=== PATIENT | female | born 1945 | race Caucasian/White ===

== ENCOUNTER 2017-06-28 08:30 | Emergency (ER) | payer MEDICARE, OTHER ==
[~2017-06-28] VITALS: Ht 157.5 cm; Wt 66.7 kg
[~2017-06-28 08:30] MED LIST: ACETAMINOPHEN325 M1 PO; ADVAIR 250-501 EACH IH; ALBUTEROL SULF8.5 GM INH; ALBUTEROL2.5 MG/3 M IH; ALBUTEROL2.5 MG/3 M INH; AMLODIPINE BESYL5 MG PO; ASPIRIN EC81 MG PO; ATIVAN1 MG PO; BREO ELLIPTA I1 EACH INH; BUDEPRION XL150 MG PO; CLARITIN10 MG PO; CLONIDINE HCL0.1 MG PO; COMBIVENT INH14.7 GM INH; COZAAR100 MG PO; DIFLUCAN200 MG PO; DILT-CD240 MG PO; DILTIAZEM ER60 MG PO; DUONEB 0.5 MG-33 ML IH; DUONEB 0.5 MG-33 ML INH; FLONASE2 SPRAY; FOLIC ACID1 MG; FOLIC ACID1 MG PO; HYDROCHLOROTHIA25 MG PO; HYDROXYCHLOROQ200 MG PO; LEVAQUIN500 MG PO; LEVOTHROID125 MCG PO; LEVOTHROID137 MCG PO; LEVOTHYROXINE112 MCG PO; LIPITOR40 MG PO; LOMOTIL TABLET1 EACH PO; LORAZEPAM1 MG; METHOTREXATE2.5 MG PO; MIRALAX17 GM PO; MUCINEX DM ER1 EACH PO; NIFEDICAL XL60 MG PO; NIFEDIPINE ER60 M1 PO; NORCO 5-325 TA1 EACH PO; OMEPRAZOLE20 MG PO; PHENADOZ25 MG PR; PLAQUENIL200 MG PO; PLAVIX75 MG PO; PREDNISONE10 MG PO; PREVACID15 MG PO; PROMETHAZINE HC25 M1 PO; PROMETHAZINE12.5 M1 PO; QVAR INH; QVAR7.3 G1 IH; QVAR7.3 G1 INH; RANITIDINE HCL150 M1 PO; RANITIDINE HCL150 MG PO; SALINE NASAL SP45 ML NAS; SEREVENT DISKU1 PUFF IH; SIMVASTATIN20 MG PO; SIMVASTATIN40 MG PO; SPIRIVA18 MCG IH; SYNTHROID137 MCG PO; TERAZOSIN HCL1 MG PO; VENTOLIN HFA18 GM IH; ZOCOR40 MG PO; ZOFRAN8 MG PO
[2017-06-28] MEDS ORDERED: VENTOLIN HFA18 GM INH (08:55)
[2017-06-28] MEDS ORDERED: PREDNISONE20 MG PO (11:42)
[2017-06-28] MEDS ORDERED: ZITHROMAX250 MG PO (11:42)
--- NOTE | 2017-06-28 19:06 | EKG ---
[facility] [address] [facility] [place] [address] Signed Normal sinus rhythm Minimal voltage criteria for LVH, may be normal variant Nonspecific ST abnormality Abnormal ECG When compared with ECG of 15-DEC-2016 09:56, No significant change was found Confirmed by IRA CHING MD ([id number]) on 06/28/2017 7:06:36 PM Electronically Signed By: IRA CHING MD 06/28/17 1906 PATIENT NAME: YANDEL CA Electrocardiogram DATE OF : 45 PHYSICIAN: IRA CHING MD REPORT #: [id number] REPORT IS CONFIDENTIAL AND NOT TO BE RELEASED WITHOUT AUTHORIZATION
== END 2017-06-28 11:55 | disposition home or self-care (01) ==
LOC: ED 08:30
DX: J44.1 Chronic obstructive pulmonary disease with (acute) exacerbation (principal); I10 Essential (primary) hypertension; I25.10 Atherosclerotic heart disease of native coronary artery without angina pectoris; E03.9 Hypothyroidism, unspecified; K21.9 Gastro-esophageal reflux disease without esophagitis; F17.200 Nicotine dependence, unspecified, uncomplicated; Z95.5 Presence of coronary angioplasty implant and graft; Z90.710 Acquired absence of both cervix and uterus; Z90.49 Acquired absence of other specified parts of digestive tract; Z90.10 Acquired absence of unspecified breast and nipple; Z88.8 Allergy status to other drugs, medicaments and biological substances; Z79.899 Other long term (current) drug therapy
CPT/HCPCS: 71020; 80053; 84484; 85025; 93005; 93010; 94640; 96361; 96374; 99284; J2930; J7030

== ENCOUNTER 2017-06-29 22:11 | Inpatient (IN) | payer MEDICARE, SELFPAY ==
[~2017-06-29] VITALS: Ht 157.5 cm; Wt 72.6 kg
[~2017-06-29 22:11] MED LIST changes: +PREDNISONE20 MG PO; +VENTOLIN HFA18 GM INH; +ZITHROMAX250 MG PO
[2017-06-30] MEDS ORDERED: MAG-OXIDE200 MG PO (12:42)
--- NOTE | 2017-07-01 14:25 | EKG ---
[facility] [address] [facility] [place] [address] Signed Normal sinus rhythm with sinus arrhythmia Normal ECG When compared with ECG of 28-JUN-2017 08:38, No significant change was found Confirmed by ANA COOL MD ([id number]) on 07/01/2017 2:25:00 PM Electronically Signed By: ANA COOL MD 07/01/17 1425 PATIENT NAME: CLARE CARA AVILA Electrocardiogram DATE OF : 45 PHYSICIAN: ANA COOL MD REPORT #: [id number] REPORT IS CONFIDENTIAL AND NOT TO BE RELEASED WITHOUT AUTHORIZATION
--- NOTE | 2017-07-01 14:27 | EKG ---
[facility] [address] [facility] [place] [address] Signed Poor data quality, interpretation may be adversely affected Atrial fibrillation with rapid ventricular response Nonspecific ST and T wave abnormality Abnormal ECG When compared with ECG of 29-JUN-2017 22:15, (Unconfirmed) Atrial fibrillation has replaced Sinus rhythm Confirmed by ANA COOL MD ([id number]) on 07/01/2017 2:27:08 PM Electronically Signed By: ANA COOL MD 07/01/17 1427 PATIENT NAME: YANDEL CA Electrocardiogram DATE OF : 45 PHYSICIAN: ANA COOL MD REPORT #: [id number] REPORT IS CONFIDENTIAL AND NOT TO BE RELEASED WITHOUT AUTHORIZATION
[2017-07-03] MEDS ORDERED: ATIVAN1 MG PO (09:54)
[2017-07-29] MEDS ORDERED: NYSTATIN100000 UN1 PO (14:20)
== END 2017-07-07 10:20 | disposition swing bed (61) | DRG 189 ==
LOC: ED 22:11 → CCU 06-30 00:23 → MS 07-06 11:15
PROVIDERS: ADMIT Internal Medicine
PROC: 0BH17EZ Insertion of Endotracheal Airway into Trachea, Via Natural or Artificial Opening (ICD-10-PCS; principal; 2017-06-30)
PROC: 02HV33Z Insertion of Infusion Device into Superior Vena Cava, Percutaneous Approach (ICD-10-PCS; 2017-06-30)
DX: J96.21 Acute and chronic respiratory failure with hypoxia (principal); J44.1 Chronic obstructive pulmonary disease with (acute) exacerbation; J96.22 Acute and chronic respiratory failure with hypercapnia; J32.4 Chronic pansinusitis; R34 Anuria and oliguria; F41.8 Other specified anxiety disorders; E03.9 Hypothyroidism, unspecified; K21.9 Gastro-esophageal reflux disease without esophagitis; I25.10 Atherosclerotic heart disease of native coronary artery without angina pectoris; I10 Essential (primary) hypertension; G47.62 Sleep related leg cramps; I73.9 Peripheral vascular disease, unspecified; Z99.81 Dependence on supplemental oxygen
CPT/HCPCS: 31500; 31720; 36415; 36569; 36600; 51701; 71010; 80053; 80069; 82570; 82803; 83735; 83880; 84100; 84300; 84484; 84540; 85025; 85379; 85610; 85730; 93005; 93010; 93306; 94002; 94003; 94150; 94640; 94644; 94660; 94667; 97110; 97162; 97530; J0295; J1650; J2060; J2250; J2270; J2405; J2704; J2765; J2930; J3010; J7050; J7120; J7512; Q0177

== ENCOUNTER 2017-07-07 10:20 | Inpatient (IN) | payer MEDICARE ==
[~2017-07-07] VITALS: Ht 157.5 cm; Wt 72.6 kg
[~2017-07-07 10:20] MED LIST changes: +MAG-OXIDE200 MG PO
--- NOTE | 2017-07-07 10:41 | NUR ---
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
--- NOTE | 2017-07-07 13:25 | NUR ---
pt wanted to remove bipap. 4l 02 via nc placed. no further needs at this time.
--- NOTE | 2017-07-07 15:40 | NUR ---
PATIENT IS RELAXING IN BED SHE SHARI WANTS TO LAY AND SEE IF HER STOMACH SETTLES.
--- NOTE | 2017-07-07 16:55 | NUR ---
pt breathing equal and improved. able to talk well without breathing hard. wants to walk after dinnerbefore getting ready for bed. no pain at this time. call light and personal items at bedside. family at bedside. no nausea today.
--- NOTE | 2017-07-07 18:42 | NUR ---
SMOKER. SOB. BREATHING TREATMETNS WORKING. LUNGS CLREAER. STILL DIM. PREVIOUS INTUBATIONS X4. PT AND OT TO WORK WITH HER. WOULD LIKE TO EALK AFTER DINNER. DAILY AUGMENTEN. LOOSE STOOLS WITH ATIBIOTICS. 3L SATING @ 92%. SL RIGHT UPPER ARM. PICC. CARDIAC DIET. VSS. STA.SWING BED.
--- NOTE | 2017-07-07 19:26 | NUR ---
RECIEVED REPORT FROM DAY SHIFT NURSE. PATIENT RESTING IN BED. REQUESTED TO TAKE OFF BIPAP, NASAL CANNULA IN PLACE AT THIS TIME. PATIENT DENIES NEEDS. CALL LIGHT IN REACH.
--- NOTE | 2017-07-07 19:34 | NUR ---
PER PT REQUEST SHE WANTED ME TO TAKE OFF HER BI-PAP. PUT HER NASAL CANULA BACK ON. INFORMED HER RN THAT I DID THAT. CALL LIGHT AND BEDSIDE TABLE WITHIN REACH.
--- NOTE | 2017-07-07 20:18 | NUR ---
PATIENT AMNBULATED AROUND ROOM WITH SBA. DENIES SOB WITH WALKING IN ROOM. 4L VIA NASAL CANNULA IN PLACE. EXP WHEEZE HEARD IN CL[place]IS[place], DIMINISHED IN ALL LUNG MATHUR. BS ACTIVE, NO EMEMA NOTED. PATIENT DENIES PAIN AT THIS TIME. DENIES NEEDS, CALL LIGHT IN REACH.
--- NOTE | 2017-07-07 21:45 | NUR ---
VITALS AND I&OS DONE. PT REQUESTED A SAND BOX. WE GOT IT FOR HER. CALL LIGHT AND TABLE WITHIN REACH.
--- NOTE | 2017-07-07 22:23 | NUR ---
PLACED BIPAP ON PATIENT. DENIES FURTHER NEEDS. CALL LIGHT IN REACH.
--- NOTE | 2017-07-07 23:17 | NUR ---
PATIENT SLEEPING IN BED. NASAL CANNULA IN PLACE. CALL LIGHT IN REACH.
--- NOTE | 2017-07-08 01:30 | NUR ---
PATIENT SLEEPING ON L SIDE. REPOSITIONED INDEPENDENTLY. NASAL CANNULA IN PLACE. CALL LIGHT IN REACH.
--- NOTE | 2017-07-08 02:17 | NUR ---
PATIENT SITTING UPRIGHT IN BED COUGHING. COUGH IS NON-PRODUCTIVE. SWITCHED FROM OXYMASK TO NASAL CANNULA. PATIENT IS ON 3L/MIN O2. LUNGS ARE DIMINISHED THROUGHOUT, NO WHEEZES HEARD. PATIENT DENIES NEED FOR NEB TX AT THIS TIME. HR TACHY AT 100. TELE #7 SHOWING SINUS TACHYCARDIA. BOWEL TONES ACTIVE. NO EDEMA. PATIENT DENIES PAIN. CAFETERIA COOK ASSISTED PATIENT TO BATHROOM. PATIENT DENIES NEEDS, CALL LIGHT IN REACH.
--- NOTE | 2017-07-08 03:34 | NUR ---
PATIENT AWAKE. REQUESTING GRAPE JUICE ON ICE. DENIES FURTHER NEEDS. CALL LIGHT IN REACH.
--- NOTE | 2017-07-08 04:08 | NUR ---
RT ADMINISTERING NEB TX.
--- NOTE | 2017-07-08 04:32 | NUR ---
PATIENT CONCERNED SHE HAS SMALL AMOUNT OF BLOOD IN TISSUE WHEN SHE BLOWS HER NOSE. BIPAP PLACED ON PATIENT. DENIES FURTHER NEEDS. CALL LIGHT IN REACH.
--- NOTE | 2017-07-08 05:10 | NUR ---
PATIENT REQUESTING FOR VISTERIL. STATES SHE IS STARTING TO FEEL ANXIOUS AND SHE KNOWS WHEN HER "ANXIETY IS COMING ON." ASSISTED PATIENT TO BATHROOM. VOIDED. BACK TO BED. CEPACOL ADMINISTERED PER PATIENT REQUEST FOR "DRY MOUTH." PATIENT REQUESTING ICE CREAM. CALL DASH IN REACH.
--- NOTE | 2017-07-08 07:20 | NUR ---
PT RESTING IN BED EYES CLOSED. N.C. ON 4L OXYGEN. NO DISTRESS NOTED. BEDSIDE REPORT FROM MOOKIE PARKS. PT APPEARS TO BE SLEEPING
--- NOTE | 2017-07-08 08:07 | NUR ---
PATIENT JUST GOT A NEB. TREATMENT DONE. SHE IS NOW RESTING. PATIENT DOSEN'T WANT TO EAT HER FOOD RIGHT NOW.
--- NOTE | 2017-07-08 09:12 | NUR ---
PICC LINE DRESSING CHANGED WITH SECUREMENT DEVICE PLACED. PT TOLERATED WELL. SHE DID VERBALIZED DISCOMFORT WITH REMOVAL OF OLD PICC LINE DRESSING.
--- NOTE | 2017-07-08 11:00 | NUR ---
UPDATED ON PT CARE THIS AM. NOTED LOOSE STOOLS X2 AND THAT PT REPORTS THIS IS NORMAL FOR HER. PT ALSO ANXIOUS AND REQUESTS VISTRIL PRN. SHE REPORTS HER ANXIETY IS WORK RELATED.
--- NOTE | 2017-07-08 12:30 | NUR ---
PT UP TO SIMEON COMMODE FOR SECOND LOOSE BM THIS AM.
--- NOTE | 2017-07-08 13:36 | NUR ---
PT UP TO BEDSIDE COMMODE NOW WITH RETIREMENT ASSISTANT
--- NOTE | 2017-07-08 16:50 | NUR ---
PT RESTING IN BED REPORTS SHE WOULD LIKE A COFFEE, SHE REPORTS NO PAIN OR NAUSEA
--- NOTE | 2017-07-08 18:21 | NUR ---
PATIENT SAID SHE WOULD TAKE A SHOWER FIRST THING TOMORROW. SHE WAS VERY SLEEPY TODAY.
--- NOTE | 2017-07-08 18:45 | NUR ---
PT HAS HAD THREE LOOSE STOOLS THIS AM, PT REPORTS THAT HAPPENS WHEN SHE IS STRESSED. REPORTS STRESSED FROM WORK ISSUES. SHE HAS DENIED NAUSEA AND PAIN OVER SHIFT. SHE HAS HAD GOOD NUTRITIONAL INTAKE. GOOD URINE OUTPUT. PT ON 3L N.C. TOLERATING ACTIVITY WELL NO DYSPNEA NOTED WITH AMBULATION TO BATHROOM. BIPAP AT BEDSIDE FOR SLEEPING AND INTERMITTEN TOLERATED
--- NOTE | 2017-07-08 19:26 | NUR ---
RECIEVED REPORT FROM DAY SHIFT NURSE. PATIENT IN BED. USING SUCTION. CALL LIGHT IN REACH.
--- NOTE | 2017-07-08 20:27 | NUR ---
PATIENT IS UP IN THE CHAIR. CHARLY DAMICO NOTIFIED. PATIENT STATED JUST WANT TO SIT FOE A LITTLE WHILE, WILL CALL WHEN NEEDS TO GO BACK TO BED. CALL LIGHT IS WITHIN REACH.
--- NOTE | 2017-07-08 20:43 | NUR ---
PATIENT SITTING UPRIGHT IN CHAIR. LUNGS DIMINISHED, HR REGULAR, NO EDEMA. PATIENT IS CURRENTLY ON 3L VIA NC. PATIENT STATES THAT IS WHAT SHE IS CHRONICALLY ON AT HOME. PATIENT HAD A COUPLE LOOSE BMS TODAY. SHE SAYS THAT IS NORMAL WHEN SHE IS STRESSED. PATIENT STATES SHE HAS BEEN STRESSED LATELY ABOUT WORK AND SHE IS UNSURE IF SHE WILL BE ABLE TO KEEP WORKING. PATIENT DENIES NEEDS AT THIS TIME. CALL LIGHT IN REACH.
--- NOTE | 2017-07-08 22:30 | NUR ---
CHARLY GARCIA NOTIFIED RE BP.
--- NOTE | 2017-07-08 22:30 | NUR ---
ASSISTED PATIENT BACK TO BED. PATIENT DID NOT NEED ANYTHING AT THE MOMENT. CALL LIGHT WITHIN REACH.
--- NOTE | 2017-07-08 23:14 | NUR ---
PATIENT REQUESTING SOMETHING COLD TO DRINK AND ICE CREAM. DENIES FURTHER NEEDS.
--- NOTE | 2017-07-09 | NUR ---
administered neb per pt request. pt sitting up at bedside. no apparent distress. oxygen saturation is 93% on 3l via nc.
--- NOTE | 2017-07-09 00:24 | NUR ---
PLACED BIPAP ON PATIENT PER PT'S REQUEST. PRN NEB TX ADMINISTERED.
--- NOTE | 2017-07-09 01:48 | NUR ---
PATIENT SLEEPING ON R SIDE. NASAL CANNULA IN PLACE. CONT. PULSE OX READING 94%. CALL LIGHT IN REACH.
--- NOTE | 2017-07-09 03:00 | NUR ---
RESTAURANT SUPERVISOR OBTIANED VS. RESTAURANT SUPERVISOR ASSISTED PATIENT TO BATHROOM AFTER VS. MADE SURE PATIENT DID NOT AMBULATE BEFORE VS TAKEN. BP WAS HIGH EARLIER.
--- NOTE | 2017-07-09 03:21 | NUR ---
SPOKE WITH MD ABOUT PATIENT'S BLOOD PRESSURE.
--- NOTE | 2017-07-09 04:34 | NUR ---
PATIENT SLEEPING WITH NASAL CANNULA IN PLACE. CONT. PULSE OX READING 95%. CALL LIGHT IN REACH.
--- NOTE | 2017-07-09 05:14 | NUR ---
PATIENT REQUESTING FOR NEB TX. PULSE OX READING 92% ON 3L. PATIENT ALSO STATES SHE IS NERVOUS. MEDICATION ADMINISTERED PER SEP.
--- NOTE | 2017-07-09 05:41 | NUR ---
PATIENT'S BP STILL ELEVATED THIS MORNING. CALLED MD. OBTAINED ORDER. WILL ADMINISTER MORNING BP MED EARLY.
--- NOTE | 2017-07-09 06:40 | NUR ---
PATIENT SLEEPING. CONT PULSE OX READING 95%. CALL DASH IN REACH.
--- NOTE | 2017-07-09 07:15 | NUR ---
BEDSIDE REPORT FROM MOOKIE PARKS. PT RESTING IN BED EYES CLOSED NO DISTRESS NOTED. PULSE OXIMETRY READS 94% ON 3L OXYGEN. PT APPEARS TO BE SLEEPING
--- NOTE | 2017-07-09 07:45 | NUR ---
SET PATIENT UP IN BED FOR BREAKFAST. PATIENT WASHED HANDS AND FACE. TALKED TO PATIENT ABOUT TAKING A SHOWER AFTER BREAKFAST. PATIENT AGREED. FRESH ICE WATER GIVEN. NO OTHER NEEDS AT THIS TIME. CALL BUTTON IN REACH.
--- NOTE | 2017-07-09 08:15 | NUR ---
ASSISTED PATIENT BACK TO BED FROM BSC. PATIENT STATES THAT SHE'S HAVING A REALLY HARD TIME BREATHING. SAT'S AT 90%. RT AND NURSE NOTIFIED. TALKED TO PATIENT ABOUT DEEP BREATHING AND RELAXING.
--- NOTE | 2017-07-09 08:20 | NUR ---
PT HAVING INCREASED ANXIETY, INCREASED B/S, SCHEDULED B/P MEDICATION GIVEN. PT RESP RATE UP TO 35 BPM, R.T. IN ROOM FOR NEB AND BIPAP. MD CALLED ORDERED TO GIVEN VISTRIL DOSE NOW. MEDICATIONS GIVEN. RN DISCUSSED STRESS MANAGEMENT AND COPING TECHNIQUES, WELL RELAXATION EXERSICES.
--- NOTE | 2017-07-09 08:41 | NUR ---
PT IMPROVING, NOW. PT VEBALIZED STRESSED ABOUT SHOWERING AND PHYSICAL THERAPY AND FEELING SHORT OF BREATH. RN RE-ASSURED PT THAT HER CARE WILL BE TAILORED ACCORDINGLY TO HOW SHE IS FEELING AT THE TIME.
--- NOTE | 2017-07-09 08:59 | NUR ---
PT ON BIPAP NOW, SHE REPORTS SHE IS FEELING MUCH BETTER AT THIS TIME. MORE RELAXED. PT REPORTS SHE IS GOING TO TRY TO SLEEP NOW ON BIPAP. UPDATED AT THIS TIME.
--- NOTE | 2017-07-09 09:05 | NUR ---
TOOK PT TO THE BR
--- NOTE | 2017-07-09 10:28 | NUR ---
PATIENT SITTING UP IN BED RESTING WITH BI-PAP ON.
--- NOTE | 2017-07-09 11:58 | NUR ---
patient sitting up in bed talking on cell phone.
--- NOTE | 2017-07-09 12:21 | NUR ---
PT ADMINISTERED TRAZODONE 25MG PO PRN FOR ANXIETY. DISCUSSED RELAXATION AND STRESS MANAGEMENT TECHNIQUES. PT REPORTS SHE IS NOT READY TO DO PHYSICAL THERAPY AT THIS TIME. PHYSICAL THERAPY TO COME BACK AND RE-ASSESS READINESS THIS AFTERNOON. RESPIRATORY CALLED TO DISCUSS HUMIDIFICATION TO BIPAP. RESPIRATORY REPORTS SHE IS HEADED THERE NOW.
--- NOTE | 2017-07-09 13:10 | NUR ---
PT SITTING UP ON 4L N.C. EATING LUNCH. NEWSPAPER AND PUZZLE BOARD GIVEN TO PT TO ASSIST WITH ANXIETY.
--- NOTE | 2017-07-09 13:20 | NUR ---
PT WAS ALERT AND OREINTED. SHE BEGAN TO DISCUSS WITH ME HER DNR\DNI STATUS AND HOW IT IS EFFECTING HER SONS. ENTEBATION THIS TIME WAS REALLY TOUGH ON HER. PT STATED SHE DIDNOT WANT TO GO THROUGH THIS AGAIN, BUT HER SONS WERE STRUGGLING WITH THE DNI PORTION OF HER ADVANCE DIRECTIVE. HER BRO IS COMING LATE THIS AFTERNOON FOR A VISIT. SET UP CARE CONF WITH ALAN AND DR CHING. I WILL CONTINUE TO FOLLOW-HAD PRAYER FOR CLARITY TO MAKE THE BEST DECISION FOR HER AND HER FAMILY
--- NOTE | 2017-07-09 13:50 | NUR ---
PATIENT RESTING IN BED. PATIENT REQUSTED TO HAVE THE BI-PAP PUT BACK ON. FRESH ICE WATER GIVEN. NO OTHER NEEDS AT THIS TIME.
--- NOTE | 2017-07-09 14:44 | NUR ---
PT RESTING IN BED REPORTS SHE FEELS MUCH BETTER NOW. SHE IS ON BIPAP CURRENTLY OXYGEN SATURATION 94% AT THIS TIME. B/P IMPROVING. UPDATED
--- NOTE | 2017-07-09 16:12 | NUR ---
RT INTO SEE PATIENT.
--- NOTE | 2017-07-09 16:59 | NUR ---
VISITORS INTO SEE PATIENT.
--- NOTE | 2017-07-09 17:35 | NUR ---
CARE CONFERENCE ATTENDEES: PT, HER SON OSVALDO AND HIS , HER BROTHER ANALISA AND HIS . STAFF: DR CHING, MYSELF CASE MANAGEMENT, CRIS NORMAN RN. DR CHING WAS DISCUSSING THE PT CONDITION AND HOW SHE SEEMS TO BE MAKING A GOOD STRONG COMEBACK AND GETTING STRONGER DAILY, ALSO REMINDS THERE MAY BE SET BACKS,. UPON PT REQUEST DR CHING TALKED WITH THE PT AND THE FAMILY ABOUT THE POLST FORM AND THE PTS DECISION NOT TO BE INTUBATED AGAIN. PT WANTS THE FAMILY TO UNDERSTAND HER DESIRES AND THAT SHE DOES NOT WANT CPR OR INTUBATION GOING FORWARD. DR CHING FILLED OUT THE POLST FORM READING IT THOROUGHLY ALOUD FOR THE PT AND FAMILY TO HEAR AND PT SIGNED THE FORM WITH HER SONS BLESSING HE STATES MOM I WANT WHAT YOU WANT AND THINK IS BEST FOR YOU. COPIES OF THE POLST FORM WERE MADE AND GIVEN TO SON. PT DID ASK IF WE COULD CHECK INTO GETTING A EMT/PARAMEDIC FOR HER FOR JUST A FEW HOURS A WEEK. TOLD HER I WOULD LOOK INTO THIS FOR HER. PT AND HER FAMILY DENIED FURTHER QUESTIONS AT THIS TIME AND TOLD THEM JUST TO ASK THE NURSE TO GET A HOLD OF US AND WE WILL COME VISIT.
--- NOTE | 2017-07-09 17:52 | NUR ---
CARE PLAN THIS AFTERNOON POLST COMPLETED. PT HAS HAD INCREASED ANXIETY MOST OF SHIFT, NEW MEDICATIONS ORDER, ANXIETY IMPROVED AT THIS TIME. PT REFUSED PHYSICAL THERAPY TWICE TODAY. ONE PERSON ASSIST TO BEDSIDE COMMODE. B/P HAS BEEN ELEVATED, AWARE. PT INCREASED TO 4L N.C. WITH ANXIETY.
--- NOTE | 2017-07-09 19:20 | NUR ---
RECEIVED REPORT FROM RN. PATIENT IS RESTING COMFORTABLY IN BED, BREATHING IS EVEN AND UNLABORED ON BIPAP. O2 SATURATION IS 94% ON 40% O2, PULSE IS 68. PATIENT APPEARS COMFORTABLE WITHOUT DISTRESS. DENIES NEEDS AT THIS TIME. CALL LIGHT WITHIN REACH.
--- NOTE | 2017-07-09 20:02 | NUR ---
PATIENT WANTED TO BE OFF FROM BIPAP STATED SHE'S BEEN ON WHOLE DAY. RT JUST CAME IN ROOM AND NOTIFIED. PATIENT IS IN 4L VIA NC. PATIENT ASKED SOME SNACKS. PEANUT BUTTER HOT JORGE LUIS AND THEODORE CRACKERS GIVEN.
--- NOTE | 2017-07-09 20:40 | NUR ---
patient resting cofmortably in bed, breathing is even and unlabored. O2 saturation is 93% on bipap, pulse is 68. patient denies needs at this time. assessment done, medications given. gave prn medication for anixety per emar. call light within reach.
--- NOTE | 2017-07-09 20:50 | NUR ---
UPDATED ABOUT PATIENT'S BP OF 185/48.
--- NOTE | 2017-07-09 20:56 | NUR ---
UPDATED DR. CHING REGARDING BP OF 185/48. INFORMED HER THAT PRN NORVASC WILL BE GIVEN. NO NEW ORDERS.
--- NOTE | 2017-07-09 21:42 | NUR ---
PATIENT RESTING COMFORTABLY IN BED, BREATHING IS EVEN AND UNLABORED ON BIPAP. O2 SATURATION IS 94%. DENIES NEEDS AT THIS TIME. PRN NORVASC GIVEN PER ORDERS. CALL LIGHT WITHIN REACH.
--- NOTE | 2017-07-09 23:33 | NUR ---
PATIENT RESTING COMFORTABLY IN BED, BREATHING IS EVEN AND UNLABORED. PATIENT REQUESTS TO TAKE BIPAP OFF, PUT PATIENT BACK ON O2 VIA NC. O2 SATURATION IS 95%. ASSISTED PATIENT TO COMODE, TOLERATED WELL. DENIES FURTHER NEEDS AT THIS TIME. CALL LIGHT WITHIN REACH.
--- NOTE | 2017-07-09 23:49 | NUR ---
PT AWAKE, WHEN RN ENTERED ROOM WITH BREATHING TREATMENT. DENIES PAIN, DENIES NEEDS, CALL LIGHT WITHIN REACH.
--- NOTE | 2017-07-10 00:04 | NUR ---
PT REQUESTED THE BIPAP ON. PLANS TO SLEEP CALL LIGHT WITHIN REACH.
--- NOTE | 2017-07-10 01:11 | NUR ---
PATIENT RESTING IN BED COMFORTABLY, BREATHING IS EVEN AND UNLABORED. O2 SATURATION IS 94% ON 4L O2 VIA NC, PULSE IS 77. CEPACOL LOZENGE GIVEN AND PRN TRAZADONE GIVEN PER EMAR. PATIENT DENIES FURTHER NEEDS AT THIS TIME. CALL LIGHT WITHIN REACH.
--- NOTE | 2017-07-10 01:30 | NUR ---
PATIENT PUT BACK ON BIPAP. NO FURTHER NEEDS. RESTING COMFORTABLY, BREATHING EVEN AND UNLABORED. CALL LIGHT WITHIN REACH.
--- NOTE | 2017-07-10 03:17 | NUR ---
PATIENT REQUESTING TO BE TAKEN OFF BIPAP. BREATHING IS UNLABORED ON 4L HUMIDIFED O2 VIA NC. O2 SATURATION IS 95%. DENIES FURTHER NEEDS AT THIS TIME. CALL LIGHT WITHIN REACH.
--- NOTE | 2017-07-10 05:19 | NUR ---
PATIENT'S NIGHT WAS UNEVENTFUL. SHE HAS BEEN RESTING COMFORTABLY THROUGHOUT SHIFT. HAD BP OF 185/48, PRN NORVASC GIVEN PER EMAR. DR. CHING WAS MADE AWARE. ALL OTHER VITALS STABLE, URINE OUTPUT QS. ALERT AND ORIENTED X3, ANXIOUS AT TIMES. GAVE PRN TRAZODONE NAD VISTARIL GIVEN PER EMAR. LUNGS ARE CLEAR, REQUIRES 4L 02 VIA NC TO MAINTAIN O2 SATURATION >90%, WEARS BIPAP ON AND OFF THROUGHOUT NIGHT. PATIENT IS 1PA/FWW. PICC TO RIGHT ARM IS HEP LOCKED, FLUSHING WELL, GOOD BLOOD RETURN. TOLERATING REGULAR DIET. NO ACUTE CHANGS FROM BEGINNING OF SHIFT.
--- NOTE | 2017-07-10 06:10 | NUR ---
UPDATED DR. CHING REGARDING PATIENT'S LOW URINE OUTPUT. NO NEW ORDERS AT THIS TIME.
--- NOTE | 2017-07-10 06:35 | NUR ---
TRIED TO CONVINCED PATIENT TO GET UP TO THE COMMODE. PATIENT DENIED OF NEEDING TO VOID EVEN I TOLD HER THAT IT HAS BEEN 5 HOURS SINCE THE LAST TIME SHE VOIDED.SHE STATED " I DONT FEEL I NEED TO USE THE BATHROOM RIGHT NOW." NURSE IS AWARE.
--- NOTE | 2017-07-10 06:39 | NUR ---
PATIENT RESTING COMFORTABLY IN BED, BREATHING IS EVEN AND UNLABORED. O2 SATURATION IS 96% ON 4L HUMIDIFIED O2 VIA NC. ASSISTED PATIENT TO COMODE, TOLERATED WELL. NO OTHER NEEDS AT THIS TIME. CALL LIGHT WITHIN REACH.
--- NOTE | 2017-07-10 07:19 | NUR ---
BEDSIDE REPORT RECEIVED FROM RITIKA. ASSUMING CARE FOR PATIENT AT THIS TIME. PATIENT SITTING IN BED AWAKE. DENIES ANY PAIN AT THIS TIME. 02 SAT 94 ON 4L. NO APPARENT DISTRESS.
--- NOTE | 2017-07-10 07:54 | NUR ---
IN TO ROOM TO HELP PATIENT. SET UP BREAKFAST TRAY AND 0800 O'CLOCK MED ADMINISTERED. NO OTHER REQUEST. PATIENT SITTING AND EATING BREAKFAST AT THIS TIME.
--- NOTE | 2017-07-10 09:15 | NUR ---
IN TO ROOM TO ASSESS PATIENT. PATIENT DENIES PAIN AND SOB. TOOK HER MONING MEDS WITH PUDDING WIHT NO DIFFICULTY. LUNGS COARSE THROUGHOUT AND DIM IN THE BASES. NO EDEMA IN THE LOWER EXTREMITIES. POSITIVE BOWEL TONES. PATIENT HAS CONGESTIVE/PRODUCTIVE COUGH. PATIENT IS ON 4L O2 VIA NC. HAS BEEN UP TO BATHROOM. CALL LIGHT IN REACH.NO OTHER REQUEST. WILL CONTINUE TO MONITOR
--- NOTE | 2017-07-10 09:29 | NUR ---
PATIENT RESTING IN BED. RN TALKED TO PATIENT ABOUT GETTING UP FOR A SHOWER BEFORE LUNCH. PATIENT AGREED. FRESH ICE WATER GIVEN. CALL BUTTON IN REACH.
--- NOTE | 2017-07-10 10:49 | NUR ---
PATIENT SITTING UP IN BED VISITING WITH FAMILY.
--- NOTE | 2017-07-10 11:35 | NUR ---
PATIENT AMBULATING IN HALLWAY WITH PT.
--- NOTE | 2017-07-10 12:15 | NUR ---
PATIENT ASSISTED TO BED. PATIENT REPORTS THAT SHE IS TIRED AND REFUSED SHOWER AT THIS TIME. NEB TX ADMINISTERED PER RT. WARM BLANKET PROVIDED. NO APPARENT DISTRESS. WILL CONTINUE TO MONITOR.
--- NOTE | 2017-07-10 13:10 | NUR ---
CARE CONF WAS YESTERDAY, AND FAMILY WELL PT SEEM TO BE MORE COMFORTABLE. FAMILY IN TO SEE PT, LEAVING TO RETURN TO [place]. THEY REQUESTED I CONTINUE TO LOOK IN ON PT WHICH I SAID I WOULD. HAD PRAYER WITH ALL-EXTENDED A BLESSING
--- NOTE | 2017-07-10 14:03 | NUR ---
PATIENT AMBULATING IN HALLWAY WITH PT.
--- NOTE | 2017-07-10 15:19 | NUR ---
RN IN ROOM ASSISTING WITH SHOWER.
--- NOTE | 2017-07-10 15:38 | NUR ---
ASSISTED PATIENT TO BATHROOM AND SHOWER. PATIENT TOLERATED WELL. THEN PATIENT WAS ASSISTED TO BED WITH NO DIFFICULTY. PATIENT STILL ON 4L OF O2. PATIENT DENIES PAIN AND REPORTS MILD SOB WITH ACTIVITY. RESTING IN BED AT THIS TIME.
--- NOTE | 2017-07-10 18:32 | NUR ---
PATIENT HAD DONE WELL TODAY. WALKED WITH PHYSICAL THERAPIST TWICE TODAY. HAD A SHOWER TODAY. PATIENT STILL ON 4L OF 02 VIA NC. BIPAP PRN. SBA. PATIENT IS IN GOOD SPIRIT TODAY. TRAZODONE ADMINISTERED THIS PM PER PATIENT RESQUEST.
--- NOTE | 2017-07-10 19:00 | NUR ---
RECEIVED REPORT FROM RN. PATIENT RESTING COMFORTABLY IN BED, BREATHING IS EVEN AND UNLABORED, APPEARS TO BE ASLEEP. O2 SATURATION IS 93% ON 4L HUMIDIFIED O2 VIA NC. CALL LIGHT WITHIN REACH.
--- NOTE | 2017-07-10 22:15 | NUR ---
PATIENT RESTING COMFORTABLY IN BED, BREATHING IS EVEN AND UNLABORED. O2 SATURATION IS 93% ON 4L HUMIDIFIED O2. DENIES NEEDS AT THIS TIME. ASSESSMENT DONE, MEDICATIONS GIVEN. CALL LIGHT WITHIN REACH.
--- NOTE | 2017-07-11 00:48 | NUR ---
PATIENT RESTING COMFORTABLY IN BED, BREATHING IS EVEN AND UNLABORED. O2 SATURATION IS 97% ON 4L O2 VIA NC. CALL LIGHT WITHIN REACH.
--- NOTE | 2017-07-11 03:56 | NUR ---
PATIENT RESTING COMFORTABLY IN BED, BREATHING IS EVEN, RR IS 22. PATIENT STATES "I FEEL LIKE I AM HAVING A LITTLE BIT OF A HARD TIME BREATHING." LLL HAS CRACKLES, ALL OTHER LUNG MATHUR CLEAR. O2 SATURATION IS 96% ON 4L O2. PATIENT ASKS IF SHE CAN HAVE A BREATHING TREATMENT. RT NOTIFIED. CALL LIGHT WITHIN REACH.
--- NOTE | 2017-07-11 04:48 | NUR ---
PATIENT RESTING COMFORTABLY IN BED, BREATHING IS EVEN AND UNLABORED. O2 SATURATION REMAINS >90% ON 4L O2 VIA NC. PATIENT REPORTS FEELING ANXIOUS, PRN VISTARIL GIVEN PER EMAR. DENIES FURTHER NEEDS. TITRATED O2 DOWN TO 3L. WILL CONTINUE TO MONITOR.
--- NOTE | 2017-07-11 05:34 | NUR ---
PATIENT'S NIGHT WAS UNEVENTFUL. SHE HAS BEEN RESTING COMFORTABLY IN BED THROUGHOUT SHIFT. VSS, URINE OUTPUT QS. NO COMPLAINTS OF PAIN. ALERT AND ORIENTED X3. ANXIOUS AT TIMES, RESPONDS WELL TO PRN VITARIL. LUNGS REMAIN CLEAR, WAS ABLE TO TITRATE 02 TO 3L, RESPONDING WELL. HAS PICC TO RIGHT ARM, HEP LOCKED, GOOD BLOOD RETURN, FLUSHING WELL. SBA/FWW DURING AMBULATION. NO ACUTE CHANGES FROM BEGINNING OF SHIFT.
--- NOTE | 2017-07-11 07:21 | NUR ---
BEDSIDE REPORT RECIEVED FROM RITIKA. PATIENT RESTING IN BED ASLEEP. RR EVEN/UNLABORED. 02 SAT 94% ON 2L OF O2 AND HR 70-80 PER CONT. PULSE OXYMETER. NO APPARENT DISTRESS NOTED. WILL CONTINUE TO MONITOR.
--- NOTE | 2017-07-11 08:48 | NUR ---
HELPED PATIENT AMBULATE FROM BED TO CHAIR. CHANGED BED, ASSISTED PATIENT WITH WASHING FACE AND ORAL CARE. PT HAS NO FURTHER REQUESTS AT THIS TIME, CALL LIGHT WITHIN REACH.
--- NOTE | 2017-07-11 08:50 | NUR ---
LENIN JACKSON ASSIST PATIENT TO CHAIR. PATIENT DENIES PAIN AT THIS TIME. SHIFT ASSESSMENT COMPLETED. MORNING MEDS ADMINISTERED. PATIENT REPORTS THAT SHE HAS SLEPT WELL LAST NIGHT. LUNGS DIM THROUHOUT, NO WEEZING. PICC LINE IN PLACE AND FLUSHED WELL. PATIENT IS ON 2L OF O2 AT THIS TIME AND SAT @ 92-94%. NO APPARENT DISTRESS NOTED. CALL [facility] AND PERSONAL BELONGING IN PATIENT REACH. WILL CONTINUE TO MONITOR
--- NOTE | 2017-07-11 12:18 | NUR ---
ROUNDED IN PATIENTS ROOM. REPORTS FEELING A LITTLE ANXIOUS. VISTIRIL GIVEN. TALKED ABOUT WORKING WITH OT LATER TODAY. LUNCH TRAY TAKEN OUT OF ROOM.
--- NOTE | 2017-07-11 13:17 | NUR ---
PATIENT RESTING IN BED. NO COMPLAINTS. WILL CONTINUE TO MONITOR.
--- NOTE | 2017-07-11 13:32 | NUR ---
pastor mays reports that patient would like to donate her body to science. sons have information.
--- NOTE | 2017-07-11 14:28 | NUR ---
CHANGED BED LINENS SHE JUST GOT BACK FROM PHYSICAL THERAPY NOW SITTING IN HER CHAIR. BROUGHT HER A GLASS OF GRAPE JUICE.
--- NOTE | 2017-07-11 14:51 | NUR ---
PT WAS SITTING IN BED WATCHING TV. SHE WELCOMED ME IN AND INVITED ME TO SIT DOWN. SHE IS VERY PLEASANT, AND TOLD ME ABOUT HER BRO, AND HER FAMILY. SHE IS ALSO IN A MUCH BETTER FRAME OF MIND EMOTIONALLY NOW THAN EARLIER IN THE WEEK. END OF LIFE DECISIONS ARE MADE AND HER FAMILY IS ALL UNDERSTANDING. SHE SAID I AM AT [place]-SHE WANTS HER BODY DONATED TO [employer] AND HER SONS ALL HAVE THIS INFO, AND THE PHONE# TO BEGIN THE PROCESS. SHE ALSO WANTS HER CREMAINS SPREAD ON THEIR FAMILY'S FAVORITE CAMPING AND FISHING PLACE. SHARED A BIBLE VERSE WITH HER, OFFERED A PRAYER. SHE THANKED ME AND ASKED IF I COULD COME AGAIN. I WILL FOLLOW NEEDED
--- NOTE | 2017-07-11 15:10 | NUR ---
ASSISTED PATIENT FROM CHAIR CHAIR TO BED WITH NO DIFFICULTY. AFTERNOON MED ADMINISTERED. PATIENT RESTING IN BED AT THIS TIME FOR AN AFTERNOON NAP.CALL LIGHT AND PERSONAL BELONGING IN REACH.
--- NOTE | 2017-07-11 18:19 | NUR ---
PATIENT HAD A FAIR DAY. WALKED WITH PHYSICAL THERAPIST TWICE TODAY. SPENT MOST OF THE DAY IN THE CHAIR. VOIDED Q/S. HAD ONE BM TODAY. ON 3L VIA NC. CONNIE STEPHENSON.
--- NOTE | 2017-07-11 22:39 | NUR ---
PATIENT RESTING COMFORTABLY IN BED, BREATHING IS EVEN AND UNLABORED. O2 SATURATION IS 93% ON 3L O2 VIA NC. REPORTS ANXIETY, PRN VISTARIL GIVEN PER EMAR, SCHEDULED MEDICATIONS GIVEN. NO OTHER NEEDS. ASSESSMENT DONE. CALL LIGHT WITHIN REACH.
--- NOTE | 2017-07-12 01:00 | NUR ---
HELPED PT TO BSC AND BACK TO BED. BROUGHT HER FRESH ICE WATER. SHE SAID SHE DID NOT NEED ANYTHING ELSE AT THIS TIME. SHE WAS GOING TO TRY AND GO BACK TO SLEEP. BEDSIDE TABLE AND CALL LIGHT WITHIN REACH.
--- NOTE | 2017-07-12 01:23 | NUR ---
PATIENT RESTING COMFORTABLY IN BED, BREATHING IS EVEN AND UNLABORED. O2 SATURATION IS 95% ON 3L O2 VIA NC. PATIENT STATES "I FEEL LIKE I COULD USE A BREATHING TREATMENT TO HELP ME GO BACK TO SLEEP." RT NOTIFIED, PATIENT IS NOT IN DISTRESS AT THIS TIME.
--- NOTE | 2017-07-12 04:01 | NUR ---
PATIENT RESTING COMFORTABLY IN BED, BREATHING IS EVEN AND UNLABORED. O2 SATURATION IS 94% ON 3L O2 VIA NC. CALL LIGHT WITHIN REACH.
--- NOTE | 2017-07-12 06:00 | NUR ---
PRN VISTARIL GIVEN PER EMAR.
--- NOTE | 2017-07-12 06:03 | NUR ---
PATIENT RESTING COMFORTABLY IN BED, BREATHING IS EVEN AND UNLABORED. O2 SATURATION IS 94%. PATIENT STATES "I FEEL LIKE I COULD USE A BREATHING TREATMENT." EDUCATED PATIENT ABOUT BREATHING TREATMENTS, PATIENT CONTINUES TO REQUEST ONE. RT CALLED.
--- NOTE | 2017-07-12 07:22 | NUR ---
BEDSIDE REPORT RECEIVED FROM CRISTINA. PATIENT APPEARS TO BE SLEEPING AT TIME OF REPORT. HR 70-80 02 SAT 96% ON 3L OF 02. NO APPARENT DISTRESS.
--- NOTE | 2017-07-12 10:24 | NUR ---
PATIENT WAS UP WALKING IN THE HALLWAY WITH PHYSICAL THERAPIST, PATIENT TOLERATED WELL. MORNING MEDS ADMINISTERED. PATIENT DENIES PAIN AND SOB. LUNGS STILL DIM IN THE BASES. PATIENT RECEIVED NEB TX THIS AM. POSITIVE BOWEL TONES. PICC LINE PATENT AND FLUSHED WELL AND DRESSING CLEAN AND INTACT. CALL LIGHT AND PERSONAL BELONGING IN REACH.
--- NOTE | 2017-07-12 11:37 | NUR ---
ANSWERED CALL JOHN MATIAS WENT TO THE BATHROOM. NOW SITTING UP IN HER CHAIR.
--- NOTE | 2017-07-12 12:02 | NUR ---
PATIENT SITTING IN THE CHAIR EATING IN LUNCH. PATIENT DENIES SOB OR PAIN. STILL ON 3L OF .
--- NOTE | 2017-07-12 15:33 | NUR ---
PATIENT RESTING IN BED. NO COMPLAINTS. NO REQUEST MADE. WILL CONTINUE TO MONITOR PATIENT
--- NOTE | 2017-07-12 16:36 | NUR ---
REPORT GIVEN TO MATIAS. PATIENT RESTING IN BED. NO COMPLAINT AT THIS TIME.
--- NOTE | 2017-07-12 17:00 | NUR ---
INSTEAD OF DOING A COUPLE OF LAPS AROUND MED SURG. PATIENT DECIDED TO CLIMB THE STAIRS WITH THE PHYSICAL THERAPIST THIS AFTERNOON.
--- NOTE | 2017-07-12 18:36 | NUR ---
PATIENT HAD UNEVENTFUL DAY, STATES " I HAD A GOOD DAY" NO COMPLAINTS OF PAIN. ANXIETY WELL CONTROLLED. VS STABLE.
--- NOTE | 2017-07-12 19:35 | NUR ---
BEDSIDE REPORT RECEIVED FROM CHARLY SALCEDO. PT SPO2 95% AT THIS TIME ON 3L OXYGEN BY NASAL CANNULA. HR 76. PT DENIES SOB. PT DENIES PAIN. PT HAS CALL LIGHT IN REACH, REQUESTING VISTARIL FOR ANXIETY SOON.
--- NOTE | 2017-07-12 19:40 | NUR ---
DR. COOL NOTIFIED IN PERSON OF BP 190/53, MAP 88. DR. COOL INCREASED DOSE OF AMLODIPINE AT THIS TIME TO 10 MG.
--- NOTE | 2017-07-12 19:55 | NUR ---
ADMINISTERED PRN VISTARIL FOR PT REPORTED ANXIETY, PT STATING SHE IS ANXIOUS REGARDING WORK AND A MISTAKE SHE MADE. PT LYING IN BED, ON 3L OXYGEN, SPO2 95%. CALL LIGHT IN REACH.
--- NOTE | 2017-07-12 20:02 | NUR ---
PATIENT IN BED DOING WELL. GOT VS, BP HIGH. NURSE NOTIFIED. CHANGED OUT GREEN SHEET. OFFERED PATIENT FRESH ICE WATER. PATIENT DECLINED STATING SHE WILL NOT DRINK IT
--- NOTE | 2017-07-12 21:31 | NUR ---
PT ASSESSMENT COMPLETE. PT REPORTS NAUSEA, ADMINISTERED PRN ZOFRAN. PT GIVEN CHOCOLATE PUDDING FOR ORAL MEDICATIONS. PT ON 3L OXYGEN BY NASAL CANNULA, SPO2 95%, LUNGS SOUND CLEAR THROUGHOUT ALL LOBES, HR 74. BOWEL TONES ACTIVE X 4. PT DENIES PAIN, CALL LIGHT IN REACH. LIGHTS OFF IN ROOM.
--- NOTE | 2017-07-12 23:29 | NUR ---
nurse in room
--- NOTE | 2017-07-12 23:30 | NUR ---
ANSWERED PT CALL LIGHT, PT COMPLAINING OF NAUSEA, REQUESTING ZOFRAN. REMINDED PT THAT ZOFRAN GIVEN AT 2130, EDUCATED ON NEXT DOSE. GAVE PT WARM BLANKET, PT STATES "NOT GOING TO THROW UP, WILL TRY TO SLEEP". CALL LIGHT IN REACH, PT 96% ON 3L OXYGEN BY NASAL CANNULA.
--- NOTE | 2017-07-13 01:24 | NUR ---
ANSWERED PT CALL LIGHT, ASSISTED PT TO UNTANGLE CONTINUOUS PULSE OXIMETRY CORDS. PT SPO2 95% ON 3L OXYGEN BY NC. PT ALSO REQUESTING ANXIETY MEDICATIONS, WILL ADMINISTER AVAILABLE, EDUCATION PROVIDED.
--- NOTE | 2017-07-13 02:08 | NUR ---
IN PT ROOM FOR VISTARIL ADMINISTRATION FOR PT REPORTED ANXIETY, ASSISTED PT TO RESTROOM FOR 450 ML VOID. PT TOLERATED WELL, SPO2 95% WITH AMBULATION, PT DENIES SOB. PT REQUESTED GRAPE JUICE, ICED COFFEE. PT BACK IN BED, SPO2 98% ON 3L OXYGEN BY NASAL CANNULA. CALL LIGHT IN REACH.
--- NOTE | 2017-07-13 02:25 | NUR ---
BROUGHT PT ICED COFFEE REQUESTED, SPO2 AT 98%, PT HAS NO ADDITIONAL REQUESTS AT THIS TIME, SITTING UP IN BED, CALL LIGHT IN REACH.
--- NOTE | 2017-07-13 03:11 | NUR ---
ANSWERED CALL LIGHT, PT REQUESTING BREATHING TREATMENT. PHONE CALL TO RESPIRATORY THERAPY, RT JANET STATED HE WILL ADMINISTER BREATHING TREATMENT.
--- NOTE | 2017-07-13 03:14 | NUR ---
CHARLY FLORES CHECKED ON PT AT THIS TIME, PT NOT IN RESPIRATORY DISTRESS, NOTIFIED THAT RT WILL BE IN SOON.
--- NOTE | 2017-07-13 03:35 | NUR ---
RT IN PT ROOM.
--- NOTE | 2017-07-13 05:53 | NUR ---
PT CONTINUES ON 3L OXYGEN BY NASAL CANNULA, SATURATIONS HAVE BEEN IN THE MID 90S THROUGHT SHIFT. PT AMBULATED WITH STEADY GATE TO RESTROOM, GAIT STEADY REQUIRING SBA FOR ASSISTANCE. PT RECEIVED PRN VISTARIL FOR ANXIETY X 1.
--- NOTE | 2017-07-13 06:06 | NUR ---
PT SLEEPING, SPO2 94% ON 3L O2. CALL LIGHT IN REACH.
--- NOTE | 2017-07-13 07:22 | NUR ---
MANUAL BP TAKEN ON PT, 164/56. PT SITTING UP IN BED, BEDSIDE REPORT GIVEN TO CHARLY KENT. PT REQUESTING ICED COFFEE, CNAS NOTIFIED. CALL LIGHT IN REACH.
--- NOTE | 2017-07-13 08:15 | NUR ---
PT AWAKE AND UP TO RESTROOM AT THIS TIME WITH SBA FROM GENIE PHELPS. PT AMB WITH MINIMAL SBA BACK TO BED. ASSESSMENT COMPLETED, AM MEDS ADMINISTERED. PT DENIES DIFFICULTY BREATHING OR SOB AT THIS TIME. SATTING 95% ON 3LNC. PT ATE ONLY A SMALL AMOUNT OF BREAKFAST STATES "IT WAS A PRETTY DISSAPOINTING BREAKFAST." REFUSED OFFER FOR NEW BREAKFAST ORDER. FRESH WATER AT BEDSIDE, CALL LIGHT WITHIN REACH.
--- NOTE | 2017-07-13 09:39 | NUR ---
PT AMB HALLWAY WITH P.T., LOUIE WELL. NO SOB NOTED.
--- NOTE | 2017-07-13 10:18 | NUR ---
JIMMY WASNTED TO BE COVERED UP, WE DID HER VITAL SIGNS AND SHE IS RELAXING RIGHT NOW. SHE SAID SHE DIDNT WANT TO SHOWER, BUT SHE SAID IF SHE CHANGED HER MIND SHE WILL LET US KNOW.
--- NOTE | 2017-07-13 11:52 | NUR ---
PT RESTING ON LEFT SIDE SLEEPING, RESP EVEN AND UNLABORED. PT SATTING 95% ON 3LNC.
--- NOTE | 2017-07-13 14:26 | NUR ---
PT SITTING UP IN RECLINER READING, DENIES NEEDS OR CONCERNS AT THIS TIME. CALL LIGHT WITHIN REACH.
--- NOTE | 2017-07-13 14:46 | NUR ---
PT IS SITTING UP IN CHAIR WITH CALL LIGHT IN REACH. PT ASKED FOR MORE ICE WATER AND GRAPE JUICE
--- NOTE | 2017-07-13 16:16 | NUR ---
LINEN CHANGE COMPLETE BY THIS RN. PT AMB WITH SBA TO BED AFTERWARDS "I'D LIKE TO TAKE A REST." SATTING 94%ON 3L NC. PERSONAL ITEMS AND CALL LIGHT WITHIN REACH.
--- NOTE | 2017-07-13 18:30 | NUR ---
PT ATE ALL OF DINNER, LOUIE WELL. AMB TO RESTROOM INDEPENDENTLY, HAD SMALL BM. PT BACK TO BED AND REQUESTED SOMETHING FOR ANXIETY. MEDICATED WITH VISTARIL. PT SETTLED IN BED, SATTING 96% ON 3LNC, NO SOB OR DIFFICULTY BREATHING REPORTED AT THIS TIME. CALL LIGHT WITHIN REACH.
--- NOTE | 2017-07-13 20:00 | NUR ---
PT COOP WITH ASSESSMENT, NO C/O PAIN, O2 3L N/C, CONT PULSE OX IN PLACE. PT UP TO BRP WITH MINIMUM OF ASSIST EARLIER. NO FURTHER REQUESTS
--- NOTE | 2017-07-13 23:33 | NUR ---
RESTING, EYES CLOSED, NO RESP DISTRESS. O2 IN PLACE, CONT PULSE OX 95%
--- NOTE | 2017-07-14 01:31 | NUR ---
Pt up to brp, voided, back to bed, medicated with vistaril 50mg po c/o anxiety.
--- NOTE | 2017-07-14 01:49 | NUR ---
prn neb given at request. c/o sob
--- NOTE | 2017-07-14 02:35 | NUR ---
GIVEN WARM BLANKET ON REQUEST. STATED SHE FEELS MORE RELAXED AFTER GETTING VISTARIL. USES YAUNKER TO DRAIN THICK ORAL SECRETIONS. O23L/NC, CONT PULSE OX 95%, NO C/O PAIN, NO REQUESTS
--- NOTE | 2017-07-14 04:34 | NUR ---
c/o left shoulder pain. warm pad to shoulder and tylenol 650mg po given
--- NOTE | 2017-07-14 06:11 | NUR ---
Pt currently resting, eyes closed, no resp distress. O2 3L NC, cont pulse ox sats 94-96%. WAs medicated x1 with Vistaril for anxiety and Tylenol 650mg per c/o left shoulder pain, warm pad to shoulder too, effective. Pt up with one assist help, no sob noted with exertion. Pt Has moist productive cough, uses Yaunker to remove oral secretions. Pt continues to beon Swing bed status for deconditioning
--- NOTE | 2017-07-14 07:15 | NUR ---
HANDOFF REPORT RECEIVED FROM BOOK CANVASSER RN. PT SLEEPING LEFT UNDISTURBED.
--- NOTE | 2017-07-14 07:45 | NUR ---
PATEINT WAS IN BED, SHE SAID SHE WOULD BE WILLING TO DO SOME AM CARE AFTER [facility].
--- NOTE | 2017-07-14 08:44 | NUR ---
PT ASKED FOR ASSITNCE USING THE RESTROOM, AND RIKY HELPED HER IN HER NURSE CAME IN SHORTLY AFTE RTO ADMINISTER MEDS.
--- NOTE | 2017-07-14 08:45 | NUR ---
PT RESTING IN BED, JUST RETURNED FROM BATHROOM. AMBULATING WITH SBA WITH FWW. PT LUNG SOUNDS DIMINISHED THOUGHOUT, ON 3L NC, O2 SATS 92%. PT BOWEL TONES ACTIVE, TOLERATING CARDIAC DIET. PICC LINE HEP LOCKED, DRESSING INTACT. PT DENIES PAIN. NICOTINE PATCH APPLIED TO LEFT ARM. PT CONTINUES TO BE HYPERTENSIVE, WILL CONTINUE TO MONITOR. PT DENIES OTHER NEEDS AT THIS TIME. DISCUSSED PLAN OF CARE WITH PT.
--- NOTE | 2017-07-14 10:46 | NUR ---
RECHECKED PT BP FOR NURSE, IT WAS 175/41 (72), NOTIFIED NURSE.
--- NOTE | 2017-07-14 12:17 | NUR ---
MD NOTIFIED OF HYPERTENSION, CONTINUE TO MONITOR, NO NEW ORDERS AT THIS TIME.
--- NOTE | 2017-07-14 12:34 | NUR ---
PT COMPLAINT OF FEELING SHORT OF BREATH. LUNG SOUNDS DIMINISHED THOUGHOUT. DUONEB GIVEN PER ORDER. O2 SATS 93% ON 3L NC.
--- NOTE | 2017-07-14 13:19 | NUR ---
PT IS IN CAIR, I CAME IN TO UPDATE HER I'S&O'S. SHE NEEDED NO OTHER ASSISTANCE AT THE TIME.
--- NOTE | 2017-07-14 13:30 | NUR ---
PT REQUESTIN MEDICATION FOR ANXIETY. GIVEN 50 MY VISTARIL. PT RESTING IN BED. PT DENIES OTHER NEEDS AT THIS TIME.
[2017-07-14] MEDS ORDERED: IPRAT-ALBUT 0.5-3 ML INH ×2 (14:02)
[2017-07-14] MEDS ORDERED: NICOTINE1 EAC1 TD (14:03)
[2017-07-14] MEDS ORDERED: DOXAZOSIN MESYLA2 MG PO (14:04)
[2017-07-14] MEDS ORDERED: NORVASC10 MG PO (14:05)
[2017-07-14] MEDS ORDERED: BUSPIRONE HCL7.5 MG PO (14:06)
[2017-07-14] MEDS ORDERED: HYDROXYZINE PAM50 MG PO (14:07)
[2017-07-14] MEDS ORDERED: BUDESONIDE0.5 MG/2 M INH (14:13)
--- NOTE | 2017-07-14 15:45 | NUR ---
PT GIVEN BUSPAR PER ORDER. PT PROVIDED EDUCATION ON SIDE EFFECTS AND INDICATIONS. PT RESTING COMFORTABLY IN BED. PT DENIES OTHER NEEDS AT THIS TIME.
--- NOTE | 2017-07-14 18:32 | NUR ---
PT HAD UNEVENTFUL DAY. PT ON 3L NC, CHRONIC HOME LEVEL, O2 SATS 93%, LUNG SOUNDS DIMINISHED THOUGHOUT, SCHEDULED NEBS. PT UP INDEPENDENT/SBA, CALLS APPROPRIATELY. PT TOLERATING REGULAR DIET. PICC LINE HEP LOCKED, DRESSING CHANGE DUE TOMORROW. PT VOIDING QS, HAD MULTIPLE BMS TODAY. PLAN TO DSICHARGE PT HOME TOMORROW.
--- NOTE | 2017-07-14 18:45 | NUR ---
TOURS HOSTESS REPORT OF RASH TO PT MARIA FERNANDA-AREA. RASH ASSESSED, REDDENED AREA FROM GLUTEAL CLEFT, LABIA AND INNER THIGHS. NYSTATIN POWDER ORDERED AUGUSTUS WEST.
--- NOTE | 2017-07-14 20:02 | NUR ---
PATIENT CALLED WANTING BREATHING TREATMENT. CALLED THE RT.
--- NOTE | 2017-07-14 20:59 | NUR ---
NYSTATIN CREAM APPLIED TO MARIA FERNANDA AREA RED, NOT OPEN. MID AREA UNDER ABD FOLDS RED, NOT OPEN
--- NOTE | 2017-07-14 23:45 | NUR ---
ASSISTED RN MELISSA STRAIGHT CATH AND CHANGED ATTENDS.
--- NOTE | 2017-07-15 00:48 | NUR ---
PT RESTING, NO FURTHER C/O SORE THROAT, C/O R EAR PAIN, EAR ASSESSED WITH OTOSCOPE, PINK ARE AND SLIGHTLY RED AT BASE ON RIGHT SIDE. LEFT SIDE WITH EAR WAX. WILL REASSESS IF PT CONTINUES TO C/O EAR PAIN AND NOTIFY MD WITH ASSESSMENT. PT WAS VERBALLY REASSURED WHEN PT HAD CONCERNS ABOUT GOING HOME NAD BEING ABLE TO GET UP TO BRP AND BE INDEPENDENT AT HOME, REASSURED AND CALMED DOWN. DENIED NEED FOR VISTARIL.
--- NOTE | 2017-07-15 01:52 | NUR ---
PATIENT CALLED TO USE THE COMMODE. ASKED TO HAVE BREATHING TREATMENT, RN MELISSA NOTIFIED.
--- NOTE | 2017-07-15 02:07 | NUR ---
received a nev tc prn c/o sob. [id number] cont pulse ox94% p80. after tc 96-98% p96 r 22. c/o increased anxiety, received Vistaril 50mg po. Up to bsc and had a very large soft bm. pt concernet that Buspar 7.5 is giving her loose stool. will discuss with in am, no other c/o
--- NOTE | 2017-07-15 05:44 | NUR ---
Pt up to bsc, voided clear yellow urine. had a very large BM earlier. tolerated well, did not desatted. Cont pulse ox in place reading 93-95% in bed, when up to bsc and back to bed, resp 18. Pt continues to c/o R sided sore throat and slight R ear pain. Cepacol lozenger given, declined tylenol for pain. Received Vistaril 50mg po per anxiety, fearing unknown situations after hosp dc'd. Fears acknowledged and praised and reassured for trying positive breathing -behavior to decrease anxiety. Very helpful and receptive to teaching. Left arm bruised healing, PICC line r am patent. Pt requires one assist.
--- NOTE | 2017-07-15 08:18 | NUR ---
RN IN ROOM TO SEE PATIENT.
--- NOTE | 2017-07-15 08:30 | NUR ---
PT SITTING UP IN BED TALKING ON THE PHONE WITH HER SON BRIEFLY. PT ANXIOUS ABOUT DISCHARGE HOME TODAY, "IT MAKES ME NERVOUS THINKING ABOUT BEING COMPLETELY ON MY OWN FOR THE FIRST LITTLE WHILE." REPORTS THAT SHE IS ATTEMPTING TO SET UP SOME FAMILY AND FRIENDS TO COME STAY WITH HER FOR A FEW DAYS. DENIES SOB OR DIFFICULTY BREATHING. SATTING 93% ON 3LNC. ATE ALL OF BREAKFAST. ASSESSMENT COMPLETED. CALL LIGHT WITHIN REACH.
--- NOTE | 2017-07-15 09:04 | NUR ---
PATIENT UP AMBULATING HALLWAY WITH PT.
--- NOTE | 2017-07-15 09:43 | NUR ---
PATIENT SITTING UP IN CHAIR PLAYING ON PHONE. HANDS AND FACE WASHED. ORAL CARE DONE. PATIENT REFUSED SHOWER DUE TO BEING DISCHARGED TO HOME TODAY. CALL BUTTON IN REACH. FRESH ICE WATER GIVEN. NO OTHER NEEDS AT THIS TIME. RN IN ROOM TO SEE PATIENT.
--- NOTE | 2017-07-15 10:46 | NUR ---
PT BACK TO BED AT THIS TIME. SHE REPORTS SHE IS GOING TO TAKE A LITTLE NAP.
--- NOTE | 2017-07-15 12:20 | NUR ---
TALKED WITH THE PT ABOUT GETTING A NEBULIZER FOR HER, SHE WOULD LIKE ME TO USE IN HOME MEDICAL. WE TALKED ABOUT WHETHER IT IS GOING TO HER HOUSE OR HER SONS HOUSE. PT STATES HERS. WE ALSO TALKED ABOUT OTHER NEEDS SHE MAY HAV. SHE DENIES ANYTHING EXCEPT FOR BEING A LITTLE LEARY ABOUT GOING HOME. STATES HE BROTHER WILL BE HER TOMORROW AND SHE DOES NOT WANT TO STAY FOR ANOTHER NIGHT. ALSO I CHECKED WITH IN HOME MEDICAL AND THEY STATED THEY DID NOT NEED A SCRIPT JUST FOR AN INCREASE IN THE O2 RATE.
--- NOTE | 2017-07-15 12:25 | NUR ---
FAXED CHART NOTES TO HOME HEALTH INCLUDING FACESHEET, H AND P, DC SUMMARY AND DC PACKET AND ORDER TO [facility]
--- NOTE | 2017-07-15 13:27 | NUR ---
PICC LINE REMOVED FOR DISCHARGE. USED ALCOHOL SWABS TO ASSIST WITH ADHESIVE REMOVAL. PICC REMOVED WNL. PT TOLERATED WELL. PRESSURE HELD FOR 10 MIN. NO FURTHER BLEEDING AT SITE. PRESSURE DRESSING PLACED TO RIGHT AC PICC LINE SITE. PT GIVEN DISCHARGE EDUCATION ON OXYGEN SAFTY AT HOME. ACTIVITY TOLERATED, FOLLOW UP APPOINTMENT MADE. MEDCATION EDUCATION GIVEN ON LAST DOSE NEXT DOSE. PT VERBALIZES UNDERSTANDING BACK. ALSO EDUCATION ON SIGNS AND SYMPTOMS TO SEEK MEDICAL ASSISTANCE. ORIGINAL POLST GIVEN TO PT TO PLACE ON HER REFRIGERATOR AT HOME. V/S TAKEN/STABLE. OSVALDO FROM PHARMACY IN TO EDUCATE ON MEDICATIONS.
[2017-07-29] MEDS ORDERED: NYSTATIN100000 UN1 PO (14:20)
== END 2017-07-15 13:30 | disposition home or self-care (01) | DRG 189 ==
LOC: MS 10:20
PROVIDERS: ADMIT Internal Medicine
DX: J96.22 Acute and chronic respiratory failure with hypercapnia (principal); J44.1 Chronic obstructive pulmonary disease with (acute) exacerbation; J96.21 Acute and chronic respiratory failure with hypoxia; I10 Essential (primary) hypertension; E03.9 Hypothyroidism, unspecified; F41.0 Panic disorder [episodic paroxysmal anxiety]; R25.2 Cramp and spasm; J01.40 Acute pansinusitis, unspecified; Z71.6 Tobacco abuse counseling; I25.10 Atherosclerotic heart disease of native coronary artery without angina pectoris; Z95.2 Presence of prosthetic heart valve; K21.9 Gastro-esophageal reflux disease without esophagitis; F17.210 Nicotine dependence, cigarettes, uncomplicated
CPT/HCPCS: 94640; 94660; 94668; 94762; 97110; 97116; 97162; 97165; 97530; 99407; G8978; G8979; J1650; J7512

== ENCOUNTER 2017-07-20 01:41 | Observation (INO) | payer MEDICARE ==
[~2017-07-20] VITALS: Ht 157.5 cm; Wt 63.8 kg
--- OUTSIDE RECORDS SUMMARY | ~2017-07-20 | XMS | Clinical Summary ---
Demographics + + + | Address | [address] | | | [place] [address] | + + + | Home Phone | | + + + | Preferred Language | Unknown | + + + | Marital Status | Single | + + + | Anabaptism Affiliation | BAP | + + + [...] Care Team Providers + +------+-------+ | Care Cap And Hat Production Supervisor Name | Role | Phone | + +------+-------+ | Danielle Grider | PP | tel | | SOLAR POWER INSTALLER | | | + +------+-------+ Source Comments MAVIS is fully live on both [facility] and [facility] InPatient.[facility] Allergies + + + + + + [...]
[~2017-07-20 01:41] MED LIST changes: +BUDESONIDE0.5 MG/2 M INH; +BUSPIRONE HCL7.5 MG PO; +DOXAZOSIN MESYLA2 MG PO; +HYDROXYZINE PAM50 MG PO; +IPRAT-ALBUT 0.5-3 ML INH; +NICOTINE1 EAC1 TD; +NORVASC10 MG PO
--- OUTSIDE RECORDS SUMMARY | 2017-07-20 01:56 | XMS | Clinical Summary ---
Demographics + + + | Address | [address] | | | [place] [address] | + + + | Home Phone | | + + + | Preferred Language | Unknown | + + + | Marital Status | Single | + + + | Restorationist Affiliation | BAP | + + + | Race | White | + + + | Ethnic Group | Not or | + + + Author + + + | Author | [facility] | + + + | Organization | [facility] | + + + | Address | Unknown | + + + | Phone | Unavailable | + + + Support +------+ +---------+ + | Name | Relationship | Address | Phone | +------+ +---------+ + ECON | Unknown | | +------+ +---------+ + ECON | Unknown | Unavailable | +------+ +---------+ + Care Team Providers + +------+-------+ | Care Roll Finisher Name | Role | Phone | + +------+-------+ | Danielle Grider | PP | tel | | EXECUTIVE CHAIRMAN OF THE BOARD | | | + +------+-------+ Source Comments MAVIS is fully live on both [facility] and [facility] Allergies + + + + + + | Active Allergy | Reactions | Severity | Noted | Comments | | | | | Date | | + + + + + + | Beta-Blockers | Bronchospasm | | 12/17/19 | | | (Beta-Adrenergic | | | 14 | | | Blocking Agts) | | | | | + + + + + + Current Medications + + +--------+---------+------+------+-------+ | Prescription | Sig. | Disp. | Refills | Star | End | Statu | | | | | | t | Date | s | | | | | | Date | | | + + +--------+---------+------+------+-------+ | atorvastatin 40 mg | Take 40 mg by mouth | | | | | Activ | | oral tablet | once daily. | | | | | e | + + +--------+---------+------+------+-------+ | NIFEdipine ER 60 | Take 60 mg by mouth | | | | | Activ | | mg oral tablet | once daily. | | | | | e | | extended release | | | | | | | + + +--------+---------+------+------+-------+ | LORazepam 1 mg | Take 1 mg by mouth | | | | | Activ | | oral tablet | three times daily. | | | | | e | + + +--------+---------+------+------+-------+ | folic acid 1 mg | Take 1 mg by mouth | | | | | Activ | | oral tablet | once daily. | | | | | e | + + +--------+---------+------+------+-------+ | omeprazole 20 mg | Take 20 mg by mouth | | | | | Activ | | oral capsule,delayed | once daily. | | | | | e | | release(/AMY) | | | | | | | + + +--------+---------+------+------+-------+ | levothyroxine 125 | Take 125 mcg by | | | | | Activ | | mcg oral tablet | mouth before | | | | | e | | | breakfast. | | | | | | + + +--------+---------+------+------+-------+ | hydroxychloroquine | Take 200 mg by mouth | | | | | Activ | | 200 mg oral tablet | two times daily. | | | | | e | + + +--------+---------+------+------+-------+ | aspirin chewable | Take 1 tablet by | 30 | 0 | 06/1 | | Activ | | 81 mg oral | mouth once daily. | tablet | | 7/20 | | e | | tablet,chewable | | | | 14 | | | + + +--------+---------+------+------+-------+ | atorvastatin 40 mg | Take 1 tablet by | 30 | 0 | 06/1 | | Activ | | oral tablet | mouth once daily. | tablet | | 20 | | e | | | | | | 14 | | | + + +--------+---------+------+------+-------+ Active Problems + + + | Problem | Noted Date | + + + | Claudication (HCC) | 02/15/2014 | + + + | Mesenteric ischemia (HCC) | 12/16/2013 | + + + Social History + + + +--------+ + | Tobacco Use | Types | Packs/Day | Years | Date | | | | | Used | | + + + +--------+ + | Current Every Day | Cigarettes | 1 | 52 | Quit: 07/18/2013 | | Smoker | | | | | + + + +--------+ + + +---+---+---+ | Smokeless Tobacco: | | | | | Never Used | | | | + +---+---+---+ + + + | Sex Assigned at | Date Recorded | | | | + + + | Not on file | | + + + Last Filed Vital Signs + + + + | Vital Sign | Reading | Time Taken | + + + + | Blood Pressure | 154/39 | 05/19/2014 12:09 PM PST | + + + + | Pulse | 66 | 05/19/2014 12:09 PM PST | + + + + | Temperature | 36.9 C (98.4 F) | 12/22/2013 7:31 AM PDT | + + + + | Respiratory Rate | 16 | 12/22/2013 3:19 AM PDT | + + + + | Oxygen Saturation | 98% | 05/19/2014 12:09 PM PST | + + + + | Inhaled Oxygen | - | - | | Concentration | | | + + + + | Weight | 68 kg (150 lb) | 05/19/2014 12:09 PM PST | + + + + | Height | 157.5 cm (5' 2") | 12/16/2013 8:51 PM PDT | + + + + | Body Mass Index | 27.44 | 05/19/2014 12:09 PM PST | + + + + Plan of Treatment + + + + + | Health Maintenance | Due Date | Last Done | Comments | + + + + + | INFLUENZA VACCINE | | | | | (FLU SHOT) | 7 | | | + + + + + Results Not on filefrom Last 3 Months
--- OUTSIDE RECORDS SUMMARY | 2017-07-20 01:56 | XMS | Clinical Summary ---
Demographics + + + | Address | [address] | | | [place] [address] | + + + | Home Phone | | + + + | Preferred Language | Unknown | + + + | Marital Status | Single | + + + | Caodaism Affiliation | BAP | + + + [...] Care Team Providers + +------+-------+ | Care Non Licensed Nuclear Equipment Operator Name | Role | Phone | + +------+-------+ | Danielle Grider | PP | tel | | MEDICAL PROFESSIONALS | | | + +------+-------+ Source Comments MAVIS is fully live on both [facility] and [facility] Allergies + + + + + + [...]
--- NOTE | 2017-07-20 06:54 | NUR ---
REPORT RECEIVED FROM CHARLY CHAUDHARI. PT ARRIVED TO FLOOR VIA STRETCHER. SHE IS ALERT/ORIENTED, DENIES PAIN, APPEARS ANXIOUS. LUNGS SOUND DIM, SLIGHT EXPIRATORY WHEEZE NOTED, 3L O2 VIA NC. HR IRREGULAR. BOWEL TONES ACTIVE, DENIES NAUSEA. PT REPORTS VAGINAL YEAST INFECTION. SKIN APPEARS INTACT, NO EDEMA NOTED. IV PATENT, SL. PT INSTRUCTED TO USE CALL LIGHT. DENIES NEEDS AT THIS TIME.
--- NOTE | 2017-07-20 07:48 | NUR ---
MED REC COMPLETE
--- NOTE | 2017-07-20 09:24 | NUR ---
PT AWAKE AND ORIENTED TALKING ON PHONE. A.M. MEDS GIVEN, PT REFUSED DIYA, STATES "IT MAKES ME VERY JITTERY.
--- NOTE | 2017-07-20 09:49 | NUR ---
PT ATE 100% OF BREAKFAST. ASSESSMENT COMPLETED, PT DENIES C/O. PT TOOK A.M. MEDS BUT REFUSED BUSPAR. PT STATES BEING TIRED "DIDN'T SLEEP WELL LAST NIGHT". PT NOW RESTING WITH EYES CLOSED, HOB SLIGHTLY ELEVATED.
--- NOTE | 2017-07-20 12:22 | NUR ---
PT AWAKENS TO VOICE AND UP TO BSC WITH MINIMAL ASSIST, VOIDING 300 MLS YELLOW URINE. PT C/O RED AREA AROUND MARIA [place] AREA. PT CLEANED WITH BARRIER CREAM CLOTH. ATTENDS IN PLACE. PT RETURNED TO BED AND ASSESSMENT COMPLETED. NO OTHER C/O AT THIS TIME.
--- NOTE | 2017-07-20 12:24 | NUR ---
PT MEDICATED WITH BUSPAR 10 MG PO AFTER STATING "I FEEL NERVOUS". PT AGREED TO TAKE BUSPAR. STATES "I THINK IT WAS A GREEN CAPSULE THAT I TAKE AT HOME THAT MAKES ME JITTERY.
--- NOTE | 2017-07-20 13:53 | NUR ---
PT ATE APPROX 95% OF LUNCH. PT NOW SLEEPING WITH REU, SATS 96% ON 3L PER NC.
--- NOTE | 2017-07-20 14:57 | NUR ---
PT SLEEPING ON LEFT SIDE, AWAKENS TO VOICE. PO MEDS GIVEN. PT STATES "I'VE REALLY BEEN SLEEPING. I MUST BE TIRED."
--- NOTE | 2017-07-20 18:36 | NUR ---
PT ATE 95% OF DINNER, ORAL CARE COMPLETED. DESITIN OINTMENT APPLIED TO RED AREAS ON MARIA FER[place] AREA AND BUTTOCKS.
--- NOTE | 2017-07-20 19:30 | NUR ---
72YR OLD WOMAN TRANSFERRED FROM ICU TO ROOM 124 VIA WHEELED CHAIR. PT IS ALERT, ORIENTED, ABLE TO STAND WITH ONE PERSON ASSIST AND AMBULATE INTO BATHROOM TO VOID 300ML CLEAR YELLOW URINE. O2 @ 3L/NC-CHRONIC. IN GOOD SPIRITS, ASSISTED INTO BED, CALL LIGHT IN EASY REACH. ORIENTED TO ROOM. DENIES FURTHER NEEDS. TRANSFER ORDERS NOTED.
--- NOTE | 2017-07-20 21:07 | NUR ---
SPOKE WITH DR COOL REGARDING LOW BLOOD PRESSURE. NO MED CHANGES AT THIS TIME.
--- NOTE | 2017-07-20 21:24 | EKG ---
[facility] [address] [place] [address] Signed Multifocal atrial tachycardia Nonspecific T wave abnormality Abnormal ECG When compared with ECG of 30-JUN-2017 16:13, Multifocal atrial tachycardia has replaced Atrial fibrillation Vent. rate has decreased BY 49 BPM Nonspecific T wave abnormality, worse in Lateral leads Confirmed by ANA COOL MD ([id number]) on 07/20/2017 9:24:14 PM Electronically Signed By: ANA COOL MD 07/20/17 2124 PATIENT NAME: YANDEL CA Electrocardiogram DATE OF : 45 PHYSICIAN: ANA COOL MD REPORT #: [id number] REPORT IS CONFIDENTIAL AND NOT TO BE RELEASED WITHOUT AUTHORIZATION
--- NOTE | 2017-07-20 22:30 | NUR ---
SBA UP TO BSC TO VOID, DENIES ANY DISCOMFORT. REMAINS IN GOOD SPIRITS, HRR- 69. HS CARES DONE, READY TO GO TO SLEEP FOR THE EVENING. DENIES RESP DIFFICULTY. CALL LIGHT IN EASY REACH.
--- NOTE | 2017-07-21 03:15 | NUR ---
AWAKE TO USE BSC, STATES SHE IS RESTING BETTER TONIGHT. HRIR 68. ASKED FOR HEAT TO BE TURNED DOWN IN ROOM. CALL LIGHT IN EASY REACH.
--- NOTE | 2017-07-21 06:52 | NUR ---
HELPED PT TO THE BEDSIDE COMMODE AND BACK TO BED. PER PT I PUT DESITIN ON HER BOTTOM. GOT HER GRAPEJUICE, WATER AND A BRUSH. CALLED IN HER BREAKFAST ORDER WELL. CALL LIGHT AND TABLE NEXT TO HER.
--- NOTE | 2017-07-21 08:04 | NUR ---
PT HADNT ORDERED BREAKFAST YET SO WE ORDERED BREAKFAST, AND THEN GOT HER ALL SET UP AND SHE ISCURRENTLY WAITING FOR THAT TO COME UP, I TOLD HER TO CALL IF SHE NEEDED ANYTHING.
--- NOTE | 2017-07-21 08:11 | NUR ---
PT AWAKE AND ALERT THIS MORNING. IN GOOD SPIRITS. VSS. 3L [address]. IV LEAKING. REMOVED. WILL ASK MD IF OK TO LEAVE OUT. PLAVIX AND LOVENOX ON EMAR. WILL ASK MD IF PLAVIX ALONE IS OK OR IF LOVENOX WANTED WELL. NO NEEDS AT THIS TIME. BREAKFAST ORDERED ALREADY.
--- NOTE | 2017-07-21 09:18 | NUR ---
PT AMBULATED 1 LAP MED SURG UNIT. BECAME SOB HALF WAY THROUGH WALK ON 3L 02 VIA NC. INCREASED O2 TO 4L WHEN REPORTED SOB. UP IN CHAIR NOW WITH BELONGINGS AND CALL LIGHT WITHIN REACH. NO PAIN. HR REMAINED IN HIGH 80S AND LOW 90S DURING WALK.
[2017-07-21] MEDS ORDERED: DILTIAZEM ER180 MG PO (12:23)
[2017-07-21] MEDS ORDERED: BUSPIRONE HCL10 MG PO (12:23)
--- NOTE | 2017-07-21 12:24 | NUR ---
pt is in chair, she had an ice coffee that i made her.
[2017-07-21] MEDS ORDERED: PREDNISONE20 MG PO (12:26)
[2017-07-21] MEDS ORDERED: DESITIN57 GM TOP (12:26)
--- NOTE | 2017-07-21 13:21 | EKG ---
[facility] [address] [facility] [place] [address] Signed Sinus rhythm with premature atrial complexes Nonspecific ST and T wave abnormality Abnormal ECG When compared with ECG of 20-JUL-2017 02:02, Previous ECG has undetermined rhythm, needs review Nonspecific T wave abnormality now evident in Inferior leads Nonspecific T wave abnormality now evident in Anterior leads QT has shortened Confirmed by ANA COOL MD ([id number]) on 07/21/2017 1:21:14 PM Electronically Signed By: ANA COOL MD 07/21/17 1321 PATIENT NAME: YANDEL CA Electrocardiogram DATE OF : 45 PHYSICIAN: ANA COOL MD REPORT #: [id number] REPORT IS CONFIDENTIAL AND NOT TO BE RELEASED WITHOUT AUTHORIZATION
--- NOTE | 2017-07-21 13:21 | EKG ---
[facility] [address] [facility] [place] [address] Signed Sinus rhythm with premaature supraventricular complexes Nonspecific ST and T wave abnormality Prolonged QT Abnormal ECG When compared with ECG of 20-JUL-2017 02:02, Previous ECG has undetermined rhythm, needs review Nonspecific T wave abnormality now evident in Inferior leads Confirmed by ANA COOL MD ([id number]) on 07/21/2017 1:21:09 PM Electronically Signed By: ANA COOL MD 07/21/17 1321 PATIENT NAME: YANDEL CA Electrocardiogram DATE OF : 45 PHYSICIAN: ANA COOL MD REPORT #: [id number] REPORT IS CONFIDENTIAL AND NOT TO BE RELEASED WITHOUT AUTHORIZATION
--- NOTE | 2017-07-21 18:50 | NUR ---
SBA IN ROOM. AMBULATE HALLS. 3L 02 CHRONIC. 4L WHEN AMBULATING. COUGH OCCASIONAL. CARDIZEM STARTED. 180MG AT BEDTIME (CHANGED FROM 45MG BID). D/C TOMORROW TO HOME. DIASTOLIC BP IN 30S BASELINE. NEBS SCHEDULED. DIM LUNGS THROUGHOUT.
--- NOTE | 2017-07-21 19:54 | NUR ---
BEDSIDE REPORT RECEIVED FROM CHARLY SHIELDS. PT AWAKE, LYING IN BED, PT STATES "DOING WELL", READY TO GO HOME TOMORROW, FEELS GOOD THAT FAMILY WILL BE COMING FROM [place]. NO IV ACCESS AT THIS TIME, PT ON 3L OXYGEN NC. CALL LIGHT IN REACH. PT HAS NO ADDITIONAL REQUESTS AT THIS TIME.
--- NOTE | 2017-07-21 20:47 | NUR ---
VITALS AND I&OS DONE AND CHARTED. GARBAGE EMPTIED. GOT THE STUFF FOR HER TO BRUSH HER TEETH. PUT DESITIN ON HER BOTTOM. AND GOT BEDSIDE COMMODE FOR HER TO URINATE. BEDSIDE TABLE AND CALL LIGHT WITHIN REACH.
--- NOTE | 2017-07-21 22:40 | NUR ---
PT ASSESSMENT COMPLETE. PT STATES SHE FEELS ANXIOUS. ADMINISTERED PRN VISTARIL WITH CHOCOLATE PUDDING. PT'S LUNGS CLEAR THROUGHOUT ALL LOBES, DENIES SOB. PT DENIES ANY PAIN. ON 3L OXYGEN BY NASAL CANNULA. NO IV ACCESS AT THIS TIME. CALL LIGHT IN REACH, LIGHTS OFF IN ROOM.
--- NOTE | 2017-07-22 00:50 | NUR ---
CALL LIGHT ANSWERED, PT REQUESTING BREATHING TREATMENT, RT JANET NOTIFIED. PT AWAKE, SITTING UP IN BED, REQUESTING ICED COFFEE. RT IN ROOM FOR BREATHING TREATMENT AT 0045. CALL LIGHT IN REACH.
--- NOTE | 2017-07-22 01:46 | NUR ---
IN PT ROOM, MIXED ICE COFFE. PT IS AWAKE, ON PHONE, SITTING UP IN BED. BREATHING WNL, NON-LABORED, DENIES SOB. PT HAS NO ADDITIONAL REQUESTS AT THIS TIME, CALL LIGHT IN REACH.
--- NOTE | 2017-07-22 04:15 | NUR ---
CHECKED ON PT, PT IS SLEEPING AT THIS TIME, WILL ALLOW PT TO SLEEP AT THIS TIME SHE HAS NOT SLEPT FOR MAJORITY OF SHIFT. RR 18, BREATHING IS NON LABORED, ON 3L OXYGEN BY NASAL CANNULA. CALL LIGHT IN REACH.
--- NOTE | 2017-07-22 05:44 | NUR ---
VITALS AND I&OS DONE AND CHARTED. HELPED PT TO THE BEDSIDE COMMODE. SHE WANTED A FEW MINUTES TO TRY AND HAVE A BOWEL MOVEMENT. I LEFT THE CALL LIGHT BESIDE HER AND ASKED HER TO PLEASE CALL WHEN SHE WAS READY AND SOMEONE WOULD COME HELP HER BACK TO BED. SHE SAID OK SHE WOULD.
--- NOTE | 2017-07-22 06:11 | NUR ---
GOT PT SOME GRAPEJUICE WITH ICE PER HER REQUEST.
--- NOTE | 2017-07-22 06:35 | NUR ---
PT AWAKE, SITTING UP IN BED. LEVOTHYROID PILL ADMINISTERED. PT ASSESSMENT COMPLETE. PTS LUNGS CLEAR, DIMINISHED THROUGHOUT ALL LOBES. PT CONTINUES ON 3L NC, DENIES SOB. REQUESTING BREATHING TREATMENT, RT JANET NOTIFIED, WILL BE UP FOR TREATMENT SOON. HR REGULAR RHYTHM AT THIS TIME, CSM INTACT. PT DENIES PAIN, DENIES NAUSEA, NO REQUESTS, CALL LIGHT IN REACH.
--- NOTE | 2017-07-22 06:54 | NUR ---
PT CONTINUES ON 3L OXYGEN BY NASAL CANNULA, RECEIVED BREATHING TREATMENTS FROM RT X 2. LUNGS HAVE BEEN CLEAR, DIMINISHED THROUGHOUT SHIFT. PT RECEIVED PRN VISTARIL X 1 FOR ANXIETY. PT IN BED, SLEPT THROUGHOUT SHIFT. BM THIS MORNING. NO IV ACCESS. ALERT AND ORIENTED X 3.
--- NOTE | 2017-07-22 08:30 | NUR ---
RN IN ROOM WITH PATIENT. HANDS AND FACE WASHED. NO NEEDS AT THIS TIME.
--- NOTE | 2017-07-22 09:54 | NUR ---
PATEINT RESTING IN BED WITH EYES CLOSED. THIS FINANCE VICE PRESIDENT TOOK THE PATIENT'S VITALS. PATIENT STATES SHE'S GOING TO TRY TO SLEEP NOW.
--- NOTE | 2017-07-22 13:19 | NUR ---
VISITED WITH PT JUST BEFORE SHE WAS DC'D. SHE FELT MUCH BETTER, AND SEEMED TO BE EXCITED TO RETURN HOME. EXTENDED A BLESSING, AND HAD PRAYER WITH HER
[2017-07-29] MEDS ORDERED: NYSTATIN100000 UN1 PO (14:20)
== END 2017-07-22 11:30 | disposition home or self-care (01) ==
LOC: ED 01:41 → CCU 01:42 → ED 05:26 → MS 19:30 → CCU 19:30 → MS 19:30 → CCU 07-22 11:30 → MS 07-22 11:30
PROVIDERS: ADMIT Internal Medicine
DX: I47.1 Supraventricular tachycardia (principal); J44.1 Chronic obstructive pulmonary disease with (acute) exacerbation; J96.11 Chronic respiratory failure with hypoxia; I10 Essential (primary) hypertension; E03.9 Hypothyroidism, unspecified; I25.10 Atherosclerotic heart disease of native coronary artery without angina pectoris; F41.9 Anxiety disorder, unspecified; M62.838 Other muscle spasm; Z98.61 Coronary angioplasty status; Z87.891 Personal history of nicotine dependence; Z79.02 Long term (current) use of antithrombotics/antiplatelets; Z79.51 Long term (current) use of inhaled steroids; Z79.899 Other long term (current) drug therapy; Z99.81 Dependence on supplemental oxygen; Z88.8 Allergy status to other drugs, medicaments and biological substances
CPT/HCPCS: 71045; 80053; 83880; 84484; 85025; 87502; 93005; 93010; 94640; 94644; 94668; 94760; 96372; 96374; 96375; 99285; G0378; J1650; J2060; J2930; J7512

== ENCOUNTER 2017-07-31 07:03 | Emergency (ER) | payer MEDICARE ==
[~2017-07-31] VITALS: Ht 157.5 cm; Wt 64.0 kg
[~2017-07-31 07:03] MED LIST changes: +BUSPIRONE HCL10 MG PO; +DESITIN57 GM TOP; +DILTIAZEM ER180 MG PO; +NYSTATIN100000 UN1 PO
[2017-07-31] MEDS ORDERED: NORCO 5-325 TA1 EACH PO (07:15)
--- OUTSIDE RECORDS SUMMARY | 2017-07-31 08:31 | XMS | Clinical Summary ---
Demographics + + + | Address | [address] | | | [place] [address] | + + + | Home Phone | | + + + | Preferred Language | Unknown | + + + | Marital Status | Single | + + + | Mosque Affiliation | BAP | + + + [...] Care Team Providers + +------+-------+ | Care Forge Utility Worker Name | Role | Phone | + +------+-------+ | Danielle Grider | PP | tel | | COURT ATTENDANT | | | + +------+-------+ Source Comments MAVIS is fully live on both [facility] and [facility] InPatient.Formerly [facility], [facility] & [facility] Allergies + + + + + + [...]
--- OUTSIDE RECORDS SUMMARY | 2017-07-31 08:31 | XMS | Clinical Summary ---
Demographics + + + | Address | [address] | | | [place] [address] | + + + | Home Phone | | + + + | Preferred Language | Unknown | + + + | Marital Status | Single | + + + | Hinduism Affiliation | BAP | + + + [...] Care Team Providers + +------+-------+ | Care Steam Powerplant Supervisor Name | Role | Phone | + +------+-------+ | Danielle Grider | PP | tel | | VAUDEVILLE ACTOR | | | + +------+-------+ Source Comments MAVIS is fully live on both [facility] and [facility] InPatient.Formerly [facility] & [facility] & [facility] Allergies + + + + + + [...]
--- NOTE | 2017-08-01 15:53 | EKG ---
[facility] [address] [facility] [place] [address] Signed Normal sinus rhythm Nonspecific ST and T wave abnormality Abnormal ECG When compared with ECG of 20-JUL-2017 05:28, premature atrial complexes are no longer present Nonspecific T wave abnormality no longer evident in Inferior leads Nonspecific T wave abnormality, improved in Anterior leads QT has lengthened Confirmed by ANA COOL MD ([id number]) on 08/01/2017 3:52:59 PM Electronically Signed By: ANA COOL MD 08/01/17 1553 PATIENT NAME: YANDEL CA Electrocardiogram DATE OF : 45 PHYSICIAN: ANA COOL MD REPORT #: [id number] REPORT IS CONFIDENTIAL AND NOT TO BE RELEASED WITHOUT AUTHORIZATION
== END 2017-07-31 10:16 | disposition short-term general hospital (02) ==
LOC: ED 07:03
DX: I21.4 Non-ST elevation (NSTEMI) myocardial infarction (principal); J18.9 Pneumonia, unspecified organism; I10 Essential (primary) hypertension; I25.10 Atherosclerotic heart disease of native coronary artery without angina pectoris; E03.9 Hypothyroidism, unspecified; K21.9 Gastro-esophageal reflux disease without esophagitis; J44.9 Chronic obstructive pulmonary disease, unspecified; Z87.891 Personal history of nicotine dependence; Z90.710 Acquired absence of both cervix and uterus; Z95.5 Presence of coronary angioplasty implant and graft; Z90.49 Acquired absence of other specified parts of digestive tract; Z90.12 Acquired absence of left breast and nipple; Z88.8 Allergy status to other drugs, medicaments and biological substances; Z79.899 Other long term (current) drug therapy
CPT/HCPCS: 36415; 71045; 80053; 81001; 83605; 84484; 85025; 87040; 93005; 93010; 96365; 96375; 99285; J0692; J1644; J2060

== ENCOUNTER 2017-12-03 05:37 | Emergency (ER) | payer MEDICARE ==
[~2017-12-03] VITALS: Ht 157.5 cm; Wt 63.5 kg
[2017-12-03] MEDS ORDERED: METHYLPREDNISOLO4 M1 PO (06:36)
[2017-12-03] MEDS ORDERED: ZITHROMAX250 MG PO (06:36)
--- NOTE | 2017-12-03 16:07 | EKG ---
[facility] [address] [facility] [place] [address] Signed Sinus tachycardia with premature supraventricular complexes and with occasional premature ventricular complexes Marked ST abnormality, possible lateral subendocardial injury Abnormal ECG When compared with ECG of 31-JUL-2017 07:05, premature ventricular complexes are now present premature supraventricular complexes are now present ST now depressed in Inferior leads ST now depressed in Anterolateral leads Inverted T waves have replaced nonspecific T wave abnormality in Lateral leads Confirmed by ANA COOL MD ([id number]) on 12/03/2017 4:07:36 PM Electronically Signed By: ANA COOL MD 12/03/17 1607 PATIENT NAME: YANDEL CA Electrocardiogram DATE OF : 45 PHYSICIAN: ANA COOL MD REPORT #: [id number] REPORT IS CONFIDENTIAL AND NOT TO BE RELEASED WITHOUT AUTHORIZATION
== END 2017-12-03 09:19 | disposition home or self-care (01) ==
LOC: ED 05:37
DX: J44.9 Chronic obstructive pulmonary disease, unspecified (principal); E03.9 Hypothyroidism, unspecified; I10 Essential (primary) hypertension; Z87.891 Personal history of nicotine dependence; Z88.8 Allergy status to other drugs, medicaments and biological substances; Z79.899 Other long term (current) drug therapy; Z99.81 Dependence on supplemental oxygen
CPT/HCPCS: 71045; 80048; 83880; 84484; 85025; 93005; 93010; 94640; 96374; 96375; 99283; J1644; J2060; J2405; J2930; J3010

== ENCOUNTER 2018-01-13 22:40 | Inpatient (IN) | payer MEDICARE ==
[~2018-01-13] VITALS: Ht 157.5 cm; Wt 66.5 kg
[~2018-01-13 22:40] MED LIST changes: +METHYLPREDNISOLO4 M1 PO; +SYNTHROID112 MCG PO; -SYNTHROID137 MCG PO
[2018-01-13] MEDS ORDERED: FUROSEMIDE40 MG PO (23:05)
[2018-01-13] MEDS ORDERED: POTASSIUM CHLO20 ME1 PO (23:06)
[2018-01-13] MEDS ORDERED: ISOSORBIDE MONO60 MG PO (23:06)
--- NOTE | 2018-01-14 02:33 | NUR ---
PT ARRIVED TO CCU PER STRETCHER AT 0130. PLACED ON CPAP. HAS HAD CAP ON AND OFF SEVERAL TIMES PAST HR USES OXYMASK 3 L WHEN OFF. WAS GIVEN 50MG VISTERYL FOR ANXIETY PER PT REQUEST. HAS REQUESTED MORE MED FOR ANXIETY ALSO C/O CHEST DISCOMFORT DUE TO DIFFICULTY BREATHING. DR COOL CALLED AND HE WISHES TO WAIT FOR VISTARYL TO WORK. THIS WAS EXPLAINED TO PT. WHEN FIRST HERE PT REQUESTING SOMETHING TO EAT NOW C/O NAUSEA AND SPIT UP SMALL AMT. GIVEN 44MG ZOFRAN IV. 14F GORDON CATH WAS INSERTED WITH RETURN CL YEL URINE. PT CURRENTLY ON OXYMASK AT 3L. WILL ENCOURAGE REST.
--- NOTE | 2018-01-14 03:56 | NUR ---
HAD BEEN RESTING NOW NOTED TO BE MOANING. C/O BEING TOO WARM AND SWEATING. TEMP 98.9. ALSO C/O HAVING DIFFICULTY BREATHING. BREATH TONES DIM THRU OUT. PLACED ON CPAP AND RT CALLED.
--- NOTE | 2018-01-14 04:12 | NUR ---
RT IN, NEB GIVEN. PT SLEEPING WITH CPAP IN PLACE.
--- NOTE | 2018-01-14 05:40 | NUR ---
HAS BEEN SLEEPING WITH CPAP IN PLACE. AWAKENED FOR MEDS AND PT ABLE TO PUT CPAP BACK ON AND GO BACK TO SLEEP. SATS UPPER 90'S.
--- NOTE | 2018-01-14 07:42 | NUR ---
PATIENT USES CALL LIGHT AND REQUESTING TO COME OFF CPAP AT THIS TIME. PT PLACED ON NASAL CANNULA AT 3 L, HER SAME 02 LEVEL THAT SHE WEARS AT HOME. PT STATES SHE IS OVERALL FEELING MUCH BETTER. GORDON DRAINING DILUTE URINE. PT DOES NOT APPEAR SHORT OF BREATH OR TACHYNPNEIC AT THIS TIME. BREAKFAST ORDERED FOR PATIENT AND ASSESSMENT COMPLETE. DIMINISHED BREATH SOUNDS NOTED THROUGH OUT WITH SOME EXP WHEEZES IN UPPER LOBES. SP02 IS 95% ON 3 L CURRENTLY. NO EDEMA NOTED. PT TO GET UP TO CHAIR FOR BREAKFAST. CALL LIGHT WITHIN REACH. CONTINUE TO MONITOR.
--- NOTE | 2018-01-14 10:25 | NUR ---
PATIENT SLEEPING AT THIS TIME IN BED. RR EVEN AND UNLABORED. CONTINUE TO MONITOR.
--- NOTE | 2018-01-14 11:57 | NUR ---
ASSESSMENT AND VITALS COMPLETE AT THIS TIME. PT STATES AGAIN SHE IS FEELING MUCH BETTER. RT IN ROOM TO DO BREATHING TREATMENT. PT NOW WAITING FOR LUNCH AND WILL TAKE A SHOWER THIS AFTERNOON.
--- NOTE | 2018-01-14 12:53 | NUR ---
PATIENT USES CALL LIGHT AND STATES SHE IS FEELING LIKE SHE IS HAVING CHEST HEAVINESS AND SOME PAIN. PT STATES THIS PAIN STARTED WHEN SHE WAS EATING, AND IT FELT PAINFUL IN HER THROAT AND ALL THE WAY DOWN TO HER STERNUM. PATIENT'S MONITOR DOES SHOW SOME DECREASE IN ST ELEVATION. EKG ORDERED. DR. COOL TO SEE PATIENT.
--- NOTE | 2018-01-14 14:22 | NUR ---
IMDUR GIVEN AT THIS TIME PER DR. COOL'S ORDER. PT UPDATED ON PLAN TO TRANSFER TO MED/SURG ON TELEMETRY. PT DENIES PAIN AT THIS TIME. CONTINUE TO MONITOR.
--- NOTE | 2018-01-14 14:51 | NUR ---
REPORT GIVEN TO CHARLY HENSON ON MED/SURG. PT BEING TRANSFERRED TO ROOM 107 ON TELEMETRY.
--- NOTE | 2018-01-14 15:24 | NUR ---
PT ARRIVED FROM CCU. REPORT TAKEN FROM CHARLY CHATMAN. PT REPORTS 3/10 HEADACHE THAT "IS JUST A LITTLE ANOYING." COOL CLOTH PROVIDED. ASSESSMENT DONE. PT ORIENTED TO ROOM. DINNER ORDER PLACED FOR PT. AFTERNOON FLUIDS (150ML APPLE JUICE, 150ML WATER) PROVIDED PER FLUID RESTICTION. 4L O2 BY NC IN PLACE. CPAP AT BEDSIDE. PT TALKING ON PHONE. NO ADDITIONAL REQUESTS OR COMPLAINTS AT THIS TIME.
--- NOTE | 2018-01-14 18:00 | NUR ---
PT ARRIVED FROM CCU TODAY, HERE FOR COPD EXACERBATION. TELE #5, EKG TODAY FOR CHEST PAIN, PRN NITRO IF PAIN REOCCURS. DAILY STANDING WEIGHT, 1500ML FLUID RESTRICTION, IV LASIX, GORDON CATHETER. [facility] PLANN[facility], WAITING TO HEAR FROM LAB. PRN HYDROXAZINE FOR ANXIETY. MAGNESIUM GIVEN TODAY. PT ON 4L O2 BY NC. CPAP/BIPAP AT BEDSIDE FOR NIGHT TIME USE. SBA, PT USING CALL LIGTH APPROPRIATLY.
--- NOTE | 2018-01-14 19:30 | NUR ---
BEDSIDE REPORT RECEIVED FROM CHARLY HENSON. PT NAUSEOUS, PRN ZOFRAN IV ADMINISTERED. MD IN ROOM AT THIS TIME ASSESSING PT. PT ON 4L OXYGEN BY NC. ON TELE 5. GORDON CATHETER DRAINING. CALL LIGHT IN REACH. IV SALINE LOCKED WNL.
--- NOTE | 2018-01-14 20:04 | NUR ---
PACKED RED BLOOD CELLS NOW INFUSING WNL. VERIFIED WITH SECOND RN AUGUSTO. VITALS COMPLETE, RN REMAINS IN ROOM, EDUCATION PROVIDED TO PT.
--- NOTE | 2018-01-14 20:20 | NUR ---
PT ASSESSMENT COMPLETE. LUNGS CLEAR THROUGHOUT ALL LOBES, PT ON 4L OXYGEN BY NC. HR REGULAR RHYTHM. ON TELE 5. NO EDEMA NOTED. CSM INTACT. 15 MINUTE VITALS COMPLETE FOR BLOOD PRODUCT ADMINISTRATION. PT DENIES ADVERSE REACTIONS, INFUSING WNL. RT NOW IN ROOM FOR NEBULIZER TREATMENTS. CALL LIGHT IN REACH.
--- NOTE | 2018-01-14 20:25 | EKG ---
[facility] [address] [facility] [place] [address] Signed Normal sinus rhythm Nonspecific ST abnormality Abnormal ECG When compared with ECG of 03-DEC-2017 06:54, premature ventricular complexes are no longer present premature supraventricular complexes are no longer present Vent. rate has decreased BY [address] no longer depressed in Anterolateral leads T wave inversion no longer evident in Lateral leads Confirmed by ANA COOL MD ([id number]) on 01/14/2018 8:25:57 PM Electronically Signed By: ANA COOL MD 01/14/182024 PATIENT NAME: YANDEL CA Electrocardiogram DATE OF : 45 PHYSICIAN: ANA COOL MD REPORT #: [id number] REPORT IS CONFIDENTIAL AND NOT TO BE RELEASED WITHOUT AUTHORIZATION
--- NOTE | 2018-01-14 21:00 | NUR ---
SCHEDULED MEDIACATIONS ADMINISTERED, GORDON CATHETER D/C'D PT GIVEN PRN ANXIETY AND SLEEP MEDS REQUESTED. BLOOD PRODUCTS INFUSING WNL. CALL LIGHT IN REACH.
--- NOTE | 2018-01-14 21:20 | NUR ---
CALL LIGHT ANSWERED, CPAP REMOVED PER PT REQUEST, RT NOTIFIED. PT ASSISTED TO REPOSITION IN BED, ATTENDS ON PER PT REQUEST. CALL LIGHT IN REACH. BLOOD PRODUCT INFUSING WNL.
--- NOTE | 2018-01-14 23:38 | NUR ---
BLOOD PRODUCT INFUSION COMPLETE. VITALS COMPLETE BY RN. PT SLEEPING, AWAKENS EASILY. BREATHING NON-LABORED ON 4L OXYGEN BY NC. IV SALINE LOCKED AT THIS TIME. NO ADVERSE REACTIONS NOTED. CALL LIGHT IN REACH.
--- NOTE | 2018-01-15 02:04 | NUR ---
PT SLEEPING, AWAKENS TO RN VOICE, VITALS COMPLETE AT THIS TIME. SBA TO RESTROOM FOR VOID AND BACK TO BED. PT ABLE TO USE IS 1000 ML BEST EFFORT X 5. FINE CRACKLES BILATERALLY LOWER LOBES OF LUNGS, CLEAR IN UPPER LOBES. HR REGULAR RHTYHM. BOWEL TONES ACTIVE X 4, ABD SOFT. PT GIVEN SUGAR FREE ICE CREAM REQUESTED. CALL LIGHT IN REACH. NO ADDL REQUESTS AT THIS TIME.
--- NOTE | 2018-01-15 03:18 | NUR ---
CALL LIGHT ANSWERED, PT C/O HEARTBURN, PRN MAALOX ADMINISTERED. PT HAS NO ADDL REQUESTS. ON 4L OXYGEN BY NC. CALL LIGHT IN REACH.
--- NOTE | 2018-01-15 05:12 | NUR ---
GORDON CATHETER D/C'D, SBA TO RESTROOM FOR VOIDS. PT RECEIVED 1 UNIT PRBCS, 2ND UNIT TO INFUSE DURING MORNING HOURS. FINE CRACKLES BILATERALLY LOWER LUNGS, PT USING IS, CPT. ON 4L OXYGEN BY NC THROUGHOUT SHIFT. NO EDEMA NOTED. HR REGULAR RHTYHM. ON TELE 5. PRN VISTARIL X 1. PT C/O HEARTBURN, PRN MAALOX X 1. SCHEDULED NEB TREATMENTS.
--- NOTE | 2018-01-15 06:00 | NUR ---
VITALS AND DAILY WEIGHT COMPLETE. PT REFUSES TOILETING NEEDS AT THIS TIME. GIVEN ALLOTTED PO FLUIDS. CALL LIGHT IN REACH, NO REQUESTS AT THIS TIME.
--- NOTE | 2018-01-15 07:54 | NUR ---
REPORT RECEIVED FROM WATSON PARKS AT THIS TIME, PATIENT MOVED UP IN BED AND VITALS TAKEN, TUBING HUNG AND READY FOR BLOOD. PATIENT ALERT AND ORIENTED AND AM MEDICATION GIVEN TO HER AT THIS TMIE. SHE REMAINS ON OXYGEN AT 4L PER NC AT THIS TIME WITH NO C/O SOB.
--- NOTE | 2018-01-15 08:10 | NUR ---
SECOND UNIT OF PRBC STARTED AT THIS TIME, PATIENT AWARE OF POSSIBLE SIDE EFFECTS OF BLOOD TRANSFUSION AND WILL NOTIFY RN IF SHE EXPERIENCES ANY OF THESE SYMPTOMS.
--- NOTE | 2018-01-15 08:30 | NUR ---
PATIENT TOLERATING BLOOD WELL WITHOUT ANY TRANSFUSION REACTIONS AT THIS TIME. RT WAS IN THE ROOM TO SEE THE PATIENT AT THIS TIME. OXYGEN WAS TURNED DOWN TO 3L AT THIS TIME. SATURATIONS CURRENTLY AT 95%.
--- NOTE | 2018-01-15 10:33 | NUR ---
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 PATIENT HAS NO C/O SOB OR PAIN AT THIS TIME AND REMAINS ON OXYGEN AT 3L PER NC SATURATIONS ARE AT 94% WITH DIMINISHED LUNG SOUNDS. SHE IS WORKING ON HER IS.
--- NOTE | 2018-01-15 10:38 | NUR ---
PATIENT ASSISTED UP TO THE CHAIR AFTER AMBULATING TO THE BATHROOM AND VOIDING
--- NOTE | 2018-01-15 11:00 | NUR ---
SECOND UNIT OF PRBC COMPLETED AT THIS TIME. PATIENT IS SITTING UP IN THE CHAIR AND IS STILL WORKING ON HER PHONE. OXYGEN TURNED DOWN TO 3L AT THIS TIME HER LEVEL AT 4L WAS AT 98%. SHE DENIES ANY SOB OR PAIN. VITALS TAKEN.
--- NOTE | 2018-01-15 11:19 | NUR ---
LUNCH SET UP FOR THE PATIENT AT THIS TIME
--- NOTE | 2018-01-15 11:40 | NUR ---
PATIENT ATE 100% OF HER LUNCH AND WAS ASSISTED BACK TO BED WITH MINIMAL HELP. SHE REMAINS ON OXYGEN AT 3L PER NC WHICH IS CHRONIC FOR HER. WARM BLANKET GIVEN TO HER AT THIS TIME
--- NOTE | 2018-01-15 14:15 | NUR ---
PATIENT RESTING ON HER RIGHT LATERAL SIDE, SHE REMAINS ON OXYGEN AT 3L WHICH IS CHRONIC FOR HER AT THIS TIME. SHE DENIES ANY SOB BUT THE BASES OF HER LUNGS REMAIN DIM
[2018-01-15] MEDS ORDERED: SPIRIVA18 MCG INH (16:34)
[2018-01-15] MEDS ORDERED: TRAZODONE HCL50 MG PO (16:38)
[2018-01-15] MEDS ORDERED: VENTOLIN HFA18 GM (16:39)
[2018-01-15] MEDS ORDERED: NORVASC5 MG PO (16:39)
[2018-01-15] MEDS ORDERED: CARDURA8 MG PO (16:44)
[2018-01-15] MEDS ORDERED: PAROXETINE HCL20 MG PO (17:00)
[2018-01-15] MEDS ORDERED: LIPITOR40 MG PO (17:01)
--- NOTE | 2018-01-15 17:02 | NUR ---
DR COOL SAW PT AND TALKED WITH HER ABOUT A NEBULIZER TO GO HOME WITH PT. SHE STATED THAT SHE WANTS IT FROM [facility]. I CALLED AND TALKED WITH TOMASA ABOUT IT, SHE SAID IF SOMEONE COULD PICK IT UP FOR THE PT THEY DIDN'T SEE THAT THERE WOULD BE A PROBLEM. I CALLED THE PT SON OSVALDO AND ASKED IF THERE WAS ANY WAY HE COULD FIGURE OUT HOW TO HAVE THIS PICKED UP THERE SO IT COULD BE DELIVERED TOMORROW AND SHE COULD THEN GO HOME. HE SAID HE WOULD FIGURE IT OUT. I THEN CALLED [facility] TO LET THEM KNOW THAT I FAXED CHART NOTES AND ORDER TO THEM INCLUDING FACESHEET, RX, ER NOTES, H AND P, PROG NOTES. RECIEVED A FAX CONFIRMATION BACK, ALSO WHILE I WAS TALKING WITH BONNIE FROM [facility] SHE STATED THAT THEY WOULD DELIVER THIS TO PT AT THE HOSPITAL BETWEEN 9 AND 11 TOMORROW, I THEN RECALLED THE SON AND LEFT A MESSAGE EXPLAINING THAT HE DOES NOT HAVE TO PICK IT UP, THAT IT WILL BE DELIVERED IN THE MORNING. ALSO INFORMED THE PT THAT HER NEBULIZER WILL BE DELIVERED BETWEEN 9 AND 11 IN AM FROM [facility].
--- NOTE | 2018-01-15 17:15 | NUR ---
DOCTOR TRAVON IN TO SEE THE PATIENT, EVENING MEDICATION GIVEN TO THE PATIENT AND SHE IS HELPED UP IN BED AND FOOD SET UP FOR HER
[2018-01-15] MEDS ORDERED: ASPIR 8181 MG PO (17:54)
--- NOTE | 2018-01-15 18:01 | NUR ---
Medications reconciled using pharmacy refill records and patient interview
[2018-01-15] MEDS ORDERED: MAGNESIUM250 MG PO (19:00)
[2018-01-15] MEDS ORDERED: RANITIDINE HCL150 MG PO (19:02)
[2018-01-15] MEDS ORDERED: SYMBICORT 16010.2 GM INH (19:03)
[2018-01-15] MEDS ORDERED: PROAIR RESPICL90 MCG INH (19:14)
[2018-01-15] MEDS ORDERED: NITROGLYCERIN0.4 MG SL (19:14)
[2018-01-15] MEDS ORDERED: ALBUTEROL2.5 MG/3 M INH (19:14)
[2018-01-15] MEDS ORDERED: ISOSORBIDE MONO60 MG PO (19:14)
[2018-01-15] MEDS ORDERED: FOLIC ACID1 MG PO (19:14)
[2018-01-15] MEDS ORDERED: VITAMIN B-121000 MCG PO (19:14)
[2018-01-15] MEDS ORDERED: IPRATROPIU0.2 MG/1 M INH (19:14)
--- NOTE | 2018-01-15 19:20 | NUR ---
BEDSIDE REPORT RECEIVED FROM CHARLY HAYWARD. PT AWAKE, LYING IN BED. ON 3L OXYGEN BY NC AT THIS TIME. PERSONAL SUPPLIES AND CALL LIGHT IN REACH. PT DENIES TOILETING NEEDS AT THIS TIME. IV SALINE LOCKED.
--- NOTE | 2018-01-15 19:40 | EKG ---
[facility] [address] [facility] [place] [address] S[address] Normal sinus [address] ST depression, consider subendocardial injury Nonspecific T wave abnormality Abnormal ECG When compared with ECG of 13-JAN-2018 22:48, (Unconfirmed) ST now depressed in Anterolateral leads T wave inversion now evident in Anterior leads Confirmed by ANA COOL MD ([id number]) on 01/15/2018 7:40:19 PM Electronically Signed By: AAN COOL MD 01/15/181939 PATIENT NAME: YANDEL CA Electrocardiogram DATE OF : 45 PHYSICIAN: ANA COOL MD REPORT #: [id number] REPORT IS CONFIDENTIAL AND NOT TO BE RELEASED WITHOUT AUTHORIZATION
--- NOTE | 2018-01-15 21:00 | NUR ---
VITALS AND IS AND OS COMPLETE AT THIS TIME, PT GIVEN ALLOTTED PO FLUID. CRACKLES BILATERALLY LOWER LOBES, PT USING IS, CPT AT THIS TIME. BOWEL TONES HYPOACTIVE X 4, PRN SENNA ADMINISTERED. HR REGULAR RHTYHM. PT ON 3L OXYGEN SPO2 89% AFTER BREATHING TREATMENT, RT TITRATED TO 4L OXYGEN BY NC, SPO2 RISES TO 91%. PRN VISTARIL ADMINISTERED, CPAP APPLIED. PT DENIES TOILETING NEEDS. CALL LIGHT AND PERSONAL SUPPLIES IN REACH.
--- NOTE | 2018-01-15 21:50 | NUR ---
CALL LIGHT ANSWERED, PT ASSISTED TO REPOSITION WITH PILLOWS FOR COMFORT. GIVEN FACE MASK FOR SLEEP. NO ADDL REQUESTS. PT OFF CPAP, ON 4L OXYGEN BY IL FOR SLEEP.
--- NOTE | 2018-01-15 23:30 | NUR ---
CHECKED ON PT, APPEARS TO BE SLEEPING, LYING ON LEFT SIDE, BREATHING NON-LABORED ON 4L OXYGEN BY NC. SLEEPING MASK ON. LIGHTS OFF IN ROOM.
--- NOTE | 2018-01-16 | NUR ---
CAN SINTA IN ROOM, CPAP MACHINE APPLIED AT THIS TIME PER PT REQUEST.
--- NOTE | 2018-01-16 01:45 | NUR ---
CHECKED ON PT, CPAP MACHINE ON, APPEARS TO BE SLEEPING, EYES CLOSED, VISIBLE CHEST RISE. WILL CONTINUE TO MONITOR. LIGHTS OFF IN ROOM.
--- NOTE | 2018-01-16 02:55 | NUR ---
CALL LIGHT ANSWERED, CPAP REMOVED PER PT REQUEST, BACK ON 3L OXYGEN BY NC. SBA TO RESTOOM FOR VOID AND BACK TO BED, SOB. OXYGEN TITRATED UP TO 4L OXYGEN BY NC, SPO2 92%. PT USING IS INSTRUCTED. LUNGS DIMINISHED BILATERALLY IN BASES, CLEAR IN UPPER LOBES. HOB ELEVATED. PT REFUSES PRN BREATHING TREATMENT AT THIS TIME, STATES WILL USE CALL LIGHT IF TREATMENT NEEDED. BOWEL TONES ACTIVE X 4, ABD SOFT. HR REGULAR RHYTHM. CALL LIGHT IN REACH.
--- NOTE | 2018-01-16 05:01 | NUR ---
PT ON 4L OXYGEN BY NC WITH SLEEP, DESATURATING TO 88% ON 3L OXYGEN AT START OF SHIFT. CPAP ON FOR 3 HOURS 45 MINS THIS SHIFT. PRN TRAZADONE, PRN VISTARIL ADMINISTERED X 1. SCHEDULED NEB TREATMENTS. PT USING IS AND CPT. PT SLEPT WELL THROUGHOUT SHIFT. SBA TO RESTROOM FOR VOIDS. PRN SENNA ADMINISTERED, LAST BM 01/13/18. DISCHARGE THIS AM.
--- NOTE | 2018-01-16 06:06 | NUR ---
PT SLEEPING, AWAKENS TO RN VOICE. VITALS COMPLETE AT THIS TIME, PT DENIES TOILETING NEEDS. STANDING WEIGHT 146.6 INCREASE FROM PREVIOUS SHIFT. PT BACK IN BED, CPAP ON AT THIS TIME. CALL LIGHT IN REACH. PT REQUESTING TO REST, SLEEPING MASK ON.
--- NOTE | 2018-01-16 07:05 | NUR ---
REPORT RC'D FROM HEADER DOCK NURSE. PT RESTING IN BED COMFORTABLY, CPAP IN PLACE, RESPIRATIONS EVEN AND UNLABORED.
--- NOTE | 2018-01-16 07:40 | NUR ---
PATIENT IS ON BIPAP MACHINE WILL CHECK BACK.
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
--- NOTE | 2018-01-16 08:59 | NUR ---
FAXED DME FORMS BACK TO THEM AND TALKED WITH BONNIE FROM DME AND SHE STATED THE NEBULIZER SHOULD BE HERE BETWEEN 9 AND 10. ALSO RECIEVED FAX CONFIRMATION BACK.
--- NOTE | 2018-01-16 10:36 | NUR ---
EDUCATION PROVIDED ON NEW MEDICATION AND POSSIBLE SIDE EFFECTS, ALL QUESTIONS ANSWERED AT THIS TIME. PT'S OXYGEN SATURTION NOTED TO BE 86% ON 4L NC, DENIES SOB. PT REPOSITIONED, OXYGEN TITRATED TO 5L, DEEP BREATHING AND IS COMPLETED, OXYGEN SATURATION NOW 93% ON 5L NC. WILL CONTINUE TO MONITOR.
--- NOTE | 2018-01-16 11:30 | NUR ---
PT SBA AND AMBULATED TO RESTROOM. ORDERS RC'D FOR DC. RAC IV REMOVED, CATH INTACT, WNL. INFORMED PTOF DC, CLOTHING PROVIDED. WILL AWAIT PT TO FINISH LUNCH TO DISCUSS DC PAPERWORK.
[2018-01-16] MEDS ORDERED: AMLODIPINE BESYL5 MG PO (11:33)
[2018-01-16] MEDS ORDERED: ISOSORBIDE MONO60 MG PO ×2 (11:35→11:37)
== END 2018-01-16 12:52 | disposition home or self-care (01) | DRG 291 ==
LOC: ED 22:40 → CCU 01-14 00:41 → MS 01-14 14:59
PROVIDERS: ADMIT Internal Medicine
PROC: 5A09357 Assistance with Respiratory Ventilation, Less than 24 Consecutive Hours, Continuous Positive Airway Pressure (ICD-10-PCS; principal; 2018-01-14)
DX: I11.0 Hypertensive heart disease with heart failure (principal); J96.21 Acute and chronic respiratory failure with hypoxia; I50.33 Acute on chronic diastolic (congestive) heart failure; D64.9 Anemia, unspecified; E53.8 Deficiency of other specified B group vitamins; J44.9 Chronic obstructive pulmonary disease, unspecified; I25.10 Atherosclerotic heart disease of native coronary artery without angina pectoris; I25.2 Old myocardial infarction; E55.9 Vitamin D deficiency, unspecified; E78.5 Hyperlipidemia, unspecified; E03.9 Hypothyroidism, unspecified; F39 Unspecified mood [affective] disorder; M06.9 Rheumatoid arthritis, unspecified; K21.9 Gastro-esophageal reflux disease without esophagitis; Z66 Do not resuscitate; Z88.8 Allergy status to other drugs, medicaments and biological substances; Z79.82 Long term (current) use of aspirin; Z98.61 Coronary angioplasty status; Z79.51 Long term (current) use of inhaled steroids; Z79.899 Other long term (current) drug therapy
CPT/HCPCS: 36415; 71045; 80048; 80053; 80069; 82607; 82728; 82746; 82803; 83540; 83735; 83880; 84466; 84484; 85025; 85045; 86850; 86900; 86901; 86920; 93005; 93010; 94640; 94660; 94668; 94760; 96374; 96375; 99285; J1650; J2060; J2405; J3475; P9016; Q0177

== ENCOUNTER 2018-01-27 08:01 | Emergency (ER) | payer MEDICARE ==
[~2018-01-27] VITALS: Ht 157.5 cm; Wt 65.8 kg
[~2018-01-27 08:01] MED LIST changes: +ASPIR 8181 MG PO; +CARDURA8 MG PO; +FUROSEMIDE40 MG PO; +IPRATROPIU0.2 MG/1 M INH; +ISOSORBIDE MONO60 MG PO; +MAGNESIUM250 MG PO; +NITROGLYCERIN0.4 MG SL; +NORVASC5 MG PO; +PAROXETINE HCL20 MG PO; +POTASSIUM CHLO20 ME1 PO; +PROAIR RESPICL90 MCG INH; +SPIRIVA18 MCG INH; +SYMBICORT 16010.2 GM INH; +TRAZODONE HCL50 MG PO; +VENTOLIN HFA18 GM; +VITAMIN B-121000 MCG PO
[2018-01-27] MEDS ORDERED: PREDNISONE20 MG PO (09:56)
--- NOTE | 2018-01-27 11:46 | EKG ---
[facility] [address] [place] [address] Signed Normal sinus rhythm Normal ECG When compared with ECG of 14-JAN-2018 12:51, ST no longer depressed in Anterolateral leads Nonspecific T wave abnormality no longer evident in Inferior leads T wave inversion no longer evident in Anterior leads Confirmed by ANA COOL MD ([id number]) on 01/27/2018 11:46:11 AM Electronically Signed By: ANA COOL MD 01/27/18 1146 PATIENT NAME: YANDEL CA [place] Electrocardiogram DATE OF : 45 PHYSICIAN: ANA COOL MD REPORT #: [id number] REPORT IS CONFIDENTIAL AND NOT TO BE RELEASED WITHOUT AUTHORIZATION
== END 2018-01-27 10:46 | disposition home or self-care (01) ==
LOC: ED 08:01
DX: J44.1 Chronic obstructive pulmonary disease with (acute) exacerbation (principal); E03.9 Hypothyroidism, unspecified; K21.9 Gastro-esophageal reflux disease without esophagitis; I10 Essential (primary) hypertension; Z87.891 Personal history of nicotine dependence; Z88.8 Allergy status to other drugs, medicaments and biological substances; Z79.82 Long term (current) use of aspirin; Z79.899 Other long term (current) drug therapy
CPT/HCPCS: 71045; 80053; 84484; 85025; 85379; 99285; J7512

== ENCOUNTER 2018-02-23 18:39 | Inpatient (IN) | payer MEDICARE ==
[~2018-02-23] VITALS: Ht 157.5 cm; Wt 68.0 kg
--- OUTSIDE RECORDS SUMMARY | ~2018-02-23 | XMS | Encounter Summary ---
Demographics + + + | Address | [address] | | | [place] [address] | + + + | Home Phone | | + + + | Preferred Language | Unknown | + + + | Marital Status | Single | + + + | Buddhist Affiliation | 1009 | + + + | Race | Unknown | + + + | Ethnic Group | Unknown | + + + Author + + + | Author | [employer] | + + + | Organization | [facility] | + + + | Address | Unknown | + + + | Phone | Unavailable | + + + Support + + +---------+ + | Name | Relationship | Address | Phone | + + +---------+ + | Lavell Chui | ECON | Unknown | | + + +---------+ + Care Team Providers + +------+ + | Care Analysis Specialist Name | Role | Phone | + [...] | | | | | [facility] | | | | | | [address] [place] | | | | | | [address] | | | +--------+ + + + [...] Description | +--------+---------+ + + + | 03/24/ | Office | Nephrology | Leland Madera MD | | | 2017 | Visit | | [address] | | | | | | [address] [place] | | | | | | [address] | | | | | | | | +--------+---------+ + + + | 06/17/ | Office | Cardiology | Cristhian Cochran, | | | 2017 | Visit | | [address] | | | | | | [address] [place], | | | | | | [place] [address] | | | | | | [phone] | | | | | | | [...]
--- OUTSIDE RECORDS SUMMARY | ~2018-02-23 | XMS | Clinical Summary ---
Demographics + + + | Address | [address] | | | [place] [address] | + + + | Home Phone | | + + + | Preferred Language | Unknown | + + + | Marital Status | Unknown | + + + | Advent Affiliation | Unknown | + + + | Race | Unknown | + + + | Ethnic Group | Unknown | + + + Author + + + | Author | [facility] | | | and [place] | + + + | Organization | [facility] | | | and [place] | + + + | Address | Unknown | + + + | Phone | Unavailable | + + + Care Team Providers + +------+ + | Care Assembler [employer]al [employer] Name | Role | Phone | + +------+ + PP | Unavailable | + +------+ + Allergies Not on File Current Medications Not on file Active Problems Not on file Social History + +-------+ +--------+------+ | Tobacco Use | Types | Packs/Day | Years | Date | | | | | Used | | + +-------+ +--------+------+ | Never Assessed | | | | | + +-------+ +--------+------+ + + + | Sex Assigned at | Date Recorded | | | | + + + | Not on file | | + + + Plan of Treatment + + + + + | Health Maintenance | Due Date | Last Done | Comments | + + + + + | Vaccine: | | | | | Dtap/Tdap/Td (1 - | 4 | | | | Tdap) | | | | + + + + + | Vaccine: | | | | | Pneumococcal 65+ | 0 | | | | Low/Medium Risk (1 | | | | | of 2 - PCV13) | | | | + + + + + | Vaccine: Influenza | | | | | (#1) | 8 | | | + + + + + Results Not on filefrom Last 3 Months"
--- OUTSIDE RECORDS SUMMARY | ~2018-02-23 | XMS | Encounter Summary ---
Demographics + + + | Address | [address] | | | [place] [address] | + + + | Home Phone | | + + + | Preferred Language | Unknown | + + + | Marital Status | Single | + + + | Sabianism Affiliation | [id number] | + + + | Race | Unknown | + + + | Ethnic Group | Unknown | + + + Author + + + | Author | Rojelio Kannact | + + + | Organization | [email or web address] | + + + | Address | Unknown | + + + | Phone | Unavailable | + + + Support + + +---------+ + | Name | Relationship | Address | Phone | + + +---------+ + | Lavell Chiu | ECON | Unknown | | + + +---------+ + Care Team Providers + +------+ + | Care Accounting Systems Analyst Name | Role | Phone | + +------+ + | Eliza Andrade MD | PCP | Unavailable | + +------+ + Reason for Referral Consult and Treat (Routine) + + + + + + + | Status | Reason | Specialty | Diagnoses / | Referred By | Referred To | | | | | Procedures | Contact | Contact | + + + + + + + | Authorized | Specialty | Pulmonary | Diagnoses | Mouna, | Anita, Chi | | | Services | Disease | | Alesia Gong, | 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 | | | | | coronary | [place], [place] | [facility] | | | | | artery of | [address] | [address] | | | | | [place] | Phone: | JESSICA HINOJOSA | | | | | heart, | [phone] | [place] | | | | | angina | Fax: | [phone] | | | | | presence | [phone] | Phone: | | | | | unspecified | | [phone] | | | | | S/P PTCA | | Fax: | | | | | (percutaneou | | [phone] | | | | | s | | | | | | | transluminal | | | | | | | coronary | | | | | | | angioplasty) | | | | | | | Status | | | | | | | post | | | | | | | insertion of | | | | | | | drug | | | | | | | eluting | | | | | | | coronary | | | | | | | artery stent | | | | | | | History of | | | | | | | [place] | | | | | | | (myocardial | | | | | | | infarction) | | | | | | | Paroxysmal | | | | | | | atrial | | | | | | | fibrillation | | | | | | | (HCC) | | | | | | | Chronic | | | | | | | obstructive | | | | | | | pulmonary | | | | | | | disease, | | | | | | | unspecified | | | | | | | COPD type | | | | | | | (HCC) Stage | | | | | | | 3 chronic | | | | | | | kidney | | | | | | | disease | | | | | | | Risk factors | | | | | | | for | | | | | | | obstructive | | | | | | | sleep apnea | | | + + + + + + + Reason for Visit + + + | Reason | Comments | + + + | Follow-up | 4 - 6 weeks | + + + Consult and Treat (Routine) + +--------+ + + + + | Status | Reason | Specialty | Diagnoses / | Referred By | Referred To | | | | | Procedures | Contact | Contact | + +--------+ + + + + | Authorized | | Cardiology | Diagnoses | Raymond, | Dimas, | | | | | 3 months- | MD Eliza | Cristhian Chase MD | | | | | Dr. Cochran pt | [address] | [address] | | | | | Procedures | JESSICA HINOJOSA | Myriam Khanna | | | | | CRD FOLLOW | [place] | Mehrdad Blevins | | | | | UP | [place] [address] | [place], [place] | | | | | | Phone: | [phone] Phone: | | | | | | [phone] | [phone] | | | | | | Fax: | Fax: | | | | | | [phone] | [phone] | + +--------+ + + + + Encounter Details +--------+---------+ + + + | Date | Type | Department | Care Team | Description | +--------+---------+ + + + | 01/23/ | Office | SANDRA Oneill | Alesia Freire | Atherosclerosis of | | 2018 | Visit | Cardiology [place] | JHOAN Gong [address] | [place] coronary | | | | [address] | Myriam Cronin F | artery of [place] | | | | [address] | [place] [address] | heart, angina | | | | [place] [address] | [phone] | presence unspecified | | | | [phone] | | (Primary Dx); S/P | | | | | | PTCA (percutaneous | | | | | | transluminal | | | | | | coronary | | | | | | angioplasty); Status | | | | | | post insertion of | | | | | | drug eluting | | | | | | coronary artery | | | | | | stent; Chronic total | | | | | | occlusion of [place] | | | | | | coronary artery; | | | | | | History of [place] | | | | | | (myocardial | | | | | | infarction); | | | | | | Paroxysmal atrial | | | | | | fibrillation ([facility]); | | | | | | Mild pulmonary | | | | | | hypertension ([facility]); | | | | | | Moderate aortic | | | | | | valve stenosis | +--------+---------+ + + + Social History + +-------+ [...] + + + as of this encounter Last Filed Vital Signs + + + + | Vital Sign | Reading | Time Taken | + + + + | Blood Pressure | 130/38 | 01/23/2018 10:08 AM PDT | + + + + | Pulse | 61 | 01/23/2018 10:08 AM PDT | + + + + | Temperature | - | - | + + + + | Respiratory Rate | 20 | 01/23/2018 10:08 AM PDT | + + + + | Oxygen Saturation | 98% | 01/23/2018 10:08 AM PDT | + + + + | Inhaled Oxygen | - | - | | Concentration | | | + + + + | Weight | 66.1 kg (145 lb 11.2 | 01/23/2018 10:08 AM PDT | | | oz) | | + + + + | Height | 157.5 cm (5' 2") | 01/23/2018 10:08 AM PDT | + + + + | Body Mass Index | 26.65 | 01/23/2018 10:08 AM PDT | + + + + in this encounter Instructions Patient Instructions - Alesia FreireJHOAN - 01/23/2018 10:00 AM VERÓNICAI would like to refer you to Cardiac Rehab in [place] , as no room at the one in [place], but think we need to wait given your recent hospitalization Bring blood pressure cuff to our clinic or Dr. Andrade to check how close it is to our readi ngs. I have referred you to Dr. Duran at [place] [facility] , call [phone] for an appoi ntment next week Since you felt so much better with CPAP in the hospital, and at risk for s leep apnea and hypoxemia I made no changes to medications today , and think your high blood pressure contributed to by me stopping Amlodipine, as I thought you had a prescription for Cardizem, which I thought you were on , as prescription for it , and I had added to list of medications I wanted you to be on when I saw you last . I am glad you are feeling better You will follow up next with Dr. Cochran in February, as well as kidney doctor , Dr. Madera in is encounter Progress Notes Alesia FreireJHOAN - 01/23/2018 10:00 AM PDTFormatting of this note may be differen t from the original. Date of visit: 01/24/2018 Primary Care Physician: Eliza Andrade CHIEF COMPLAINT: Chief Complaint Patient presents with Follow-up 4 - 6 weeks HISTORY OF PRESENT ILLNESS: Ms Davina Chiu is a 72 year old woman who is here today for 6 week follow up on response to medication changes I made when I saw her last, as well as recent emergency dontae m admission and hospitalization last week. She has a history of coronary artery disease with most recent PCI /stenting in July to left circumflex, known chronically occluded RCA, NSTEMI 07/2017, as well as 2017, history of paroxysmal atrial fibrillation ,mild pulmonary hypertension, moderate aort ic stenosis hypertension, hyperlipidemia, moderate right carotid stenosis and mild left hill tid stenosis, COPD on continuous 3 L of oxygen ,hypothyroidism, peripheral vascular disease, rheumatoid arthritis. She is a patient of Dr. Cochran and seen by him in the hospital most recently on December 05 and p reviously seen by him in our [place] office. Her previous testing and procedures are detailed below. I saw her last for hospital follow up from [facility]( [facility]) on December 05 after non-STEMI with unchanged angiogram performed December 04, 2017.. There was much confusion about her medications, which she had not brought to the clinic, a s seemed to be on 3 calcium channel blockers, and not sure if taking furosemide, but taki ng ASA and Plavix daily. In consultation with Dr. Cochran, I had reduced her to only one calcium channel sheri, Dilt iazem 360 mg CD, and continued ASA 81 mg daily, Plavix 75 mg daily, Atorvastatin 40 mg robert y, Cardura 8 mg in the evening, Imdur 60 mg daily, and furosemide 40 mg qam as fluid over loaded. . Dr. Cochran did not think she was a candidate for Beta blockers, given her severe eron g disease. Unfortunately despite me typing out a list of which medicines I would like her to be on, I was unaware of the fact that she had never received the prescription for Cardizem which wa s listed in the discharge medication, and had stopped her amlodipine. She ended up being admitted to the emergency room at [facility],and then hospitalized fr 01/16/2018-01/18/2018 for hypertension, diastolic heart failure exacerbation with BNP 1310, acute on chronic anemia requiring 2 units of blood, and COPD exacerbation. She was treated with diuresis, and restarted on amlodipine 5 mg, as well as increased dos e of Cardura of 16 mg. She followed up with new PCP Dr. Andrade yesterday, and I reviewed his clinic note, and he has increased her amlodipine to 10 mg yesterday. Her systolic blood pressure is better cont rolled in the clinic today, but she continues to have low diastolic pressure.. She reports today that she feels the best that she has in some time, and thinks receiving 2 units of the blood improved her greatly She reports prior to being admitted to the hospital, she had felt extreme chest pressure like someone was sitting on her chest, with difficulty breathing, and could barely talk and was very confused, and her son had called an ambulance to take her to the hospital. She also reported she was treated with CPAP when she was in the hospital and it improved her breathing immensely, and she thinks that she would benefit from being on CPAP on a full- time basis. She had discussed cardiac rehab with Dr. Andrade, and I agree with him that she is not read y to go given her recent hospitalization as needs to be more stable She brought in her medication bottles to the clinic today and I reviewed them with her pe rsonally REVIEW OF SYSTEMS: Negative except for pertinent items noted in HPI. Constitutional: Reports ongoing fatigue . denies unexplained weight loss. Weight is st able. Denies night sweats fevers or chills HENT: Denies nosebleeds. Denies hearing problems. Denies dysphagia Eyes: Hx cataract surgery Denies visual disturbance or double vision. Respiratory/Sleep:: History of COPD, on continuous oxygen 3 L, followed by Dr. Ashby,. O ngoing VARGAS Denies cough Denies hemoptysis or excessive sputum production. Denies snoring, or thopnea, PND. Cardiovascular: See HPI, history of peripheral vascular disease ( followed by Dr. Choudhury): b ilateral external iliac arterial occlusions in severe stenoses in both common iliac arteries on the left SFA, Moderate asymptomatic bilateral carotid artery stenosesevaluated by Dr. Choudhury 09/03/17, no surgery indicated at the present time., Denies chest pain, palpitations an d leg swelling. Mild claudication . Gastrointestinal: History of small bowel obstruction, gastroesophageal reflux disease, hiat al hernia. Denies nausea, vomiting, abdominal pain and blood in stool. Genitourinary: Stage III chronic kidney disease Denies hematuria. Musculoskeletal: History of rheumatoid arthritis, c/o arthralgia to Hands Denies myalgias , back pain and arthralgias. Skin: Dry , friable skin Denies color change. Denies rash or lesions Neurological: Denies history of stroke/Transient ischemic attack.Denies history of seizures . Denies dizziness, syncope and numbness. Hematological/Oncology history of anemia and previous blood transfusions, most recently 01/05 with hospitalization Bruises easily with Plavix Denies bleeding. Denies history of cancer Endocrine: Denies diabetes or thyroid disease. Denies excessive thirst or hunger. Psychiatric/Behavioral: Reports Anxiety and depression , on Paxil denies any history of other psychiatric illness. Vaccines: Current on 2017 flu vaccine. Current on pneumonia vaccine?. Habits/Social : history of smoking, quit 06/29/2017, smoked 1 ppd x 56 years . Denies EtOH use. Drinks occasional pepsi , . Denies recreational Or illicit drug use. Seldom exe rcises Due to dyspnea, Lives in [place]. Lives Alone Outpatient Medications Prior to Visit Medication Sig Dispense Refill amLODIPine (NORVASC) 5 MG tablet Take 1 tablet by mouth every evening. (Patient taking differently: Take 10 mg by mouth every evening.) 30 tablet 11 aspirin 81 MG EC tablet Take 1 tablet by mouth daily with breakfast. 30 tablet 0 atorvastatin (LIPITOR) 40 MG tablet Take 1 tablet by mouth nightly. 30 tablet 0 budesonide-formoterol (SYMBICORT) 160-4.5 MCG/ACT inhaler Inhale 2 puffs into the lungs 2 (two) times daily. 1 Inhaler 0 clopidogrel (PLAVIX) 75 MG tablet Take 1 tablet by mouth daily for 30 days. 30 tablet 0 doxazosin (CARDURA) 8 MG tablet Take 1 tablet by mouth every evening. (Patient taking d ifferently: Take 16 mg by mouth every evening.) 30 tablet 0 folic acid (FOLVITE) 1 MG tablet Take by mouth. furosemide (LASIX) 40 MG tablet Take 1 tablet by mouth daily. Hold for SBP less than 10 0 30 tablet 11 hydroxychloroquine (PLAQUENIL) 200 MG tablet Take 200 mg by mouth daily. isosorbide mononitrate (IMDUR) 60 MG 24 hr tablet Take 1 tablet by mouth daily. (Patien t taking differently: Take 90 mg by mouth daily.) 30 tablet 0 levothyroxine (SYNTHROID) 112 MCG tablet Take 112 mcg by mouth daily. Magnesium 250 MG TABS tablet Take 250 mg by mouth daily. ranitidine (ZANTAC) 75 MG tablet Take 150 mg by mouth daily. tiotropium (SPIRIVA) 18 MCG inhalation capsule Inhale 1 capsule into the lungs daily. 3 0 capsule 0 albuterol (VENTOLIN HFA) 108 (90 Base) MCG/ACT inhaler Inhale 2 puffs into the lungs ev any 4 (four) hours as needed for Wheezing, Shortness of Breath or Cough. 1 Inhaler 0 diltiazem (CARDIZEM CD) 360 MG 24 hr capsule Take 1 capsule by mouth daily. (Patient no t taking: Reported on 01/23/2018) 30 capsule 0 LORazepam (ATIVAN) 1 MG tablet Take 1 mg by mouth nightly. PARoxetine (PAXIL) 10 MG tablet Take 20 mg by mouth every morning. traZODone (DESYREL) 100 MG tablet Take 50 mg by mouth nightly. No facility-administered medications prior to visit. PHYSICAL EXAM: Wt Readings from Last 3 Encounters: 01/23/18 66.1 kg (145 lb 11.2 oz) 12/09/17 65.5 kg (144 lb 6.4 oz) 12/04/17 65.8 kg (145 lb 1 oz) Temp Readings from Last 3 Encounters: 12/05/17 98.4 F (36.9 C) (Oral) 08/26/17 97 F (36.1 C) (Oral) 08/07/17 98.2 F (36.8 C) (Oral) BP Readings from Last 3 Encounters: 01/23/18 (!) 130/38 12/09/17 144/46 12/05/17 116/49 Pulse Readings from Last 3 Encounters: 01/23/18 61 12/09/17 78 12/05/17 64 GENERAL: Pale , tired woman, in no distress. Appears approximately stated age. HEENT: Normocephalic, atraumatic. EYES: PERRL, EOM normal. MOUTH: Oral mucosae moist, dentition adequate, no lesions noted NECK: Bilateral carotid bruits, stronger on right No JVD, lymphadenopathy, thyromegaly, bruits. Carotid pulses are 2+ bilaterally LUNGS/CHEST: Clear bilaterally, with no rales, rhonchi or wheezing noted, respirations unl abored. On continuous O2 HEART: 3/6 murmur RUSB Nondisplaced PMI, regular rate and rhythm, S1, S2 normal. No ru bs or gallops noted. ABDOMEN: Soft, nontender, no organomegaly, masses or bruits. Bowel sounds are normal in a ll 4 quadrants. The abdominal aortic pulsation is not palpable. EXTREMITIES: No edema. Radial pulses 2+ bilaterally. Femoral pulses are 2+ bilaterally wi thout bruits. DP and PT pulses are 2+ bilaterally. No clubbing. SKIN: Warm and dry, capillary refill is normal, no lesions. NEUROLOGIC: Awake, alert and oriented x 3. No focal motor or sensory deficits. PSYCHIATRIC: Appropriate, affect appears normal DATA: Blood tests: Lab Results Component Value Date WBC 5.97 12/05/2017 RBC 2.92 (L) 12/05/2017 HGB 8.1 (L) 12/05/2017 HCT 24.7 (L) 12/05/2017 PLT 196 12/05/2017 Lab Results Component Value Date NA 144 12/05/2017 K 4.6 12/05/2017 CL 107 12/05/2017 CO2 28 12/05/2017 ANIONGAP 14 12/05/2017 GLUF 119 (H) 12/05/2017 BUN 37 (H) 12/05/2017 CREATININE 1.7 (H) 12/05/2017 BCR 22 12/05/2017 CA 8.1 (L) 12/05/2017 EGFR 30 (L) 12/05/2017 Lab Results Component Value Date CHOL 140 12/04/2017 TRIG 53 12/04/2017 LDL 53 12/04/2017 GLUF 119 (H) 12/05/2017 HGBA1C 5.3 12/04/2017 Lab Results Component Value Date BNP 1,680 (H) 12/04/2017 CKTOTAL 122 12/03/2017 TSH 0.089 (L) 12/04/2017 No results found for: METF, NMETFX, TFNMFX, KNMTUWF02ZME, JPFPOH12BLR, TOTEPI PROCEDURES/IMAGING Last Cardiac Cath:12/04/2017: ( NSTEMI) Three-vessel coronary artery disease with chronicall y occluded RCA, with gztf-fr-cgnqw collaterals. Patent stents in LCX ,severe disease of a s mall diagonal branch. DATA: Left Main: trifurcates , gives rise to LAD, ramus intermedius, and l eft circumflex arteries. left main coronary artery is free of disease. LAD. without sign ificant disease. 1st Dx: very tiny vessel. 2nd Dx branch : ermrf-tp-ddstix size vessel at 1 .5 to 2 mm vessel, with severe proximal ostial lesion in the range of 80%, unchanged since angiogram Ramus Intermedius: large vessel, without disease. LCX: nondominant vessel g adilson rise to single large bifurcating marginal branch. Proximal left circumflex Artery stent patent , single large marginal branch 30% moderate disease. Mature collatera ls from the left to the right coronary artery. RCA: chronically occluded. Hemodynamic: LV systolic pressure 160, LVEDP 28, on pullback aortic pressure 151/63, no significant gradient across the aortic valve R/L Cardiac Cath (08/06/17): ( NSTEMI) RA-10, PA-35/18, mean 25, PCWP-14, CO-4.4. Aorta 132/ 43, mean 71, LV 138/13,LM-normal. LAD-OK , D2-tubular 50-60%, LCx-prox 80% > 3.0x16 Synerg y PUNEET; RCA-occluded at its ostium, PDA and PLV filled via collaterals from the LCx, EF 65%, Right External Iliac artery occluded, the right common femoral filled via collaterals from t he internal iliac Cardiac Cath (02/01/05): LM-normal, LAD-normal, LCx-normal, RCA-dominant, severe diffuse dis ease ostium-distal vessel > 3.5x12, 3.0x32, 2.75x32 mm Taxus PUNEET, 2 EF 60% with mild inferob micki hypokinesis Carotid U/S (08/29/17): 50-69% stenoses in the CARINA, mid-distal LCCA, 16-49% of the LICA, > 50% stenoses of both external carotids Last Vascular U/S Legs (08/01/17): Severe calcific atherosclerosis of the arterial tree in both lower extremities. 2. Monophasic flow in the right popliteal artery, but without d efined stenosis. 3. Three-vessel runoff of the right lower extremity with biphasic flow in the anterior tibial, monophasic flow in the posterior tibial and peroneal. 4. Three-vesse l runoff in the left lower extremity with biphasic flow in the posterior tibial, anterior ti bial, and monophasic flow in the peroneal. Vascular U/S Legs (05/19/14): SHABNAM: Right-0.48, Left-0.45, severe right common femoral yahir ry stenosis, monophasic flow, diffuse right SFA disease, normal flow below the trifurcation, left SFA occluded with distal reconstitution, >50% left common femoral artery, normal nagi w below the trifurcation LE/Mesenteric Angiography (12/18/13): mesenteric vessels patent, right external iliac occlud ed, severe stenosis of the right common iliac, occluded left internal iliac, moderate diffus e disease of the left common iliac, severe disease in the left SFA NONCARDIAC TESTS: Nuclear med lung ventilation: 12/03/2017: Ventilation portion of the examination normal, eron gs symmetrically inflated. Some artifact, no convincing wedge-shaped defects. Possibly yuly e effusion tracking across the fissures. Low probability for pulmonary embolic disease ECHO Echo (08/01/17): EF 65-70%, no segmental WMA, moderate AI (only seen in apical views), mild -moderate , [place] PAULA 1.3 cm, peak/mean gradients 23.2/13.6 mm Hg, moderate MR, moderate-sever e pulmonary HTN, RVSP 56-61 mm Hg EKG/EVENT MONITOR EK08/29/2017:([facility]) , Left ventricular hypertrophy, mild nonspecific ST and T -wave abnormalities. Rate 76 bpm, CT 140 ms, QRS 98 ms, QTC 452 ms, tracing personally revi ewed by ny EK12/03/2017:( [facility]) Sinus tachycardia with premature SVC, left ventricular hypertrophy, ST depression to anterolateral leads, T wave inversion to lateral leads. Prolonged QTC. R ate 103 bpm, CT 172 ms, QRS 102 ms, QTC 508 ms tracing personally reviewed by ny EK12/03/2017 ( [facility] [place]) Sinus tachycardia, ST abnormalities to anterolateral leads, resolutio n of premature SVC,, resolution of prolonged QTC resolution of T-wave inversions to lateral leads. Rate 102 bpm, CT 148 ms, QRS 92 ms, QTC 461 ms tracing personally reviewed by ny EK12/09/2017:( [facility] ) Normal sinus rhythm, nonspecific T-wave abnormality to anterolateral leads, low voltage QRS. Rate 70 bpm, CT 146 ms, QRS 94 ms, QTC 474 ms, maryjane donnelly reviewed by me and compared to EKG performed on December 03, now in sinus rhythm instead of sin us tachycardia, and ST abnormalities less pronounced to anterolateral leads EK01/13/2018: ( [facility]) Normal sinus rhythm, nonspecific ST abnormality. Rate 60 bpm, CT 142 ms, QRS 92 ms, QTC 487 ms tracing personally reviewed by me similar morphology to EKG pe rformed in the office in December LABS Labs: 12/03/2017: BMP: Sodium 142, potassium 3.5, chloride 105, glucose 112, BUN 15, creati nine 1.13, GFR 47. BNP 594. CBC: WBC 4.5, RBC 3.62, hemoglobin 10.1, hematocrit 31, platel ets 191 labs: 12/04/2017: Lipids: Cholesterol 140, triglycerides 53, HDL 76, LDL 53. A1c 5.3. Thyr oid: TSH 0.089. BNP 1680. CBC: WBC 6.04, RBC 3.25, hemoglobin 9, hematocrit 27.3, platelet s 190. BMP: Sodium 139, potassium 4.8, chloride 105, glucose 152, BUN 30, creatinine 1.5. GFR 34 Labs: 12/05/2017: CBC: WBC 5.97, RBC 2.92, hemoglobin 8.1, hematocrit 24.7, platelets 196. CMP: Sodium 144, potassium 4.6, chloride 107, glucose 119, BUN 37, creatinine 1.7, albumin 2 .9, total bilirubin 0.2, alk phos 74, AST 20, ALT 24, GFR 30. Magnesium 2.3 Labs: 01/13/2018 ([facility]): CMP: Sodium 138, potassium 3.7, chloride 102, glucose 121, BUN 17, creatinine 1.29, GFR 41, AST 9, ALT 5, alk phos 66, total bilirubin 0.8, albumin 3.7. Magn esium 1.7. BNP 1310. Troponin T < 0.010. CBC: WBC 6.8, RBC 2.94, hemoglobin 8.2, hematocr it 24.8, platelets 176 Labs: 01/15/2018: ( post transfusion) RBC 3.59, hemoglobin 8.8, hematocrit 29.9, platelets 1 59. BNP 568., ASSESSMENT & PLAN: She was here today for 6 week follow-up, and also to follow-up on recent emergency and hospitalization for hypertension, fluid overload, COPD exacerbation, and a acute on chronic anemia. Her EKG and troponin's were negative at [facility], and I think some of her problems r esulted from the fact that I had stopped her amlodipine believing her to be on Cardizem, marci vallejo she had a prescription for after being discharged from [facility]. It turns out she was not on Cardizem, and had never received the prescription, and then I stopped her amlodipine as I did not want her on 2 calcium channel blockers, as discussed in HPI. Today she reports she feels the best she has for some time, and attributes it to having her blood pressure better controlled, and also from receiving blood and she was severely ane negin, and has been treated in the past with blood transfusions for severe anemia. She certainly looks much improved from when I saw her last Her blood pressure is better controlled, but still has a very low diastolic pressure. She did bring all of her medication bottles, including supplements and ywqy-ibw-ieaeyqz m edications to the clinic today, and I have strongly encouraged her to always bring her bottl es to all provider visits, to avoid the confusion I had one I saw her last. I made no changes to her medications today, and for her cardiac medications she should co ntinue Imdur 90 mg, furosemide 40 mg daily, Cardura 16 mg qhs, Plavix 75 mg daily, aspirin 8 1 mg daily, amlodipine 10 mg daily in the evening, and Lipitor 40 mg qhs. She will follow-up with Dr. Cochran on February 18, and will also see skip hoist operator Dr. Santy ritter n February 10, and will be following up with PCP Dr. Andrade in 4 weeks, so we will be closely m onitored. I had hoped to refer her to the cardiac rehab program in [place], as currently 6 patien t waiting list for cardiac rehab in [place], but given her recent hospitalization and inst ability, I think this needs to be deferred I told her that Dr. Cochran can decide when he sees her back if she is a candidate for cardi ac rehab. She did feel much improved with CPAP when she was in the hospital, and I have referred he r to Dr. Duran at [facility] for further evaluation and treatm ent. 1. Atherosclerosis of [place] coronary artery of [place] heart, angina presence unspecified 2. S/P PTCA (percutaneous transluminal coronary angioplasty) 3. Status post insertion of drug eluting coronary artery stent 4. 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 History of [place] (myocardial infarction) 6. Paroxysmal atrial fibrillation ([facility]) 7. Mild pulmonary hypertension ([facility]) 8. Moderate aortic valve stenosis 9. Acute on chronic diastolic heart failure ([facility]) 10. Hypertension goal BP (blood pressure) < 130/80 11. Mixed hyperlipidemia 12. Carotid stenosis, asymptomatic, bilateral 13. Chronic obstructive pulmonary disease, unspecified COPD type ([facility]) 14. PVD (peripheral vascular disease) ([facility]) 15. Rheumatoid arthritis, involving unspecified site, unspecified rheumatoid factor presenc e ([facility]) 16. Thyroid disease 17. Stage 3 chronic kidney disease 18. Risk factors for obstructive sleep apnea Orders Placed This Encounter Procedures Ambulatory referral to Pulmonology The following portions of the patient's history were personally reviewed by me and updated as appropriate: EKG tracings, other specialty provider and PCP notes,any Hospital admission and discharge summaries, any ER records , current and previous cardiac testing and procedure reports and d mikel, , medication bottles NOT brought to visit today . Allergies, current medications.labs Family history, past medical history, past social history, past surgical history. Problem list. JHOAN Hernandez [facility] Cardiology 01/24/2018in this encounter Plan of Treatment +--------+---------+ + + + | Date | Type | Specialty | Care Team | Description | +--------+---------+ + + + | 03/24/ | Office | Nephrology | Leland Madera MD | | | 2018 | Visit | | [address] | | | | | | [address] [place], [place] | | | | | | [address] | | | | | | | | +--------+---------+ + + + | 06/17/ | Office | Cardiology | Cristhian Cochran, | | | 2017 | Visit | | [address] | | | | | | [place], | | | | | | [place] [address] | | | | | | [phone] | | | | | | | | +--------+---------+ + + + + +--------+ + + | Name | Priori | Associated Diagnoses | Order Schedule | | | ty | | | + +--------+ + + | Ambulatory referral to | Routin | Atherosclerosis of | Ordered: 01/23/2018 | | Pulmonology | e | [place] coronary | | | | | artery of [place] | | | | | heart, angina | | | | | presence unspecified | | | | | S/P PTCA | | | | | (percutaneous | | | | | transluminal | | | | | coronary | | | | | angioplasty) Status | | | | | post insertion of | | | | | drug eluting | | | | | coronary artery | | | | | stent History of [place] | | | | | (myocardial | | | | | infarction) | | | | | Paroxysmal atrial | | | | | fibrillation (HCC) | | | | | Chronic obstructive | | | | | pulmonary disease, | | | | | unspecified COPD | | | | | type (HCC) Stage 3 | | | | | chronic kidney | | | | | disease Risk | | | | | factors for | | | | | obstructive sleep | | | | | apnea | | + +--------+ + + as of this encounter Visit Diagnoses + + | Diagnosis | + + | Atherosclerosis of [place] coronary artery of [place] heart, angina presence unspecified - | | Primary | + + | S/P PTCA (percutaneous transluminal coronary angioplasty) | + + | Postsurgical percutaneous transluminal coronary angioplasty status | + + | Status post insertion of drug eluting coronary artery stent | + + | History of [place] (myocardial infarction) | + + | Old myocardial infarction | + + | Paroxysmal atrial fibrillation (HCC) | + + | Atrial fibrillation | + + | Mild pulmonary hypertension (HCC) | + + | Other chronic pulmonary heart diseases | + + | Moderate aortic valve stenosis | + + | Aortic valve disorders | + + | Acute on chronic diastolic heart failure (HCC) | + + | Acute on chronic diastolic heart failure | + + | Hypertension goal BP (blood pressure) < 130/80 | + + | Unspecified essential hypertension | + + | Mixed hyperlipidemia | + + | Carotid stenosis, asymptomatic, bilateral | + + | Chronic obstructive pulmonary disease, unspecified COPD type (HCC) | + + | PVD (peripheral vascular disease) (HCC) | + + | Peripheral vascular disease, unspecified | + + | Rheumatoid arthritis, involving unspecified site, unspecified rheumatoid factor presence | | (HCC) | + + | Thyroid disease | + + | Unspecified disorder of thyroid | + + | Stage 3 chronic kidney disease | + + | Risk factors for obstructive sleep apnea | + +
--- OUTSIDE RECORDS SUMMARY | ~2018-02-23 | XMS | Encounter Summary ---
Demographics + + + | Address | [address] | | | [place] [address] | + + + | Home Phone | | + + + | Preferred Language | Unknown | + + + | Marital Status | Single | + + + | Congregation Affiliation | 1009 | + + + | Race | Unknown | + + + | Ethnic Group | Unknown | + + + Author + + + | Author | [employer] | + + + | Organization | [facility] [employer] [facility] | + + + | Address | Unknown | + + + | Phone | Unavailable | + + + Support + + +---------+ + | Name | Relationship | Address | Phone | + + +---------+ + | Lavell Chiu | ECON | Unknown | | + + +---------+ + Care Team Providers + +------+ + | Care Back Tender Paper Machine Name | Role | Phone | + +------+ + | Eliza Andrade MD | PCP | Unavailable | + +------+ + Encounter Details +--------+ + + + + | Date | Type | Department | Care Team | Description | +--------+ + + + + | 12/10/ | Telephone | SANDRA Oneill | Ana Mcfadden, | | | 2017 | | [facility] | [place] | | | | | [address] [facility] [address] | | | | | | [facility] | | | | | | [place] [address] | | | | | | [phone] | | | +--------+ + + + [...] [place] | | | | | | [id number] | | | | | | | | +--------+---------+ + + + | 06/17/ | Office | Cardiology | Cristhian Cochran, | | | 2017 | Visit | | [address] | | | | | | [place], | | | | | | [place] [address] | | | | | | [phone] | | | | | | | | +--------+---------+ + + + as of this encounter Visit Diagnoses Not on filein this encounter"
--- OUTSIDE RECORDS SUMMARY | ~2018-02-23 | XMS | Clinical Summary ---
Demographics + + + | Address | [address] | | | [place] [address] | + + + | Home Phone | | + + + | Preferred Language | Unknown | + + + | Marital Status | Single | + + + | Hoahaoism Affiliation | BAP | + + + [...] Team Providers + +------+ + | Care Circus Roustabout Name | Role | Phone | + +------+ + | Marni Danielle Moffettine | PP | | | MARGIN TRIMMER | | | + +------+ + Source Comments MAVIS is fully live on both [facility] Ambulatory and [facility] InPatient.[facility] Allergies + + + + + [...]
--- OUTSIDE RECORDS SUMMARY | ~2018-02-23 | XMS | Encounter Summary ---
Demographics + + + | Address | [address] | | | [place] [address] | + + + | Home Phone | | + + + | Preferred Language | Unknown | + + + | Marital Status | Single | + + + | Yazidi Affiliation | 1009 | + + + | Race | Unknown | + + + | Ethnic Group | Unknown | + + + Author + + + | Author | [employer] | + + + | Organization | [facility] [employer] [facility] | + + + | Address | Unknown | + + + | Phone | Unavailable | + + + Support + + +---------+ + | Name | Relationship | Address | Phone | + + +---------+ + | Lavell Chiu | ECON | Unknown | | + + +---------+ + Care Team Providers + +------+ + | Care Wallpaper Remover Steam Name | Role | Phone | + +------+ + | Eliza Andrade MD | PCP | Unavailable | + +------+ + Encounter Details +--------+ + + + + | Date | Type | Department | Care Team | Description | +--------+ + + + + | 12/04/ | Procedure | [facility] | | | | 2018 | Pass | [address] | | | | | | [facility] | | | | | | [address] | | | | | | [place] [address] | | | | | | [phone] | | | +--------+ + + + [...] | | | | | | [place] [address] | | | | | | [phone] | | | | | | | | +--------+---------+ + + + as of this encounter Visit Diagnoses Not on filein this encounter"
--- OUTSIDE RECORDS SUMMARY | ~2018-02-23 | XMS | Encounter Summary ---
Demographics + + + | Address | [address] | | | [place] [address] | + + + | Home Phone [...] + + + | Author | [employer] | + + + | Organization | [facility] | + + + | Address | Unknown | + + + | Phone | Unavailable | + + + Support + + +---------+ + | Name | Relationship | Address | Phone | + + +---------+ + | Lavell Chiu | ECON | Unknown | | + + +---------+ + Care Team Providers + +------+ + | Care Rubber Thread Spooler Name | Role | Phone | + [...] | | Required | | Atherosclero | TAPE RECORDER MECHANIC [address] | Sleep | | | | | sis of | [address] | Disorders | | | | | [place] | [address] | [facility] | | | | | coronary | [place], [place] | [facility] | | | | | artery of | [address] | [address] | | | | | [place] | Phone: | [place]ESS[place] | | | | | heart, | [phone] | [place] | | | | | angina | Fax: | [address] | | | | | presence | [phone] | Phone: | | | | | unspecified | | [phone] | | | | | S/P PTCA | | Fax: | | | | | (percutaneou | | [phone] | | | | | s | [...] | | | | | | | [place] | | | | | | | [...] | | | | UP | [place] [address] | [place], [place] | | | | | | Phone: | [phone] Phone: | | | | | | [phone] | [phone] | | | | | | Fax: | Fax: | | | | | | [phone] | [phone] | + +--------+ + + + + Encounter Details +--------+---------+ + + + | Date | Type | Department | Care Team | Description | +--------+---------+ + + + | 01/23/ | Office | SANDRA Oneill | Alesia Freire | Atherosclerosis of | | 2018 | Visit | Cardiology [place] | JHOAN Gong [address] | [place] coronary | | | | [address] | [address] | artery of [place] | | | | [address] | [place] [address] | heart, angina | | | | [place] [address] | [phone] | presence unspecified | | | | [phone] | | (Primary Dx); S/P | | [...] | | | | | occlusion of [place] | | | | | | coronary artery; | | | | | | History of [place] | | | | | | (myocardial | | | | | | infarction); | | | | | | Paroxysmal atrial | | | | | | fibrillation ([facility]); | | | | | | Mild pulmonary | | | | | | hypertension ([facility]); | | | | | | Moderate [...] to refer you to Cardiac Rehab in [place] , as no room at the one in [place], but think we need to wait given your recent hospitalization Bring blood pressure cuff to our clinic or Dr. Andrade to check how close it is to our readi ngs. I have referred you to Dr. Duran at [facility] , call [phone] for an appoi ntment next week Since [...] p reviously seen by him in our [place] office. Her previous testing and procedures are detailed below. I saw her last for hospital follow up from [facility]( [facility]) on December 05 after non-STEMI with unchanged [...] being admitted to the emergency room at [facility],and then hospitalized fr 01/16/2018-01/18/2018 for [...] exe rcises Due to dyspnea, Lives in [place]. Lives Alone Outpatient Medications Prior to Visit [...] No results found for: METF, NMETFX, TFNMFX, [id number], [id number], TOTEPI PROCEDURES/IMAGING Last Cardiac Cath:12/04/2017: ( NSTEMI) Three-vessel coronary artery disease with chronicall y occluded RCA, with wakc-zs-nzalr collaterals. Patent stents in LCX ,severe disease of a s mall diagonal branch. DATA: Left Main: trifurcates , gives rise to LAD, ramus intermedius, and l eft circumflex arteries. left main coronary artery is free of disease. LAD. without sign ificant disease. 1st Dx: very tiny vessel. 2nd Dx branch : tyyah-ba-nitvfg size vessel at 1 .5 to 2 [...] HTN, RVSP 56-61 mm Hg EKG/EVENT MONITOR EK08/29/2017:([facility]) , Left ventricular hypertrophy, mild nonspecific ST and T -wave abnormalities. Rate 76 bpm, TX 140 ms, QRS 98 ms, QTC 452 ms, tracing personally revi ewed by ak EK12/03/2017:( [facility]) Sinus tachycardia with premature SVC, left ventricular hypertrophy, ST depression to anterolateral leads, T wave inversion to lateral leads. Prolonged QTC. R ate 103 bpm, TX 172 ms, QRS 102 ms, QTC 508 ms tracing personally reviewed by ak EK12/03/2017 ( [facility]) Sinus tachycardia, ST abnormalities to anterolateral leads, resolutio n of premature SVC,, resolution of prolonged QTC resolution of T-wave inversions to lateral leads. Rate 102 bpm, TX 148 ms, QRS 92 ms, QTC 461 ms tracing personally reviewed by ak EK12/09/2017:( [facility] ) Normal sinus rhythm, nonspecific T-wave abnormality to anterolateral leads, low voltage QRS. Rate 70 bpm, TX 146 ms, QRS 94 ms, QTC 474 ms, maryjane donnelly reviewed by me and compared to EKG performed on December 03, now in sinus rhythm instead of sin us tachycardia, and ST abnormalities less pronounced to anterolateral leads EK01/13/2018: ( [facility]) Normal sinus rhythm, nonspecific ST abnormality. Rate 60 bpm, TX 142 ms, QRS 92 ms, QTC 487 [...] 24, GFR 30. Magnesium 2.3 Labs: 01/13/2018 ([facility]): CMP: Sodium 138, potassium 3.7, chloride [...] Her EKG and troponin's were negative at [facility], and I think some of her problems r esulted from the fact that I had stopped her amlodipine believing her to be on Cardizem, marci vallejo she had a prescription for after being discharged from [facility]. It turns out she was not on [...] of her medication bottles, including supplements and lhex-flh-fnfcank m edications to the clinic today, and [...] on February 18, and will also see bobbin collector Dr. Santy ritter n February 10, and will be following up with PCP Dr. Andrade in 4 weeks, so we will be closely m onitored. I had hoped to refer her to the cardiac rehab program in [place], as currently 6 patien t waiting list for cardiac rehab in [place], but given her recent hospitalization and inst ability, I think this needs to be deferred I told her that Dr. Cochran can decide when he sees her back if she is a candidate for cardi ac rehab. She did feel much improved with CPAP when she was in the hospital, and I have referred he r to Dr. Duran at the [facility] sleep disorders clinic for further evaluation and treatm ent. 1. Atherosclerosis of [place] coronary artery of [place] heart, angina presence unspecified 2. S/P PTCA (percutaneous transluminal coronary angioplasty) 3. Status post insertion of drug eluting coronary artery stent 4. 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 History of [place] (myocardial infarction) 6. Paroxysmal atrial fibrillation ([facility]) 7. Mild pulmonary hypertension ([facility]) 8. Moderate aortic valve stenosis 9. Acute on chronic diastolic heart failure ([facility]) 10. Hypertension goal BP (blood pressure) < 130/80 11. Mixed hyperlipidemia 12. Carotid stenosis, asymptomatic, bilateral 13. Chronic obstructive pulmonary disease, unspecified COPD type ([facility]) 14. PVD (peripheral vascular disease) ([facility]) 15. Rheumatoid arthritis, involving unspecified site, unspecified rheumatoid factor presenc e ([facility]) 16. Thyroid disease 17. Stage 3 chronic [...] past surgical history. Problem list. JHOAN Hernandez [facility] Cardiology 01/24/2018in this encounter Plan of Treatment +--------+---------+ + + + | Date | Type | Specialty | Care Team | Description | +--------+---------+ + + + | 03/24/ | Office | Nephrology | Leland Madera MD | | | 2018 | Visit | | [address] | | | | | | [address] [place], [place] | | | | | | [address] | | | | | | | | +--------+---------+ + + + | 06/17/ | Office | Cardiology | Cristhian Cochran, | | | 2017 | Visit | | [address] | | | | | | [place], | | | | | | [place] [address] | | | | | | [phone] | | | | | | | | +--------+---------+ + + + + +--------+ + + | Name | Priori | Associated Diagnoses | Order Schedule | | | ty | | | + +--------+ + + | Ambulatory referral to | Routin | Atherosclerosis of | Ordered: 01/23/2018 | | Pulmonology | e | [place] coronary | | | | | artery of [place] | | | | | heart, angina [...] | | | | stent History of [place] | | | | | (myocardial | [...] Diagnosis | + + | Atherosclerosis of [place] coronary artery of [place] heart, angina presence unspecified - | | Primary | + + | S/P PTCA (percutaneous transluminal coronary angioplasty) | + + | Postsurgical percutaneous transluminal coronary angioplasty status | + + | Status post insertion of drug eluting coronary artery stent | + + | History of [place] (myocardial infarction) | + + | Old [...]
--- OUTSIDE RECORDS SUMMARY | ~2018-02-23 | XMS | Clinical Summary ---
Demographics + + + | Address | [address] | | | [place] [address] | + + + | Home Phone | | + + + | Preferred Language | Unknown | + + + | Marital Status | Single | + + + | Quaker Affiliation | [id number] | + + + | Race | Unknown | + + + | Ethnic Group | Unknown | + + + Author + + + | Author | [employer] | + + + | Organization | [facility] | + + + | Address | Unknown | + + + | Phone | Unavailable | + + + Support + + +---------+ + | Name | Relationship | Address | Phone | + + +---------+ + | Lavell Chiu | ECON | Unknown | | + + +---------+ + Care Team Providers + +------+ + | Care Black Studies Professor Name | Role | Phone | + +------+ + | Eliza Cool MD | PP | Unavailable | + +------+ + Allergies + + + + + + | Active Allergy | Reactions | Severity | Noted | Comments | | | | | Date | | + + + + + + | Beta Adrenergic | Other (See Comments) | Medium | 12/17/19 | | | Blockers | | | 14 | | + + + + + + | Enalapril | Hives | High | 07/31/19 | | | | | | 18 | | + + + + + + | Hydralazine | Hives | High | 07/31/19 | | | | | | 18 | | + + + + + + | Metoprolol | Other (See Comments) | High | 10/15/19 | Respiratory | | | | | 15 | Arrest: Pt states "I | | | | | | had to be | | | | | | intubated" | + + + + + + | Sertraline | Hives | High | 07/31/19 | | | | | | 18 | | + + + + + + Current Medications + + +---------+---------+------+------+-------+ | Prescription | Sig. | Disp. | Refills | Star | End | Statu | | | | | | t | Date | s | | | | | | Date | | | + + +---------+---------+------+------+-------+ | ranitidine | Take 150 mg by mouth | | | | | Activ | | (ZANTAC) 75 MG | daily. | | | | | e | | tablet | | | | | | | + + +---------+---------+------+------+-------+ | hydroxychloroquine | Take 200 mg by mouth | | | | | Activ | | (PLAQUENIL) 200 MG | daily. | | | | | e | | tablet | | | | | | | + + +---------+---------+------+------+-------+ | Magnesium 250 MG | Take 250 mg by mouth | | | | | Activ | | TABS tablet | daily. | | | | | e | + + +---------+---------+------+------+-------+ | aspirin 81 MG EC | Take 1 tablet by | 30 | 0 | 02/0 | 02/0 | Activ | | tablet | mouth daily with | tablet | | 1/20 | 20 | e | | | breakfast. | | | 18 | 19 | | + + +---------+---------+------+------+-------+ | atorvastatin | Take 1 tablet by | 30 | 0 | / | 07/10 | Activ | | (LIPITOR) 40 MG | mouth nightly. | tablet | | 1/20 | / | e | | tablet | | | | 18 | 19 | | + + +---------+---------+------+------+-------+ | | Inhale 2 puffs into | 1 | 0 | / | 07/10 | Activ | | budesonide-formotero | the lungs 2 (two) | Inhaler | | /20 | /20 | e | | l (SYMBICORT) | times daily. | | | 18 | 19 | | | 160-4.5 MCG/ACT | | | | | | | | inhaler | | | | | | | + + +---------+---------+------+------+-------+ | doxazosin | Take 1 tablet by | 30 | 0 | 01/3 | 01/3 | Activ | | (CARDURA) 8 MG | mouth every evening. | tablet | | 1/20 | 1/20 | e | | tablet | | | | 18 | 19 | | + + +---------+---------+------+------+-------+ | isosorbide | Take 1 tablet by | 30 | 0 | 02/0 | 02/0 | Activ | | mononitrate (IMDUR) | mouth daily. | tablet | | 1/20 | 1/20 | e | | 60 MG 24 hr tablet | | | | 18 | 19 | | + + +---------+---------+------+------+-------+ | tiotropium | Inhale 1 capsule | 30 | 0 | 02/0 | 02/0 | Activ | | (SPIRIVA) 18 MCG | into the lungs | capsule | | 1/20 | 1/20 | e | | inhalation capsule | daily. | | | 18 | 19 | | + + +---------+---------+------+------+-------+ | clopidogrel | Take 1 tablet by | 30 | 0 | 01/3 | 06/0 | Activ | | (PLAVIX) 75 MG | mouth daily for 30 | tablet | | 07/27 | 10/25 | e | | tablet | days. | | | 18 | 19 | | + + +---------+---------+------+------+-------+ | levothyroxine | Take 112 mcg by | | | 08/08 | | Activ | | (SYNTHROID) 112 MCG | mouth daily. | | | 03/27 | | e | | tablet | | | | 18 | | | + + +---------+---------+------+------+-------+ | folic acid | Take by mouth. | | | | | Activ | | (FOLVITE) 1 MG | | | | | | e | | tablet | | | | | | | + + +---------+---------+------+------+-------+ | furosemide (LASIX) | Take 1 tablet by | 30 | 11 | 06/0 | 06 | Activ | | 40 MG tablet | mouth daily. Hold | tablet | | 10/25 | 10/25 | e | | | for SBP less than | | | 18 | 19 | | | | 100 | | | | | | + + +---------+---------+------+------+-------+ | PROAIR RESPICLICK | Inhale 1 puff into | | | 01/05 | | Activ | | 108 (90 Base) | the lungs daily. | | | 08/27 | | e | | MCG/ACT AEPB | | | | 18 | | | + + +---------+---------+------+------+-------+ | amLODIPine | Take 1 tablet by | | | 01/05 | | Activ | | (NORVASC) 10 MG | mouth daily. | | | 02/24 | | e | | tablet | | | | 18 | | | + + +---------+---------+------+------+-------+ | PARoxetine (PAXIL) | Take 1 tablet by | | | 12/06 | | Activ | | 20 MG tablet | mouth daily. | | | 820 | | e | | | | | | 18 | | | + + +---------+---------+------+------+-------+ | traZODone | Take 25 mg by mouth | | | 07/0 | | Activ | | (DESYREL) 50 MG | nightly. | | | 2/20 | | e | | tablet | | | | 18 | | | + + +---------+---------+------+------+-------+ | nitroGLYCERIN | Place 1 tablet under | | | 01/05 | | Activ | | (NITROSTAT) 0.4 MG | the tongue every 5 | | | 2/20 | | e | | SL tablet | (five) minutes as | | | 18 | | | | | needed. | | | | | | + + +---------+---------+------+------+-------+ | cyanocobalamin | Take 1,000 mcg by | | | | | Activ | | (VITAMIN B-12) 1000 | mouth daily. | | | | | e | | MCG tablet | | | | | | | + + +---------+---------+------+------+-------+ | ondansetron | Take 8 mg by mouth | | | | | Activ | | (ZOFRAN) 8 MG tablet | every 8 (eight) | | | | | e | | | hours as needed for | | | | | | | | Nausea. | | | | | | + + +---------+---------+------+------+-------+ | Albuterol Sulfate | Inhale 2 puffs into | | | | | Activ | | (PROAIR RESPICLICK) | the lungs every 2 | | | | | e | | 108 (90 Base) | (two) hours as | | | | | | | MCG/ACT AEPB | needed. | | | | | | + + +---------+---------+------+------+-------+ | | Take 3 mLs by | | | | | Activ | | ipratropium-albutero | nebulization 2 (two) | | | | | e | | l (DUO-NEB) 0.5-2.5 | times daily. | | | | | | | mg/3mL | | | | | | | + + +---------+---------+------+------+-------+ | amLODIPine | Take 1 tablet by | 30 | 11 | 06/0 | 08/1 | Disco | | (NORVASC) 5 MG | mouth every evening. 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 | 01/23/2018 | + + + | History of AK (myocardial infarction) | 01/23/2018 | + + + | Moderate aortic valve stenosis | 01/23/2018 | + + + | Carotid stenosis, asymptomatic, bilateral | 01/23/2018 | + + + | Thyroid disease | 01/23/2018 | + + + | Stage 3 chronic kidney disease | 01/23/2018 | + + + | HTN (hypertension) | 12/03/2017 | + + + | HLD (hyperlipidemia) | 12/03/2017 | + + + | GERD (gastroesophageal reflux disease) | 12/03/2017 | + + + | Chronic respiratory failure with hypoxia (HCC) | 08/26/2017 | + + + | Personal history of tobacco use, presenting hazards to health | 08/26/2017 | + + + | Status post insertion of drug eluting coronary artery stent | 08/06/2017 | + + + + + | Overview: 3.0 x 16 mm Synergy BURTON in prox LCx | + + + + + | Mild pulmonary hypertension (HCC) | 08/04/2017 | + + + | Paroxysmal atrial fibrillation ([facility]) | 07/27/2017 | + + + | Claudication ([facility]) | 02/15/2014 | + + + | Mesenteric ischemia ([facility]) | 12/16/2013 | + + + | PVD (peripheral vascular disease) ([facility]) | 07/08/2013 | + + + + + | Overview: severe bilateral PVD, occluded right external | | iliac, left internal iliac, severe stenoses in bilateral common | | iliacs and left SFA | + + + +---+ | COPD (chronic obstructive pulmonary disease) (HCC) | | + +---+ + + | Overview: severe Emphysema | + + + +---+ | Atherosclerosis of [place] coronary artery of [place] heart | | + +---+ | History of coronary artery stent placement | | + +---+ + + | Overview: x 2008, no records available | + + + +---+ | Rheumatoid arthritis (HCC) | | + +---+ Resolved Problems + + + + | Problem | Noted | Resolved | | | Date | Date | + + + + | Chest pain on breathing | 12/04/19 | | | | 18 | 8 | + + + + | Valvular heart disease | 08/04/19 | | | | 18 | 8 | + + + + | Oral thrush | 08/01/19 | | | | 18 | 8 | + + + + | NSTEMI (non-ST elevated myocardial infarction) (HCC) | 07/31/19 | | | | 18 | 8 | + + + + | Bacterial pneumonia | 07/31/19 | | | | 18 | 8 | + + + + | Myocardial infarct (HCC) | 07/08/19 | | | | 09 | 8 | + + + + + + | Venu: silvano NAVA 07/31/17 | + + Encounters +--------+ + + + + | Date | Type | Specialty | Care Team | Description | +--------+ + + + + | 02/21/ | Documentati | | Yodit Fowler MA | Other ([facility] | | 2017 | on Only | | | records) | +--------+ + + + + | 02/19/ | Documentati | | Yodit Fowler MA | Other ([facility] | 2017 | on Only | | | records) | +--------+ + + + + | 02/18/ | Office | | Cristhian Cochran, | Acute diastolic | | 2017 | Visit | | MD | heart failure (HCC) | | | | | | (Primary Dx); | | | | | | Atherosclerosis of | | | | | | [place] coronary | | | | | | artery of [place] | | | | | | heart, angina | | | | | | presence | | | | | | unspecified; S/P | | | | | | [...] | | | | | occlusion of [place] | | | | | | coronary artery; | | | | | | History of [place] | | | | | | (myocardial | | | | | | infarction); | | | | | | Paroxysmal atrial | | | | | | fibrillation (HCC); | | | | | | Mild pulmonary | | | | | | hypertension (HCC) | +--------+ + + + + | 02/07/ | Documentati | | Lisbeth Lwe CMA | Labs Only ([facility] | | 2018 | on Only | | | Labs dated | | | | | | 02/07/2018; ) | +--------+ + + + + | 02/03/ | Telephone | | Lisbeth Lew CMA | | | 2018 | | | | | +--------+ + + + + | 01/23/ | Office | | Alesia Freire | Atherosclerosis of | | 2017 | Visit | | JHOAN Gong | [place] coronary | | | | | | artery of [place] | | | | | | heart, angina | | | | | | presence unspecified | | | | | | (Primary Dx); S/P | | [...] | | | | | occlusion of [place] | | | | | | coronary artery; | | | | | | History of [place] | | | | | | (myocardial | | | | | | infarction); | | | | | | Paroxysmal atrial | | | | | | fibrillation ([facility]); | | | | | | Mild pulmonary | | | | | | hypertension ([facility]); | | | | | | Moderate aortic | | | | | | valve stenosis | +--------+ + + + + | 01/23/ | Documentati | | Ana Mcfadden, | [place] [facility] | | 2017 | on Only | | MA | ED Visit 01/13/18) | +--------+ + + + + | 01/23/ | Documentati | | Ana Mcfadden, | [place] ([place] | 2017 | on Only | | LENA | PCP Note 01/22/18) | +--------+ + + + + | 12/17/ | Documentati | | Ana Mcfadden, | [place] ([place] | 2017 | on Only | | LENA | ED Notes 12/03/17) | +--------+ + + + + | 12/10/ | Telephone | | Alesia Freire | | 2017 | | | JHOAN Gong | | +--------+ + + + + | 12/10/ | Telephone | | Ana Mcfadden, | | | 2017 | | | LENA | | +--------+ + + + + | 12/10/ | Telephone | | Alesia Freire | | | 2018 | | | JHOAN Gong | | +--------+ + + + + | 12/09/ | Office | | Alesia Freire | Hospital discharge | | 2018 | Visit | | JHOAN Gong | follow-up (Primary | | | | | | Dx); NSTEMI (non-ST | | | | | | elevated myocardial | | | | | | infarction) ([facility]); | | | | | | Coronary artery | | | | | | disease involving | | | | | | [place] coronary | | | | | | artery of [place] | | | | | | heart without angina | | | | | | pectoris; S/P PTCA | | | | | | (percutaneous | | | | | | transluminal | | | | | | coronary | | | | | | angioplasty); | | | | | | Paroxysmal A-fib | | | | | | ([facility]); PVD | | | | | | (peripheral vascular | | | | | | disease) ([facility]); | | | | | | Pulmonary emphysema, | | | | | | unspecified | | | | | | emphysema type | | | | | | ([facility]); 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 | | | | | | hypertension ([facility]) | +--------+ + + + + | 12/04/ | Procedure | | | | | 2018 | Pass | | | | +--------+ + + + + | 12/03/ | Hospital | | Jose Ballesteros, | Shortness of breath | | 2018 - | Encounter | | MD Liang, | (Primary Dx); Chest | | | | | MD Slick | pain, unspecified | | 12/05/ | | | Morteza Shane MD | type; History of | | 2018 | | | | coronary artery | | | | | | disease; History of | | | | | | coronary artery | | | | | | stent placement; | | | | | | History of COPD; | | | | | | NSTEMI (non-ST | | | | | | elevated myocardial | | | | | | infarction) (HCC) | +--------+ + + + + +---+ + | | Discharge | | | Summaries | | | - Acosta, | | | Morteza Reeves MD | | | - | | | 12/05/2017 | | | 11:14 AM | | | PDT | | | Formatting | | | of this | | | note may be | | | different | | | from the | | | original.[facility] | | [facility]: | | | Hospitalist | | | Physician | | | Discharge | | | Summary Pt: | | | Davina Rosado | | | Aram | | | AGE/SEX: 72 | | | y.o. | | | female | | | MRN: | | | [id number] | | | OM: | | | [id number] | | | PCP: | | | Lohith | | | Cool | | | : | | | 1945 | | | Admit date: | | | | | | 12/03/2017Di | | | scharge | | | date and | | | time: | | | 12/05/2017 | | | 11:14 AM | | | Admitting | | | Physician: | | | Debbierey | | | Bongar, MD | | | Discharge | | | Physician: | | | Morteza U | | | Acosta , | | | MDConsults: | | | DR. | | | LehrePrimar | | | y Discharge | | | Diagnoses: | | | Principal | | | Problem | | | (Resolved): | | | NSTEMI | | | (non-ST | | | elevated | | | myocardial | | | infarction) | | | | | | (HCC)Active | | | Problems: | | | COPD | | | (chronic | | | obstructive | | | pulmonary | | | disease) | | | (HCC) CAD | | | (coronary | | | artery | | | disease) | | | Rheumatoid | | | arthritis | | | (HCC) | | | Pulmonary | | | HTN (HCC) | | | Chronic | | | respiratory | | | failure | | | with | | | hypoxia | | | (HCC) HTN | | | (hypertensi | | | on) HLD | | | (hyperlipid | | | emia) GERD | | | | | | (gastroesop | | | hageal | | | reflux | | | disease)Res | | | olved | | | Problems: | | | Chest pain | | | on | | | breathingSe | | | condary | | | Discharge | | | Diagnoses: | | | Chronic | | | anemiaDisch | | | arged | | | Condition: | | | stableSigni | | | ficant | | | Diagnostic | | | Studies: | | | Nm Lung | | | Ventilation | | | | | | PerfusionRe | | | sult Date: | | | 12/03/20171. | | | Low | | | probability | | | for | | | pulmonary | | | embolic | | | disease | | | Would | | | correlate | | | with | | | clinical | | | pretest | | | probability | | | and | | | consider | | | ultrasound | | | of the | | | lower | | | extremities | | | to | | | increased | | | diagnostic | | | certainty | | | for or | | | against the | | | potential | | | diagnosis | | | of. | | | Electronica | | | lly signed | | | by Laz | | | S Jeffery, | | | MD on | | | 12/03/2017 | | | 9:29 PMLeft | | | Heart | | | Cath Resul | | | tsLM okLAD | | | small D2 | | | with severe | | | 80% | | | ostial/prox | | | imal | | | unchanged | | | compared to | | | 07/2017(to | | | be treated | | | medically). | | | LAD itself | | | is without | | | | | | diseaseRamu | | | s okCx | | | patent | | | stent | | | proximal, | | | moderate | | | 30% OMLeft | | | to right | | | collaterals | | | to known | | | chronically | | | occluded | | | RCA | | | visualized. | | | HPI and | | | Hospital | | | Course: 72 | | | y.o. femal | | | e with | | | significant | | | past | | | medical | | | history | | | of CAD s/p | | | PCI in | | | 08/06/17 on | | | LCx, Mild | | | pulmonary | | | HTN, | | | HTN | | | , HLD, | | | hypothyroid | | | ism, GERD, | | | hiatal | | | hernia, | | | PVD, | | | Moderate | | | R ICA and | | | mild L ICA | | | disease, | | | seen by | | | Dr Poi in | | | Aug 2017 no | | | surgical | | | interventio | | | n | | | recommend | | | ed at the | | | time due to | | | being | | | asymptomati | | | c, COPD on | | | 3lpm O2 | | | chronically | | | , sees Dr | | | Isma | | | Pulmonology | | | , | | | Rheumatoid | | | arthritis, | | | history of | | | SBO in the | | | past, | | | anemia | | | history of | | | blood | | | transfusion | | | s , who | | | presented | | | as a | | | [facility] our ER for | | | persistent | | | chest pain | | | felt to be | | | | | | potentially | | | unstable | | | angina have | | | elevated | | | troponin | | | more likely | | | related to | | | the non-ST | | | elevation | | | AK.Status | | | post left | | | heart | | | catheter | | | without any | | | | | | significant | | | new | | | lesions. | | | Chronically | | | occluded | | | RCA. She is | | | feeling | | | better. | | | Chest pain | | | has | | | resolved. I | | | do not | | | think that | | | she needs | | | to write to | | | go home. | | | She told me | | | that she | | | is not | | | taking | | | steroids at | | | homeShe | | | Had no CP, | | | SOB, N/V, | | | Diarrhea, | | | Abdominal | | | pain or CARMONA. | | | No | | | constipatio | | | n or change | | | in bowel | | | habits. No | | | orthopnea | | | or PND. | | | Appetite is | | | good | | | without | | | abdominal | | | bloating. | | | No cough or | | | fever. No | | | dizziness, | | | lightheaded | | | ness or any | | | symptoms | | | suggestive | | | of stroke. | | | CBC in 1 | | | week. She | | | is not | | | actively | | | bleeding.Fo | | | llow Up | | | Labs/Imagin | | | g and | | | Monitoring: | | | BMP , CBC | | | in one week | | | and FU | | | PCP/Dr. | | | AkoumDischa | | | rge Vitals: | | | Vitals: | | | 12/05/17 | | | 0337 | | | 12/05/17 | | | 0452 | | | 12/05/17 | | | 0453 | | | 12/05/17 | | | 0803 BP: | | | 131/62 | | | 133/57 BP | | | Location: | | | Left upper | | | arm Left | | | upper arm | | | Pulse: 60 | | | 57 57 | | | Resp: 17 16 | | | 18 Temp: | | | 98.8 F | | | (37.1 C) | | | 98.3 F | | | (36.8 C) | | | TempSrc: | | | Oral Oral | | | SpO2: 99% | | | 99% 99% 90% | | | Weight: | | | Height: | | | | | | Discharge | | | Exam: | | | Constitutio | | | nal: Alert | | | and | | | oriented to | | | person, | | | place, and | | | time. | | | Cardiovascu | | | lar: Normal | | | rate, | | | regular | | | rhythm, | | | normal | | | heart | | | sounds with | | | S1 and S2 | | | and intact | | | distal | | | pulses. | | | Exam | | | reveals no | | | gallop and | | | no friction | | | rub. No | | | murmur | | | heard.Pulmo | | | nary/Chest: | | | Effort | | | normal and | | | breath | | | sounds | | | normal. No | | | stridor. No | | | | | | respiratory | | | distress. | | | no | | | wheezes. no | | | rales. | | | exhibits no | | | | | | tenderness. | | | Abdominal: | | | Soft. | | | Bowel | | | sounds are | | | normal. | | | exhibits no | | | distension | | | and no | | | mass. There | | | is no | | | tenderness. | | | There is | | | no rebound | | | and no | | | guarding. | | | Musculoskel | | | etal: | | | Normal | | | range of | | | motion.exhi | | | bits no | | | tenderness. | | | exhibits | | | no edema. | | | | | | Neurologica | | | l: Alert | | | and | | | oriented to | | | person, | | | place, and | | | time. Skin: | | | Skin is | | | warm and | | | dry. No | | | rash noted. | | | No | | | erythema. | | | No pallor. | | | Psychiatric | | | : Has a | | | normal mood | | | and | | | affect. | | | Behavior is | | | normal. | | | Judgment | | | normal. Not | | | suicidal | | | LABS: | | | Recent | | | LabsLab | | | | | | 5 | | | | | | 4 | | | | | | 3 WBC 5.97 | | | 6.04 7.04 | | | HGB 8.1* | | | 9.0* 9.5* | | | HCT 24.7* | | | 27.3* 29.3* | | | PLT 196 | | | 190 168 | | | NEUTOPHILPC | | | T 82.58 -- | | | -- | | | MONOPCT | | | 6.66 -- | | | -- Recent | | | LabsLab | | | | | | 5 | | | | | | 4 | | | | | | 3 NA 144 | | | 139 143 K | | | 4.6 4.8 4.5 | | | CL 107 105 | | | 107 CO2 28 | | | 24 26 BUN | | | 37* 30* 29* | | | CREATININE | | | 1.7* 1.5* | | | 1.5* PROT | | | 5.8* -- | | | -- BILITOT | | | 0.2 -- | | | -- ALT 24 | | | -- -- | | | AST 20 -- | | | -- | | | Recent | | | LabsLab | | | 53 | | | 5 | | | | | | 3 MG 2.3 | | | 2.0 Recent | | | LabsLab | | | | | | 4 | | | | | | 5 | | | | | | 5 APTT 46* | | | 43* 25 INR | | | -- -- | | | 1.0 Recent | | | LabsLab | | | | | | 5 | | | | | | 0 | | | | | | 5 CKTOTAL | | | 122 90 -- | | | TROPONINI | | | 1.54* | | | 0.821* 0.03 | | | CKMBINDEX | | | 10.9 10.8 | | | UNABLE TO | | | CALCULATE | | | Results | | | Procedure | | | Component | | | Value Units | | | Date/Time | | | | | | Respiratory | | | Filmarray | | | [[id number]] | | | Collected: | | | 12/03/17 | | | 1526 | | | Specimen: | | | Nasal Swab | | | Updated: | | | 12/03/17 | | | 2033 | | | ADENOVIRUS | | | Not | | | Detected | | | CORONAVIRUS | | | 229E Not | | | Detected | | | CORONAVIRUS | | | HKU1 Not | | | Detected | | | CORONAVIRUS | | | NL63 Not | | | Detected | | | CORONAVIRUS | | | OC43 Not | | | Detected | | | HUMAN | | | METAPNEUMOV | | | IRUS Not | | | Detected | | | HUMAN | | | RHINO/ENTER | | | O Not | | | Detected | | | INFLUENZA A | | | Not | | | Detected | | | INFLUENZA B | | | Not | | | Detected | | | PARAINFLUEN | | | ZA 1 Not | | | Detected | | | PARAINFLUEN | | | ZA 2 Not | | | Detected | | | PARAINFLUEN | | | ZA 3 Not | | | Detected | | | PARAINFLUEN | | | ZA 4 Not | | | Detected | | | RESP | | | SYNCYTIAL | | | VIRUS Not | | | Detected | | | BORDETELLA | | | PERTUSSIS | | | Not | | | Detected | | | CHLAMYDIAE | | | PNEUMONIAE | | | Not | | | Detected | | | MYCOPLASMA | | | PNEUMONIAE | | | Not | | | Detected | | | RESP PANEL | | | INTERP | | | Testing | | | performed | | | by | | | Molecular | | | Methodology | | | MRSA by | | | PCR | | | [[id number]] | | | Collected: | | | 12/03/17 | | | 1837 | | | Specimen: | | | Nasopharyng | | | eal from | | | Nares(Nose) | | | Updated: | | | 12/03/17 | | | 1959 | | | SOURCE | | | NARES(NOSE) | | | MRSA PCR | | | NEGATIVE | | | Disposition | | | : Home or | | | Self | | | CarePatient | | | | | | Instruction | | | s: | | | Medication | | | List | | | CONTINUE | | | taking | | | these | | | medications | | | albuterol | | | 108 (90 | | | Base) | | | MCG/ACT | | | inhalerQTY: | | | 1 | | | InhalerRefi | | | lls: | | | 0Commonly | | | known as: | | | VENTOLIN | | | HFAInhale 2 | | | puffs into | | | the lungs | | | every 4 | | | (four) | | | hours as | | | needed for | | | Wheezing, | | | Shortness | | | of Breath | | | or Cough. | | | amLODIPine | | | 2.5 MG | | | tabletRefil | | | ls: | | | 0Commonly | | | known as: | | | NORVASC | | | aspirin 81 | | | MG EC | | | tabletQTY: | | | 30 | | | tabletRefil | | | ls: 0Take | | | 1 tablet by | | | mouth | | | daily with | | | breakfast. | | | atorvastati | | | n 40 MG | | | tabletQTY: | | | 30 | | | tabletRefil | | | ls: | | | 0Commonly | | | known as: | | | LIPITORTake | | | 1 tablet | | | by mouth | | | nightly. | | | budesonide- | | | formoterol | | | 160-4.5 | | | MCG/ACT | | | inhalerQTY: | | | 1 | | | InhalerRefi | | | lls: | | | 0Commonly | | | known as: | | | SYMBICORTIn | | | allen 2 | | | puffs into | | | the lungs 2 | | | (two) | | | times | | | daily. | | | clopidogrel | | | 75 MG | | | tabletQTY: | | | 30 | | | tabletRefil | | | ls: | | | 0Commonly | | | known as: | | | PLAVIXTake | | | 1 tablet by | | | mouth | | | daily for | | | 30 days. | | | diltiazem | | | 360 MG 24 | | | hr | | | capsuleQTY: | | | 30 | | | capsuleRefi | | | lls: | | | 0Doctor's | | | comments: | | | Hold for | | | SBP less | | | than | | | 100Hold for | | | HR less | | | than | | | 60Commonly | | | known as: | | | CARDIZEM | | | CDTake 1 | | | capsule by | | | mouth | | | daily. | | | doxazosin 8 | | | MG | | | tabletQTY: | | | 30 | | | tabletRefil | | | ls: | | | 0Doctor's | | | comments: | | | Hold for | | | SBP less | | | than | | | 100Commonly | | | known as: | | | | | | CARDURATake | | | 1 tablet | | | by mouth | | | every | | | evening. | | | fluticasone | | | 50 MCG/ACT | | | | | | nasalRefill | | | s: | | | 0Commonly | | | known as: | | | FLONASE | | | folic acid | | | 1 MG | | | tabletRefil | | | ls: | | | 0Commonly | | | known as: | | | FOLVITE | | | furosemide | | | 40 MG | | | tabletQTY: | | | 60 | | | tabletRefil | | | ls: | | | 0Commonly | | | known as: | | | LASIXTake 1 | | | tablet by | | | mouth Two | | | times | | | daily. Hold | | | for SBP | | | less than | | | 100 | | | hydroxychlo | | | roquine 200 | | | MG | | | tabletRefil | | | ls: | | | 0Commonly | | | known as: | | | PLAQUENIL | | | hydrOXYzine | | | 25 MG | | | tabletRefil | | | ls: | | | 0Commonly | | | known as: | | | ATARAX | | | isosorbide | | | mononitrate | | | 60 MG 24 | | | hr | | | tabletQTY: | | | 30 | | | tabletRefil | | | ls: | | | 0Doctor's | | | comments: | | | Hold for | | | SBP less | | | than | | | 100Commonly | | | known as: | | | IMDURTake | | | 1 tablet by | | | mouth | | | daily. | | | levothyroxi | | | ne 112 MCG | | | tabletRefil | | | ls: | | | 0Commonly | | | known as: | | | SYNTHROID | | | LORazepam 1 | | | MG | | | tabletRefil | | | ls: | | | 0Commonly | | | known as: | | | ATIVAN | | | Magnesium | | | 250 MG Tabs | | | | | | tabletRefil | | | ls: 0 | | | NIFEdipine | | | 60 MG 24 hr | | | | | | tabletRefil | | | ls: | | | 0Commonly | | | known as: | | | ADALAT CC | | | PARoxetine | | | 10 MG | | | tabletRefil | | | ls: | | | 0Commonly | | | known as: | | | PAXIL | | | ranitidine | | | 75 MG | | | tabletRefil | | | ls: | | | 0Commonly | | | known as: | | | ZANTAC | | | tiotropium | | | 18 MCG | | | inhalation | | | capsuleQTY: | | | 30 | | | capsuleRefi | | | lls: | | | 0Commonly | | | known as: | | | SPIRIVAInha | | | le 1 | | | capsule | | | into the | | | lungs | | | daily. | | | traZODone | | | 100 MG | | | tabletRefil | | | ls: | | | 0Commonly | | | known as: | | | DESYREL | | | You might | | | also be | | | taking | | | other | | | medications | | | not listed | | | above. If | | | you have | | | questions | | | about any | | | of your | | | other | | | medications | | | , talk to | | | the person | | | who | | | prescribed | | | them or | | | your | | | Primary | | | Care | | | Provider. | | | STOP | | | taking | | | these | | | medications | | | | | | amoxicillin | | | -clavulanat | | | [phone] | | | MG per | | | tabletCommo | | | nly known | | | as: | | | AUGMENTIN | | | methylPREDN | | | ISolone 4 | | | MG | | | tabletCommo | | | nly known | | | as: MEDROL | | | Activity: | | | activity | | | as | | | toleratedDi | | | et: cardiac | | | dietWound | | | Care: as | | | directedDis | | | charge | | | medications | | | | | | reconciliat | | | ion was | | | completed | | | by myself. | | | I | | | carefully | | | reviewed | | | all the | | | medications | | | with the | | | patient. | | | All the | | | dosages was | | | confirmed | | | with the | | | patient to | | | the best of | | | patient's | | | knowledge. | | | I resumed | | | most of his | | | home | | | medication | | | after | | | talking to | | | the | | | patient. I | | | informed | | | the patient | | | that, If | | | you are | | | not taking | | | any of | | | those | | | medicines | | | or if you | | | think that | | | dose is not | | | right | | | please talk | | | to the | | | primary | | | care doctor | | | for | | | adjustment | | | of doses | | | and | | | medications | | | . Please | | | take all | | | the | | | medication | | | to your PCP | | | and show | | | him what | | | medication | | | you are | | | taking so | | | that he can | | | adjust | | | your | | | medications | | | if needed. | | | Follow-Up: | | | Lohith | | | Cool, | | | [id number] | | | [place] | | | [place] | | | n [place] | | | [phone] | | | [phone] | | | weekMary | | | Farideh | | | [place], | | | [id number] | | | Jessica | | | [place] | | | n [place] | | | [phone] | | | [phone] | | | H [place], | | | [id number] | | | [address] | | | [place] | | | [address] | | | n [place] | | | [phone] | | | [phone] | | | weekLohith | | | Cool, | | | [id number] | | | [place] | | | [place] | | | n [place] | | | [phone] | | | [phone] | | | arge took | | | more than | | | 35 minutes, | | | to include | | | final | | | examination | | | , | | | discussion | | | of | | | admission, | | | and | | | preparation | | | of | | | prescriptio | | | ns, | | | instruction | | | s for | | | ongoing | | | care, | | | follow up | | | and | | | dictation | | | of | | | summary.Sig | | | kyler:MORTEZA U | | | ACOSTA, | | | MD12/05/2017 | | | 11:14 | | | AMDictation | | | software, | | | Dragon, | | | used which | | | may contain | | | error for | | | similar | | | sounding | | | words even | | | after | | | review. | | | Personal | | | communicati | | | on | | | requested | | | for any | | | clarificati | | | on.Portions | | | of this | | | chart may | | | have been | | | copied from | | | previous | | | notes for | | | continuity | | | of care | | | purpose | +---+ + +--------+ +---+ + + | 12/03/ | Documentati | | Ana Mcfadden, | Other ([facility] | | 2017 | on Only | | [place] | PCP Note 10/29/17) | +--------+ +---+ + + from Last 3 Months Immunizations + + + + | Name | Dates Previously Given | Next Due | + + + + | Influenza, | 08/02/2017 (Deferred: ) | | | Injectable, | | | | Quadrivalent, | | | | Preservative Free | | | + + + + Family History + + +-------+ + | Medical History | Relation | Name | Comments | + + +-------+ + | COPD | Brother | | | + + +-------+ + | Stroke | Brother | | | + + +-------+ + | No Known Problems | Father | | | + + +-------+ + | COPD | Mother | | | + + +-------+ + | Stroke | Mother | | | + + +-------+ + | Kidney cancer | Sister | | | + + +-------+ + | Hyperlipidemia | Son | Lane | | + + +-------+ + | Hypertension | Son | Lane | | + + +-------+ + | Hyperlipidemia | Son | Carmine | | + + +-------+ + | Hypertension | Son | Carmine | | + + +-------+ + | Tuberculosis | Son | Carmine | | + + +-------+ + | Thyroid disease | Son | Daniel | | + + +-------+ + + +-------+ + + | Relation | Name | Status | Comments | + +-------+ + + | Brother | | Alive | | + +-------+ + + | Father | | Other | | + +-------+ + + | Mother | | | | | | | (Age | | | | | 80s) | | + +-------+ + + | Sister | | | renal cancer | | | | (Age | | | | | 50s) | | + +-------+ + + | Dexter | Lane | Alive | | + +-------+ + + | Dexter | Carmine | Alive | | + +-------+ + + | Dexter | Daniel | Alive | | + +-------+ + + Social History + +-------+ +--------+ [...] + + + | Blood Pressure | 124/48 | 02/18/2018 12:56 PM PDT | + + + + | Pulse | 75 | 02/18/2018 12:56 PM PDT | + + + + | Temperature | 36.9 C (98.4 F) | 12/05/2017 11:39 AM PDT | + + + + | Respiratory Rate | 20 | 01/23/2018 10:08 AM PDT | + + + + | Oxygen Saturation | 97% | 02/18/2018 12:56 PM PDT | + + + + | Inhaled Oxygen | - | - | | Concentration | | | + + + + | Weight | 67.4 kg (148 lb 11.2 | 02/18/2018 12:56 PM PDT | | | oz) | | + + + + | Height | 157.5 cm (5' 2") | 02/18/2018 12:56 PM PDT | + + + + | Body Mass Index | 27.2 | 02/18/2018 12:56 PM PDT | + + + + Plan of Treatment +--------+---------+ + + + | Date | Type | Specialty | Care Team | Description | +--------+---------+ + + + | 03/24/ | Office | | Leland Madera MD | | | 2017 | Visit | | [address] | | | | | | [address] [place] | | | | | | [phone] | | | | | | | | +--------+---------+ + + + | 06/17/ | Office | | Cristhian Cochran, | | | 2017 | Visit | | MD [address] | | | | | | [place] | | | | | | [place] [address] | | | | | | [phone] | | | | | | | | +--------+---------+ + + + + + + + + | Health Maintenance | Due Date | Last Done | Comments | + + + + + | Vaccine: | | | | | Dtap/Tdap/Td (1 - | 4 | | | | Tdap) | | | | + + + + + | Breast Cancer | | | | | Screening | 5 | | | | (Mammogram) | | | | + + + + + | Colon Cancer | | | | | Screening | 5 | | | | (Colonoscopy) | | | | + + + + + | DEXA SCAN SCREENING | | | | | | 0 | | | + + [...] | + + + + + | Lung Cancer | | 08/01/2017 | | | Screening | 9 | | | + + + + + Implants + +-------+--------+ +--------+--------+--------+ | Implanted | Type | Area | Manufacture | Device | Expira | Model | | | | | r | | tion | / | | | | | | Identi | Date | Serial | | | | | | fier | | / Lot | + +-------+--------+ +--------+--------+--------+ | Synergy Burton 3 X | Stent | Brown | | | 01/29/ | [id number] | | 16-08/06/2017Implanted: | | ry | | | 2017 | [id number] | | 08/06/2017 by Britany Guerra, | | | | | | 00 / | | MD (Quantity not on file) | | | | | | /[id number] | | | | | | | | 632 | + +-------+--------+ +--------+--------+--------+ Procedures + +--------+ + + + | Procedure Name | Priori | Date/Time | Associated Diagnosis | Comments | | | ty | | | | + +--------+ + + + | COMPREHENSIVE | Routin | 02/07/2018 | | Results for this | | METABOLIC PANEL | e | 12:44 PM | | procedure are in the | | | | PDT | | results section. | + +--------+ + + + | MAGNESIUM | Routin | 02/07/2018 | | Results for this | | | e | 12:44 PM | | procedure are in the | | | | PDT | | results section. | + +--------+ + + + | BRAIN NATRIURETIC | Routin | 02/07/2018 | | Results for this | | PEPTIDE | e | 12:44 PM | | procedure are in the | | | | PDT | | results section. | + +--------+ + + + | CBC W/AUTO DIFF | Routin | 02/07/2018 | | Results for this | | (REFLEX TO MANUAL) | e | 12:44 PM | | procedure are in the | | | | PDT | | results section. | + +--------+ + + + | EKG STANDARD 12 LEAD | Routin | 12/09/2017 | Hospital discharge | Results for this | | | e | 1:20 PM | follow-up NSTEMI | procedure are in the | | | | PDT | (non-ST elevated | results section. 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 | | | | | | artery of [place] | | | | | | heart without angina | | | | | | pectoris S/P PTCA | | | | | | (percutaneous | | | | | | transluminal | | | | | | coronary | | | | | | angioplasty) | | | | | | Paroxysmal A-fib | | | | | | (HCC) PVD | | | | | | (peripheral vascular | | | | | | disease) ([facility]) | | | | | | Pulmonary emphysema, | | | | | | unspecified | | | | | | emphysema type ([facility]) | | | | | | 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 | + +--------+ + + + | COMPREHENSIVE | Routin | 12/05/2017 | | Results for this | | METABOLIC PANEL | e - AM | 5:35 AM | | procedure are in the | | | | PDT | | results section. | + +--------+ + + + | CBC W/AUTO DIFF | Routin | 12/05/2017 | | Results for this | | (REFLEX TO MANUAL) | e - AM | 5:35 AM | | procedure are in the | | | | PDT | | results section. | + +--------+ + + + | BASIC METABOLIC | Routin | 12/04/2017 | | Results for this | | PANEL | e | 3:34 PM | | procedure are in the | | | | PDT | | results section. | + +--------+ + + + | CBC W/AUTO DIFF | Routin | 12/04/2017 | | Results for this | | (REFLEX TO MANUAL) | e | 3:34 PM | | procedure are in the | | | | PDT | | results section. | + +--------+ + + + | CL LEFT HEART CATH | STAT | 12/04/2017 | | Results for this | | WITH CORONARY ANGIO | | 2:55 PM | | procedure are in the | | | | PDT | | results section. | + +--------+ + + + | POC ACT, ARTERIAL | Routin | 12/04/2017 | | Results for this | | | e | 2:30 PM | | procedure are in the | | | | PDT | | results section. | + +--------+ + + + | APTT | Timed | 12/04/2017 | | Results for this | | | | 6:44 AM | | procedure are in the | | | | PDT | | results section. | + +--------+ + + + | APTT | Timed | 12/04/2017 | | Results for this | | | | 12:45 AM | | procedure are in the | | | | PDT | | results section. | + +--------+ + + + | BRAIN NATRIURETIC | Routin | 12/04/2017 | | Results for this | | PEPTIDE | e - AM | 12:43 AM | | procedure are in the | | | | PDT | | results section. | + +--------+ + + + | TSH | Routin | 12/04/2017 | | Results for this | | | e - AM | 12:43 AM | | procedure are in the | | | | PDT | | results section. | + +--------+ + + + | HEMOGLOBIN A1C | Routin | 12/04/2017 | | Results for this | | | e - AM | 12:43 AM | | procedure are in the | | | | PDT | | results section. | + +--------+ + + + | LIPID PANEL | Routin | 12/04/2017 | | Results for this | | | e - AM | 12:43 AM | | procedure are in the | | | | PDT | | results section. | + +--------+ + + + | PHOSPHOROUS | Routin | 12/04/2017 | | Results for this | | | e - AM | 12:43 AM | | procedure are in the | | | | PDT | | results section. | + +--------+ + + + | MAGNESIUM | Routin | 12/04/2017 | | Results for this | | | e - AM | 12:43 AM | | procedure are in the | | | | PDT | | results section. | + +--------+ + + + | BASIC METABOLIC | Routin | 12/04/2017 | | Results for this | | PANEL | e - AM | 12:43 AM | | procedure are in the | | | | PDT | | results section. | + +--------+ + + + | CBC W/AUTO DIFF | Routin | 12/04/2017 | | Results for this | | (REFLEX TO MANUAL) | e - AM | 12:43 AM | | procedure are in the | | | | PDT | | results section. | + +--------+ + + + | EKG STANDARD 12 LEAD | STAT | 12/03/2017 | | Results for this | | | | 10:50 PM | | procedure are in the | | | | PDT | | results section. | + +--------+ + + + | CK MB | Timed | 12/03/2017 | | Results for this | | | | 9:45 PM | | procedure are in the | | | | PDT | | results section. | + +--------+ + + + | CK | Timed | 12/03/2017 | | Results for this | | | | 9:45 PM | | procedure are in the | | | | PDT | | results section. | + +--------+ + + + | TROPONIN I | Timed | 12/03/2017 | | Results for this | | | | 9:45 PM | | procedure are in the | | | | PDT | | results section. | + +--------+ + + + | NM LUNG VENTILATION | Routin | 12/03/2017 | | Results for this | | PERFUSION | e | 9:12 PM | | procedure are in the | | | | PDT | | results section. | + +--------+ + + + | PROTIME-INR | CRISTIAN | 12/03/2017 | | Results for this | | | | 7:05 PM | | procedure are in the | | | | PDT | | results section. | + +--------+ + + + | APTT | CRISTIAN | 12/03/2017 | | Results for this | | | | 7:05 PM | | procedure are in the | | | | PDT | | results section. | + +--------+ + + + | CBC W/NO DIFF | CRISTIAN | 12/03/2017 | | Results for this | | | | 7:05 PM | | procedure are in the | | | | PDT | | results section. | + +--------+ + + + | MRSA BY PCR | Timed | 12/03/2017 | | Results for this | | | | 6:37 PM | | procedure are in the | | | | PDT | | results section. | + +--------+ + + + | BASIC METABOLIC | STAT | 12/03/2017 | | Results for this | | PANEL | | 5:00 PM | | procedure are in the | | | | PDT | | results section. | + +--------+ + + + | CK MB | Timed | 12/03/2017 | | Results for this | | | | 5:00 PM | | procedure are in the | | | | PDT | | results section. | + +--------+ + + + | CK | Timed | 12/03/2017 | | Results for this | | | | 5:00 PM | | procedure are in the | | | | PDT | | results section. | + +--------+ + + + | TROPONIN I | Timed | 12/03/2017 | | Results for this | | | | 5:00 PM | | procedure are in the | | | | PDT | | results section. | + +--------+ + + + | RESPIRATORY | Timed | 12/03/2017 | | Results for this | | FILMARRAY | | 3:26 PM | | procedure are in the | | | | PDT | | results section. | + +--------+ + + + | D-DIMER, | STAT | 12/03/2017 | | Results for this | | QUANTITATIVE | | 10:55 AM | | procedure are in the | | | | PDT | | results section. | + +--------+ + + + | URINALYSIS (REFLEX | STAT | 12/03/2017 | | Results for this | | TO | | 10:55 AM | | procedure are in the | | MICROSCOPIC/REFLEX | | PDT | | results section. | | TO CULTURE) | | | | | + +--------+ + + + | CK MB | STAT | 12/03/2017 | | Results for this | | | | 10:55 AM | | procedure are in the | | | | PDT | | results section. | + +--------+ + + + | TROPONIN I | STAT | 12/03/2017 | | Results for this | | | | 10:55 AM | | procedure are in the | | | | PDT | | results section. | + +--------+ + + + | EKG 12 LEAD UNIT | Routin | 12/03/2017 | | Results for this | | PERFORMED | e | 10:47 AM | | procedure are in the | | | | PDT | | results section. | + +--------+ + + + | ED INFORMATION | Routin | 12/03/2017 | | Results for this | | EXCHANGE | e | 10:43 AM | | procedure are in the | | | | PDT | | results section. | + +--------+ + + + | XR CHEST 1 VIEW | Routin | 12/03/2017 | Chest pain, | Results for this | | | e | 8:32 AM | unspecified type | procedure are in the | | | | PDT | | results section. | + +--------+ + + + from Last 3 Months Results CBC W/Auto Diff (Reflex to Manual) (02/07/2018 12:44 PM)Only the most recent of 4 results w ithin the time period is included. + + + + + | Component | Value | Ref Range | Performed At | + + + + + | WBC | 4.8 | 4.5 - 11.0 10^3/mL | [facility] | | | | | LAB[facility]AT[facility] | + + + + + | RBC | 3.96 | 3.8 - 5.1 10^6/ L | [facility] | | | | | [facility] | + + + + + | HGB | 11.0 (A) | 12 - 16 g/dL | [facility] | | | | | [facility] | + + + + + | HCT | 33.5 (A) | 35 - 45 % | [facility] | | | | | [facility] | + + + + + | MCV | 84.5 | 81 - 99 fL | [facility] | | | | | [facility] | + + + + + | MCH | 28 | 27 - 33 pg | [facility] | | | | | [facility] | + + + + + | MCHC | 33 | 30 - 36 g/dL | [facility] | | | | | [facility] | + + + + + | PLT | 168 | 140 - 440 K/ L | [facility] | | | | | [facility] | + + + + + | RDW SD | 15.8 (A) | 10.5 - 15.0 % | [facility] | | | | | [facility] | + + + + + | MPV | | fL | [facility] | | | | | [facility] | + + + + + | DIFF TYPE | | | [facility] | | | | | [facility] | + + + + + | NEUTROPHILS | | % | [facility] | | | | | [facility] | + + + + + | LYMPHOCYTES | | % | [facility] | | | | | [facility] | + + + + + | MONOCYTES | | % | [facility] | | | | | [facility] | + + + + + | EOSINOPHILS | | % | [facility] | | | | | [facility] | + + + + + | BASOPHILS | | % | [facility] | | | | | [facility] | + + + + + | NEUTROPHILS ABS | | / L | [facility] | | | | | [facility] | + + + + + | LYMPHOCYTES ABS | | / L | [facility] | | | | | [facility] | + + + + + | MONOCYTES ABS | | / L | [facility] | | | | | LAB[facility] | + + + + + | EOSINOPHILS ABS | | / L | [facility] | | | | | [facility] | + + + + + | BASOPHILS ABS | | / L | [facility] | | | | | LAB[facility] | + + + + + + + | Specimen | + + | Blood | + + + + + + + | Performing | Address | City/State/Zipcode | Phone Number | | Organization | | | | + + + + + | [facility] | [address] | [place] [address] | | | LABORATORY | 13 | | | + + + + + Brain natriuretic peptide (02/07/2018 12:44 PM)Only the most recent of 2 results within the time period is included. + +---------+ + + | Component | Value | Ref Range | Performed At | + +---------+ + + | BRAIN NATRIURETIC | 173 (A) | 0 - 100 pg/mL | [facility] | | [place] | | | LABORATORY | + +---------+ + + + + | Specimen | + + | Blood | + + + + + + + | Performing | Address | City/State/Zipcode | Phone Number | | Organization | | | | + + + + + | [facility] | [address] | [place] [address] | | | LABORATORY | 13 | | | + + + + + Magnesium (02/07/2018 12:44 PM)Only the most recent of 3 results within the time period is included. + +-------+ + + | Component | Value | Ref Range | Performed At | + +-------+ + + | MAGNESIUM | 2.4 | 1.7 - 2.5 mg/dL | [facility] | | | | | LABORATORY | + +-------+ + + + + | Specimen | + + | Blood | + + + + + + + | Performing | Address | City/State/Zipcode | Phone Number | | Organization | | | | + + + + + | [facility] | [address] | [place] [address] | | | LABORATORY | 13 | | | + + + + + Comprehensive metabolic panel (02/07/2018 12:44 PM)Only the most recent of 2 results within the time period is included. + + + + + | Component | Value | Ref Range | Performed At | + + + + + | GLUCOSE | 101 (A) | 70 - 100 mg/dL | [facility] | | | | | LABORATORY | + + + + + | BUN | 17 | 6 - 23 mg/dL | [facility] | | | | | LAB[facility]ATORY | + + + + + | CREATININE | 1.33 (A) | 0.7 - 1.18 mg/dL | [facility] | | | | | LAB[facility]ATORY | + + + + + | BUN/CREAT | 12.8 | 6.0 - 28.6 | [facility] | | | | | LAB[facility]ATORY | + + + + + | CALCIUM | 9.0 | 8.5 - 10.3 mg/dL | [facility] | | | | | LAB[facility]ATORY | + + + + + | TOTAL PROTEIN | 6.4 | 6.0 - 8.3 g/dL | [facility] | | | | | LABORATORY | + + + + + | Albumin | 4.0 | 3.5 - 5.0 | [facility] | | | | | LAB[facility]ORY | + + + + + | GLOBULIN | 2.4 | 1.8 - 3.5 | [facility] | | | | | LAB[facility]AT[facility] | + + + + + | A/G | 1.7 | 1.1 - 2.4 | [facility] | | | | | LAB[facility]ATORY | + + + + + | TBIL | 0.5 | 0.0 - 1.2 mg/dL | [facility] | | | | | LAB[facility]ATORY | + + + + + | ALK PHOS | 71 | 31 - 130 | [facility] | | | | | LABORATORY | + + + + + | ALT | 8 | 7 - 52 U/L | [facility] | | | | | LABORATORY | + + + + + | AST | 12 (A) | 13 - 39 U/L | [facility] | | | | | LABORATORY | + + + + + | SODIUM | 141 | 132 - 143 mmol/L | [facility] | | | | | LAB[facility]ATORY | + + + + + | POTASSIUM | 4.3 | 3.6 - 5.1 mmol/L | [facility] | | | | | LABORATORY | + + + + + | CHLORIDE | 102 | 95 - 112 mmol/L | [facility] | | | | | LAB[facility]ATORY | + + + + + | CO2 | 33 (A) | 19 - 31 mmol/L | [facility] | | | | | LAB[facility]ATORY | + + + + + | ANION GAP AGAP | 10.3 | 7 - 21 mmol/L | [facility] | | | | | LAB[facility]ORY | + + + + + | EGFR | 39 (A) | 60 mg/dL | [facility] | | | | | LAB[facility]ATORY | + + + + + + + | Specimen | + + | Blood | + + + + + + + | Performing | Address | City/State/Zipcode | Phone Number | | Organization | | | | + + + + + | [facility] | [address] | [place] [address] | | | LABORATORY | 13 | | | + + + + + EKG STANDARD 12 LEAD (12/09/2017 1:20 PM)Only the most recent of 2 results within the time period is included. + + + + + | Component | Value | Ref Range | Performed At | + + + + + | Ventricular Rate | 78 | BPM | [facility] | + + + + + | Atrial Rate | 78 | BPM | [facility] | + + + + + | P-R Interval | 146 | ms | [facility] | + + + + + | QRS Duration | 94 | ms | [facility] | + + + + + | Q-T Interval | 416 | ms | [facility] | + + + + + | QTC Calculation | 474 | ms | [facility] | | (Bezet) | | | | + + + + + | Calculated P [place] | 78 | degrees | [facility] | + + + + + | Calculated R [place] | 74 | degrees | [facility] | + + + + + | Calculated T [place] | 57 | degrees | [facility] | + + + + + | Diagnosis | Please refer to | | [facility] | | | Providers office visit | | | | | note for Providers | | | | | Interpretation.Confirmed | | | | | by [facility] [place] Read Only, | | | | | [facility] ([id number]), | | | | | manager editorial Tanmay Esquivel | | | | | ([id number]) on 12/09/2017 | | | | | 2:49:53 PM | | | + + + + + + + + + + | Performing | Address | City/State/Zipcode | Phone Number | | Organization | | | | + + + + + | [facility] | [address] | [place] [address] | | + + + + + Basic metabolic panel (12/04/2017 3:34 PM)Only the most recent of 3 results within the is included. + + + + + | Component | Value | Ref Range | Performed At | + + + + + | SODIUM | 139 | 135 - 145 mmol/L | [facility] | | | | | [facility]ORY | + + + + + | POTASSIUM | 4.8 | 3.5 - 4.9 mmol/L | [facility] | | | | | [facility] | + + + + + | CHLORIDE | 105 | 99 - 109 mmol/L | [facility] | | | | | [facility] | + + + + + | CO2 | 24 | 23 - 32 mmol/L | [facility] | | | | | [facility] | + + + + + | ANION GAP AGAP | 15 | 5 - 20 mmol/L | [facility] | | | | | [facility] | + + + + + | GLUCOSE | 152 (H) | 65 - 99 mg/dL | [facility] | | | | | [facility] | + + + + + | BUN | 30 (H) | 8 - 25 mg/dL | [facility] | | | | | LAB[facility] | + + + + + | CREATININE | 1.5 (H) | 0.50 - 1.00 mg/dL | [facility] | | | | | LABORATORY | + + + + + | BUN/CREAT | 20 | | [facility] | | | | | LABORATORY | + + + + + | CALCIUM | 8.5 | 8.5 - 10.5 mg/dL | [facility] | | | | | LABORATORY | + + + + + | EGFR | 34 (L)Comment: GFR <60: | >60 mL/min/1.73m2 | [facility] | | | CHRONIC KIDNEY DISEASE, | | LABORATORY | | | IF FOUND OVER A 3 MONTH | | | | | PERIOD.GFR <15: KIDNEY | | | | | FAILURE.FOR | | | | | AMERICANS, MULTIPLY THE | | | | | CALCULATED GFR BY | | | | | 1.210.This eGFR is | | | | | calculated using the | | | | | MDRD IDMS traceable | | | | | equation. PLEASE NOTE | | | | | NEW CALCULATION | | | | | EFFECTIVE 12/03/2017 | | | | | Testing performed at | | | | | [facility], [address] [place] [address] | | | | | [place], | | | | | [place] [address] | | | + + + + + + + | Specimen | + + | Blood | + + + + + + + | Performing | Address | City/State/Zipcode | Phone Number | | Organization | | | | + + + + + | [facility] | [address] [facility] | [place] [address] | [phone] | | LABORATORY | [place]. | | | + + + + + CL left heart catheterization with coronary angio (12/04/2017 2:55 PM) + + + | Narrative | Performed At | + + + | | [facility] | | | RADIOLOGY | | DATE OF PROCEDURE December 04, 2017 PROCEDURES PERFORMED 1. Left | | | heart catheterization. 2. Coronary angiogram. INDICATIONS Chest | | | pain, non-ST elevation myocardial infarction. HISTORY OF PRESENT | | | ILLNESS This is a 72-year-old female with a known history of coronary | | | artery disease with previous myocardial infarction and non-ST | | | elevation myocardial infarction in July 2017, at which time she | | | had a stent placed in the proximal left circumflex artery, and was | | | found to have a chronically occluded right coronary artery with | | | pvrw-sw-imqcb collaterals. Severe disease of a small second diagonal. | | | The patient was admitted with chest pain and worsening shortness of | | | breath, and troponins were found to be mildly elevated with a peak of | | | 1.54. The patient was referred for coronary angiogram. For more | | | details, please refer to Dr. Cochran's full cardiology consultation | | | note. TECHNIQUE The patient was brought to the cardiac | | | catheterization laboratory in a fasting state. After informed consent | | | was obtained, the patient was prepped and draped in the usual | | | sterile fashion. Timeout for patient safety was performed. We | | | initially attempted right radial artery access. My plan was if I | | | could get into the radial artery, then I will use a 4[place] sheath | | | and 4[place] catheter. Lidocaine 2% was used for local anesthesia of | | | the skin overlying the right radial artery. I was able to get into | | | the radial artery easily, however the wire would not advance much | | | suggesting that the patient might have severe disease in the radial | | | artery. 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 Lidocaine 2% was used for local anesthesia of the left | | | groin. The left femoral artery was accessed using a micropuncture | | | needle. A 5-[place] sheath was placed into the left femoral artery | | | without difficulty. Subsequently, a 5-[place] 3.5 catheter was | | | advanced, however did not lead to good engagement. We changed it to a | | | 5-[place] FL4 catheter with selective engagement of the left coronary | | | system, and angiographic views were obtained. Subsequently, a | | | 5[place] FR4 catheter was advanced over the guidewire into the left | | | ventricle. Left ventricular pressures and pullback pressures were | | | obtained. We did see collateral flow to the right coronary artery. | | | The right coronary artery is known to be chronically occluded, with | | | chronically occluded stents. As such, we did not engage during this | | | study to reduce contrast exposure, given the patient's advanced | | | kidney disease. Currently stage 3 to 4. Left femoral arterial sheath | | | was removed, and hemostasis was obtained using manual compression. | | | The patient tolerated the procedure well without complications. | | | RESULTS TOTAL CONTRAST Isovue 18 mL. HEMODYNAMICS 1. Left | | | ventricular systolic pressure 160. 2. Left ventricular end-diastolic | | | pressure 28. 3. On pullback, aortic pressure 151/63. 4. There was no | | | significant gradient across the aortic valve on pullback. | | | CORONARY ANATOMY 1. The left main coronary artery trifurcates and | | | gives rise to the left anterior descending, ramus intermedius, and | | | left circumflex arteries. The left main coronary artery is free of | | | disease. 2. Left anterior descending artery is type 3 vessel. The | | | left anterior descending artery itself is without significant | | | disease. The first diagonal branch is a very tiny vessel. The second | | | diagonal branch is a lcgsl-vo-gfqxsq size vessel at 1.5 to 2 mm | | | vessel, with severe proximal ostial lesion in the range of 80%. This | | | has not changed compared to angiogram from July 2017. 3. Ramus | | | intermedius is a large vessel, without disease. 4. Left circumflex | | | artery is a nondominant vessel that gives rise to a single large | | | bifurcating marginal branch. Proximal left circumflex artery had a | | | stent which is widely patent. A single large marginal branch had | | | otherwise moderate disease, in the range of 30%. There are mature | | | collaterals from the left to the right coronary artery visualized. | | | 5. The right coronary artery is known to be chronically occluded, and | | | was not engaged during this study to reduce contrast exposure. | | | ESTIMATED BLOOD LOSS Less than 50 mL. IMPRESSION 1. Three-vessel | | | coronary artery disease with chronically occluded right coronary | | | artery, with libm-bf-szrvq collaterals. 2. Patent stents in the left | | | circumflex artery, severe disease of a small diagonal branch. | | | RECOMMENDATIONS 1. Continue medical management. 2. Risk factor | | | modifications. 3. Continue aspirin, Plavix, Atorvastatin, Cardizem. | | | 4. Will add isosorbide mononitrate. Read by DARRELL GOOD MD | | | 12/04/2017 03:20 P | | + + + + + | Procedure Note | + + | Italo Farrar In - 12/06/2017 7:50 PM PDT | | | | | | DATE OF PROCEDURE | | December 04, 2017 | | | | PROCEDURES PERFORMED | | 1. Left heart catheterization. | | 2. Coronary angiogram. | | | | INDICATIONS | | Chest pain, non-ST elevation myocardial infarction. | | | | HISTORY OF PRESENT ILLNESS | | This is a 72-year-old female with a known history of coronary artery | | disease with previous myocardial infarction and non-ST elevation myocardial | | infarction in July 2017, at which time she had a stent placed in the | | proximal left circumflex artery, and was found to have a chronically | | occluded right coronary artery with yymz-mi-stydw collaterals. Severe | | disease of a small second diagonal. The patient was admitted with chest | | pain and worsening shortness of breath, and troponins were found to be | | mildly elevated with a peak of 1.54. The patient was referred for coronary | | angiogram. For more details, please refer to Dr. Cochran's full cardiology | | consultation note. | | | | TECHNIQUE | | The patient was brought to the cardiac catheterization laboratory in a | | fasting state. After informed consent was obtained, the patient was prepped | | and draped in the usual sterile fashion. Timeout for patient safety was | | performed. We initially attempted right radial artery access. My plan was | | if I could get into the radial artery, then I will use a 4[place] sheath | | and 4[place] catheter. Lidocaine 2% was used for local anesthesia of the | | skin overlying the right radial artery. I was able to get into the radial | | artery easily, however the wire would not advance much suggesting that the | | patient might have severe disease in the radial artery. As such, I decided | | to immediately go to the left groin approach as the patient is known to | | have occlusion of the right iliac artery. | | | | Lidocaine 2% was used for local anesthesia of the left groin. The left | | femoral artery was accessed using a micropuncture needle. A 5-[place] sheath | | was placed into the left femoral artery without difficulty. Subsequently, a | | 5-[place] 3.5 catheter was advanced, however did not lead to good | | engagement. We changed it to a 5-[place] FL4 catheter with selective | | engagement of the left coronary system, and angiographic views were | | obtained. Subsequently, a 5-[place] FR4 catheter was advanced over the | | guidewire into the left ventricle. Left ventricular pressures and pullback | | pressures were obtained. We did see collateral flow to the right coronary | | artery. The right coronary artery is known to be chronically occluded, with | | chronically occluded stents. As such, we did not engage during this study | | to reduce contrast exposure, given the patient's advanced kidney disease. | | Currently stage 3 to 4. Left femoral arterial sheath was removed, and | | hemostasis was obtained using manual compression. The patient tolerated the | | procedure well without complications. | | | | RESULTS | | TOTAL CONTRAST | | Isovue 18 mL. | | | | HEMODYNAMICS | | 1. Left ventricular systolic pressure 160. | | 2. Left ventricular end-diastolic pressure 28. | | 3. On pullback, aortic pressure 151/63. | | 4. There was no significant gradient across the aortic valve on pullback. | | | | CORONARY ANATOMY | | 1. The left main coronary artery trifurcates and gives rise to the left | | anterior descending, ramus intermedius, and left circumflex arteries. | | The left main coronary artery is free of disease. | | 2. Left anterior descending artery is type 3 vessel. The left anterior | | descending artery itself is without significant disease. The first | | diagonal branch is a very tiny vessel. The second diagonal branch is a | | teojt-xs-hjppxw size vessel at 1.5 to 2 mm vessel, with severe proximal | | ostial lesion in the range of 80%. This has not changed compared to | | angiogram from July 2017. | | 3. Ramus intermedius is a large vessel, without disease. | | 4. Left circumflex artery is a nondominant vessel that gives rise to a | | single large bifurcating marginal branch. Proximal left circumflex | | artery had a stent which is widely patent. A single large marginal | | branch had otherwise moderate disease, in the range of 30%. There are | | mature collaterals from the left to the right coronary artery | | visualized. | | 5. The right coronary artery is known to be chronically occluded, and was | | not engaged during this study to reduce contrast exposure. | | | | ESTIMATED BLOOD LOSS | | Less than 50 mL. | | | | IMPRESSION | | 1. Three-vessel coronary artery disease with chronically occluded right | | coronary artery, with mucj-iw-xsuda collaterals. | | 2. Patent stents in the left circumflex artery, severe disease of a small | | diagonal branch. | | | | RECOMMENDATIONS | | 1. Continue medical management. | | 2. Risk factor modifications. | | 3. Continue aspirin, Plavix, Atorvastatin, Cardizem. | | 4. Will add isosorbide mononitrate. | | | | Read by DARRELL GOOD MD 12/04/2017 03:20 P | | | | | + + + + + + + | Performing | Address | City/State/Zipcode | Phone Number | | Organization | | | | + + + + + | [facility] | [address] | [facility] [address] | | + + + + + POC ACT, arterial (12/04/2017 2:30 PM) + + + + + | Component | Value | Ref Range | Performed At | + + + + + | POC ACT | 136Comment: Testing | 74 - 137 seconds | [facility] | | | performed at [facility];[address] | | | | | [address];[place], [place] | | | | | [address] | | | + + + + + + + + + + | Performing | Address | City/State/Zipcode | Phone Number | | Organization | | | | + + + + + | [facility] | [address] | [place] [address] | | + + + + + aPTT - Q6 starting in 6 hours x 2 (12/04/2017 6:44 AM)Only the most recent of 3 results wi thin the time period is included. + + + + + | Component | Value | Ref Range | Performed At | + + + + + | APTT | 46 (H)Comment: Testing | 23 - 32 seconds | [facility] | | | performed at [facility];[address] | | | | | [address] [facility];[place] | | | | | [address] | | | + + + + + + + | Specimen | + + | Blood | + + + + + + + | Performing | Address | City/State/Zipcode | Phone Number | | Organization | | | | + + + + + | [facility] | [address] | [place] [address] | | + + + + + TSH (12/04/2017 12:43 AM) + + + + + | Component | Value | Ref Range | Performed At | + + + + + | TSH | 0.089 (L)Comment: | 0.450 - 5.100 uIU/mL | [facility] | | | Testing performed at | | LABORATORY | | | [facility], [address] [facility] | | | | | [place], [place] | | | | | [address] | | | + + + + + + + | Specimen | + + | Blood | + + + + + + + | Performing | Address | City/State/Zipcode | Phone Number | | Organization | | | | + + + + + | [facility] | [address] [place] [address] | [place] [address] | [phone] | | LABORATORY | [address] | | | + + + + + Phosphorus (12/04/2017 12:43 AM) + + + + + | Component | Value | Ref Range | Performed At | + + + + + | PHOSPHORUS | 3.7Comment: Testing | 2.3 - 4.8 mg/dL | [facility] | | | performed at [facility], [address] | | LABORATORY | | | [facility], | | | | | [place] [address] | | | + + + + + + + | Specimen | + + | Blood | + + + + + + + | Performing | Address | City/State/Zipcode | Phone Number | | Organization | | | | + + + + + | [facility] | [address] [facility] | [place] [address] | [phone] | | LABORATORY | [address] | | | + + + + + Glycohemoglobin A1c (12/04/2017 12:43 AM) + + + + + | Component | Value | Ref Range | Performed At | + + + + + | HEMOGLOBIN A1C | 5.3Comment: [place] | 4.0 - 6.0 % | [facility] | | | Diabetes Association | | LABORATORY | | | considers a hemoglobin | | | | | A1c result of <7.0% to | | | | | be the goal of diabetic | | | | | therapy. When results | | | | | are consistently >8.0%, | | | | | the ADA suggests | | | | | reevaluation of the | | | | | treatment | | | | | regimen. The testing | | | | | method used is certified | | | | | traceable to the | | | | | Diabetes Control and | | | | | Complications Trial | | | | | reference method. | | | + + + + + | ESTIMATED AVG | 105Comment: The ADA | mg/dL | [facility] | | GLUCOSE | considers an eAG result | | LABORATORY | | | of LT 154 mg/dL to be | | | | | the goal of diabetic | | | | | therapy. Estimated | | | | | Average Glucose | | | | | calculated from | | | | | hemoglobin A1c by use of | | | | | the ADA recommended | | | | | formula.Testing | | | | | performed at [facility], [address] | | | | | [facility], | | | | | [place] [address] | | | + + + + + + + | Specimen | + + | Blood | + + + + + + + | Performing | Address | City/State/Zipcode | Phone Number | | Organization | | | | + + + + + | [facility] | [address] [facility] | [place] [address] | [phone] | | LABORATORY | [address] | | | + + + + + Lipid panel (12/04/2017 12:43 AM) + + + + + | Component | Value | Ref Range | Performed At | + + + + + | CHOLESTEROL | 140 | <200 mg/dL | [facility] | | | | | LABORATORY | + + + + + | Triglycerides | 53 | <150 mg/dL | [facility] | | | | | LABORATORY | + + + + + | HDL CHOL | 76 | >40 mg/dL | [facility] | | | | | LABORATORY | + + + + + | LDL CALC | 53Comment: Testing | <100 mg/dL | [facility] | | | performed at [facility], [address] | | LABORATORY | | | [address], | | | | | [place] [address] | | | + + + + + + + | Specimen | + + | Blood | + + + + + + + | Performing | Address | City/State/Zipcode | Phone Number | | Organization | | | | + + + + + | [facility] | [address] [facility] | [place] [address] | [phone] | | LABORATORY | [address] | | | + + + + + CK MB (12/03/2017 9:45 PM)Only the most recent of 3 results within the time period is incl uded. + + + + + | Component | Value | Ref Range | Performed At | + + + + + | MMB | 13.3 (H) | 0.5 - 3.6 ng/mL | [facility] | + + + + + | CK-MB Index | 10.9Comment: CK INDEX | | [facility] | | | INTERPRETATION: | | | | | MMB | | | | | ng/mL & Relative | | | | | IndexNon-AMI | | | | | < or = | | | | | 5.0 N | | | | | AGray Zone | | | | | >5.0 < | | | | | or = | | | | | 4.0AMI | | | | | | | | | | >5.0 | | | | | >4.0Testing | | | | | performed at [facility];[address] | | | | | [address];[place] | | | | | [address] | | | + + + + + + + + + + | Performing | Address | City/State/Zipcode | Phone Number | | Organization | | | | + + + + + | [facility] | [address] | [place] [address] | | + + + + + Troponin I (12/03/2017 9:45 PM)Only the most recent of 3 results within the time period is included. + + + + + | Component | Value | Ref Range | Performed At | + + + + + | TROPONIN I | 1.54 ()Comment: 0.00 | 0.00 - 0.10 ng/mL | [facility] | | | to 0.10 CONSISTENT | | | | | WITH NORMAL | | | | | POPULATION0.11 to | | | | | 0.60 CONSISTENT WITH | | | | | INCREASED RISK FOR | | | | | ADVERSE OUTCOMES> | | | | | 0.60 | | | | | CONSISTENT WITH WHO | | | | | CRITERIA FOR ACUTE [place] | | | | | CALLED NURSING UNITREAD | | | | | BACK RESULTS | | | | | VERIFIEDNANCY L ON 3OP | | | | | AT 2237 LMCTesting | | | | | performed at [facility];[address] | | | | | [address];[place], [place] | | | | | [address] | | | + + + + + + + | Specimen | + + | Blood | + + + + + + + | Performing | Address | City/State/Zipcode | Phone Number | | Organization | | | | + + + + + | [facility] | [address] | [place] [address] | | + + + + + CODIE (12/03/2017 9:45 PM)Only the most recent of 2 results within the time period is includ ed. + + + + + | Component | Value | Ref Range | Performed At | + + + + + | CPK | 122Comment: Testing | 30 - 240 U/L | [facility] | | | performed at [facility];[address] | [address];[place], [place] | | | | | [address] | | | + + + + + + + | Specimen | + + | Blood | + + + + + + + | Performing | Address | City/State/Zipcode | Phone Number | | Organization | | | | + + + + + | [facility] | [address] [facility] | [place] [address] | | + + + + + NM lung ventilation perfusion (12/03/2017 9:12 PM) + + + | Impressions | Performed At | + + + | 1. Low probability for pulmonary embolic disease Would | [facility] | | correlate with clinical pretest probability and consider ultrasound of | RADIOLOGY | | the lower extremities to increased diagnostic certainty for or | | | against the potential diagnosis of. | | + + + + + + | Narrative | Performed At | + + + | HISTORY: 72-year-old female, pain TECHNIQUE: 1. Multiplanar | [facility] | | imaging post the uneventful administration of 22 millicuries xenon gas | RADIOLOGY | | and 6.4 millicuries technetium 99m labeled MAA. Reviewed concert with | | | the recent chest radiograph. Prior study for review : 29 | | | May-chest radiograph FINDINGS: Ventilation portion the | | | examination is normal, lungs symmetrically inflated Some artifact | | | from lateral to the position of the perfusion agent, but no convincing | | | wedge-shaped defects Possibly some effusion tracking about the | | | fissures | | + + + + + | Procedure Note | + + | Charan, Rad Results In - 12/03/2017 9:34 PM PDT HISTORY: 72-year-old female, | | painTECHNIQUE:1. Multiplanar imaging post the uneventful administration of 22 | | millicuries xenon gas and 6.4 millicuries technetium 99m labeled MAA. Reviewed concert | | with the recent chest radiograph.Prior study for review : chest | | radiographFINDINGS:Ventilation portion the examination is normal, lungs symmetrically | | inflatedSome artifact from lateral to the position of the perfusion agent, but no | | convincing wedge-shaped defectsPossibly some effusion tracking about the | | fissuresIMPRESSION:1. Low probability for pulmonary embolic diseaseWould correlate with | | clinical pretest probability and consider ultrasound of the lower extremities to | | increased diagnostic certainty for or against the potential diagnosis of.Electronically | | signed by Laz Gil MD on 12/03/2017 9:29 PM | | | |Some artifact from lateral to the position of the perfusion agent, but no convincing wedge- shaped defects | | | |Possibly some effusion tracking about the fissures | | | |IMPRESSION: | | | |1. Low probability for pulmonary embolic disease | | | |Would correlate with clinical pretest probability and consider ultrasound of the lower extr emities to increased diagnostic certainty for or against the potential diagnosis of. | | | | | + + + + + + + | Performing | Address | City/State/Zipcode | Phone Number | | Organization | | | | + + + + + | [facility] | [address] | [place] [address] | | + + + + + CBC w/no diff (12/03/2017 7:05 PM) + + + + + | Component | Value | Ref Range | Performed At | + + + + + | WBC | 6.20 | 3.80 - 11.00 K/uL | [facility] | + + + + + | RBC | 3.44 (L) | 3.70 - 5.10 M/uL | [facility] | + + + + + | HGB | 9.4 (L) | 11.3 - 15.5 g/dL | [facility] | + + + + + | HCT | 28.9 (L) | 34.0 - 46.0 % | [facility] | + + + + + | MCV | 84.1 | 80.0 - 100.0 fl | [facility] | + + + + + | MCH | 27.2 | 27.0 - 34.0 pg | [facility] | + + + + + | MCHC | 32.3 | 32.0 - 35.5 g/dL | [facility] | + + + + + | RDW SD | 42.9 | 37 - 53 fl | [facility] | + + + + + | PLT | 163 | 150 - 400 K/uL | [facility] | + + + + + | MPV | 8.9Comment: Testing | fl | [facility] | | | performed at [facility];[address] | | | | | [address];[place] | | | | | [address] | | | + + + + + + + + + + | Performing | Address | City/State/Zipcode | Phone Number | | Organization | | | | + + + + + | [facility] | [address] | [place] [address] | | + + + + + Dexter-RAN (12/03/2017 7:05 PM) + + + + + | Component | Value | Ref Range | Performed At | + + + + + | INR | 1.0Comment: REFERENCE | | [facility] | | | RANGE:0.9 - | | | | | 1.2 NON-ANTICOAGULATE | | | | | D2.0 - 3.0 ALL OTHER | | | | | THERAPEUTIC | | | | | INDICATIONS2.5 - 3.5 | | | | | MECHANICAL HEART VALVES, | | | | | RECURRENT OR SYSTEMIC | | | | | EMBOLISMTesting | | | | | performed at [facility];[address] | | [address];[place], [place] | | | | | [address] | | | + + + + + + + | Specimen | + + | Blood | + + + + + + + | Performing | Address | City/State/Zipcode | Phone Number | | Organization | | | | + + + + + | [facility] | [address] | [place] [address] | | + + + + + MRSA by PCR (12/03/2017 6:37 PM) + + + + + | Component | Value | Ref Range | Performed At | + + + + + | SOURCE | NARES(NOSE) | | [facility] | + + + + + | MRSA PCR | NEGATIVEComment: Testing | NEGATIVE | [facility] | | | performed at [facility];[address] | | | | | [address];[place], [place] | | | | | [address] | | | + + + + + + + | Specimen | + + | Nasopharyngeal - | | Nares(Nose) | + + + + + + + | Performing | Address | City/State/Zipcode | Phone Number | | Organization | | | | + + + + + | [facility] | [address] | [place] [address] | | + + + + + Respiratory Filmarray (12/03/2017 3:26 PM) + + + + + | Component | Value | Ref Range | Performed At | + + + + + | ADENOVIRUS | Not Detected | Not Detected | [facility] | | | | | LABORATORY | + + + + + | CORONAVIRUS [id number] | Not Detected | Not Detected | [facility] | | | | | LABORATORY | + + + + + | CORONAVIRUS [id number] | Not Detected | Not Detected | [facility] | | | | | LABORATORY | + + + + + | CORONAVIRUS [id number] | Not Detected | Not Detected | [facility] | | | | | LABORATORY | + + + + + | CORONAVIRUS [id number] | Not Detected | Not Detected | [facility] | | | | | LABORATORY | + + + + + | HUMAN | Not Detected | Not Detected | [facility] | | METAPNEUMOVIRUS | | | LABORATORY | + + + + + | HUMAN RHINO/ENTERO | Not Detected | Not Detected | [facility] | | | | | LABORATORY | + + + + + | INFLUENZA A | Not Detected | Not Detected | [facility] | | | | | LABORATORY | + + + + + | INFLUENZA B | Not Detected | Not Detected | [facility] | | | | | LABORATORY | + + + + + | PARAINFLUENZA 1 | Not Detected | Not Detected | [facility] | | | | | LABORATORY | + + + + + | PARAINFLUENZA 2 | Not Detected | Not Detected | [facility] | | | | | LABORATORY | + + + + + | PARAINFLUENZA 3 | Not Detected | Not Detected | [facility] | | | | | LABORATORY | + + + + + | PARAINFLUENZA 4 | Not Detected | Not Detected | [facility] | | | | | LAB[facility]ATORY | + + + + + | RESP SYNCYTIAL VIRUS | Not Detected | Not Detected | [facility] | | | | | LABORATORY | + + + + + | BORDETELLA PERTUSSIS | Not Detected | Not Detected | [facility] | | | | | LABORATORY | + + + + + | CHLAMYDIAE | Not Detected | Not Detected | [facility] | | PNEUMONIAE | | | LABORATORY | + + + + + | MYCOPLASMA | Not Detected | Not Detected | [facility] | | PNEUMONIAE | | | LABORATORY | + + + + + | RESP PANEL INTERP | Testing performed by | | [facility] | | | Molecular | | LABORATORY | | | MethodologyComment: | | | | | Testing performed at | | | | | [facility], [address] | | | | | [place] | | | | | [address] | | | + + + + + + + | Specimen | + + | Nasal Swab | + + + + + + + | Performing | Address | City/State/Zipcode | Phone Number | | Organization | | | | + + + + + | [facility] | [address] | [place] [address] | [phone] | | LABORATORY | [address] | | | + + + + + Urinalysis (reflex to microscopic/reflex to culture) (12/03/2017 10:55 AM) + + + + + | Component | Value | Ref Range | Performed At | + + + + + | COLOR UA | STRAW | | [facility] | + + + + + | CLARITY | CLEAR | | [facility] | + + + + + | Specific [place], UA | 1.006 | 1.002 - 1.030 | [facility] | + + + + + | LEUKOCYTE ESTERASE | NEGATIVE | NEGATIVE | [facility] | + + + + + | NITRITE | NEGATIVE | NEGATIVE | [facility] | + + + + + | UROBILINOGEN | NORMAL | <1.1 mg/dL | [facility] | + + + + + | PROTEIN | NEGATIVE | NEGATIVE mg/dL | [facility] | + + + + + | PH,URINE | 5.0 | 5.0 - 8.0 | [facility] | + + + + + | BLOOD | NEGATIVE | NEGATIVE | [facility] | + + + + + | KETONES | NEGATIVE | NEGATIVE mg/dL | [facility] | + + + + + | BILIRUBIN | NEGATIVE | NEGATIVE | [facility] | + + + + + | GLUCOSE | NEGATIVEComment: Testing | NEGATIVE mg/dL | [facility] | | | performed at [facility];[address] | | | | | [address];[place] | | | | | [address] | | | + + + + + + + | Specimen | + + | Urine, Clean Catch | + + + + + + + | Performing | Address | City/State/Zipcode | Phone Number | | Organization | | | | + + + + + | [facility] | [address] | [place] [address] | | + + + + + D Dimer,Quantitative (12/03/2017 10:55 AM) + + + + + | Component | Value | Ref Range | Performed At | + + + + + | D DIMER, | 0.99 (H)Comment: D Dimer | 0.19 - 0.50 mg/L FEU | [facility] | | QUANTITATIVE | results less than 0.50 | | | | | mg/L FEU may rule out | | | | | DVT and PE. However, | | | | | all laboratory results | | | | | should be interpreted in | | | | | the context of all | | | | | available clinical, | | | | | radiologic and | | | | | laboratory | | | | | information.Testing | | | | | performed at [facility] | | | | | [facility], [place] | | | | | [address] | | | + + + + + + + + + + | Performing | Address | City/State/Zipcode | Phone Number | | Organization | | | | + + + + + | [facility] | [address] | [place] [address] | | + + + + + EKG 12 LEAD UNIT PERFORMED (12/03/2017 10:47 AM) + + + + + | Component | Value | Ref Range | Performed At | + + + + + | Ventricular Rate | 103 | BPM | [facility] | + + + + + | Atrial Rate | 103 | BPM | [facility] | + + + + + | P-R Interval | 172 | ms | [facility] | + + + + + | QRS Duration | 102 | ms | [facility] | + + + + + | Q-T Interval | 388 | ms | [facility] | + + + + + | QTC Calculation | 508 | ms | [facility] | | (Bezet) | | | | + + + + + | Calculated P [place] | 73 | degrees | [facility] | + + + + + | Calculated R [place] | 51 | degrees | [facility] | + + + + + | Calculated T [place] | 127 | degrees | [facility] | + + + + + | Diagnosis | Sinus tachycardia with | | [facility] | | | Premature | | | | | supraventricular | | | | | complexesLeft | | | | | ventricular hypertrophy | | | | | with repolarization | | | | | abnormalityAbnormal | | | | | ECGWhen compared with | | | | | ECG of 29-AUG-2017 | | | | | 16:17,Premature | | | | | supraventricular | | | | | complexes are now | | | | | PresentST now depressed | | | | | in Anterolateral leadsT | | | | | wave inversion now | | | | | evident in Lateral | | | | | leadsQT has | | | | | lengthenedThis ECG | | | | | contains Unconfirmed | | | | | Interpretation | | | | | Statements. See ED | | | | | Record for Physician | | | | | Interpretation. | | | | | Confirmed by MUSE READ | | | | | ONLY, -COMPUTER ([id number]), | | | | | manager editorial Neville Wise | | | | | David ([id number]) on 12/03/2017 | | | | | 8:28:40 PM | | | + + + + + + + + + + | Performing | Address | City/State/Zipcode | Phone Number | | Organization | | | | + + + + + | [facility] | [address] | [place] [address] | | + + + + + ED INFORMATION EXCHANGE (12/03/2017 10:43 AM) + + + | Narrative | Performed At | + + + | [id number]:41SANDRA [id number] This patient has registered at the | ED | | [facility] Emergency Department For more | INFORMATION | | information visit: | EXCHANGE | | [email or web address] | | | [email or web address] Security Events No recent Security Events currently on file | | | ED Care Guidelines There are currently no ED Care Guidelines in | | | SVETLANA for this patient. Please check your facility's medical records | | | system. Recent Emergency Department Visit Summary Admit Date | | | Facility City State Type Major Type Diagnoses or Chief Complaint November | | | 2017 [facility] Emergency Emergency | | | Chest pain, unspecified December 03, 2017 [facility] | | | [place] Emergency Emergency Chief Complaint: SOB | | | E.D. Visit Count (12 mo.) Facility Visits Low Acuity [facility] | | | [facility] 2 0 [facility] 6 0 Total 8 0 | | | Note: Visits indicate total known visits. Medicaid Low Acuity Dx | | | are the number of primary diagnoses on the Medicaid's Low Acuity dx | | | list. Recent Inpatient Visit Summary No recorded inpatient | | | visits. PDMP Report PDMP query found no report. Care | | | Providers Provider PRC Type Phone Fax Service Dates Jones Herrera | | | L Primary Care Sep 18, 2017 DR. GABRIELA COOL MD Primary | | | Care Current Blood, Danielle C | | | Primary Care Current Unknown Other Current Known | | | Aliases No known aliases. Criteria met 2 in 2 The above | | | information is provided for the sole purpose of patient treatment. | | | Use of this information beyond the terms of Data Sharing Memorandum of | | | Understanding and License Agreement is prohibited. In certain cases | | | not all visits may be represented. Consult the aforementioned | | | facilities for additional information. 2018 [facility] | | | [employer] - [place], [place] - | | | [email or web address] | | + + + + + | Procedure Note | + + | Interface, Lab - 12/03/2017 10:44 AM PDT Formatting of this note may be different | | from the original.SVETLANA10:41SANDRA [id number] patient has registered at the [facility] | | [facility] Emergency Department For more information visit: | | [email or web address] Security | | EventsNo recent Security Events currently on fileED Care GuidelinesThere are currently | | no ED Care Guidelines in SVETLANA for this patient. Please check your facility's medical | | records system.Recent Emergency Department Visit SummaryAdmit Date Facility [facility] State | | Type Major Type Diagnoses or Chief Complaint December 03, 2017 [facility]. [place] | | Emergency Emergency Chest pain, unspecified December 03, 2017 [facility]. | | [place] Emergency Emergency Chief Complaint: SOB E.D. Visit Count (12 mo.)Facility Visits | | Low Acuity [facility] 2 0 [facility] 6 0 Total 8 0 | | Note: Visits indicate total known visits. Medicaid Low Acuity Dx are the number of | | primary diagnoses on the Medicaid's Low Acuity dx list. Recent Inpatient Visit | | SummaryNo recorded inpatient visits. PDMP ReportPDMP query found no report.Care | | ProvidersProvider PRC Type Phone Fax Service Dates Jones Herrera MD Primary Care | | Sep 18, 2017 DR. GABRIELA COOL MD Primary Care Current | | Danielle Grider Primary Care Current Unknown Other Current Known AliasesNo known | | aliases. Criteria met 2 in 2The above information is provided for the sole purpose of | | patient treatment. Use of this information beyond the terms of Data Sharing Memorandum | | of Understanding and License Agreement is prohibited. In certain cases not all visits | | may be represented. Consult the aforementioned facilities for additional information. | | 2018 [facility]. - [place], [place] - | | [email or web address] | |Note: Visits indicate total known visits. Medicaid Low Acuity Dx are the number of primary diagnoses on the Medicaid's Low Acuity dx list. | | | |Recent Inpatient Visit Summary | |No recorded inpatient visits. | | | |PDMP Report | |PDMP query found no report. | | | |Care Providers | |Provider PRC Type Phone Fax Service Dates | |Jones Herrera MD Primary Care Sep 18, 2017 | |DR. GABRIELA COOL MD Primary Care Current | |Danielle Grider Primary Care Current | |Unknown Other Current | | | |Known Aliases | |No known aliases. | |Criteria met | | | | 2 in 2 | | | |The above information is provided for the sole purpose of patient treatment. Use of this in formation beyond the terms of Data Sharing Memorandum of Understanding and License Agreement is prohibited. In | |certain cases not all visits may be represented. Consult the aforementioned facilities for additional information. | |2018 [facility]. - [place], [place] - [email or web address] | + + + +---------+ + + | Performing | Address | City/State[facility] | Phone Number | | Organization | | | | + +---------+ + + | ED INFORMATION | | | | | EXCHANGE | | | | + +---------+ + + X-ray Chest 1 View (12/03/2017 8:32 AM) + + + | Narrative | Performed At | + + + | This is a non-reportable procedure without a radiologist report and | [facility] | | is used for image storage only | RADIOLOGY | + + + + + + + + | Performing | Address | City/State/Zipcode | Phone Number | | Organization | | | | + + + + + | [facility] | [address] | [place] [address] | | + + + + + from Last 3 Months Insurance + +--------+ +--------+-------+---------+ | Payer | Benefi | Subscriber | Type | Phone | Address | | | t Plan | ID | | | | | | / | | | | | | | Group | | | | | + +--------+ +--------+-------+---------+ | [place] | [place] - | [id number] | Medica | | | | | MODA | | re | | | | | | | | | | | | | | | | | | | | | | | | | | | | | | | | | | | | | | | | [place] - | | | | | | | MODA | | | | | + +--------+ +--------+-------+---------+ + +--------+ +--------+ + + | Guarantor Name | Accoun | Relation to | Date | Phone | Billing Address | | | t Type | Patient | of | | | | | | | | | | + +--------+ +--------+ + + | DAVINA CHIU | Person | Self [birth year] | Home: | [address] | | | al/Fam | | 1945 | [phone] [address], | | | [place] | | | [address] | [place] [address] | + +--------+ +--------+ + +
--- OUTSIDE RECORDS SUMMARY | ~2018-02-23 | XMS | Encounter Summary ---
Demographics + + + | Address | [address] | | | [place] [address] | + + + | Home Phone | | + + + | Preferred Language | Unknown | + + + | Marital Status | Single | + + + | Mormonism Affiliation | 1009 | + + + | Race | Unknown | + + + | Ethnic Group | Unknown | + + + Author + + + | Author | [facility] [employer] | + + + | Organization | [facility] | + + + | Address | Unknown | + + + | Phone | Unavailable | + + + Support + + +---------+ + | Name | Relationship | Address | Phone | + + +---------+ + | Lavell Chiu | ECON | Unknown | | + + +---------+ + Care Team Providers + +------+ + | Care Infectious Disease Technician Name | Role | Phone | + +------+ + | Eliza Andrade MD | PCP | Unavailable | + +------+ + Reason for Visit +--------+ + | Reason | Comments | +--------+ + | Other | [facility] | +--------+ + Encounter Details +--------+ + + + + | Date | Type | Department | Care Team | Description | +--------+ + + + + | 02/21/ | Documentati | [facility] | Yodit Fowler MA | Other ([facility] | | 2018 | on Only | Cardiology [place] | | records) | | | | [address] | | | | | | [facility] [address]- | | | | | | [place] [address] | | | | | | [phone] | | | +--------+ + + + [...] 2018 | Visit | | [address] | | | | | | [address] [place], [place] | | | | | | [address] | | | | | | | | +--------+---------+ + + + | 06/17/ | Office | Cardiology | Cristhian Cochran, | | | 2018 | Visit | | MD [address] | | | | | | [place], | | | | | | [place] [address] | | | | | | [phone] | | | | | | | | +--------+---------+ + + + as of this encounter Visit Diagnoses Not on filein this encounter"
--- OUTSIDE RECORDS SUMMARY | ~2018-02-23 | XMS | Encounter Summary ---
Demographics + + + | Address | [address] | | | [place] [address] | + + + | Home Phone [...] + + + | Author | [facility]io [facility] | + + + | Organization | [facility] | + + + | Address | Unknown | + + + | Phone | Unavailable | + + + Support + + +---------+ + | Name | Relationship | Address | Phone | + + +---------+ + | Lavell Chiu | ECON | Unknown | | + + +---------+ + Care Team Providers + +------+ + | Care Senior Mortgage Loan Processor Name | Role | Phone | + +------+ + | Eliza Andrade MD | PCP | Unavailable | + +------+ + Reason for Visit +--------+ + | Reason | Comments | +--------+ + | Other | [facility] records | +--------+ + Encounter Details +--------+ + + + + | Date | Type | Department | Care Team | Description | +--------+ + + + + | 02/19/ | Documentati | [facility] | Yodit Fowler MA | Other ([facility] | | 2018 | on Only | Cardiology [place] | | records) | | | | [address] [facility] [address] | | | | | | [facility] [address]- | | | | | | [place] [address] | | | | | | [phone] | | | +--------+ + + + [...] | | | | | | [address] [place], [place] | | | | | | [address] | | | | | | | | +--------+---------+ + + + | 06/17/ | Office | Cardiology | Cristhian Cochran, | | | 2018 | Visit | | MD [address] | | | | | | [place], | | | | | | [place] [address] | | | | | | [phone] | | | | | | | | +--------+---------+ + + + as of this encounter Visit Diagnoses Not on filein this encounter"
--- OUTSIDE RECORDS SUMMARY | ~2018-02-23 | XMS | Encounter Summary ---
Demographics + + + | Address | [address] | | | [place] [address] | + + + | Home Phone | | + + + | Preferred Language | Unknown | + + + | Marital Status | Single | + + + | Uatsdin Affiliation | 1009 | + + + | Race | Unknown | + + + | Ethnic Group | Unknown | + + + Author + + + | Author | [facility] [employer] | + + + | Organization | [facility] | + + + | Address | Unknown | + + + | Phone | Unavailable | + + + Support + + +---------+ + | Name | Relationship | Address | Phone | + + +---------+ + | Lavell Chiu | ECON | Unknown | | + + +---------+ + Care Team Providers + +------+ + | Care Quality Management Coordinator Name | Role | Phone | + +------+ + | Eliza Andrade MD | PCP | Unavailable | + +------+ + Encounter Details +--------+ + + + + | Date | Type | Department | Care Team | Description | +--------+ + + + + | 12/10/ | Telephone | [facility] | Alesia Freire | | | 2017 | | Ambika Conroy | JHOAN Gong [address] | | | | | [address] [facility] [address] | [address] | | | | | [facility] [address]- | [place] [address] | | | | | [place] [address] | [phone] | | | | | [phone] | | | +--------+ + + + [...] | | | | | [place] | | | | | | [place] [address] | | | | | | [phone] | | | | | | | | +--------+---------+ + + + as of this encounter Visit Diagnoses Not on filein this encounter"
--- OUTSIDE RECORDS SUMMARY | ~2018-02-23 | XMS | Clinical Summary ---
Demographics + + + | Address | [address] | | | [place] [address] | + + + | Home Phone | | + + + | Preferred Language | Unknown | + + + | Marital Status | Unknown | + + + | Judaism Affiliation | Unknown | + + + | Race | Unknown | + + + | Ethnic Group | Unknown | + + + Author + + + | Author | [facility] | | | and [place] | + + + | Organization | [facility] | | | and [place] | + + + | Address | Unknown | + + + | Phone | Unavailable | + + + Care Team Providers + +------+ + | Care Kier Tender Name | Role | Phone | + [...]
--- OUTSIDE RECORDS SUMMARY | ~2018-02-23 | XMS | Encounter Summary ---
Demographics + + + | Address | [address] | | | [place] [address] | + + + | Home Phone | | + + + | Preferred Language | Unknown | + + + | Marital Status | Single | + + + | Presybeterian Affiliation | 1009 | + + + | Race | Unknown | + + + | Ethnic Group | Unknown | + + + Author + + + | Author | [facility] [employer] | + + + | Organization | [facility] | + + + | Address | Unknown | + + + | Phone | Unavailable | + + + Support + + +---------+ + | Name | Relationship | Address | Phone | + + +---------+ + | Lavell Chiu | ECON | Unknown | | + + +---------+ + Care Team Providers + +------+ + | Care Cad Librarian Name | Role | Phone | + [...] [address] | | | | | [address] [facility] [address] | [address] | | | | | [facility] E- | [place] [address] | | | | | [place] [address] | [phone] | | | | | [phone] | | | +--------+ + + + [...] | | | | | | [place] [address] | | | | | | [phone] | | | | | | | | +--------+---------+ + + + as of this encounter Visit Diagnoses Not on filein this encounter"
--- OUTSIDE RECORDS SUMMARY | ~2018-02-23 | XMS | Encounter Summary ---
Demographics + + + | Address | [address] | | | [place] [address] | + + + | Home Phone | | + + + | Preferred Language | Unknown | + + + | Marital Status | Single | + + + | Christianity Affiliation | 1009 | + + + | Race | Unknown | + + + | Ethnic Group | Unknown | + + + Author + + + | Author | [facility]jelio Estech | + + + | Organization | [facility] | + + + | Address | Unknown | + + + | Phone | Unavailable | + + + Support + + +---------+ + | Name | Relationship | Address | Phone | + + +---------+ + | Lavell Chiu | ECON | Unknown | | + + +---------+ + Care Team Providers + +------+ + | Care Cotton Ball Bagger Name | Role | Phone | + [...] [address] | | | | | [address] [facility] [address] | [address] | | | | | [facility] [address]- | [place] [address] | | | | | [place] [address] | [phone] | | | | | [phone] | | | +--------+ + + + [...] | | | | | | [place] [address] | | | | | | [phone] | | | | | | | | +--------+---------+ + + + as of this encounter Visit Diagnoses Not on filein this encounter"
--- OUTSIDE RECORDS SUMMARY | ~2018-02-23 | XMS | Encounter Summary ---
Demographics + + + | Address | [address] | | | [place] [address] | + + + | Home Phone | | + + + | Preferred Language | Unknown | + + + | Marital Status | Single | + + + | Advent Affiliation | 1009 | + + + | Race | Unknown | + + + | Ethnic Group | Unknown | + + + Author + + + | Author | [facility] [employer] | + + + | Organization | [facility] | + + + | Address | Unknown | + + + | Phone | Unavailable | + + + Support + + +---------+ + | Name | Relationship | Address | Phone | + + +---------+ + | Lavell Chiu | ECON | Unknown | | + + +---------+ + Care Team Providers + +------+ + | Care Hot Car Operator Name | Role | Phone | [...] | records) | | | | [address] [facility] [address] | | | | | | [facility] E- | | | | | | [place] [address] | | | | | | [phone] | | | +--------+ + + + [...] | | | | | | [address] [place], [place] | | | | | | [address] | | | | | | | | +--------+---------+ + + + | 06/17/ | Office | Cardiology | Cristhian Cochran, | | | 2018 | Visit | | MD [address] | | | | | | [place], | | | | | | [place] [address] | | | | | | [phone] | | | | | | | | +--------+---------+ + + + as of this encounter Visit Diagnoses Not on filein this encounter"
--- OUTSIDE RECORDS SUMMARY | ~2018-02-23 | XMS | Encounter Summary ---
Demographics + + + | Address | [address] | | | [place] [address] | + + + | Home Phone | | + + + | Preferred Language | Unknown | + + + | Marital Status | Single | + + + | Islam Affiliation | [id number] | + + + | Race | Unknown | + + + | Ethnic Group | Unknown | + + + Author + + + | Author | Rojelio Kapta | + + + | Organization | [facility] | + + + | Address | Unknown | + + + | Phone | Unavailable | + + + Support + + +---------+ + | Name | Relationship | Address | Phone | + + +---------+ + | Lavell Chiu | ECON | Unknown | | + + +---------+ + Care Team Providers + +------+ + | Care Corn Detasseler Name | Role | Phone | + +------+ + | Eliza Cool MD | PCP | Unavailable | + +------+ + Reason for Visit + + + | Reason | Comments | + + + | Chest Pain | | + + + Auth/Cert +--------+--------+ + + + + | Status | Reason | Specialty | Diagnoses / | Referred By | Referred To | | | | | Procedures | Contact | Contact | +--------+--------+ + + + + | | | | Diagnoses | | | | | | | Chest pain, | | | | | | | unspecified | | | | | | | type | | | +--------+--------+ + + + + Encounter Details +--------+ + + + + | Date | Type | Department | Care Team | Description | +--------+ + + + + | 12/03/ | Hospital | [facility] | Jose Ballesteros, | Shortness of breath | | 2018 - | Encounter | [address] | MD [address] | (Primary Dx); Chest | | | | Floor [facility] | [place] [address] | pain, unspecified | | 12/05/ | | [address] | [phone] | type; History of | | 2018 | | [place] [address] | | coronary artery | | | | [phone] | Slick Liang, | disease; History of | | | | | MD [address] | coronary artery | | | | | [place] [address] | stent placement; | | | | | [phone] | History of COPD; | | | | | | NSTEMI (non-ST | | | | | Morteza Shane MD | elevated myocardial | | | | | [address] | infarction) (HCC) | | | | | [place] [address] | | | | | | [phone] | | | | | | | | +--------+ + [...] + + + | Blood Pressure | 116/49 | 12/05/2017 11:39 AM PDT | + + + + | Pulse | 64 | 12/05/2017 11:39 AM PDT | + + + + | Temperature | 36.9 C (98.4 F) | 12/05/2017 11:39 AM PDT | + + + + | Respiratory Rate | 18 | 12/05/2017 11:39 AM PDT | + + + + | Oxygen Saturation | 94% | 12/05/2017 11:39 AM PDT | + + + + | Inhaled Oxygen | - | - | | Concentration | | | + + + + | Weight | 65.8 kg (145 lb 1 | 12/04/2017 6:18 AM PDT | | | oz) | | + + + + | Height | 157.5 cm (5' 2.01") | 12/03/2017 4:43 PM PDT | + + + + | Body Mass Index | 26.53 | 12/04/2017 6:18 AM PDT | + + + + in this encounter Discharge Summaries Morteza Shane MD - 12/05/2017 11:14 AM PDTFormatting of this note may be different from sejal bae. [facility] Service: Hospitalist Physician Discharge Summary Pt: Davina Chiu AGE/SEX: 72 y.o. female ROOM: [id number]- PCP: Eliza Cool : 1945 Admit date: 12/03/2017 Discharge date and time: 12/05/2017 11:14 AM Admitting Physician: Slick Liang MD Discharge Physician: Morteza Shane MD Consults: DR. Pruitt Primary Discharge Diagnoses: Principal Problem (Resolved): NSTEMI (non-ST elevated myocardial infarction) ([facility]) Active Problems: COPD (chronic obstructive pulmonary disease) (HCC) CAD (coronary artery disease) Rheumatoid arthritis (HCC) Pulmonary HTN (HCC) Chronic respiratory failure with hypoxia (HCC) HTN (hypertension) HLD (hyperlipidemia) GERD (gastroesophageal reflux disease) Resolved Problems: Chest pain on breathing Secondary Discharge Diagnoses: Chronic anemia Discharged Condition: stable Significant Diagnostic Studies: Nm Lung Ventilation Perfusion Result Date: 12/03/2017 1. Low probability for pulmonary embolic disease Would correlate with clinical pretest prob ability and consider ultrasound of the lower extremities to increased diagnostic certainty f or or against the potential diagnosis of. Left Heart Cath Results LM ok LAD small D2 with severe 80% ostial/proximal unchanged compared to 07/2017(to be treated me dically). LAD itself is without disease Ramus ok Cx patent stent proximal, moderate 30% OM Left to right collaterals to known chronically occluded RCA visualized. HPI and Hospital Course: 72 y.o.femalewith significant past medical history ofCAD s/p PCI in 08/06/17 on LCx, Mild pulmonary HTN, HTN, HLD, hypothyroidism, GERD, hiatal hernia, PVD, Moderate R ICA and mild L ICA disease, seen by Dr Choudhury in Aug 2017 no surgical intervention recomm ended at the time due to being asymptomatic, COPD on 3lpm O2 chronically, sees Dr Ashby Pulmonology, Rheumatoid arthritis, history of SBO in the past, anemia history of blood tr ansfusions , who presented as a transfer from [facility] to our ER for persistent chest pain felt to be potentially unstable angina have elevated troponin more likely relate d to the non-ST elevation [place]. Status post left heart catheter without any significant new lesions. Chronically occluded R CA. She is feeling better. Chest pain has resolved. I do not think that she needs to write t o go home. She told me that she is not taking steroids at home She Had no CP, SOB, N/V, Diarrhea, Abdominal pain or CARMONA. No constipation or change in bowel habits. No orthopnea or PND. Appetite is good without abdominal bloating. No cough or fever . No dizziness, lightheadedness or any symptoms suggestive of stroke. CBC in 1 week. She is not actively bleeding. Follow Up Labs/Imaging and Monitoring: BMP , CBC in one week and FU PCP/Dr. Madera Discharge Vitals: Vitals: 12/05/17 0337 12/05/17 0452 12/05/17 0453 12/05/17 0803 BP: 131/62 133/57 BP Location: Left upper arm Left upper arm Pulse: 60 57 57 Resp: 17 16 18 Temp: 98.8 F (37.1 C) 98.3 F (36.8 C) TempSrc: Oral Oral SpO2: 99% 99% 99% 90% Weight: Height: Discharge Exam: Constitutional: Alert and oriented to person, place, and time. Cardiovascular: Normal rate, regular rhythm, normal heart sounds with S1 and S2 and intact distal pulses. Exam reveals no gallop and no friction rub. No murmur heard. Pulmonary/Chest: Effort normal and breath sounds normal. No stridor. No respiratory distres s. no wheezes. no rales. exhibits no tenderness. Abdominal: Soft. Bowel sounds are normal. exhibits no distension and no mass. There is no t enderness. There is no rebound and no guarding. Musculoskeletal: Normal range of motion.exhibits no tenderness. exhibits no edema. Neurological: Alert and oriented to person, place, and time. Skin: Skin is warm and dry. No rash noted. No erythema. No pallor. Psychiatric: Has a normal mood and affect. Behavior is normal. Judgment normal. Not suicida l LABS: Recent Labs Lab 12/05/17 0535 12/04/17 1534 12/04/17 0043 WBC 5.97 6.04 7.04 HGB 8.1* 9.0* 9.5* HCT 24.7* 27.3* 29.3* PLT 196 190 168 NEUTOPHILPCT 82.58 -- -- MONOPCT 6.66 -- -- Recent Labs Lab 12/05/17 0535 12/04/17 1534 12/04/17 0043 NA 144 139 143 K 4.6 4.8 4.5 CL 107 105 107 CO2 28 24 26 BUN 37* 30* 29* CREATININE 1.7* 1.5* 1.5* PROT 5.8* -- -- BILITOT 0.2 -- -- ALT 24 -- -- AST 20 -- -- Recent Labs Lab 12/05/17 0535 12/04/17 0043 MG 2.3 2.0 Recent Labs Lab 12/04/17 0644 12/04/17 0045 12/03/17 1905 APTT 46* 43* 25 INR -- -- 1.0 Recent Labs Lab 12/03/17 2145 12/03/17 1700 12/03/17 1055 CKTOTAL 122 90 -- TROPONINI 1.54* 0.821* 0.03 CKMBINDEX 10.9 10.8 UNABLE TO CALCULATE Results Procedure Component Value Units Date/Time Respiratory Filmarray [[id number]] Collected: 12/03/17 152 Specimen: Nasal Swab Updated: 12/03/172032 ADENOVIRUS Not Detected CORONAVIRUS 229E Not Detected CORONAVIRUS HKU1 Not Detected CORONAVIRUS NL63 Not Detected CORONAVIRUS OC43 Not Detected HUMAN METAPNEUMOVIRUS Not Detected HUMAN RHINO/ENTERO Not Detected INFLUENZA A Not Detected INFLUENZA B Not Detected PARAINFLUENZA 1 Not Detected PARAINFLUENZA 2 Not Detected PARAINFLUENZA 3 Not Detected PARAINFLUENZA 4 Not Detected RESP SYNCYTIAL VIRUS Not Detected BORDETELLA PERTUSSIS Not Detected CHLAMYDIAE PNEUMONIAE Not Detected MYCOPLASMA PNEUMONIAE Not Detected RESP PANEL INTERP Testing performed by Molecular Methodology MRSA by PCR [[id number]] Collected: 12/03/171836 Specimen: Nasopharyngeal from Nares(Nose) Updated: 12/03/171958 SOURCE NARES(NOSE) MRSA PCR NEGATIVE Disposition: Home or Self Care Patient Instructions: Medication List CONTINUE taking these medications albuterol 108 (90 Base) MCG/ACT inhaler QTY: 1 Inhaler Refills: 0 Commonly known as: VENTOLIN HFA Inhale 2 puffs into the lungs every 4 (four) hours as needed for Wheezing, Shortness of [place] ath or Cough. amLODIPine 2.5 MG tablet Refills: 0 Commonly known as: NORVASC aspirin 81 MG EC tablet QTY: 30 tablet Refills: 0 Take 1 tablet by mouth daily with breakfast. atorvastatin 40 MG tablet QTY: 30 tablet Refills: 0 Commonly known as: LIPITOR Take 1 tablet by mouth nightly. budesonide-formoterol 160-4.5 MCG/ACT inhaler QTY: 1 Inhaler Refills: 0 Commonly known as: SYMBICORT Inhale 2 puffs into the lungs 2 (two) times daily. clopidogrel 75 MG tablet QTY: 30 tablet Refills: 0 Commonly known as: PLAVIX Take 1 tablet by mouth daily for 30 days. diltiazem 360 MG 24 hr capsule QTY: 30 capsule Refills: 0 Doctor's comments: Hold for SBP less than 100 Hold for HR less than 60 Commonly known as: CARDIZEM CD Take 1 capsule by mouth daily. doxazosin 8 MG tablet QTY: 30 tablet Refills: 0 Doctor's comments: Hold for SBP less than 100 Commonly known as: CARDURA Take 1 tablet by mouth every evening. fluticasone 50 MCG/ACT nasal Refills: 0 Commonly known as: FLONASE folic acid 1 MG tablet Refills: 0 Commonly known as: FOLVITE furosemide 40 MG tablet QTY: 60 tablet Refills: 0 Commonly known as: LASIX Take 1 tablet by mouth Two times daily. Hold for SBP less than 100 hydroxychloroquine 200 MG tablet Refills: 0 Commonly known as: PLAQUENIL hydrOXYzine 25 MG tablet Refills: 0 Commonly known as: ATARAX isosorbide mononitrate 60 MG 24 hr tablet QTY: 30 tablet Refills: 0 Doctor's comments: Hold for SBP less than 100 Commonly known as: IMDUR Take 1 tablet by mouth daily. levothyroxine 112 MCG tablet Refills: 0 Commonly known as: SYNTHROID LORazepam 1 MG tablet Refills: 0 Commonly known as: ATIVAN Magnesium 250 MG Tabs tablet Refills: 0 NIFEdipine 60 MG 24 hr tablet Refills: 0 Commonly known as: ADALAT CC PARoxetine 10 MG tablet Refills: 0 Commonly known as: PAXIL ranitidine 75 MG tablet Refills: 0 Commonly known as: ZANTAC tiotropium 18 MCG inhalation capsule QTY: 30 capsule Refills: 0 Commonly known as: SPIRIVA Inhale 1 capsule into the lungs daily. traZODone 100 MG tablet Refills: 0 Commonly known as: DESYREL You might also be taking other medications not listed above. If you have questions about an y of your other medications, talk to the person who prescribed them or your Primary Care Pro vider. STOP taking these medications amoxicillin-clavulanate 875-125 MG per tablet Commonly known as: AUGMENTIN methylPREDNISolone 4 MG tablet Commonly known as: MEDROL Activity: activity as tolerated Diet: cardiac diet Wound Care: as directed Discharge medications reconciliation was completed by myself. I carefully reviewed all the medications with the patient. All the dosages was confirmed with the patient to the best o f patient's knowledge. I resumed most of his home medication after talking to the patient. I informed the patien t that, If you are not taking any of those medicines or if you think that dose is not righ t please talk to the primary care doctor for adjustment of doses and medications. Please orlando e all the medication to your PCP and show him what medication you are taking so that he can adjust your medications if needed. Follow-Up: Eliza Cool MD [address] [facility] [place] [id number] [facility] [address] [place] [address] Bekah Madera MD [address] [place] [address] In 1 week Eliza Cool MD [address] [place] [address] Discharge took more than 35 minutes, to include final examination, discussion of admission, and preparation of prescriptions, instructions for ongoing care, follow up and dictation of summary. Signed: MORTEZA SHANE MD 12/05/2017 11:14 AM Dictation software, [employer], used which may contain error for similar sounding words even af ter review. Personal communication requested for any clarification. Portions of this chart may have been copied from previous notes for continuity of care purp ose in this encounter Medications at Time of Discharge + + +---------+---------+ + + | Medication | Sig. | Disp. | Refills | Start | End Date | | | | | | Date | | + + +---------+---------+ + + | aspirin 81 MG EC | Take 1 tablet by | 30 | 0 | 08/08/19 | | | tablet | mouth daily with | tablet | | 18 | 9 | | | breakfast. | | | | | + + +---------+---------+ + + | atorvastatin | Take 1 tablet by | 30 | 0 | 08/07/19 | | | (LIPITOR) 40 MG | mouth nightly. | tablet | | 18 | 9 | | tablet | | | | | | + + +---------+---------+ + + | | Inhale 2 puffs into | 1 | 0 | 08/07/19 | | | budesonide-formotero | the lungs 2 (two) | Inhaler | | 18 | 9 | | l (SYMBICORT) | times daily. | | | | | | 160-4.5 MCG/ACT | | | | | | | inhaler | | | | | | + + +---------+---------+ + + | clopidogrel | Take 1 tablet by | 30 | 0 | 08/07/19 | | | (PLAVIX) 75 MG | mouth daily for 30 | tablet | | 18 | 9 | | tablet | days. | | | | | + + +---------+---------+ + + | doxazosin | Take 1 tablet by | 30 | 0 | 08/07/19 | | | (CARDURA) 8 MG | mouth every evening. | tablet | | 18 | 9 | | tablet | | | | | | + + +---------+---------+ + + | folic acid | Take by mouth. | | | | | | (FOLVITE) 1 MG | | | | | | | tablet | | | | | | + + +---------+---------+ + + | hydroxychloroquine | Take 200 mg by mouth | | | | | | (PLAQUENIL) 200 MG | daily. | | | | | | tablet | | | | | | + + +---------+---------+ + + | isosorbide | Take 1 tablet by | 30 | 0 | 08/08/19 | | | mononitrate (IMDUR) | mouth daily. | tablet | | 18 | 9 | | 60 MG 24 hr tablet | | | | | | + + +---------+---------+ + + | levothyroxine | Take 112 mcg by | | | 08/26/19 | | | (SYNTHROID) 112 MCG | mouth daily. | | | 18 | | | tablet | | | | | | + + +---------+---------+ + + | Magnesium 250 MG | Take 250 mg by mouth | | | | | | TABS tablet | daily. | | | | | + + +---------+---------+ + + | ranitidine | Take 150 mg by mouth | | | | | | (ZANTAC) 75 MG | daily. | | | | | | tablet | | | | | | + + +---------+---------+ + + | tiotropium | Inhale 1 capsule | 30 | 0 | 08/08/19 | | | (SPIRIVA) 18 MCG | into the lungs | capsule | | 18 | 9 | | inhalation capsule | daily. | | | | | + + +---------+---------+ + + | albuterol | Inhale 2 puffs into | 1 | 0 | 08/07/19 | | | (VENTOLIN HFA) 108 | the lungs every 4 | Inhaler | | 18 | 8 | | (90 Base) MCG/ACT | (four) hours as | | | | | | inhaler | needed for Wheezing, | | | | | | | Shortness of Breath | | | | | | | or Cough. | | | | | + + +---------+---------+ + + | amLODIPine | Take 5 mg by mouth 2 | | | | | | (NORVASC) 2.5 MG | (two) times daily. | | | | 8 | | tablet | | | | | | + + +---------+---------+ + + | diltiazem | Take 1 capsule by | 30 | 0 | 08/08/19 | | | (CARDIZEM CD) 360 MG | mouth daily. | capsule | | 18 | 8 | | 24 hr capsule | | | | | | + + +---------+---------+ + + | fluticasone | 1 spray by Each Nare | | | | | | (FLONASE) 50 MCG/ACT | route daily. | | | | 8 | | nasal | | | | | | + + +---------+---------+ + + | furosemide (LASIX) | Take 1 tablet by | 60 | 0 | 08/07/19 | | | 40 MG tablet | mouth Two times | tablet | | 18 | 8 | | | daily. Hold for SBP | | | | | | | less than 100 | | | | | + + +---------+---------+ + + | hydrOXYzine | Take 25 mg by mouth | | | | | | (ATARAX) 25 MG | 3 (three) times | | | | 8 | | tablet | daily as needed for | | | | | | | Itching. | | | | | + + +---------+---------+ + + | LORazepam (ATIVAN) | Take 1 mg by mouth | | | | | | 1 MG tablet | nightly. | | | | 8 | + + +---------+---------+ + + | NIFEdipine (ADALAT | Take 60 mg by mouth | | | | | | CC) 60 MG 24 hr | daily. | | | | 8 | | tablet | | | | | | + + +---------+---------+ + + | PARoxetine (PAXIL) | Take 20 mg by mouth | | | | | | 10 MG tablet | every morning. | | | | 8 | + + +---------+---------+ + + | traZODone | Take 50 mg by mouth | | | | | | (DESYREL) 100 MG | nightly. | | | | 8 | | tablet | | | | | | + + +---------+---------+ + + as of this encounter Progress Notes Cristhian Cochran MD - 12/05/2017 8:23 AM PDTFormatting of this note may be different from the original. [facility] Service: Cardiology Progress Note Hospital Day: LOS: 1 day Post-Op Day: * No surgery found * SUBJECTIVE Patient Summary: 72 y.o. female that I last saw in my office in August. About 10 days ago, she began noting severe dyspnea on exertion, carrying a basket of laundry made her feel "like I had run several miles". With this, she has had mid retrosternal pressure desc ribed as a "cold, tight" feeling, subjectively reaching "7" on a 1-10 scale in intensity kena t only occurred with exertion, and resolved with rest after about 30 minutes. These symptom s have been present on a daily basis. There is some radiation to the left subclavian area. There has been 2 episodes of nausea and vomiting associated with these symptoms, and diapho resis. She also notes night sweats. She did not seek medical attention, as she was hoping that these symptoms, which were unlike her previous [place] symptoms, would go away on their own. On Saturday night, she had the same symptoms, but it persisted, and she was unable to sleep. She called her son around 4 AM, and he brought her to the emergency room at [facility]. Her troponin was negative in [facility], but has subsequently become elevated, ru ling her in for an acute NSTEMI. Her EKG there showed anterolateral ST depressions consis tent with ischemia. She was given NTG x3, without relief, Fentanyl and heparin, as wel l as solumedrol 125 mg x 1. Her symptoms are now completely relieved after she has been giv en morphine. She is currently asymptomatic, hemodynamically stable, Killip class I. She was previously `transferred from [facility] to [facility] 07/31/17 for an acute NSTE [place], awakened at 5:30 AM with severe right sided chest "heaviness "and severe dyspnea "like c ement was around my lungs". Her troponin was 0.62. Her EKG showed no ischemic changes. She underwent right/left cardiac cath and PCI 08/06/17 with placement of a 3.0 x 16 mm Syner gy drug-eluting stentin the left circumflex, which was also supplying extensive collateral s to the occluded RCA. She had normal LVsystolic function and cardiac output, with only mi ld pulmonary hypertension(her echo had suggested that she had significant pulmonary hypert ension, as well as moderate aortic stenosis, but there was no significant gradient measured across the aortic valve).Her right external iliac artery was occluded, and she has an up coming appointment with Dr. Choudhury for this next week. I will try to get a carotid ultrasound done before that appointment, as she also has bilateral carotid bruits, left greater than r ight, that should be evaluated. She has had no recurrent anginal symptoms since she was ad mitted. She is on aspirin, Plavix, Imdur, Lipitor and high-dose diltiazem. Due to her [place] PD, she was not a good candidate for beta blockers. Events Overnight: Cardiac cath 12/04/17 showed no new lesions compared to images from the end of her PCI in July, with patent stents in the LCx. No further chest pressure or SOB, states she feels "solid"... "Great, better than I have felt for the last month... like I'm not sick anymore". Past Medical History Diagnosis Date Anemia received several blood transfusions 2013, unknown cause CAD (coronary artery disease) 80% proximal LCx - stented. Occluded RCA, fills via L > R collaterals. 60% D2 COPD (chronic obstructive pulmonary disease) ([facility]) severe Emphysema GERD (gastroesophageal reflux disease) Hiatal hernia HLD (hyperlipidemia) HTN (hypertension) Hypothyroidism MRSA (methicillin resistant Staphylococcus aureus) 2014 line sepsis following SBO surgery Myocardial infarct ([facility]) 2008 and NSTEMI 07/31/17 Paroxysmal atrial fibrillation ([facility]) 07/27/2017 PVD (peripheral vascular disease) ([facility]) 2013 severe bilateral PVD, occluded right external iliac, left internal iliac, severe stenoses in bilateral common iliacs and left SFA Rheumatoid arthritis ([facility]) Small bowel obstruction due to adhesions ([facility]) several times Status post insertion of drug eluting coronary artery stent 08/06/2017 3.0 x 16 mm Synergy PUNEET in prox LCx; (02/01/05) // 3.5x12, 3.0x32, 2.75x32 mm Taxus PUNEET i n the RCA, but the vessel is now chronically occluded ; 08/06/17: 3.0x16 Synergy PUNEET in the LCx Past Surgical History Procedure Laterality Date APPENDECTOMY CATARACT EXTRACTION, BILATERAL CHOLECYSTECTOMY CORONARY ANGIOPLASTY WITH STENT PLACEMENT 02/01/2005 3.5x12, 3.0x32, 2.75x32 mm Taxus PUNEET in the RCA (occluded afterwards); 08/06/17 - 3.0x16 Synergy PUNEET in prox LCx EXPLORATORY LAPAROTOMY with lysis of adhesions, several times for SBO MASTECTOMY Bilateral for fibrocystic breast disease, with breast implants TONSILLECTOMY Allergies Allergen Reactions Enalaprilat [Enalapril] Hives Hydralazine Hives Metoprolol Other (See Comments) Respiratory Arrest: Pt states "I had to be intubated" Sertraline Hives Beta Adrenergic Blockers Other (See Comments) Scheduled Medications aspirin 81 mg Oral Daily with breakfast atorvastatin 80 mg Oral Nightly azithromycin 500 mg Intravenous Q24H clopidogrel 75 mg Oral Daily diltiazem 360 mg Oral Daily doxazosin 8 mg Oral QPM famotidine 20 mg Oral Daily furosemide 40 mg Oral BID-Diuretics hydroxychloroquine 200 mg Oral Daily ipratropium-albuterol 3 mL Nebulization Q6H isosorbide mononitrate 30 mg Oral Daily levothyroxine 112 mcg Oral QAM AC Magnesium 250 mg Oral Daily PARoxetine 10 mg Oral QAM predniSONE 60 mg Oral Daily with breakfast traZODone 50 mg Oral Nightly Continuous Infusions PRN Medications acetaminophen OR acetaminophen, albuterol, atropine sulfate, morphine OR morphine * *OR morphine, nitroGLYCERIN, ondansetron OR ondansetron, polyethylene glycol, sodium c hloride (bolus), zolpidem OBJECTIVE Vital Signs: BP 133/57 (BP Location: Left upper arm) | Pulse 57 | Temp 98.3 F (36.8 C) (Oral) | R pastora 18 | Ht 1.575 m (5' 2.01") | Wt 65.8 kg (145 lb 1 oz) | SpO2 90% | BMI 26.53 kg/m Temp: [98 F (36.7 C)-99.2 F (37.3 C)] 98.3 F (36.8 C) (12/05 802) BP: (125-151)/(45-74) 133/57 (12/05 802) Heart Rate: [57-80] 57 (12/05 802) Resp: [13-24] 18 (12/05 802) SpO2: [88 %-99 %] 90 % (12/05 802) TELEMETRY: NSR GENERAL: Well developed, well nourished, in mild respiratorydistress. Appears approxi mately stated age. HEENT: Normocephalic, atraumatic. EYES: PERRL, sclerae anicteric, no xanthelsasmas MOUTH: Oral mucosae moist, dentition adequate, no lesions noted NECK: No JVD, lymphadenopathy, thyromegaly, moderate left carotid bruit. Carotid pu lses are 2+ bilaterally LUNGS: Mildly, diffusely decreased, coarse breath soundsbilaterally, with no rales, rho nchi or wheezing noted, respirations unlabored HEART: Nondisplaced PMI, regular rate and rhythm, S1, S2 normal. 2/6 systolic murmur at the base. No rubs or gallops noted. ABDOMEN: Soft, nontender, no organomegaly, masses or bruits. Bowel sounds are normal in all 4 quadrants. The abdominal aortic pulsation is not palpable. EXTREMITIES: No edema. Radial pulses 1+ bilaterally with a small right radial area echymo sis. Femoral pulses are faintly palpablebilaterally withbilateralbruits, left cath a ccess site is tender to palpation, with no hematoma, ecchymosis or evidence of a pseudoaneur ysm. DP and PT pulses are nonpalpablebilaterally. Marked muscular wasting of lower leg s bilaterally, no calf tenderness or palpable cords. SKIN: Warm and dry, capillary refill is normal, no lesions. NEUROLOGIC: Awake, alert and oriented x 3. No focal motor deficits. PSYCHIATRIC: Appropriate, affect appears normal DATA CBC: Lab Results Component Value Date WBC 5.97 12/05/2017 RBC 2.92 (L) 12/05/2017 HGB 8.1 (L) 12/05/2017 HCT 24.7 (L) 12/05/2017 MCV 84.4 12/05/2017 MCH 27.7 12/05/2017 MCHC 32.8 12/05/2017 RDW 43.8 12/05/2017 PLT 196 12/05/2017 MPV 9.4 12/05/2017 DIFFTYPE AUTOMATED 12/05/2017 CMP: Lab Results Component Value Date NA 144 12/05/2017 K 4.6 12/05/2017 CL 107 12/05/2017 CO2 28 12/05/2017 ANIONGAP 14 12/05/2017 GLUF 119 (H) 12/05/2017 BUN 37 (H) 12/05/2017 CREATININE 1.7 (H) 12/05/2017 BCR 22 12/05/2017 CA 8.1 (L) 12/05/2017 PROT 5.8 (L) 12/05/2017 ALB 2.9 (L) 12/05/2017 GLOB 2.9 12/05/2017 BILITOT 0.2 12/05/2017 ALP 74 12/05/2017 AST 20 12/05/2017 ALT 24 12/05/2017 EGFR 30 (L) 12/05/2017 Magnesium: Lab Results Component Value Date MG 2.3 12/05/2017 V/Q SCAN 12/03/2017 Low probability for PE CARDIAC CATHETERIZATION 12/04/2017 3 vessel coronary artery disease, with a chronically occluded RCA, with iaws-oe-utsge ayden aterals, with patent stents in the left circumflex, and severe disease of the small diagonal branch, unchanged from the end result of her previous procedure done 08/06/17. PROBLEM LIST Principal Problem: NSTEMI (non-ST elevated myocardial infarction) ([facility]) Active Problems: COPD (chronic obstructive pulmonary disease) ([facility]) CAD (coronary artery disease) Rheumatoid arthritis (HCC) Pulmonary HTN (HCC) Chronic respiratory failure with hypoxia ([facility]) HTN (hypertension) HLD (hyperlipidemia) GERD (gastroesophageal reflux disease) Chest pain on breathing ASSESSMENT & PLAN 1. Current acute NSTEMI, with positive enzymes, currently asymptomatic, hemodynamically st able, Killip class I. She is on aspirin, heparin, Plavix. Due to her COPD, she is not a ca ndidate for beta blockers. Her diagnostic cardiac catheterization revealed no changes from the end result of her previous procedure, 08/06/17. There is no opportunity for further perc utaneous coronary intervention, and coronary bypass surgery is not indicated. She will be m anaged medically. 2. H/o CAD, NSTEMI 07/31/17. At that time, she underwent right/left cardiac cath and PCI with placement of a 3.0 x 16 mm Synergy drug-eluting stentin the left circumflex, wh ich was also supplying extensive collaterals to the occluded RCA, and these are unchanged. S he had normal LVsystolic function and cardiac output, with only mild pulmonary hypertensio n(her echo had suggested that she had significant pulmonary hypertension, as well as moder ate aortic stenosis, but there was no significant gradient measured across the aortic valve) . 3. PVD, bilateral external iliac arterial occlusions in severe stenoses in both common yanci c arteries on the left SFA. 4. Moderate asymptomatic bilateral carotid artery stenoses evaluated by Dr. Choudhury 09/03/17, no surgery indicated at the present time. 5. Essential HTN 6. Hyperlipidemia, well controlled. 7. H/o Paroxysmal Atrial Fibrillation 8. Severe COPD, with chronic hypoxic respiratory failure, sees Dr. Ashby 9. Stage III chronic kidney disease, relatively stable since 2014 (BUN 15, creatinine 1.22 , GFR 46 on labs from 10/14/14), now slightly worse following cardiac cath yesterday, although only 18 mL of contrast were used. She was unaware that she had any kidney problems. She s hould be seen by nephrology, but this can be done on an outpatient basis post d/c (Dr. Madera goes to [place], where she lives). 10. Mild-moderate anemia, chronic, likely secondary to #8 11. Rheumatoid arthritis Disposition: Okay for discharge today from my standpoint, on current medications, follow u p with JHOAN Thomas at the [place] office in 1-2 weeks, and Dr. Madera at his n ext available appointment. Code Status: Full Code Cristhian Cochran MD 12/05/2017[facility] - 12/04/2017 3:35 PM PDTFormatting of this note may be diff erent from the original. Clinical Pharmacy Note: Renal Monitoring Davina Ashlee Chiu 72 y.o. female Ht Readings from Last 1 Encounters: 12/03/17 1.575 m (5' 2.01") Wt Readings from Last 1 Encounters: 12/04/17 65.8 kg (145 lb 1 oz) CREATININE Date Value Ref Range Status 12/04/2017 1.5 (H) 0.50 - 1.00 mg/dL Final Serum creatinine: 1.5 mg/dL (H) 12/04/17 0043 Estimated creatinine clearance: 30.2 mL/min (A) Pharmacy dosing for renal function per Dr. Good. Currently, there are no medications needing to be adjusted. Pharmacy will continue to monit or for changes in medication orders and in renal function and adjust accordingly. Carson Bhagat [facility] 12/04/2017 3:34 Morteza Lopez MD - 12/04/2017 10:40 AM PDTFormatting of this note may be different from the original. [facility] Service: Hospitalist Progress Note Pt: Davina Ashlee Chiu AGE/SEX: 72 y.o. female ROOM: 315/315-1 : 1945 PCP: Eliza Cool ADMIT DATE: 12/03/2017 TODAY'S DATE: 12/04/2017 Hospital Day/Hospital Course: LOS: 0 days 72 y.o. female with significant past medical history of CAD s/p PCI in 08/06/17 on LCx, Mil d pulmonary HTN, HTN, HLD, hypothyroidism, GERD, hiatal hernia, PVD, Moderate R ICA and mild L ICA disease, seen by Dr Choudhury in Aug 2017 no surgical intervention recommended at th e time due to being asymptomatic, COPD on 3lpm O2 chronically, sees Dr Ashby Pulmonology , Rheumatoid arthritis, history of SBO in the past, anemia history of blood transfusions , who presented as a transfer from [facility] to our ER for persistent chest pain f elt to be potentially unstable angina have elevated troponin more likely related to the non- ST elevation [place]. SUBJECTIVE: Patient seen and examine. She continues to have on and off chest pain with pressure-like fe elings. She could not walk. Still without chest pain.. No CARMONA. No cough on recumbency. Had n o orthopnea or PND. No Abdominal pain, N/V or fever. Still feeling tired and fatigued. No di zziness or lightheadedness. Scheduled Medications: aspirin 325 mg Oral Daily with breakfast atorvastatin 80 mg Oral Nightly clopidogrel 75 mg Oral Daily diltiazem 360 mg Oral Daily doxazosin 8 mg Oral QPM famotidine 20 mg Oral Daily furosemide 40 mg Oral BID-Diuretics hydroxychloroquine 200 mg Oral Daily ipratropium-albuterol 3 mL Nebulization Q6H levothyroxine 112 mcg Oral QAM AC Magnesium 250 mg Oral Daily morphine PARoxetine 10 mg Oral QAM predniSONE 60 mg Oral Daily with breakfast traZODone 50 mg Oral Nightly Continuous Infusions azithromycin 500 mg (12/03/173) heparin 50 units/mL 14 Units/kg/hr (12/04/17 0157) PRN Medications acetaminophen OR acetaminophen, albuterol, heparin (porcine) 5000 unit/0.5mL, heparin ( porcine) 5000 unit/0.5mL, morphine OR morphine OR morphine, nitroGLYCERIN, ondansetr on, polyethylene glycol Allergy: Allergies Allergen Reactions Enalaprilat [Enalapril] Hives Hydralazine Hives Metoprolol Other (See Comments) Respiratory Arrest: Pt states "I had to be intubated" Sertraline Hives Beta Adrenergic Blockers Other (See Comments) OBJECTIVE: Vitals: Patient Vitals for the past 24 hrs: BP Temp Temp src Pulse Resp SpO2 Height Weight 12/04/17 0739 133/58 98.7 F (37.1 C) Oral 77 18 93 % - - 12/04/17 0618 - - - - - - - 65.8 kg (145 lb 1 oz) 12/04/17 0540 - - - 75 24 90 % - - 12/04/17 0342 124/58 98.4 F (36.9 C) Oral 85 18 91 % - - 12/04/17 0000 135/63 - - 89 - 91 % - - 12/03/17 2356 135/63 98.4 F (36.9 C) Oral 83 18 (!) 88 % - - 12/03/17 2336 - - - - 20 - - - 12/03/17 2300 - - - 88 - 92 % - - 12/03/17 2255 153/80 - - 98 20 93 % - - 12/03/17 2118 169/64 98.4 F (36.9 C) Oral 77 18 95 % - - 12/03/17 1956 136/59 - - 90 - (!) 88 % - - 12/03/17 195 128/58 - - 90 - (!) 88 % - - 12/03/17 1946 186/71 - - 85 - 91 % - - 12/03/17 194 186/71 - - 91 16 91 % - - 12/03/17 1721 - - - 76 18 95 % - - 12/03/17 1717 - - - 73 16 94 % - - 12/03/17 1643 163/70 98.9 F (37.2 C) Oral 81 18 96 % 1.575 m (5' 2.01") 63.5 kg (140 lb ) 12/03/17 1607 (!) 134/94 - - - 16 90 % - - 12/03/17 1434 - - - 86 23 96 % - - 12/03/17 1406 - - - 86 18 92 % - - 12/03/17 1344 139/82 - - 92 21 92 % - - 12/03/17 1314 147/64 - - 90 13 96 % - - 12/03/17 1244 147/65 - - 92 18 98 % - - 12/03/17 1230 135/60 - - 89 17 98 % - - 12/03/17 1230 135/60 - - 92 16 97 % - - 12/03/17 1144 135/60 - - 98 15 93 % - - 12/03/17 1115 178/68 - - 101 18 94 % - - 12/03/17 1045 137/63 98.7 F (37.1 C) Oral 100 18 96 % - 63.5 kg (140 lb) I&O Detailed Table: Intake/Output Summary (Last 24 hours) at 12/04/17 1040 Last data filed at 12/04/17 0900 Gross per 24 hour Intake 780 ml Output 700 ml Net 80 ml Patient Vitals for the past 96 hrs: Weight 12/04/17 0618 65.8 kg (145 lb 1 oz) 12/03/17 1643 63.5 kg (140 lb) 12/03/17 1045 63.5 kg (140 lb) Hemodynamics Last 24hrs: Physical Examination: Constitutional: Awake and alert and talking to me HEENT: Neck supple, no JVD, non icteric sclera. Cardiovascular: Normal rate, regular rhythm, normal heart sounds with S1 and S2, and intact distal pulses. Exam reveals no gallop and no friction rub. I could not appreciate any mur mur Pulmonary/Chest: Clear bilaterally with decreased air entry Abdominal: Soft. Bowel sounds are normal. exhibits no distension and no mass. There is no t enderness. There is no rebound and no guarding. Extremeties/Musculoskeletal: Normal range of motion.exhibits no tenderness. exhibits no ed tayler. Neurological: Alert and oriented to person, place, and time. Skin: Skin is warm and dry. No rash noted. No erythema. No pallor. Psychiatric: Has a normal mood and affect. Behavior is normal. Judgment normal. Not suicida l LABS: Recent Labs Lab 12/04/17 0043 12/03/17 1905 WBC 7.04 6.20 HGB 9.5* 9.4* HCT 29.3* 28.9* PLT 168 163 Recent Labs Lab 12/04/17 0043 12/03/17 1700 NA 143 141 K 4.5 4.1 CL 107 106 CO2 26 29 BUN 29* 19 CREATININE 1.5* 1.4* Phosphorus: Lab Results Component Value Date PHOS 3.7 12/04/2017 Recent Labs Lab 12/04/17 0043 MG 2.0 Recent Labs Lab 12/04/17 0644 12/04/17 0045 12/03/17 1905 APTT 46* 43* 25 INR -- -- 1.0 Recent Labs Lab 12/04/17 0043 TSH 0.089* Recent Labs Lab 12/03/17 2145 12/03/17 1700 12/03/17 1055 CKTOTAL 122 90 -- TROPONINI 1.54* 0.821* 0.03 CKMBINDEX 10.9 10.8 UNABLE TO CALCULATE Results Procedure Component Value Units Date/Time Respiratory Filmarray [[id number]] Collected: 12/03/17 1526 Specimen: Nasal Swab Updated: 12/03/172032 ADENOVIRUS Not Detected CORONAVIRUS 229E Not Detected CORONAVIRUS HKU1 Not Detected CORONAVIRUS NL63 Not Detected CORONAVIRUS OC43 Not Detected HUMAN METAPNEUMOVIRUS Not Detected HUMAN RHINO/ENTERO Not Detected INFLUENZA A Not Detected INFLUENZA B Not Detected PARAINFLUENZA 1 Not Detected PARAINFLUENZA 2 Not Detected PARAINFLUENZA 3 Not Detected PARAINFLUENZA 4 Not Detected RESP SYNCYTIAL VIRUS Not Detected BORDETELLA PERTUSSIS Not Detected CHLAMYDIAE PNEUMONIAE Not Detected MYCOPLASMA PNEUMONIAE Not Detected RESP PANEL INTERP Testing performed by [employer] MRSA by PCR [[id number]] Collected: 12/03/171836 Specimen: Nasopharyngeal from Nares(Nose) Updated: 12/03/171958 SOURCE NARES(NOSE) MRSA PCR NEGATIVE PROBLEM LIST Principal Problem: NSTEMI (non-ST elevated myocardial infarction) ([facility]) Active Problems: COPD (chronic obstructive pulmonary disease) (HCC) CAD (coronary artery disease) Rheumatoid arthritis (HCC) Pulmonary HTN (HCC) Chronic respiratory failure with hypoxia (HCC) HTN (hypertension) HLD (hyperlipidemia) GERD (gastroesophageal reflux disease) Chest pain on breathing Resolved Problems: * No resolved hospital problems. * ASSESSMENT & PLAN 72 y.o. female with significant past medical history of CAD s/p PCI in 08/06/17 on LCx, Mil d pulmonary HTN, HTN, HLD, hypothyroidism, GERD, hiatal hernia, PVD, Moderate R ICA and mild L ICA disease, seen by Dr Choudhury in Aug 2017 no surgical intervention recommended at th e time due to being asymptomatic, COPD on 3lpm O2 chronically, sees Dr Ashby Pulmonology , Rheumatoid arthritis, history of SBO in the past, anemia history of blood transfusions , who presented as a transfer from [facility] to our ER for persistent chest pain f elt to be potentially unstable angina have elevated troponin more likely related to the non- ST elevation [place]. Principal Problem: NSTEMI (non-ST elevated myocardial infarction) ([facility]) She had a EKG changes as well as with elevated troponin and ongoing chest pain. I will con tinue with heparin. I already discussed with Dr. Pruitt planning to do left heart catheter t mariluz. Continue with heparin for now. Active Problems: COPD (chronic obstructive pulmonary disease) (HCC) chronic hypoxic respiratory failure Chronic COPD. Well compensated. CAD (coronary artery disease) moderate mitral stenosis He should have coronary artery disease with stenting in the past. She had elevated BNP. Pr obably may need to repeat the echocardiogram as well. But it could also be related to the se dena pulmonary hypertension Rheumatoid arthritis (HCC) I will continue with Plaquenal Pulmonary HTN (HCC) Due to COPD. HTN (hypertension) Essential hypertension is appropriately controlled at this time. HLD (hyperlipidemia) Continue statins GERD (gastroesophageal reflux disease) Continue with PPI Resolved Problems: * No resolved hospital problems. * Patient diagnosed with: , and I agree with the following nutritional recommendations: MORTEZA SHANE MD, FACP 12/04/2017 10:40 AM Dictation software, [employer], used which may contain error for similar sounding words even af ter review. Personal communication requested for any clarification. Portions of this chart may have been copied from previous notes for continuity of care purp Carson Elizabeth, [facility] - 12/03/2017 7:31 PM PDTFormatting of this note may be different fro m the original. Clinical Pharmacy Note: Renal Monitoring Davina Chiu 72 y.o. female Ht Readings from Last 1 Encounters: 12/03/17 1.575 m (5' 2.01") Wt Readings from Last 1 Encounters: 12/03/17 63.5 kg (140 lb) CREATININE Date Value Ref Range Status 12/03/2017 1.4 (H) 0.50 - 1.00 mg/dL Final Serum creatinine: 1.4 mg/dL (H) 12/03/17 1700 Estimated creatinine clearance: 31.8 mL/min (A) Pharmacy dosing for renal function per Dr. Liang. Currently, there are no medications needing to be adjusted. Pharmacy will continue to monit or for changes in medication orders and in renal function and adjust accordingly. Carson Bhagat RPh 12/03/2017 7:31 Krissy Candelario ARNP - 12/03/2017 4:59 PM PDTPati ent is currently admitted.Krissy Villanueva ARNP - 12/03/2017 4:58 PM PDTPatient is admitt ed.in this encounter Plan of Treatment +--------+---------+ + + + | Date | Type | Specialty | Care Team | Description | +--------+---------+ + + + | 03/24/ | Office | Nephrology | Bekah Madera MD | | | 2017 | Visit | | [address] | | | | | | [address] [place] | | | | | | [address] | | | | | | | | +--------+---------+ + + + | 06/17/ | Office | Cardiology | Cristhian Cochran, | | | 2017 | Visit | | MD [address] | | | | | | [place], | | | | | | [place] [address] | | | | | | [phone] | | | | | | | | +--------+---------+ + + + + +--------+ + + | Name | Priori | Associated Diagnoses | Order Schedule | | | ty | | | + +--------+ + + | Basic metabolic panel | Routin | NSTEMI (non-ST | Expected: | | | e | elevated myocardial | 12/10/2017, Expires: | | | | infarction) ([facility]) | 12/05/2018 | + +--------+ + + | CBC w/auto diff (reflex to | Routin | NSTEMI (non-ST | Expected: | | manual) | e | elevated myocardial | 12/11/2017, Expires: | | | | infarction) ([facility]) | 12/05/2018 | + +--------+ + + as of this encounter Procedures [...] + + + in this encounter Results Magnesium (12/05/2017 5:35 AM) + + + + + | Component | Value | Ref Range | Performed At | + + + + + | MAGNESIUM | 2.3Comment: Testing | 1.7 - 2.4 mg/dL | [facility] | | | performed at [facility], [address] | | LABORATORY | | | [address], | | | | | [place] [address] | | | + + + + + + + | Specimen | + + | Blood | + + + + + + + | Performing | Address | City/State/Zipcode | Phone Number | | Organization | | | | + + + + + | [facility] | [address] | [place] [address] | [phone] | | LABORATORY | [address] | | | + + + + + Comprehensive metabolic panel (12/05/2017 5:35 AM) + + + + + | Component | Value | Ref Range | Performed At | + + + + + | SODIUM | 144 | 135 - 145 mmol/L | [facility] | | | | | LABORATORY | + + + + + | POTASSIUM | 4.6 | 3.5 - 4.9 mmol/L | [facility] | | | | | LABORATORY | + + + + + | CHLORIDE | 107 | 99 - 109 mmol/L | [facility] | | | | | LABORATORY | + + + + + | CO2 | 28 | 23 - 32 mmol/L | [facility] | | | | | LABORATORY | + + + + + | ANION GAP AGAP | 14 | 5 - 20 mmol/L | [facility] | | | | | LABORATORY | + + + + + | GLUCOSE | 119 (H) | 65 - 99 mg/dL | [facility] | | | | | LABORATORY | + + + + + | BUN | 37 (H) | 8 - 25 mg/dL | [facility] | | | | | LABORATORY | + + + + + | CREATININE | 1.7 (H) | 0.50 - 1.00 mg/dL | [facility] | | | | | LABORATORY | + + + + + | BUN/CREAT | 22 | | [facility] | | | | | LABORATORY | + + + + + | CALCIUM | 8.1 (L) | 8.5 - 10.5 mg/dL | [facility] | | | | | LABORATORY | + + + + + | TOTAL PROTEIN | 5.8 (L) | 6.3 - 8.2 g/dL | [facility] | | | | | LABORATORY | + + + + + | Albumin | 2.9 (L) | 3.3 - 4.8 g/dL | [facility] | | | | | LABORATORY | + + + + + | GLOBULIN | 2.9 | 1.3 - 4.9 g/dL | [facility] | | | | | LABORATORY | + + + + + | A/G | 1.0 | 1.0 - 2.4 | [facility] | | | | | LABORATORY | + + + + + | TBIL | 0.2 | 0.1 - 1.5 mg/dL | [facility] | | | | | LABORATORY | + + + + + | ALK PHOS | 74 | 35 - 115 U/L | [facility] | | | | | LABORATORY | + + + + + | AST | 20 | 10 - 45 U/L | [facility] | | | | | LABORATORY | + + + + + | ALT | 24 | 10 - 65 U/L | [facility] | | | | | LABORATORY | + + + + + | EGFR | 30 (L)Comment: GFR <60: | >60 mL/min/1.73m2 | [facility] | | | CHRONIC KIDNEY DISEASE, | [...] performed at | | | | | [facility], [address] | | | | | [place] | | | | | [place] [address] | | | + + + + + + + | Specimen | + + | Blood | + + + + + + + | Performing | Address | City/State/Zipcode | Phone Number | | Organization | | | | + + + + + | [facility] | [address] | [place] [address] | [phone] | | LABORATORY | [address] | | | + + + + + CBC W/Auto Diff (Reflex to Manual) (12/05/2017 5:35 AM) + + + + + | Component | Value | Ref Range | Performed At | + + + + + | WBC | 5.97 | 3.80 - 11.00 K/uL | [facility] | | | | | LABORATORY | + + + + + | RBC | 2.92 (L) | 3.70 - 5.10 M/uL | [facility] | | | | | LABORATORY | + + + + + | HGB | 8.1 (L) | 11.3 - 15.5 g/dL | [facility] | | | | | LABORATORY | + + + + + | HCT | 24.7 (L) | 34.0 - 46.0 % | [facility] | | | | | LABORATORY | + + + + + | MCV | 84.4 | 80.0 - 100.0 fl | [facility] | | | | | LABORATORY | + + + + + | MCH | 27.7 | 27.0 - 34.0 pg | [facility] | | | | | LABORATORY | + + + + + | MCHC | 32.8 | 32.0 - 35.5 g/dL | [facility] | | | | | LABORATORY | + + + + + | RDW SD | 43.8 | 37 - 53 fl | [facility] | | | | | LABORATORY | + + + + + | PLT | 196 | 150 - 400 K/uL | [facility] | | | | | LABORATORY | + + + + + | MPV | 9.4 | fl | [facility] | | | | | LABORATORY | + + + + + | DIFF TYPE | AUTOMATED | | [facility] | | | | | LABORATORY | + + + + + | NEUTROPHILS | 82.58 | % | [facility] | | | | | LABORATORY | + + + + + | LYMPHOCYTES | 10.35 | % | [facility] | | | | | LABORATORY | + + + + + | MONOCYTES | 6.66 | % | [facility] | | | | | LABORATORY | + + + + + | EOSINOPHILS | 0.19 | % | [facility] | | | | | LABORATORY | + + + + + | BASOPHILS | 0.22 | % | [facility] | | | | | LABORATORY | + + + + + | NEUTROPHILS ABS | 4.93 | 1.90 - 7.40 K/uL | [facility] | | | | | LABORATORY | + + + + + | LYMPHOCYTES ABS | 0.62 (L) | 1.00 - 3.90 K/uL | [facility] | | | | | LABORATORY | + + + + + | MONOCYTES ABS | 0.40 | 0.00 - 0.80 K/uL | [facility] | | | | | LABORATORY | + + + + + | EOSINOPHILS ABS | 0.01 | 0.00 - 0.50 K/uL | [facility] | | | | | LABORATORY | + + + + + | BASOPHILS ABS | 0.01Comment: Testing | 0.00 - 0.10 K/uL | [facility] | | | performed at [facility], [address] | | LABORATORY | | | [address], | | | | | [place] [address] | | | + + + + + + + | Specimen | + + | Blood | + + + + + + + | Performing | Address | City/State/Zipcode | Phone Number | | Organization | | | | + + + + + | [facility] | [address] | [place] [address] | [phone] | | LABORATORY | [address] | | | + + + + + Basic metabolic panel (12/04/2017 3:34 PM) + + + + + | [...] (H) | 0.50 - 1.00 mg/dL | [facility] | | | | | LABORATORY | + + + + + | BUN/CREAT | 20 | | [facility] | | | | | LABORATORY | + + + + + | CALCIUM | 8.5 | 8.5 - 10.5 mg/dL | [facility] | | | | | LABORATORY | + + + + + | EGFR | 34 (L)Comment: GFR <60: | >60 mL/min/1.73m2 | [facility] | | | CHRONIC KIDNEY DISEASE, | [...] performed at | | | | | [facility], [address] | | | | | [place], | | | | | [place] [address] | | | + + + + + + + | Specimen | + + | Blood | + + + + + + + | Performing | Address | City/State/Zipcode | Phone Number | | Organization | | | | + + + + + | [facility] | [address] | [place] [address] | [phone] | | LABORATORY | [address] | | | + + + + + CBC W/Auto Diff (Reflex to Manual) (12/04/2017 3:34 PM) + + + + + | Component | Value | Ref Range | Performed At | + + + + + | WBC | 6.04 | 3.80 - 11.00 K/uL | [facility] | | | | | LABORATORY | + + + + + | RBC | 3.25 (L) | 3.70 - 5.10 M/uL | [facility] | | | | | LABORATORY | + + + + + | HGB | 9.0 (L) | 11.3 - 15.5 g/dL | [facility] | | | | | LABORATORY | + + + + + | HCT | 27.3 (L) | 34.0 - 46.0 % | [facility] | | | | | LABORATORY | + + + + + | MCV | 83.9 | 80.0 - 100.0 fl | [facility] | | | | | LABORATORY | + + + + + | MCH | 27.6 | 27.0 - 34.0 pg | [facility] | | | | | LABORATORY | + + + + + | MCHC | 32.8 | 32.0 - 35.5 g/dL | [facility] | | | | | LABORATORY | + + + + + | RDW SD | 43.3 | 37 - 53 fl | [facility] | | | | | LABORATORY | + + + + + | PLT | 190 | 150 - 400 K/uL | [facility] | | | | | LABORATORY | + + + + + | MPV | 9.5 | fl | [facility] | | | | | LABORATORY | + + + + + | DIFF TYPE | MANUAL | | [facility] | | | | | LABORATORY | + + + + + | Neutrophils Manual | 96 | % | [facility] | | | | | LABORATORY | + + + + + | Lymphocytes Manual | 4 | % | [facility] | | | | | LABORATORY | + + + + + | Neutrophils Absolute | 5.80 | 1.90 - 7.40 K/uL | [facility] | | | | | LABORATORY | + + + + + | Lymphocytes Absolute | 0.24 (L) | 1.00 - 3.90 K/uL | [facility] | | | | | LABORATORY | + + + + + | Platelet Estimate | DECREASED | | [facility] | | | | | LABORATORY | + + + + + | MORPHOLOGY | PLATELET | | [facility] | | | ANISOCYTOSISComment: | | LABORATORY | | | NORMAL RBC MORPHTesting | | | | | performed at [facility], [address] | | | | | [address], | | | | | [place] [address] | | | + + + + + + + | Specimen | + + | Blood | + + + + + + + | Performing | Address | City/State/Zipcode | Phone Number | | Organization | | | | + + + + + | [facility] | [address] | [place] [address] | [phone] | | LABORATORY | [address] | | | + + + + + [facility] left heart catheterization with coronary angio (12/04/2017 2:55 PM) + + + | Narrative | Performed At | + + + | | [facility] | | | RADIOLOGY | | DATE [...] right coronary artery with | | | [id number] collaterals. Severe disease of a small second [...] radial artery, then I will use a 4-Panamanian sheath | | | and 4-[place]ian catheter. Lidocaine 2% was used for local [...] a micropuncture | | | needle. A 5-[place]ian sheath was placed into the left femoral artery | | | without difficulty. Subsequently, a 5-[place]amanian 3.5 catheter was | | | advanced, however did not lead to good engagement. We changed it to a | | | 5-[place]ian FL4 catheter with selective engagement of the left coronary | | | system, and angiographic views were obtained. Subsequently, a | | | 5-Panamanian FR4 catheter was advanced over the guidewire [...] | | | diagonal branch is a jeufg-nb-rxljvq size vessel at 1.5 to 2 mm [...] right coronary | | | artery, with dpuy-kw-ptezm collaterals. 2. Patent stents in the left [...] Note | + + | Italo Farrar Results In - 12/06/2017 7:50 PM PDT | [...] | | occluded right coronary artery with gzhy-fo-lpsej collaterals. Severe | | disease of a [...] radial artery, then I will use a 4-Panamanian sheath | | and 4-Panamanian catheter. Lidocaine 2% was used for local [...] was accessed using a micropuncture needle. A 5-Panamanian sheath | | was placed into the left femoral artery without difficulty. Subsequently, a | | 5-Panamanian 3.5 catheter was advanced, however did not lead to good | | engagement. We changed it to a 5-Panamanian FL4 catheter with selective | | engagement of the left coronary system, and angiographic views were | | obtained. Subsequently, a 5-Panamanian FR4 catheter was advanced over the | [...] second diagonal branch is a | | ablkk-io-ajpjfl size vessel at 1.5 to 2 mm [...] occluded right | | coronary artery, with rwja-jk-sfgav collaterals. | | 2. Patent stents in [...] | + + + + + | [facility] | [address] | [place] [address] | | + + + + + POC ACT, arterial (12/04/2017 2:30 PM) + + + + + | Component | Value | Ref Range | Performed At | + + + + + | POC ACT | 136Comment: Testing | 74 - 137 seconds | [facility] | | | performed at [facility];[address] | | | | | [address];[place], [place] | | | | | [address] | | | + + + + + + + + + + | Performing | Address | City/State/Zipcode | Phone Number | | Organization | | | | + + + + + | [facility] | [address] | [place] [address] | | + + + + + aPTT - Q6 starting in 6 hours x 2 (12/04/2017 6:44 AM) + + + + + | Component | Value | Ref Range | Performed At | + + + + + | APTT | 46 (H)Comment: Testing | 23 - 32 seconds | [facility] | | | performed at [facility];[address] | | | | [address];[place] | | | | | [address] | | | + + + + + + + | Specimen | + + | Blood | + + + + + + + | Performing | Address | City/State/Zipcode | Phone Number | | Organization | | | | + + + + + | [facility] | [address] | [place] [address] | | + + + + + aPTT - Q6 starting in 6 hours x 2 (12/04/2017 12:45 AM) + + + + + | Component | Value | Ref Range | Performed At | + + + + + | APTT | 43 (H)Comment: Testing | 23 - 32 seconds | [facility] | | | performed at [facility];[address] | | | [address];[place] | | | | | [address] | | | + + + + + + + | Specimen | + + | Blood | + + + + + + + | Performing | Address | City/State/Zipcode | Phone Number | | Organization | | | | + + + + + | [facility] | [address] | [place] [address] | | + + + + + Brain natriuretic peptide (12/04/2017 12:43 AM) + + + + + | Component | Value | Ref Range | Performed At | + + + + + | BRAIN NATRIURETIC | 1,680 (H)Comment: | 0 - 100 pg/mL | [facility] | | PEPTIDE | Testing performed at | | | | | [facility];[address] | | | | [address];[place] [address] | | | + + + + + + + | Specimen | + + | Blood | + + + + + + + | Performing | Address | City/State/Zipcode | Phone Number | | Organization | | | | + + + + + | [facility] | [address] | [place] [address] | | + + + + + TSH (12/04/2017 12:43 AM) + + + + + | Component | Value | Ref Range | Performed At | + + + + + | TSH | 0.089 (L)Comment: | 0.450 - 5.100 uIU/mL | [facility] | | | Testing performed at | | LABORATORY | | | [facility], [address] | | | | | [place] | | | | | [address] | | | + + + + + + + | Specimen | + + | Blood | + + + + + + + | Performing | Address | City/State/Zipcode | Phone Number | | Organization | | | | + + + + + | [facility] | [address] | [place] [address] | [phone] | | LABORATORY | Blvd. | | | + + + + + Glycohemoglobin A1c (12/04/2017 12:43 AM) + + + + + | Component | Value | Ref Range | Performed At | + + + + + | HEMOGLOBIN A1C | 5.3Comment: The Swedish | 4.0 - 6.0 % | [facility] | | | Diabetes Association | | [...] | 105Comment: The ADA | mg/dL | [facility] | | GLUCOSE | considers an eAG [...] | | | | | performed at [facility], [address] | | | | | [facility], | | | | | [place] [address] | | | + + + + + + + | Specimen | + + | Blood | + + + + + + + | Performing | Address | City/State/Zipcode | Phone Number | | Organization | | | | + + + + + | [facility] | [address] | [place] [address] | [phone] | | LABORATORY | Blvd. | | [...] | 53Comment: Testing | <100 mg/dL | [facility] | | | performed at [facility], [address] | | LABORATORY | | | [facility], | | | | | [place] [address] | | | + + + + + + + | Specimen | + + | Blood | + + + + + + + | Performing | Address | City/State/Zipcode | Phone Number | | Organization | | | | + + + + + | [facility] | [address] | [place] [address] | [phone] | | LABORATORY | Blvd. | | | + + + + + Phosphorus (12/04/2017 12:43 AM) + + + + + | Component | Value | Ref Range | Performed At | + + + + + | PHOSPHORUS | 3.7Comment: Testing | 2.3 - 4.8 mg/dL | [facility] | | | performed at [facility], [address] | | LABORATORY | | | [address], | | | | | [place] [address] | | | + + + + + + + | Specimen | + + | Blood | + + + + + + + | Performing | Address | City/State/Zipcode | Phone Number | | Organization | | | | + + + + + | [facility] | [address] [place] [address] | [place] [address] | [phone] | | LABORATORY | Blvd. | | | + + + + + Magnesium (12/04/2017 12:43 AM) + + + + + | Component | Value | Ref Range | Performed At | + + + + + | MAGNESIUM | 2.0Comment: Testing | 1.7 - 2.4 mg/dL | [facility] | | | performed at [facility], [address] | | LABORATORY | | | [facility], | | | | | [place] [address] | | | + + + + + + + | Specimen | + + | Blood | + + + + + + + | Performing | Address | City/State/Zipcode | Phone Number | | Organization | | | | + + + + + | [facility] | [address] | [place] [address] | [phone] | | LABORATORY | Blvd. | | | + + + + + Basic metabolic panel (12/04/2017 12:43 AM) + + + + + | Component | Value | Ref Range | Performed At | + + + + + | SODIUM | 143 | 135 - 145 mmol/L | [facility] | | | | | LABORATORY | + + + + + | POTASSIUM | 4.5 | 3.5 - 4.9 mmol/L | [facility] | | | | | LABORATORY | + + + + + | CHLORIDE | 107 | 99 - 109 mmol/L | [facility] | | | | | LABORATORY | + + + + + | CO2 | 26 | 23 - 32 mmol/L | [facility] | | | | | LABORATORY | + + + + + | ANION GAP AGAP | 15 | 5 - 20 mmol/L | [facility] | | | | | LABORATORY | + + + + + | GLUCOSE | 166 (H) | 65 - 99 mg/dL | [facility] | | | | | LABORATORY | + + + + + | BUN | 29 (H) | 8 - 25 mg/dL | [facility] | | | | | LABORATORY | + + + + + | CREATININE | 1.5 (H) | 0.50 - 1.00 mg/dL | [facility] | | | | | LABORATORY | + + + + + | BUN/CREAT | 19 | | [facility] | | | | | LABORATORY | + + + + + | CALCIUM | 8.4 (L) | 8.5 - 10.5 mg/dL | [facility] | | | | | LABORATORY | + + + + + | EGFR | 34 (L)Comment: GFR <60: | >60 mL/min/1.73m2 | [facility] | | | CHRONIC KIDNEY DISEASE, | [...] performed at | | | | | [facility], [address] | | | | | [place], | | | | | [place] [address] | | | + + + + + + + | Specimen | + + | Blood | + + + + + + + | Performing | Address | City/State/Zipcode | Phone Number | | Organization | | | | + + + + + | [facility] | [address] | [place] [address] | [phone] | | LABORATORY | Blvd. | | | + + + + + CBC W/Auto Diff (Reflex to Manual) (12/04/2017 12:43 AM) + + + + + | Component | Value | Ref Range | Performed At | + + + + + | WBC | 7.04 | 3.80 - 11.00 K/uL | [facility] | + + + + + | RBC | 3.47 (L) | 3.70 - 5.10 M/uL | [facility] | + + + + + | HGB | 9.5 (L) | 11.3 - 15.5 g/dL | [facility] | + + + + + | HCT | 29.3 (L) | 34.0 - 46.0 % | [facility] | + + + + + | MCV | 84.4 | 80.0 - 100.0 fl | [facility] | + + + + + | MCH | 27.4 | 27.0 - 34.0 pg | [facility] | + + + + + | MCHC | 32.5 | 32.0 - 35.5 g/dL | [facility] | + + + + + | RDW SD | 43.3 | 37 - 53 fl | [facility] | + + + + + | PLT | 168 | 150 - 400 K/uL | [facility] | + + + + + | MPV | 8.7 | fl | [facility] | + + + + + | DIFF TYPE | MANUAL | | [facility] | + + + + + | Neutrophils Manual | 89 | % | [facility] | + + + + + | Bands | 2 | % | [facility] | + + + + + | Lymphocytes Manual | 8 | % | [facility] | + + + + + | Monocytes Manual | 1 | % | [facility] | + + + + + | Neutrophils Absolute | 6.27 | 1.90 - 7.40 K/uL | [facility] | + + + + + | Bands Manual | 0.14 | 0.00 - 0.20 K/uL | [facility] | + + + + + | Lymphocytes Absolute | 0.56 (L) | 1.00 - 3.90 K/uL | [facility] | + + + + + | Monocytes Absolute | 0.07 | 0.00 - 0.80 K/uL | [facility] | + + + + + | MORPHOLOGY | RBC AND PLT MORPHOLOGY | | [facility] | | | APPEAR NORMALComment: | | | | | Testing performed at | | | | | [facility];[address] [facility] | | | | | [place] [address] | | | + + + + + + + | Specimen | + + | Blood | + + + + + + + | Performing | Address | City/State/Zipcode | Phone Number | | Organization | | | | + + + + + | [facility] | [address] | [place] [address] | | + + + + + EKG STANDARD 12 LEAD (12/03/2017 10:50 PM) + + + + + | Component | Value | Ref Range | Performed At | + + + + + | Ventricular Rate | 102 | BPM | [facility] | + + + + + | Atrial Rate | 102 | BPM | [facility] | + + + + + | P-R Interval | 148 | ms | [facility] | + + + + + | QRS Duration | 92 | ms | [facility] | + + + + + | Q-T Interval | 354 | ms | [facility] | + + + + + | QTC Calculation | 461 | ms | [facility] | | (Bezet) | | | | + + + + + | Calculated P [place] | 69 | degrees | [facility] | + + + + + | Calculated R [place] | 49 | degrees | [facility] | + + + + + | Calculated T [place] | 110 | degrees | [facility] | + + + + + | Diagnosis | Sinus tachycardiaST & T | | [facility] | | | wave abnormality, | | | | | consider anterolateral | | | | | ischemiaAbnormal ECGWhen | | | | | compared with ECG of | | | | | 03-DEC-2017 | | | | | 10:47,Premature | | | | | supraventricular | | | | | complexes are no longer | | | | | PresentConfirmed by | | | | | BEKAH SAXENA MD ([id number]) | | | | | on 12/04/2017 5:41:08 PM | | | + + + + + + + + + + | Performing | Address | City/State/Zipcode | Phone Number | | Organization | | | | + + + + + | [facility] | [address] | [place] [address] | | + + + + + CK MB (12/03/2017 9:45 PM) + + + + + | Component | Value | Ref Range | Performed At | + + + + + | MMB | 13.3 (H) | 0.5 - 3.6 ng/mL | [facility] | + + + + + | CK-MB Index | 10.9Comment: CK INDEX | | [facility] | | | INTERPRETATION: [...] | | | | | performed at [facility] | | | | | [address];[place], [place] | | | | | [address] | | | + + + + + + + + + + | Performing | Address | City/State/Zipcode | Phone Number | | Organization | | | | + + + + + | [facility] | [address] | [place] [address] | | + + + + + CPK (12/03/2017 9:45 PM) + + + + + | Component | Value | Ref Range | Performed At | + + + + + | CPK | 122Comment: Testing | 30 - 240 U/L | [facility] | | | performed at [facility];[address] | | | | | [address];[place] | | | | | [address] | | | + + + + + + + | Specimen | + + | Blood | + + + + + + + | Performing | Address | City/State/Zipcode | Phone Number | | Organization | | | | + + + + + | [facility] | [address] | [place] [address] | | + + + + + Troponin I (12/03/2017 9:45 PM) + + + + + | Component | Value | Ref Range | Performed At | + + + + + | TROPONIN I | 1.54 ()Comment: 0.00 | 0.00 - 0.10 ng/mL | [facility] | | | to [...] | | | | CRITERIA FOR ACUTE TX | | | | | CALLED NURSING UNITREAD | | | | | BACK RESULTS | | | | | VERIFIEDNANCY L ON 3OP | | | | | AT 2237 LMCTesting | | | | | performed at [facility];[address] | | | | | [address];[place] | | | | | [address] | | | + + + + + + + | Specimen | + + | Blood | + + + + + + + | Performing | Address | City/State/Zipcode | Phone Number | | Organization | | | | + + + + + | [facility] | [address] | [place] [address] | | + + + + + [...] chest radiograph. Prior study for review : | | | November-chest radiograph FINDINGS: Ventilation portion the | | [...] recent chest radiograph.Prior study for review : 03 December-chest | | radiographFINDINGS:Ventilation portion the examination is [...] + + + + + | [facility] | [address] | [place] [address] | | + + + + + Protime-INR (12/03/2017 7:05 PM) + + + + + | Component | Value | Ref Range | Performed At | + + + + + | INR | 1.0Comment: REFERENCE | | [facility] | | | RANGE:0.9 [...] | | | | | performed at [facility] | | | | | [address] [facility];[place], [place] | | | | | [address] | | | + + + + + + + | Specimen | + + | Blood | + + + + + + + | Performing | Address | City/State/Zipcode | Phone Number | | Organization | | | | + + + + + | [facility] | [address] | [place] [address] | | + + + + + aPTT (12/03/2017 7:05 PM) + + + + + | Component | Value | Ref Range | Performed At | + + + + + | APTT | 25Comment: Testing | 23 - 32 seconds | [facility] | | | performed at [facility];[address] | | | | | [facility];[place] | | | | | [address] | | | + + + + + + + | Specimen | + + | Blood | + + + + + + + | Performing | Address | City/State/Zipcode | Phone Number | | Organization | | | | + + + + + | [facility] | [address] | [place] [address] | | + + + + + CBC w/no diff (12/03/2017 7:05 PM) + + + + + | Component | Value | Ref Range | Performed At | + + + + + | WBC | 6.20 | 3.80 - 11.00 K/uL | [facility] | + + + + + | RBC | 3.44 (L) | 3.70 - 5.10 M/uL | [facility] | + + + + + | HGB | 9.4 (L) | 11.3 - 15.5 g/dL | [facility] | + + + + + | HCT | 28.9 (L) | 34.0 - 46.0 % | [facility] | + + + + + | MCV | 84.1 | 80.0 - 100.0 fl | [facility] | + + + + + | MCH | 27.2 | 27.0 - 34.0 pg | [facility] | + + + + + | MCHC | 32.3 | 32.0 - 35.5 g/dL | [facility] | + + + + + | RDW SD | 42.9 | 37 - 53 fl | [facility] | + + + + + | PLT | 163 | 150 - 400 K/uL | [facility] | + + + + + | MPV | 8.9Comment: Testing | fl | [facility] | | | performed at [facility] | | | | | [address];[place] | | | | | [address] | | | + + + + + + + + + + | Performing | Address | City/State/Zipcode | Phone Number | | Organization | | | | + + + + + | [facility] | [address] | [place] [address] | | + + + + + MRSA by PCR (12/03/2017 6:37 PM) + + + + + | Component | Value | Ref Range | Performed At | + + + + + | SOURCE | NARES(NOSE) | | [facility] | + + + + + | MRSA PCR | NEGATIVEComment: Testing | NEGATIVE | [facility] | | | performed at [facility];[address] | | | | | [address];[place] | | | | | [address] | | | + + + + + + + | Specimen | + + | Nasopharyngeal - | | Nares(Nose) | + + + + + + + | Performing | Address | City/State/Zipcode | Phone Number | | Organization | | | | + + + + + | [facility] | [address] | [place] [address] | | + + + + + Basic metabolic panel (12/03/2017 5:00 PM) + + + + + | Component | Value | Ref Range | Performed At | + + + + + | SODIUM | 141 | 135 - 145 mmol/L | [facility] | + + + + + | POTASSIUM | 4.1 | 3.5 - 4.9 mmol/L | [facility] | + + + + + | CHLORIDE | 106 | 99 - 109 mmol/L | [facility] | + + + + + | CO2 | 29 | 23 - 32 mmol/L | [facility] | + + + + + | ANION GAP AGAP | 10 | 5 - 20 mmol/L | [facility] | + + + + + | GLUCOSE | 163 (H) | 65 - 99 mg/dL | [facility] | + + + + + | BUN | 19 | 8 - 25 mg/dL | [facility] | + + + + + | CREATININE | 1.4 (H) | 0.50 - 1.00 mg/dL | [facility] | + + + + + | BUN/CREAT | 14 | | [facility] | + + + + + | CALCIUM | 8.3 (L) | 8.5 - 10.5 mg/dL | [facility] | + + + + + | EGFR | 37 (L)Comment: GFR <60: | >60 mL/min/1.73m2 | [facility] | | | CHRONIC KIDNEY DISEASE, | | | | | IF FOUND OVER A 3 MONTH | | | | | PERIOD.GFR <15: KIDNEY | | | | | FAILURE.FOR | | | | | AMERICANS, MULTIPLY THE | | | | | CALCULATED GFR BY | | | | | 1.210.This eGFR is | | | | | calculated using the | | | | | [facility] traceable | | | | | equation. PLEASE NOTE | | | | | NEW CALCULATION | | | | | EFFECTIVE 12/03/2017 | | | | | Testing performed at | | | | | [facility];[address] [place] [address] | | | | | [facility];[place] [address] | | | + + + + + + + | Specimen | + + | Blood | + + + + + + + | Performing | Address | City/State/Zipcode | Phone Number | | Organization | | | | + + + + + | [facility] | [address] | [place] [address] | | + + + + + CK MB (12/03/2017 5:00 PM) + + + + + | Component | Value | Ref Range | Performed At | + + + + + | MMB | 9.7 (H) | 0.5 - 3.6 ng/mL | [facility] | + + + + + | CK-MB Index | 10.8Comment: CK INDEX | | [facility] | | | INTERPRETATION: [...] | | | | | performed at [facility];[address] | | | | | [address];[place] | | | | | [address] | | | + + + + + + + + + + | Performing | Address | City/State/Zipcode | Phone Number | | Organization | | | | + + + + + | [facility] | [address] | [place] [address] | | + + + + + CPK (12/03/2017 5:00 PM) + + + + + | Component | Value | Ref Range | Performed At | + + + + + | CPK | 90Comment: Testing | 30 - 240 U/L | [facility] | | | performed at [facility] | | | | | [facility];[place], [place] | | | | | [address] | | | + + + + + + + | Specimen | + + | Blood | + + + + + + + | Performing | Address | City/State/Zipcode | Phone Number | | Organization | | | | + + + + + | [facility] | [address] | [place] [address] | | + + + + + Troponin I (12/03/2017 5:00 PM) + + + + + | Component | Value | Ref Range | Performed At | + + + + + | TROPONIN I | 0.821 ()Comment: | 0.00 - 0.10 ng/mL | [facility] | | | 0.00 to 0.10 | | | | | CONSISTENT WITH NORMAL | | | | | POPULATION0.11 to | | | | | 0.60 CONSISTENT WITH | | | | | INCREASED RISK FOR | | | | | ADVERSE OUTCOMES> | | | | | 0.60 | | | | | CONSISTENT WITH WHO | | | | | CRITERIA FOR ACUTE TX | | | | | CALLED NURSING UNITREAD | | | | | BACK RESULTS | | | | | VERIFIEDMELISSA H ON 3OP | | | | | AT 1841 LMCTesting | | | | | performed at [facility];[address] | | | | | [facility];[place], [place] | | | | | [address] | | | + + + + + + + | Specimen | + + | Blood | + + + + + + + | Performing | Address | City/State/Zipcode | Phone Number | | Organization | | | | + + + + + | [facility] | [address] | [place] [address] | | + + + + + [...] performed at | | | | | [facility], [address] | | | | | [place] | | | | | [address] | | | + + + + + + + | Specimen | + + | Nasal Swab | + + + + + + + | Performing | Address | City/State/Zipcode | Phone Number | | Organization | | | | + + + + + | [facility] | [address] | [place] [address] | [phone] | | LABORATORY | [address] | | | + + + + + D Dimer,Quantitative (12/03/2017 10:55 AM) + + + + + | Component | Value | Ref Range | Performed At | + + + + + | D DIMER, | 0.99 (H)Comment: D Dimer | 0.19 - 0.50 mg/L FEU | [facility] | | QUANTITATIVE | [...] | | | | | performed at [facility];[address] | | | | | [address];[place] | | | | | [address] | | | + + + + + + + + + + | Performing | Address | City/State/Zipcode | Phone Number | | Organization | | | | + + + + + | [facility] | [address] | [place] [address] | | + + + + + Urinalysis (reflex to microscopic/reflex to culture) (12/03/2017 10:55 AM) + + + + + | Component | Value | Ref Range | Performed At | + + + + + | COLOR UA | STRAW | | [facility] | + + + + + | CLARITY | CLEAR | | [facility] | + + + + + | Specific [place], UA | 1.006 | 1.002 - 1.030 | [facility] | + + + + + [...] | BILIRUBIN | NEGATIVE | NEGATIVE | [facility] | + + + + + | GLUCOSE | NEGATIVEComment: Testing | NEGATIVE mg/dL | [facility] | | | performed at [facility] | | | | | Tony Ruggiero;[place] | | | | | [address] | | | + + + + + + + | Specimen | + + | Urine, Clean Catch | + + + + + + + | Performing | Address | City/State/Zipcode | Phone Number | | Organization | | | | + + + + + | [facility] | [address] | [place] [address] | | + + + + + CK MILAD (12/03/2017 10:55 AM) + + + + + | Component | Value | Ref Range | Performed At | + + + + + | MMB | 1.3 | 0.5 - 3.6 ng/mL | [facility] | + + + + + | CK-MB Index | UNABLE TO | | [facility] | | | CALCULATEComment: | | | | | Testing performed at | | | | | [facility];[address];[place] [address] | | | + + + + + + + | Specimen | + + | Blood | + + + + + + + | Performing | Address | City/State/Zipcode | Phone Number | | Organization | | | | + + + + + | [facility] | [address] | [place] [address] | | + + + + + Troponin I, Lab (12/03/2017 10:55 AM) + + + + + | Component | Value | Ref Range | Performed At | + + + + + | TROPONIN I | 0.03Comment: 0.00 to | 0.00 - 0.10 ng/mL | [facility] | | | 0.10 CONSISTENT WITH | | | | | NORMAL POPULATION0.11 | | | | | to 0.60 CONSISTENT | | | | | WITH INCREASED RISK FOR | | | | | ADVERSE OUTCOMES> | | | | | 0.60 | | | | | CONSISTENT WITH WHO | | | | | CRITERIA FOR ACUTE TX | | | | | Testing performed at | | | | | [facility];[address] [place] [address] | | | | | [facility];[place] [address] | | | + + + + + + + | Specimen | + + | Blood | + + + + + + + | Performing | Address | City/State/Zipcode | Phone Number | | Organization | | | | + + + + + | [facility] | [address] | [place] [address] | | + + + + + EKG 12 LEAD UNIT PERFORMED (12/03/2017 10:47 AM) + + + + + | Component | Value | Ref Range | Performed At | + + + + + | Ventricular Rate | 103 | BPM | [facility] | + + + + + | Atrial Rate | 103 | BPM | [facility] | + [...] + + + + | Calculated P [place] | 73 | degrees | [facility] | + + + + + | Calculated R [place] | 51 | degrees | [facility] | + + + + + | Calculated T [place] | 127 | degrees | [facility] | + + + + + | Diagnosis | Sinus tachycardia with | | [facility] | | | Premature [...] -COMPUTER (500), | | | | | assignment desk editor Neville Wise | | | | | David (123) on 12/03/2017 | | | | | 8:28:40 PM | | | + + + + + + + + + + | Performing | Address | City/State/Zipcode | Phone Number | | Organization | | | | + + + + + | [facility] | [address] | [place] [address] | | + + + + + ED INFORMATION EXCHANGE (12/03/2017 10:43 AM) + + + | Narrative | Performed At | + + + | [id number] This patient has registered at the | ED | | [facility] Emergency Department For more | INFORMATION | | information visit: | EXCHANGE | | [email or web address] | | | [phone] Security Events No [...] Chief Complaint November | | | 2017 [facility] Emergency Emergency | | | Chest pain, unspecified December 03, 2017 [facility] | | | [place] Emergency Emergency Chief Complaint: SOB | | | E.D. Visit Count (12 mo.) Facility Visits [facility] | | | [facility] 2 0 [facility] 6 0 Total 8 0 [...] | | facilities for additional information. 2018 [facility] | | | [employer] - [place], [place] - | | | [email or web address] | | + + + + + | Procedure Note | + + | Interface, Lab - 12/03/2017 10:44 AM PDT Formatting of this note may be different | | from the original.[id number]:41SANDRA [id number] patient has registered at the [facility] | | [facility] Emergency Department For more information visit: | | [email or web address] Security | | EventsNo recent Security Events currently on fileED Care GuidelinesThere are currently | | no ED Care Guidelines in SVETLANA for this patient. Please check your facility's medical | | records system.Recent Emergency Department Visit SummaryAdmit Date Facility [facility] | | Type Major Type Diagnoses or Chief Complaint December 03, 2017 [facility] | | Emergency Emergency Chest pain, unspecified December 03, 2017 [facility]. | | [place] Emergency Emergency Chief Complaint: SOB E.D. Visit Count (12 mo.)Facility Visits | | [facility] 2 0 [facility] 6 0 Total 8 0 [...] facilities for additional information. | | 2018 [facility]. [place], [place] - | | [email or web address] | |Note: Visits indicate total known visits. [...] GABRIELA COOL MD Primary Care Current | |Marni, Danielle Marr Primary Care Current | |Unknown Other Current [...] aforementioned facilities for additional information. | |2018 [facility]. - [place], [place] - [email or web address] | + + + +---------+ + + [...] procedure without a radiologist report and | [facility] | | is used for image storage only | RADIOLOGY | + + + + + + + + | Performing | Address | City/State/Zipcode | Phone Number | | Organization | | | | + + + + + | [facility] | [address] | [place] [address] | | + + + + + in this encounter Visit Diagnoses + + | Diagnosis | + + | NSTEMI (non-ST elevated myocardial infarction) (HCC) - Primary | + + | Acute myocardial infarction, subendocardial infarction, episode of care unspecified | + + | Chest pain, unspecified type | + + | Shortness of breath | + + | History of coronary artery disease | + + | Personal history of other diseases of circulatory system | + + | History of coronary artery stent placement | + + | History of COPD | + + | Personal history of other diseases of respiratory system | + + | COPD (chronic obstructive pulmonary disease) (HCC) | + + | Chronic airway obstruction, not elsewhere classified | + + | Atherosclerosis of iroquois coronary artery of iroquois heart | + + | Rheumatoid arthritis (HCC) | + + | Mild pulmonary hypertension (HCC) | + + | Other chronic pulmonary heart diseases | + + | Chronic respiratory failure with hypoxia (HCC) | + + | Chronic respiratory failure | + + | HTN (hypertension) | + + | Unspecified essential hypertension | + + | HLD (hyperlipidemia) | + + | Other and unspecified hyperlipidemia | + + | GERD (gastroesophageal reflux disease) | + + | Esophageal reflux | + + | Chest pain on breathing | + + | Painful respiration | + + Admitting Diagnoses + + | Diagnosis | + + | Shortness of breath | + + | History of coronary artery disease | + + | Personal history of other diseases of circulatory system | + + | NSTEMI (non-ST elevated myocardial infarction) (HCC) | + + | Acute myocardial infarction, subendocardial infarction, episode of care unspecified | + + | History of COPD | + + | Personal history of other diseases of respiratory system | + + | History of coronary artery stent placement | + + | Chest pain, unspecified type | + + Administered Medications + +--------+---------+------+------+------+ | Medication Order | MAR | Action | Dose | Rate | Site | | | Action | Date | | | | + +--------+---------+------+------+------+ + +---+ | acetaminophen (TYLENOL) | | | suppository 650 mg 650 mg, | | | Rectal, Every 6 Hours PRN, Mild | | | Pain (1-3), Fever, Starting Wed | | | 12/04/17 at 1516 | | + +---+ | | | + +---+ | acetaminophen (TYLENOL) tablet | | | 650 mg 650 mg, Oral, Every 6 | | | Hours PRN, Mild Pain (1-3), | | | Fever, Starting 12/04/17 at | | | 1516 | | + +---+ | | | + +---+ + +-------+ +--------+---+---+ | aspirin EC tablet 325 mg 325 | Given | | 325 mg | | | | mg, Oral, Daily With Breakfast, | | 8 22:03 | | | | | First dose on Sat12/03/17 at 2000 | | PDT | | | | + +-------+ +--------+---+---+ +---+---+ | | | +---+---+ + +-------+ +-------+---+---+ | aspirin EC tablet 81 mg 81 mg, | Given | | 81 mg | | | | Oral, Daily With Breakfast, | | 8 08:10 | | | | | First dose on Sat12/05/17 at 0800 | | PDT | | | | + +-------+ +-------+---+---+ +---+---+ | | | +---+---+ + +-------+ +-------+---+---+ | atorvastatin (LIPITOR) tablet | Given | | 80 mg | | | | 80 mg 80 mg, Oral, Nightly, | | 8 22:03 | | | | | First dose on Sat12/03/17 at 2200 | | PDT | | | | + +-------+ +-------+---+---+ +-------+ +-------+---+---+ | Given | | 80 mg | | | | | 8 19:57 | | | | | | PDT | | | | +-------+ +-------+---+---+ +---+---+ | | | +---+---+ + +---------+ +--------+-------+---+ | azithromycin (ZITHROMAX) 500 mg | New Bag | | 500 mg | 250 | | | in sodium chloride (IV) 0.9 % | | 8 22:03 | | mL/hr | | | 250 mL IVPB 500 mg, Intravenous, | | PDT | | | | | Administer over 60 Minutes, | | | | | | | Every 24 Hours, First dose on Sat | | | | | | | 12/03/17 at 1730, For 3 doses | | | | | | + +---------+ +--------+-------+---+ +---------+ +--------+-------+---+ | New Bag | | 500 mg | 250 | | | | 8 18:23 | | mL/hr | | | | PDT | | | | +---------+ +--------+-------+---+ +---+---+ | | | +---+---+ + +-------+ +-------+---+---+ | clopidogrel (PLAVIX) tablet 75 | Given | | 75 mg | | | | mg 75 mg, Oral, Daily, First | | 8 19:31 | | | | | dose on 12/03/17 at 1730 | | PDT | | | | + +-------+ +-------+---+---+ +-------+ +-------+---+---+ | Given | | 75 mg | | | | | 8 08:45 | | | | | | PDT | | | | +-------+ +-------+---+---+ | Given | | 75 mg | | | | | 8 08:10 | | | | | | PDT | | | | +-------+ +-------+---+---+ +---+---+ | | | +---+---+ + +-------+ +--------+---+---+ | diltiazem (CARDIZEM CD) 24 hr | Given | | 360 mg | | | | capsule 360 mg 360 mg, Oral, | | 8 08:46 | | | | | Daily, First dose on Sat12/03/17 | | PDT | | | | | at 1730 | | | | | | + +-------+ +--------+---+---+ +-------+ +--------+---+---+ | Given | | 360 mg | | | | | 8 08:14 | | | | | | PDT | | | | +-------+ +--------+---+---+ +---+---+ | | | +---+---+ + +-------+ +------+---+---+ | doxazosin (CARDURA) tablet 8 mg | Given | | 8 mg | | | | 8 mg, Oral, Every Evening, | | 8 22:03 | | | | | First dose on Sat12/03/17 at 2100 | | PDT | | | | + +-------+ +------+---+---+ +-------+ +------+---+---+ | Given | | 8 mg | | | | | 8 19:57 | | | | | | PDT | | | | +-------+ +------+---+---+ +---+---+ | | | +---+---+ + +-------+ +-------+---+---+ | famotidine (PEPCID) tablet 20 | Given | | 20 mg | | | | mg 20 mg, Oral, Daily, First | | 8 19:30 | | | | | dose on Sat12/03/17 at 1730 | | PDT | | | | + +-------+ +-------+---+---+ +-------+ +-------+---+---+ | Given | | 20 mg | | | | | 8 08:45 | | | | | | PDT | | | | +-------+ +-------+---+---+ | Given | | 20 mg | | | | | 8 08:10 | | | | | | PDT | | | | +-------+ +-------+---+---+ +---+---+ | | | +---+---+ + +-------+ +-------+---+---+ | furosemide (LASIX) tablet 40 mg | Given | | 40 mg | | | | 40 mg, Oral, 2 Times | | 8 05:36 | | | | | Daily-Diuretics, First dose on | | PDT | | | | | 12/03/17 at 1800 | | | | | | + +-------+ +-------+---+---+ +-------+ +-------+---+---+ | Given | | 40 mg | | | | | 8 19:57 | | | | | | PDT | | | | +-------+ +-------+---+---+ | Given | | 40 mg | | | | | 8 06:09 | | | | | | PDT | | | | +-------+ +-------+---+---+ +---+---+ | | | +---+---+ + +-------+ +--------+---+---+ | heparin (porcine) 5000 | Given | | 3,800 | | | | unit/0.5mL injection 3,800 Units | | 8 19:47 | Units | | | | 3,800 Units (rounded from 3,810 | | PDT | | | | | Units = 60 Units/kg | | | | | | | 63.5 kg), Intravenous, Once, Tue | | | | | | | 12/03/17 at 1930, For 1 dose | | | | | | + +-------+ +--------+---+---+ +---+---+ | | | +---+---+ + +---------+ + +-------+---+ | heparin 50 units/mL infusion | New Bag | | 12 | 15.2 | | | 12 Units/kg/hr | | 8 19:48 | Units/kg | mL/hr | | | 63.5 kg (15.24 mL/hr, rounded to | | PDT | /hr | | | | 15.2 mL/hr), Intravenous, at | | | | | | | 15.2 mL/hr, Continuous, Starting | | | | | | | 12/03/17 at 1930 | | | | | | + +---------+ + +-------+---+ +---------+ + +-------+---+ | New Bag | | 14 | 17.8 | | | | 8 01:57 | Units/kg | mL/hr | | | | PDT | /hr | | | +---------+ + +-------+---+ +---+---+ | | | +---+---+ + +-------+ +--------+---+---+ | hydroxychloroquine (PLAQUENIL) | Given | | 200 mg | | | | tablet 200 mg 200 mg, Oral, | | 8 19:31 | | | | | Daily, First dose on Sat12/03/17 | | PDT | | | | | at 1730 | | | | | | + +-------+ +--------+---+---+ +-------+ +--------+---+---+ | Given | | 200 mg | | | | | 8 08:46 | | | | | | PDT | | | | +-------+ +--------+---+---+ | Given | | 200 mg | | | | | 8 08:09 | | | | | | PDT | | | | +-------+ +--------+---+---+ +---+---+ | | | +---+---+ + +-------+ +--------+---+---+ | iopamidol (ISOVUE-300) 61 % | Given | | 18 mLs | | | | injection 18 mL 18 mL, | | 8 14:39 | | | | | Intravenous, Img Once PRN, Other, | | PDT | | | | | Starting 12/04/17 at 1608, | | | | | | | For 1 dose, Intra-procedure | | | | | | | (CATH/IR) | | | | | | + +-------+ +--------+---+---+ +---+---+ | | | +---+---+ + +-------+ +-------+---+---+ | ipratropium-albuterol (DUO-NEB) | Given | | 3 mLs | | | | 0.5-2.5 mg/3mL nebulizer | | 8 22:06 | | | | | solution 3 mL 3 mL, | | PDT | | | | | Nebulization, Every 6 Hours, | | | | | | | First dose on Sat12/03/17 at 1800 | | | | | | + +-------+ +-------+---+---+ +-------+ +-------+---+---+ | Given | | 3 mLs | | | | | 8 04:51 | | | | | | PDT | | | | +-------+ +-------+---+---+ | Given | | 3 mLs | | | | | 8 11:17 | | | | | | PDT | | | | +-------+ +-------+---+---+ +---+---+ | | | +---+---+ + +-------+ +-------+---+---+ | isosorbide mononitrate (IMDUR) | Given | | 30 mg | | | | 24 hr tablet 30 mg 30 mg, Oral, | | 8 15:44 | | | | | Daily, First dose on Sat12/04/17 | | PDT | | | | | at 1600 | | | | | | + +-------+ +-------+---+---+ +-------+ +-------+---+---+ | Given | | 30 mg | | | | | 8 08:10 | | | | | | PDT | | | | +-------+ +-------+---+---+ +---+---+ | | | +---+---+ + +-------+ +---------+---+---+ | levothyroxine (SYNTHROID) | Given | | 112 mcg | | | | tablet 112 mcg 112 mcg, Oral, | | 8 05:36 | | | | | Every Morning Before Breakfast, | | PDT | | | | | First dose on Sat12/04/17 at 0630 | | | | | | + +-------+ +---------+---+---+ +-------+ +---------+---+---+ | Given | | 112 mcg | | | | | 8 06:09 | | | | | | PDT | | | | +-------+ +---------+---+---+ +---+---+ | | | +---+---+ + +-------+ +--------+---+---+ | lidocaine 1 % injection Once | Given | | 10 mLs | | | | PRN, During PCI per physician, | | 8 14:13 | | | | | Starting 12/04/17 at 1413, | | PDT | | | | | Intra-procedure (CATH/IR) | | | | | | + +-------+ +--------+---+---+ +-------+ +--------+---+---+ | Given | | 10 mLs | | | | | 8 14:20 | | | | | | PDT | | | | +-------+ +--------+---+---+ | Given | | 5 mLs | | | | | 8 14:24 | | | | | | PDT | | | | +-------+ +--------+---+---+ +---+---+ | | | +---+---+ + +-------+ +--------+---+---+ | Magnesium tablet 250 mg 250 | Given | | 250 mg | | | | mg, Oral, Daily, First dose on | | 8 19:31 | | | | | 12/03/17 at 1730 | | PDT | | | | + +-------+ +--------+---+---+ +-------+ +--------+---+---+ | Given | | 250 mg | | | | | 8 08:43 | | | | | | PDT | | | | +-------+ +--------+---+---+ | Given | | 250 mg | | | | | 8 08:09 | | | | | | PDT | | | | +-------+ +--------+---+---+ +---+---+ | | | +---+---+ + +-------+ +-------+---+---+ | methylPREDNISolone sodium | Given | | 40 mg | | | | succinate (Solu-MEDROL) injection | | 8 19:33 | | | | | 40 mg 40 mg, Intravenous, Every | | PDT | | | | | 6 Hours, First dose on Tue | | | | | | | 12/03/17 at 1730, For 2 doses | | | | | | + +-------+ +-------+---+---+ +-------+ +-------+---+---+ | Given | | 40 mg | | | | | 8 22:47 | | | | | | PDT | | | | +-------+ +-------+---+---+ +---+---+ | | | +---+---+ + +-------+ +------+---+---+ | morphine injection 2 mg 2 mg, | Given | | 4 mg | | | | Intravenous, Every 2 Hours PRN, | | 8 09:36 | | | | | For pain scale 4 to 5, Starting | | PDT | | | | | 12/03/17 at 2244 | | | | | | + +-------+ +------+---+---+ + +---+ | | | + +---+ | morphine injection 2 mg 2 mg, | | | Intravenous, Every 2 Hours PRN, | | | for pain scale 4 to 5, Starting | | | 12/04/17 at 0940 | | + +---+ | | | + +---+ | morphine injection 3 mg 3 mg, | | | Intravenous, Every 2 Hours PRN, | | | for pain scale 6 to 7, Starting | | | 12/04/17 at 0940 | | + +---+ | | | + +---+ + +-------+ +------+---+---+ | morphine injection 4 mg 4 mg, | Given | | 4 mg | | | | Intravenous, Every 2 Hours PRN, | | 8 22:47 | | | | | For pain scale 8 to 10, Starting | | PDT | | | | | Edvin 12/03/17 at 2244 | | | | | | + +-------+ +------+---+---+ +-------+ +------+---+---+ | Given | | 4 mg | | | | | 8 06:29 | | | | | | PDT | | | | +-------+ +------+---+---+ + +---+ | | | + +---+ | morphine injection 4 mg 4 mg, | | | Intravenous, Every 2 Hours PRN, | | | for pain scale 8 to 10, Starting | | | 12/04/17 at 0940 | | + +---+ | | | + +---+ + +-------+ +--------+---+---+ | nitroGLYCERIN (NITROSTAT) SL | Given | | 0.4 mg | | | | tablet 0.4 mg 0.4 mg, | | 8 19:45 | | | | | Sublingual, Every 5 Min PRN, | | PDT | | | | | Chest pain, Starting 12/03/17 | | | | | | | at 1645 | | | | | | + +-------+ +--------+---+---+ +-------+ +--------+---+---+ | Given | | 0.4 mg | | | | | 8 19:51 | | | | | | PDT | | | | +-------+ +--------+---+---+ +---+---+ | | | +---+---+ + +-------+ +------+---+---+ | ondansetron (ZOFRAN) 4 MG/2ML | Given | | 4 mg | | | | injection Starting 12/03/17 | | 8 22:58 | | | | | at 2248, For 1 dose | | PDT | | | | + +-------+ +------+---+---+ + +---+ | | | + +---+ | ondansetron (ZOFRAN) injection | | | 4 mg 4 mg, Intravenous, Every 6 | | | Hours PRN, Nausea, Vomiting, | | | Starting Sat12/04/17 at 1516 | | + +---+ | | | + +---+ | ondansetron (ZOFRAN-ODT) | | | disintegrating tablet 4 mg 4 mg, | | | Oral, Every 6 Hours PRN, Nausea, | | | Vomiting, Starting Sat12/04/17 | | | at 1516 | | + +---+ | | | + +---+ + +-------+ +-------+---+---+ | PARoxetine (PAXIL) tablet 10 mg | Given | | 10 mg | | | | 10 mg, Oral, Every Morning, | | 8 08:43 | | | | | First dose on Sat12/04/17 at 0900 | | PDT | | | | + +-------+ +-------+---+---+ +-------+ +-------+---+---+ | Given | | 10 mg | | | | | 8 08:10 | | | | | | PDT | | | | +-------+ +-------+---+---+ +---+---+ | | | +---+---+ + +-------+ +-------+---+---+ | predniSONE (DELTASONE) tablet | Given | | 60 mg | | | | 60 mg 60 mg, Oral, Daily With | | 8 08:46 | | | | | Breakfast, First dose on Tue | | PDT | | | | | 12/03/17 at 1730 | | | | | | + +-------+ +-------+---+---+ +-------+ +-------+---+---+ | Given | | 60 mg | | | | | 8 08:09 | | | | | | PDT | | | | +-------+ +-------+---+---+ +---+---+ | | | +---+---+ + +-------+ +------+---+---+ | sodium bicarbonate buffer | Given | | 1 mL | | | | (NEUT) injection Once PRN, | | 8 14:14 | | | | | during PCI per physician, | | PDT | | | | | Starting 12/04/17 at 1414 | | | | | | + +-------+ +------+---+---+ +-------+ +-------+---+---+ | Given | | 5 mLs | | | | | 8 14:20 | | | | | | PDT | | | | +-------+ +-------+---+---+ | Given | | 1 mL | | | | | 8 14:24 | | | | | | PDT | | | | +-------+ +-------+---+---+ +---+---+ | | | +---+---+ + +---------+ +---+ +---+ | sodium chloride 0.9 % infusion | New Bag | | | 75 mL/hr | | | at 75 mL/hr, Intravenous, | | 8 18:01 | | | | | Continuous, Starting 12/03/17 | | PDT | | | | | at 1730, For 12 hours | | | | | | + +---------+ +---+ +---+ +---+---+ | | | +---+---+ + +---------+ +---+-------+---+ | sodium chloride 0.9 % infusion | New Bag | | | 110 | | | at 110 mL/hr, Intravenous, | | 8 15:38 | | mL/hr | | | Continuous, Starting 12/04/17 | | PDT | | | | | at 1600, For 6 hours | | | | | | + +---------+ +---+-------+---+ +---+---+ | | | +---+---+ + +-------+ +-------+---+---+ | traZODone (DESYREL) tablet 50 | Given | | 50 mg | | | | mg 50 mg, Oral, Nightly, First | | 8 21:26 | | | | | dose on Sat12/03/17 at 2230 | | PDT | | | | + +-------+ +-------+---+---+ +---+---+ | | | +---+---+ in this encounter
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
--- OUTSIDE RECORDS SUMMARY | ~2018-02-23 | XMS | Encounter Summary ---
Demographics + + + | Address | [address] | | | [place] [address] | + + + | Home Phone [...] + + + | Author | [employer]jelio [employer] | + + + | Organization | [facility] [employer] | + + + | Address | Unknown | + + + | Phone | Unavailable | + + + Support + + +---------+ + | Name | Relationship | Address | Phone | + + +---------+ + | Lavell Chiu | ECON | Unknown | | + + +---------+ + Care Team Providers + +------+ + | Care Supervisory Civil Engineer Name | Role | Phone | + +------+ + | Eliza Andrade MD | PCP | Unavailable | + +------+ + Reason for Visit + + + | Reason | Comments | + + + | Follow-up | 3 month | + + + Consult and [...] | | | Dr. Cochran pt | [address] | | | | | Procedures | JESSICA [address]INO[address]A | [address]riam Khanna | | | | | CRD FOLLOW | TRUE | [address] | | | | | UP | [place] [address] | [place], [place] | | | | | | Phone: | [phone] Phone: | | | | | | [phone] | [phone] | | | | | | Fax: | Fax: | | | | | | [phone] | [phone] | + +--------+ + + + + Encounter Details +--------+---------+ + + + | Date | Type | Department | Care Team | Description | +--------+---------+ + + + | 12/09/ | Office | [facility] | Alesia Freire | Hospital discharge | | 2018 | Visit | Cardiology True | JHOAN Gong [address] | follow-up (Primary | | | | [address] | Myriam Grewal | Dx); NSTEMI (non-ST | | | | [address] | [place] [address] | elevated myocardial | | | | [place] [address] | [phone] | infarction) (HCC); | | | | [phone] | | Coronary artery | | | | | | disease involving | | | | | | zuni coronary | | | | | | artery of zuni | | | | | | heart without angina | | | | | | pectoris; S/P PTCA | | | | | | (percutaneous | | | | | | transluminal | | | | | | coronary | | | | | | angioplasty); | | | | | | Paroxysmal A-fib | | | | | | ([facility]); PVD | | | | | | (peripheral vascular | | | | | | disease) ([facility]); | | | | | | Pulmonary emphysema, | | | | | | unspecified | | | | | | emphysema type | | | | | | ([facility]); 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 | | | | | | hypertension ([facility]) | +--------+---------+ + + + Social History [...] + + + | Blood Pressure | 144/46 | 12/09/2017 1:12 PM PDT | + + + + | Pulse | 78 | 12/09/2017 1:12 PM PDT | + + + + | Temperature | - | - | + + + + | Respiratory Rate | 20 | 12/09/2017 1:12 PM PDT | + + + + | Oxygen Saturation | 95% | 12/09/2017 1:12 PM PDT | + + + + | Inhaled Oxygen | - | - | | Concentration | | | + + + + | Weight | 65.5 kg (144 lb 6.4 | 12/09/2017 1:12 PM PDT | | | oz) | | + + + + | Height | 157.5 cm (5' 2") | 12/09/2017 1:12 PM PDT | + + + + | Body Mass Index | 26.41 | 12/09/2017 1:12 PM PDT | + + + + in this encounter Instructions Patient Instructions - Alesia Freire ARNP - 12/09/2017 1:00 PM PDTI will have Rafa i call you to verify medications , but please bring to all clinic appointments STOP Nifedipine 60 mg If you do have it at home Do Take Amlodipine 5 mg at night- I may stop in future But stay on it for now once at n ight Do take Aspirin 81 mg and Plavix 75 mg Daily and take with food, Take atorvastatin 40 mg at night Do take Diltiazem 360 mg daily in the morning Do take cardura 8 mg also called doxazosin , in the evening Do take furosemide 40 mg daily in the morning Do take isosorbide mononitrate , also known as Imdur 60 mg daily in the morning . I will talk about sending you to cardiac rehab when I see you back in 4-6 weeks Low-Salt Diet This diet removes foods that are high in salt. It also limits the amount of salt you use wh en cooking. It is most often used for people with high blood pressure, edema (fluid retentio n), and kidney, liver, or heart disease. Table salt contains the mineral sodium. Your body needs sodium to work normally. But too mu ch sodium can make your health problems worse. Your healthcare provider is recommending a lo w-salt (also called low-sodium) diet for you. Your total daily allowance of salt is1,500 t o 2,300milligrams (mg). It is less than 1 teaspoon of table salt. This means you can have only [id number] to 700mg of sodium at each meal.People with certain health problems shou ld limit salt intake to the lower end of the recommended range. When you cook, don t add much salt. If you can cook without using salt, even better. Don t add salt to your food at the table. When shopping, read food labels. Salt is often called sodium on the label. Choose foods kena t are salt-free, low salt, or very low salt. Note that foods with reduced salt may notlowe r your salt intake enough. Beans, potatoes, and pasta Ok: Dry beans, split peas, lentils, potatoes, rice, macaroni, pasta, spaghetti without adde d salt Avoid: Potato chips, tortilla chips, and similar products Breads and cereals Ok: Low-sodium breads, rolls, cereals, and cakes; low-salt crackers, matzo crackers Avoid: Salted crackers, pretzels, popcorn, Montserratian toast, pancakes, muffins Dairy Ok: Milk, chocolate milk, hot chocolate mix, low-salt cheeses, and yogurt Avoid: Processed cheese and cheese spreads; Roquefort, Camembert, and cottage cheese; butte rmilk, instant breakfast drink Desserts Ok: Ice cream, frozen yogurt, juice bars, gelatin, cookies and pies, sugar, honey, jelly, h tor candy Avoid: Most pies, cakes and cookies prepared or processed with salt; instant pudding Drinks Ok: Tea, coffee, fizzy (carbonated) drinks, juices Avoid: Flavored coffees, electrolyte replacement drinks, sports drinks Meats Ok: All fresh meat, fish, poultry, low-salt tuna, eggs, egg substitute Avoid: Smoked, pickled, brine-cured, or salted meats and fish. Thisincludes rosenthal, chippe d beef, corned beef, hot dogs, deli meats, ham, kosher meats, salt pork, sausage, canned renee a, salted codfish, smokedsalmon, mcfarlane, sardines, or anchovies. Seasonings and spices Ok: Most seasonings are okay. Good substitutes for salt include: fresh herb blends, hot hodan ce, lemon, garlic, mukherjee, vinegar, dry mustard, parsley, cilantro, horseradish, tomato paste , regular margarine, mayonnaise, unsalted butter, cream cheese, vegetable oil, cream, low-sa lt salad dressing and gravy. Avoid: Regular ketchup, relishes, pickles, soy sauce, teriyaki sauce, Worcestershire sauce, BBQ sauce, tartar sauce, meat tenderizer, chili sauce, regular gravy, regular salad dressin g, salted butter Soups Ok: Low-salt soups and broths made with allowed foods Avoid: Bouillon cubes, soups with smoked or salted meats, regular soup and broth Vegetables Ok: Most vegetables are okay; also low-salt tomato and vegetable juices Avoid: Sauerkraut and other brine-soaked vegetables; pickles and other pickled vegetables; tomato juice, olives Date Last Reviewed: 02/06/[id number] [employer]. [address] [place] [address], [place] [address]. All righ ts reserved. This information is not intended as a substitute for professional medical care. Always follow your healthcare professional's instructions. in this encounter Progress Notes Alesia Freire, JHOAN - 12/09/2017 1:00 PM PDTFormatting of this note may be differen t from the original. Date of visit: 12/09/2017 Primary Care Physician: Eliza Andrade CHIEF COMPLAINT: Chief Complaint Patient presents with Follow-up 3 month HISTORY OF PRESENT ILLNESS: Ms Davina Chiu is a 72 year old woman who is here today to follow-up her being d is[facility] from [facility]( [facility]) on December 05 after non-STEMI with unchange d angiogram performed December 04, 2017. She has a history of coronary artery disease with most recent PCI /stenting in August 06, 2017 to left circumflex, known chronically occluded RCA, NSTEMI 07/2017, as well as 018, history of paroxysmal atrial fibrillation ,mild pulmonary hypertension, moderate aorti c stenosis hypertension, hyperlipidemia, moderate right carotid stenosis and mild left carot id stenosis, COPD on continuous 3 L of oxygen ,hypothyroidism, peripheral vascular disease, rheumatoid arthritis. She is a patient of Dr. Cochran and seen by him in the hospital most recently on December 05 and p reviously seen by him in our [place] office in August 2017. I reviewed his documentation, as well all previous documentation available to me in [facility] medical record and external sources. Her previous testing and procedures are detailed below. 10 days prior to her most recent admission she had reported mild retrosternal pressure pres ent on a daily basis with some radiation to the left subclavian area, as well as 2 episodes of nausea and vomiting and diaphoresis but did not seek medical care until December 02 when taken to the emergency room at [facility] by her son around 4 AM. Her troponin was documented as being initially negative at [facility], but subsequently elevated to 0.62 and she was ruled in for an acute non-STEMI. Her EKG had shown anterolateral ST depressions consistent with ischemia and was treated with phenylephrine and Solu-Medrol which helped her feelings of chest pain. She was transferred [facility], and cardiac catheter performed 12/04/2017 showed no new lesions c ompared to images from her angiogram with PCI in July 2017, with patent stents in her lef t circumflex. Dr. Cochran had documented she was not a candidate for beta blockers due to her severe COPD, and should remain on aspirin and Plavix and not currently indicated for further interventio n or cardiac coronary bypass surgery. Labs performed when she was in the hospital showed lipids are well controlled with an LDL of 53, her A1c was normal at 5.3, her thyroid function showed a low TSH with an elevated BNP of 1680, and her CBC showed ongoing anemia with normal platelet count, and her CMP was norm al with normal liver enzymes except for low GFR of 30 with a creatinine of 1.7. Her EKG performed in the office today shows normal sinus rhythm at [address]pm [address] abnormalities to anterolateral leads with previous T-wave inversions resolved. She did not bring her medication bottles today , but did bring a list of discharge medicat ions, but some question about what she is and is not taking. She reports she is very tired and weak since discharged and bruising easily. She has ongo ing VRAGAS, which is not abnormal for her. She denies any chest pain, palpitations, dizziness, or syncope. She also denies any signs or symptoms of stroke or TIA, She is hoping to be able to attend Cardiac Rehab in the future, to help her get better co nditioned , as seldom exercises due to dyspnea. She lives alone, quit smoking 06/2017 with 56 pack year history, denies any use of alcohol , or recreational or illicit drugs, and only caffeine she drinks is occasional pepsi. T REVIEW OF SYSTEMS: Negative except for pertinent [...] history of anemia and previous blood transfusions, Bruises easily w ith Plavix Denies bleeding. Denies history of cancer [...] exe rcises Due to dyspnea, Lives in [place]. Lives Alone Outpatient Medications Prior to Visit Medication Sig Dispense Refill albuterol (VENTOLIN HFA) 108 (90 Base) MCG/ACT inhaler Inhale 2 puffs into the lungs ev any 4 (four) hours as needed for Wheezing, Shortness of Breath or Cough. 1 Inhaler 0 aspirin 81 MG EC tablet Take 1 [...] daily for 30 days. 30 tablet 0 diltiazem (CARDIZEM CD) 360 MG 24 hr capsule Take 1 capsule by mouth daily. 30 capsule 0 doxazosin (CARDURA) 8 MG tablet Take 1 tablet by mouth every evening. 30 tablet 0 folic acid (FOLVITE) 1 MG tablet Take by mouth. hydroxychloroquine (PLAQUENIL) 200 MG tablet Take 200 mg by mouth daily. isosorbide mononitrate (IMDUR) 60 MG 24 hr tablet Take 1 tablet by mouth daily. 30 tabl et 0 levothyroxine (SYNTHROID) 112 MCG tablet Take 112 mcg by mouth daily. LORazepam (ATIVAN) 1 MG tablet Take 1 mg by mouth nightly. Magnesium 250 MG TABS tablet Take 250 mg by mouth daily. PARoxetine (PAXIL) 10 MG tablet Take 20 mg by mouth every morning. ranitidine (ZANTAC) 75 MG tablet Take 150 mg by mouth daily. tiotropium (SPIRIVA) 18 MCG inhalation capsule Inhale 1 capsule into the lungs daily. 3 0 capsule 0 traZODone (DESYREL) 100 MG tablet Take 50 mg by mouth nightly. amLODIPine (NORVASC) 2.5 MG tablet Take 5 mg by mouth 2 (two) times daily. fluticasone (FLONASE) 50 MCG/ACT nasal 1 spray by Each Nare route daily. furosemide (LASIX) 40 MG tablet Take 1 tablet by mouth Two times daily. Hold for SBP le ss than 100 60 tablet 0 hydrOXYzine (ATARAX) 25 MG tablet Take 25 mg by mouth 3 (three) times daily as needed f or Itching. NIFEdipine (ADALAT CC) 60 MG 24 hr tablet Take 60 mg by mouth daily. No facility-administered medications prior to visit. PHYSICAL EXAM: Wt Readings from Last 3 Encounters: 12/09/17 65.5 kg (144 lb 6.4 oz) 12/04/17 65.8 kg (145 lb 1 oz) 08/29/17 64.6 kg (142 lb 6.4 oz) Temp Readings from Last 3 Encounters: 12/05/17 98.4 F (36.9 C) (Oral) 08/26/17 97 F (36.1 C) (Oral) 08/07/17 98.2 F (36.8 C) (Oral) BP Readings from Last 3 Encounters: 12/09/17 144/46 12/05/17 116/49 09/03/17 129/53 Pulse Readings from Last 3 Encounters: 12/09/17 78 12/05/17 64 09/03/17 69 GENERAL: Pale , tired woman, in no [...] No results found for: METF, NMETFX, TFNMFX, [id number], [id number], TOTEPI PROCEDURES/IMAGING Last Cardiac Cath:12/04/2017: ( NSTEMI) Three-vessel coronary artery disease with chronicall y occluded RCA, with edka-mo-csoqr collaterals. Patent stents in LCX ,severe disease of a s mall diagonal branch. DATA: Left Main: trifurcates , gives rise to LAD, ramus intermedius, and l eft circumflex arteries. left main coronary artery is free of disease. LAD. without sign ificant disease. 1st Dx: very tiny vessel. 2nd Dx branch : quyci-vs-giyjbv size vessel at 1 .5 to 2 [...] HTN, RVSP 56-61 mm Hg EKG/EVENT MONITOR EK08/29/2017:([facility]) , Left ventricular hypertrophy, mild nonspecific ST and T -wave abnormalities. Rate 76 bpm, RI 140 ms, QRS 98 ms, QTC 452 ms, tracing personally revi ewed by la EK12/03/2017:( [facility]) Sinus tachycardia with premature SVC, left ventricular hypertrophy, ST depression to anterolateral leads, T wave inversion to lateral leads. Prolonged QTC. R ate 103 bpm, RI 172 ms, QRS 102 ms, QTC 508 ms tracing personally reviewed by la EK12/03/2017 ( [facility]) Sinus tachycardia, ST abnormalities to anterolateral leads, resolutio n of premature SVC,, resolution of prolonged QTC resolution of T-wave inversions to lateral leads. Rate 102 bpm, RI 148 ms, QRS 92 ms, QTC 461 ms tracing personally reviewed by me EK12/09/2017:( [facility] ) Normal sinus rhythm, nonspecific T-wave abnormality to anterolateral leads, low voltage QRS. Rate 70 bpm, RI 146 ms, QRS 94 ms, QTC 474 ms, maryjane donnelly reviewed by me and compared to EKG performed on December 03, now in sinus rhythm instead of sin us tachycardia, and ST abnormalities less pronounced to anterolateral leads LABS Lungs: 12/03/2017: BMP: Sodium 142, potassium 3.5, chloride 105, glucose 112, BUN 15, creat inine 1.13, GFR 47. BNP 594. CBC: WBC 4.5, RBC 3.62, hemoglobin 10.1, hematocrit 31, plate lets 191 labs: 12/04/2017: Lipids: Cholesterol 140, triglycerides [...] 20, ALT 24, GFR 30. Magnesium 2.3 ASSESSMENT & PLAN: She was her today for hospital follow up after suffering yet another NSTEMI, despite pat ent stent to Left circumflex. I reviewed the results of her angiogram and carotid US with her , which showed moderate r ight carotid stenosis and mild left carotid stenosis. Her EKG showed improvement as dicussed in HPI as remain in sinus rhythm, but rate now well controlled and resolving ST abnormalities to Anterolateral leads, and RI and QTC interval normalized. She did not bring her medication bottles to the clinic today , but I reviewed her discharg e list with her and is on 3 calcium channel sheri, but she is not sure if taking Adalat, and not sure if taking furosemide, but is taking ASA and Plavix daily. I have her a list of Cardiac medications I would like her to be on today, and have also a sked she bring her medication bottles to all future clinic visits. I have asked her to stop Adalat, continue Amlodipine 5 mg at night for increased blood pre ssure, but may stop in future, continue Diltiazem 360 mg daily, ASA 81 mg daily, Plavix 75 mg daily, Atorvastatin 40 mg daily, Cardura 8 mg in the evening, Imdur 60 mg daily, and fur osemide 40 mg Q am as previously fluid overloaded. . Dr. Cochran did not think she was a cora date for Beta blockers, given her severe lung disease. She is asymptomatic today , but continues to feel weak and tires, not surprising with 2 ho spitalization for NSTEMI in 3 months, with decline in renal function , and severe COPD, an d I emphasized with her the importance of controlling modifiable risk factors, and instruct ed to take all medications exactly as prescribed, and to call for any potential medication s neptali effects, concerns or to report any change in condition. I have given her handouts to guide her on heart healthy low sodium diet, and will likely r efer her to cardiac rehab when I see her back if stable, to help get her back on track in sa fe , gradual manner. She will be following up with PCP December 11 and getting labs done prior to seeing him, josephine varela may wait to see him before getting labs done, and I will anticipate those results. I also had her book appointment with Dr. Madera today to follow up on decline in renal func tion with stage III CKD, and she will see him 02/10/2018, and Dr. Cochran 02/18/2018, and I will see her back 01/23/2018 1. Hospital discharge follow-up 2. NSTEMI (non-ST elevated myocardial infarction) (HCC) 3. Coronary artery disease involving zuni coronary artery of zuni heart without angina pectoris 4. S/P PTCA (percutaneous transluminal coronary angioplasty) 5. Paroxysmal A-fib (HCC) 6. PVD (peripheral vascular disease) (HCC) 7. Pulmonary emphysema, unspecified emphysema type (HCC) 8. Secondary pulmonary arterial hypertension (HCC) 9. Bilateral carotid bruits 10. Moderate aortic stenosis 11. Chronic obstructive pulmonary disease, unspecified COPD type (HCC) Orders Placed This Encounter Procedures Electrocardiogram, 12-lead The following portions of the patient's history [...] social history, past surgical history. Problem list. Alesia FreireJHOAN [facility] Cardiology 12/09/2017in this encounter Plan of Treatment +--------+---------+ + + + | Date | Type | Specialty | Care Team | Description | +--------+---------+ + + + | 03/24/ | Office | Nephrology | Leland Madera MD | | | 2017 | Visit | | [address] | | | | | | [address] [place] | | | | | | [address] | | | | | | | | +--------+---------+ + + + | 06/17/ | Office | Cardiology | Cristhian Cochran, | | | 2017 | Visit | | [address] | | | | | | [place], | | | | | | [place] [address] | | | | | | [phone] | | | | | | | [...] | | | | | | infarction) ([facility]) | | | | | | Coronary artery | | | | | | disease involving | | | | | | zuni coronary | | | | | | artery of zuni | | | | | | heart without angina | | | | | | pectoris S/P PTCA | | | | | | (percutaneous | | | | | | transluminal | | | | | | coronary | | | | | | angioplasty) | | | | | | Paroxysmal A-fib | | | | | | ([facility]) PVD | | | | | | (peripheral vascular | | | | | | disease) ([facility]) | | | | | | Pulmonary emphysema, | | | | | | unspecified | | | | | | emphysema type (HCC) | | | | | | 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 | | | | | | hypertension (HCC) | | | | | | Bilateral carotid | | | | | | bruits Moderate | | | | | | aortic stenosis | | | | | | Chronic obstructive | | | | | | pulmonary disease, | | | | | | unspecified COPD | | | | | | type (HCC) | | + +--------+ + + + in this encounter Results EKG STANDARD 12 LEAD (12/09/2017 1:20 PM) + + + + + | Component | Value | Ref Range | Performed At | + + + + + | Ventricular Rate | 78 | BPM | [facility] EKG | + + + [...] + + + + | Calculated P Mehama | 78 | degrees | [facility] | + + + + + | Calculated R Mehama | 74 | degrees | [facility] | + + + + + | Calculated T Mehama | 57 | degrees | [facility] | + + + + + | Diagnosis | Please refer to | | [facility] | | | Providers office visit | | | | | note for Providers | | | | | Interpretation.Confirmed | | | | | by [facility] [place] Read Only, | | | | | [facility] Myriam ([id number]), | | | | | news copy editor Tanmay Esquivel | | | | | ([id number]) on 12/09/2017 | | | | | 2:49:53 PM | | | + + + + + + + + + + | Performing | Address | City/State/Zipcode | Phone Number | | Organization | | | | + + + + + | [facility] | [address] | [place] [address] | | + + + + + in this encounter Visit Diagnoses + + | Diagnosis | + + | Hospital discharge follow-up - Primary | + + | Other follow-up examination | + + | NSTEMI (non-ST elevated myocardial infarction) (HCC) | + + | Acute myocardial infarction, subendocardial infarction, episode of care unspecified | + + | Coronary artery disease involving zuni coronary artery of zuni heart without angina | | pectoris | + + | S/P PTCA (percutaneous transluminal coronary angioplasty) | + + | Postsurgical percutaneous transluminal coronary angioplasty status | + + | Paroxysmal A-fib (HCC) | + + | Atrial fibrillation | + + | PVD (peripheral vascular disease) (HCC) | + + | Peripheral vascular disease, unspecified | + + | Pulmonary emphysema, unspecified emphysema type (HCC) | + + | Secondary pulmonary arterial hypertension (HCC) | + + | Bilateral carotid bruits | + + | Moderate aortic stenosis | + + | Aortic valve disorders | + + | Chronic obstructive pulmonary disease, unspecified COPD type (HCC) | + +
--- OUTSIDE RECORDS SUMMARY | ~2018-02-23 | XMS | Encounter Summary ---
Demographics + + + | Address | [address] | | | [place] [address] | + + + | Home Phone | | + + + | Preferred Language | Unknown | + + + | Marital Status | Single | + + + | Orthodoxy Affiliation | 1009 | + + + | Race | Unknown | + + + | Ethnic Group | Unknown | + + + Author + + + | Author | [employer] | + + + | Organization | [facility] [employer] | + + + | Address | Unknown | + + + | Phone | Unavailable | + + + Support + + +---------+ + | Name | Relationship | Address | Phone | + + +---------+ + | Lavell Chiu | ECON | Unknown | | + + +---------+ + Care Team Providers + +------+ + | Care Studio Grip Name | Role | Phone | + [...] | | | | | Camilo Fournier [facility] | | | | | | [address] [place] | | | | | | [address] | | | +--------+ + + + [...] | | | | | | [place] [address] | | | | | | [phone] | | | | | | | [...]
--- OUTSIDE RECORDS SUMMARY | ~2018-02-23 | XMS | Encounter Summary ---
Demographics + + + | Address | [address] | | | [place] [address] | + + + | Home Phone [...] + + + | Author | [employer] | + + + | Organization | [facility] | + + + | Address | Unknown | + + + | Phone | Unavailable | + + + Support + + +---------+ + | Name | Relationship | Address | Phone | + + +---------+ + | Lavell Chiu | ECON | Unknown | | + + +---------+ + Care Team Providers + +------+ + | Care Video Game Maker Name | Role | Phone | + [...] | records) | | | | [address] [facility] [address] | | | | | | [facility] [address]- | | | | | | [place] [address] | | | | | | [phone] | | | +--------+ + + + [...] | | | | | | [address] [place], [place] | | | | | | [address] | | | | | | | | +--------+---------+ + + + | 06/17/ | Office | Cardiology | Cristhian Cochran, | | | 2018 | Visit | | [address] | | | | | | [place], | | | | | | [place] [address] | | | | | | [phone] | | | | | | | | +--------+---------+ + + + as of this encounter Visit Diagnoses Not on filein this encounter"
--- OUTSIDE RECORDS SUMMARY | ~2018-02-23 | XMS | Clinical Summary ---
Demographics + + + | Address | [address] [facility] [address] | | | [place] [address] | + + + | Home Phone | | + + + | Preferred Language | Unknown | + + + | Marital Status | Unknown | + + + | Restorationism Affiliation | Unknown | + + + | Race | Unknown | + + + | Ethnic Group | Unknown | + + + Author + + + | Author | [facility] | | | and [place] | + + + | Organization | [facility] | | | and [place] | + + + | Address | Unknown | + + + | Phone | Unavailable | + + + Care Team Providers + +------+ + | Care Bucket Chucker Name | Role | Phone | + [...]
--- OUTSIDE RECORDS SUMMARY | ~2018-02-23 | XMS | Encounter Summary ---
Demographics + + + | Address | [address] | | | [place] [address] | + + + | Home Phone | | + + + | Preferred Language | Unknown | + + + | Marital Status | Single | + + + | Latter-Day Affiliation | 1009 | + + + | Race | Unknown | + + + | Ethnic Group | Unknown | + + + Author + + + | Author | Rojelio Paymo | + + + | Organization | [facility] [employer] [facility] | + + + | Address | Unknown | + + + | Phone | Unavailable | + + + Support + + +---------+ + | Name | Relationship | Address | Phone | + + +---------+ + | Lavell Chiu | ECON | Unknown | | + + +---------+ + Care Team Providers + +------+ + | Care Document Management Specialist Name | Role | Phone | [...] [address] | | | | | [address] [facility] [address] | [address] | | | | | [facility] E- | [place] [address] | | | | | [place] [address] | [phone] | | | | | [phone] | | | +--------+ + + + [...] | | | | | | [place] [address] | | | | | | [phone] | | | | | | | | +--------+---------+ + + + as of this encounter Visit Diagnoses Not on filein this encounter"
--- OUTSIDE RECORDS SUMMARY | ~2018-02-23 | XMS | Encounter Summary ---
Demographics + + + | Address | [address] | | | [place] [address] | + + + | Home Phone | | + + + | Preferred Language | Unknown | + + + | Marital Status | Single | + + + | Alevism Affiliation | 1009 | + + + | Race | Unknown | + + + | Ethnic Group | Unknown | + + + Author + + + | Author | Rojelio Givkwik | + + + | Organization | [facility] [employer] [facility] | + + + | Address | Unknown | + + + | Phone | Unavailable | + + + Support + + +---------+ + | Name | Relationship | Address | Phone | + + +---------+ + | Lavell Chiu | ECON | Unknown | | + + +---------+ + Care Team Providers + +------+ + | Care Turbine Engineer Name | Role | Phone | [...] | | | | | [place] [address] | | | | | | [phone] | | | +--------+ + + + [...] | | | | | | [address] [place] [place] | | | | | | [address] | | | | | | | | +--------+---------+ + + + | 06/17/ | Office | Cardiology | Cristhian Cochran, | | | 2018 | Visit | | MD [address] | | | | | | [place], | | | | | | [place] [address] | | | | | | [phone] | | | | | | | | +--------+---------+ + + + as of this encounter Visit Diagnoses Not on filein this encounter"
--- OUTSIDE RECORDS SUMMARY | ~2018-02-23 | XMS | Encounter Summary ---
Demographics + + + | Address | [address] | | | [place] [address] | + + + | Home Phone [...] + + + | Author | Rojelio TellFi | + + + | Organization | [facility] | + + + | Address | Unknown | + + + | Phone | Unavailable | + + + Support + + +---------+ + | Name | Relationship | Address | Phone | + + +---------+ + | Lavell Chiu | ECON | Unknown | | + + +---------+ + Care Team Providers + +------+ + | Care Loader Demolder Name | Role | Phone | + [...] | | 2018 | on Only | [place] [address] | | Labs dated | | | | [address] | | 02/07/2018; ) | | | | [place] [address] | | | | | | [phone] | | | +--------+ + + + [...] 2017 | Visit | | [address] | | | | | | [facility] | | | | | | [address] | | | | | | | | +--------+---------+ + + + | 06/17/ | Office | Cardiology | Cristhian Cochran, | | | 2017 | Visit | | MD [address] | | | | | | [place], | | | | | | [place] [address] | | | | | | [phone] | | | | | | | [...] | [address] | [place] [address] | | | LABORATORY | 13 | [...] | [address] | [place] [address] | | | LABORATORY | 13 | [...] | [address] | [place] [address] | | | LABORATORY | 13 | [...] | [address] | [place] [address] | | | LABORATORY | 13 | | | + + + + + in this encounter Visit Diagnoses Not on filein this encounter"
--- OUTSIDE RECORDS SUMMARY | ~2018-02-23 | XMS | Clinical Summary ---
Demographics + + + | Address | [address] | | | [place] [address] | + + + | Home Phone | | + + + | Preferred Language | Unknown | + + + | Marital Status | Single | + + + | Baptist Affiliation | BAP | + + + [...] Team Providers + +------+ + | Care Network/Telecom Engineer Name | Role | Phone | + +------+ + | Marni Danielle Moffettine | PP | | | EMBEDDED SYSTEMS DESIGNER | | | + +------+ + Source Comments [facility]IS is fully live on both [facility] and [facility] InPatient.[facility] Allergies + + + + [...]
--- OUTSIDE RECORDS SUMMARY | ~2018-02-23 | XMS | Encounter Summary ---
Demographics + + + | Address | [address] | | | [place] [address] | + + + | Home Phone [...] + + + | Author | Rojelio ReferStar | + + + | Organization | [facility] | + + + | Address | Unknown | + + + | Phone | Unavailable | + + + Support + + +---------+ + | Name | Relationship | Address | Phone | + + +---------+ + | Lavell Chiu | ECON | Unknown | | + + +---------+ + Care Team Providers + +------+ + | Care Cashier Manager Name | Role | Phone | + +------+ + | Eliza Andrade MD | PCP | Unavailable | + +------+ + Reason for Visit +--------+ + | Reason | Comments | +--------+ + | Other | [facility] P[facility] Note 10/29/17 | +--------+ + Encounter Details +--------+ + + + + | Date | Type | Department | Care Team | Description | +--------+ + + + + | 12/03/ | Documentati | SANDRA Oneill | [place] Mcfadden, | Other ([facility] | | 2018 | on Only | Ambika Proctor | [place] | ADRIANE Note 10/29/17) | | | | [address] [facility] [address] | | | | | | [facility] [address] | | | | | | [place] [address] | | | | | | [phone] | | | +--------+ + + + [...] | | | | | | [address] [place] | | | | | | [address] | | | | | | | | +--------+---------+ + + + | 06/17/ | Office | Cardiology | Cristhian Cochran, | | | 2018 | Visit | | MD [address] | | | | | | [place], | | | | | | [place] [address] | | | | | | [phone] | | | | | | | | +--------+---------+ + + + as of this encounter Visit Diagnoses Not on filein this encounter"
--- OUTSIDE RECORDS SUMMARY | ~2018-02-23 | XMS | Encounter Summary ---
Demographics + + + | Address | [address] | | | [place] [address] | + + + | Home Phone [...] + + + | Author | Rojelio ClearTax | + + + | Organization | [facility] [employer] [facility] | + + + | Address | Unknown | + + + | Phone | Unavailable | + + + Support + + +---------+ + | Name | Relationship | Address | Phone | + + +---------+ + | Lavell Chiu | ECON | Unknown | | + + +---------+ + Care Team Providers + +------+ + | Care Biophysics Professor Name | Role | Phone | [...] | records) | | | | [address] [facility] | | | | | | [facility] [address]- | | | | | | [place] [address] | | | | | | [phone] | | | +--------+ + + + [...] | | | | | | [address] [place], [place] | | | | | | [address] | | | | | | | | +--------+---------+ + + + | 06/17/ | Office | Cardiology | Cristhian Cochran, | | | 2018 | Visit | | MD [address] | | | | | | [place], | | | | | | [place] [address] | | | | | | [phone] | | | | | | | | +--------+---------+ + + + as of this encounter Visit Diagnoses Not on filein this encounter"
--- OUTSIDE RECORDS SUMMARY | ~2018-02-23 | XMS | Clinical Summary ---
Demographics + + + | Address | [address] | | | [place] [address] | + + + | Home Phone | | + + + | Preferred Language | Unknown | + + + | Marital Status | Single | + + + | Advent Affiliation | BAP | + + + [...] Team Providers + +------+ + | Care Bit Tapper Name | Role | Phone | + +------+ + | Marni Danielle Moffettine | PP | | | REVENUE CYCLE SPECIALIST | | | + +------+ + Source Comments [facility]AVIS is fully live on both [facility] and [facility] Allergies + + + + [...]
--- OUTSIDE RECORDS SUMMARY | ~2018-02-23 | XMS | Encounter Summary ---
Demographics + + + | Address | [address] | | | [place] [address] | + + + | Home Phone | | + + + | Preferred Language | Unknown | + + + | Marital Status | Single | + + + | Anabaptist Affiliation | 1009 | + + + | Race | Unknown | + + + | Ethnic Group | Unknown | + + + Author + + + | Author | Rojelio Unype | + + + | Organization | [facility] [employer] [facility] | + + + | Address | Unknown | + + + | Phone | Unavailable | + + + Support + + +---------+ + | Name | Relationship | Address | Phone | + + +---------+ + | Lavell Chiu | ECON | Unknown | | + + +---------+ + Care Team Providers + +------+ + | Care Marketing Director Name | Role | Phone | + [...] | | | | | [place] [address] | | | | | | [phone] | | | +--------+ + + + [...] | | | | | | [address] [place] | | | | | | [address] | | | | | | | | +--------+---------+ + + + | 06/17/ | Office | Cardiology | Cristhian Cochran, | | | 2018 | Visit | | MD [address] | | | | | | [place], | | | | | | [place] [address] | | | | | | [phone] | | | | | | | | +--------+---------+ + + + as of this encounter Visit Diagnoses Not on filein this encounter"
--- OUTSIDE RECORDS SUMMARY | ~2018-02-23 | XMS | Encounter Summary ---
Demographics + + + | Address | [address] | | | [place] [address] | + + + | Home Phone [...] + + + | Author | Rojelio [employer] Sports | + + + | Organization | [facility] | + + + | Address | Unknown | + + + | Phone | Unavailable | + + + Support + + +---------+ + | Name | Relationship | Address | Phone | + + +---------+ + | Lavell Chiu | ECON | Unknown | | + + +---------+ + Care Team Providers + +------+ + | Care Route Delivery Driver Name | Role | Phone | + +------+ + | Eliza Andrade MD | PCP | Unavailable | + +------+ + Encounter Details +--------+ + + + + | Date | Type | Department | Care Team | Description | +--------+ + + + + | 12/10/ | Telephone | SANDRA Oneill | [place] Mcfadden, | | | 2017 | | [facility] | [place] | | | | | [address] [facility] [address] | | | | | | [facility] | | | | | | [place] [address] | | | | | | [phone] | | | +--------+ + + + [...] [place] | | | | | | [id number] | | | | | | | | +--------+---------+ + + + | 06/17/ | Office | Cardiology | Cristhian Cochran, | | | 2017 | Visit | | [address] | | | | | | [place], | | | | | | [place] [address] | | | | | | [phone] | | | | | | | | +--------+---------+ + + + as of this encounter Visit Diagnoses Not on filein this encounter"
--- OUTSIDE RECORDS SUMMARY | ~2018-02-23 | XMS | Encounter Summary ---
Demographics + + + | Address | [address] | | | [place] [address] | + + + | Home Phone | | + + + | Preferred Language | Unknown | + + + | Marital Status | Single | + + + | Sikhism Affiliation | 1009 | + + + | Race | Unknown | + + + | Ethnic Group | Unknown | + + + Author + + + | Author | [employer] | + + + | Organization | [facility] | + + + | Address | Unknown | + + + | Phone | Unavailable | + + + Support + + +---------+ + | Name | Relationship | Address | Phone | + + +---------+ + | Lavell Chiu | ECON | Unknown | | + + +---------+ + Care Team Providers + +------+ + | Care Furniture Builder Name | Role | Phone | + [...] + + | 12/03/ | Hospital | [facility] | Jose Ballesteros, | Shortness of breath | | 2018 - | Encounter | [address] | MD [address] | (Primary Dx); Chest | | | | Floor [facility] | [place] [address] | pain, unspecified | | 12/05/ | | [address] | [phone] | type; History of | | 2018 | | [place] [address] | | coronary artery | | | | [phone] | Slick Liang, | disease; History of | | | | | MD [address] | coronary artery | | | | | [place] [address] | stent placement; | | | | | [phone] | History of COPD; | | | | | | NSTEMI (non-ST | | | | | Morteza Shane MD | elevated myocardial | | | | | [address] | infarction) (HCC) | | | | | [place] [address] | | | | | | [phone] | | | | | | | [...] note may be different from sejal bae. [facility] Service: Hospitalist Physician Discharge Summary Pt: Davina Chiu AGE/SEX: 72 y.o. female ROOM: [facility]4458- PCP: Eliza Cool : 1945 Admit date: 12/03/2017 Discharge date and time: 12/05/2017 11:14 AM Admitting Physician: Slick Liang MD Discharge Physician: Morteza Shane MD Consults: DR. Pruitt Primary Discharge Diagnoses: Principal Problem (Resolved): NSTEMI (non-ST elevated myocardial infarction) ([facility]) Active Problems: COPD (chronic obstructive pulmonary disease) [...] , who presented as a transfer from [facility] to our ER for persistent chest pain felt to be potentially unstable angina have elevated troponin more likely relate d to the non-ST elevation MO. Status post left heart catheter without any [...] Procedure Component Value Units Date/Time Respiratory Filmarray [[id number]] Collected: 12/03/17 152 Specimen: Nasal Swab Updated: [...] performed by Molecular Methodology MRSA by PCR [[id number]] Collected: 12/03/171836 Specimen: Nasopharyngeal from Nares(Nose) Updated: [...] medications if needed. Follow-Up: Eliza Cool MD [address] [facility] [place] [address] [facility] [address] [place] [address] Bekah Madera MD [address] [place] [address] In 1 week Eliza Cool MD [address] [place] [address] Discharge took more than 35 minutes, to include final examination, discussion of admission, and preparation of prescriptions, instructions for ongoing care, follow up and dictation of summary. Signed: MORTEZA SHANE MD 12/05/2017 11:14 AM Dictation software, [employer], used which may contain error for similar [...] note may be different from the original. [facility] Service: Cardiology Progress Note Hospital Day: [...] these symptoms, which were unlike her previous MO symptoms, would go away on their own. On Saturday night, she had the same symptoms, but it persisted, and she was unable to sleep. She called her son around 4 AM, and he brought her to the emergency room at [facility]. Her troponin was negative in [facility], but has subsequently become elevated, ru ling [...] class I. She was previously `transferred from [facility] to [facility] 07/31/17 for an acute NSTE MO, awakened at 5:30 AM with severe right [...] 60% D2 COPD (chronic obstructive pulmonary disease) ([facility]) severe Emphysema GERD (gastroesophageal reflux disease) Hiatal hernia HLD (hyperlipidemia) HTN (hypertension) Hypothyroidism MRSA (methicillin resistant Staphylococcus aureus) 2014 line sepsis following SBO surgery Myocardial infarct ([facility]) 2008 and NSTEMI 07/31/17 Paroxysmal atrial fibrillation ([facility]) 07/27/2017 PVD (peripheral vascular disease) ([facility]) 2013 severe bilateral PVD, occluded right external iliac, left internal iliac, severe stenoses in bilateral common iliacs and left SFA Rheumatoid arthritis ([facility]) Small bowel obstruction due to adhesions ([facility]) several times Status post insertion of drug [...] disease, with a chronically occluded RCA, with dmfz-tu-ppjgh ayden aterals, with patent stents in the left circumflex, and severe disease of the small diagonal branch, unchanged from the end result of her previous procedure done 08/06/17. PROBLEM LIST Principal Problem: NSTEMI (non-ST elevated myocardial infarction) ([facility]) Active Problems: COPD (chronic obstructive pulmonary disease) ([facility]) CAD (coronary artery disease) Rheumatoid arthritis (HCC) Pulmonary HTN (HCC) Chronic respiratory failure with hypoxia ([facility]) HTN (hypertension) HLD (hyperlipidemia) GERD (gastroesophageal reflux [...] basis post d/c (Dr. Madera goes to [place], where she lives). 10. Mild-moderate anemia, chronic, likely secondary to #8 11. Rheumatoid arthritis Disposition: Okay for discharge today from my standpoint, on current medications, follow u p with JHOAN Thomas at the [place] office in 1-2 weeks, and Dr. Madera at his n ext available appointment. Code Status: Full Code Cristhian Cochran MD 12/05/2017[facility] - 12/04/2017 3:35 PM PDTFormatting of this [...] renal function and adjust accordingly. Carson Bhagat [facility] 12/04/2017 3:34 Morteza Lopez MD - 12/04/2017 10:40 AM PDTFormatting of this note may be different from the original. [facility] Service: Hospitalist Progress Note Pt: Davina [...] , who presented as a transfer from [facility] to our ER for persistent chest pain f elt to be potentially unstable angina have elevated troponin more likely related to the non- ST elevation MO. SUBJECTIVE: Patient seen and examine. She continues [...] Procedure Component Value Units Date/Time Respiratory Filmarray [[id number]] Collected: 12/03/17 1526 Specimen: Nasal Swab Updated: [...] performed by Molecular Methodology MRSA by PCR [[id number]] Collected: 12/03/171836 Specimen: Nasopharyngeal from Nares(Nose) Updated: 12/03/171958 SOURCE NARES(NOSE) MRSA PCR NEGATIVE PROBLEM LIST Principal Problem: NSTEMI (non-ST elevated myocardial infarction) ([facility]) Active Problems: COPD (chronic obstructive pulmonary disease) [...] , who presented as a transfer from [facility] to our ER for persistent chest pain f elt to be potentially unstable angina have elevated troponin more likely related to the non- ST elevation MO. Principal Problem: NSTEMI (non-ST elevated myocardial infarction) ([facility]) She had a EKG changes as well [...] MD, FACP 12/04/2017 10:40 AM Dictation software, [employer], used which may contain error for similar sounding words even af ter review. Personal communication requested for any clarification. Portions of this chart may have been copied from previous notes for continuity of care purp Carson Elizabeth, [facility] - 12/03/2017 7:31 PM PDTFormatting of this [...] [place] | | | | | | [address] | | | | | | | | +--------+---------+ + + + | 06/17/ | Office | Cardiology | Cristhian Cochran, | | | 2017 | Visit | | MD [address] | | | | | | [place], | | | | | | [place] [address] | | | | | | [phone] | | | | | | | | +--------+---------+ + + + + +--------+ + + | Name | Priori | Associated Diagnoses | Order Schedule | | | ty | | | + +--------+ + + | Basic metabolic panel | Routin | NSTEMI (non-ST | Expected: | | | e | elevated myocardial | 12/10/2017, Expires: | | | | infarction) ([facility]) | 12/05/2018 | + +--------+ + + | CBC w/auto diff (reflex to | Routin | NSTEMI (non-ST | Expected: | | manual) | e | elevated myocardial | 12/11/2017, Expires: | | | | infarction) ([facility]) | 12/05/2018 | + +--------+ + + [...] | [facility] | | | performed at [facility], [address] | | LABORATORY | | | [address], | | | | | [place] [address] | | | + + + + + + + | Specimen | + + | Blood | + + + + + + + | Performing | Address | City/State/Zipcode | Phone Number | | Organization | | | | + + + + + | [facility] | [address] | [place] [address] | [phone] | | LABORATORY | [address]vd[address] | | [...] 74 | 35 - 115 U/L | [facility] | | | | | LABORATORY | + + + + + | AST | 20 | 10 - 45 U/L | [facility] | | | | | LABORATORY | + + + + + | ALT | 24 | 10 - 65 U/L | [facility] | | | | | LABORATORY | + + + + + | EGFR | 30 (L)Comment: GFR <60: | >60 mL/min/1.73m2 | [facility] | | | CHRONIC KIDNEY DISEASE, [...] at | | | | | [facility], [address] | | | | | [place] | | | | | [place] [address] | | | + + + + + + + | Specimen | + + | Blood | + + + + + + + | Performing | Address | City/State/Zipcode | Phone Number | | Organization | | | | + + + + + | [facility] | [address] | [place] [address] | [phone] | | LABORATORY | Blvd. | | [...] | | | | | [place] [address] | | | + + + + + + + | Specimen | + + | Blood | + + + + + + + | Performing | Address | City/State/Zipcode | Phone Number | | Organization | | | | + + + + + | [facility] | [address] | [place] [address] | [phone] | | LABORATORY | Blvd. | | [...] at | | | | | [facility], [address] | | | | | [place], | | | | | [place] [address] | | | + + + + + + + | Specimen | + + | Blood | + + + + + + + | Performing | Address | City/State/Zipcode | Phone Number | | Organization | | | | + + + + + | [facility] | [address] | [place] [address] | [phone] | | LABORATORY | Blvd. | | [...] | | | | performed at [facility], [address] | | | | | [address], | | | | | [place] [address] | | | + + + + + + + | Specimen | + + | Blood | + + + + + + + | Performing | Address | City/State/Zipcode | Phone Number | | Organization | | | | + + + + + | [facility] | [address] | [place] [address] | [phone] | | LABORATORY | Blvd. | | [...] right coronary artery with | | | zjno-ax-cgkxx collaterals. Severe disease of a small second [...] radial artery, then I will use a 4-Taiwanese sheath | | | and 4-Taiwanese catheter. Lidocaine 2% was used for local [...] a micropuncture | | | needle. A 5-Taiwanese sheath was placed into the left femoral artery | | | without difficulty. Subsequently, a 5-Taiwanese 3.5 catheter was | | | advanced, however did not lead to good engagement. We changed it to a | | | 5-Taiwanese FL4 catheter with selective engagement of the left coronary | | | system, and angiographic views were obtained. Subsequently, a | | | 5-Taiwanese FR4 catheter was advanced over the guidewire [...] | | | diagonal branch is a wgjpr-mo-jjsdas size vessel at 1.5 to 2 mm [...] right coronary | | | artery, with qbtu-yz-ukrtk collaterals. 2. Patent stents in the left [...] | | occluded right coronary artery with qdim-fp-cmtrd collaterals. Severe | | disease of a [...] radial artery, then I will use a 4-Taiwanese sheath | | and 4-Taiwanese catheter. Lidocaine 2% was used for local [...] was accessed using a micropuncture needle. A 5-Taiwanese sheath | | was placed into the left femoral artery without difficulty. Subsequently, a | | 5-Taiwanese 3.5 catheter was advanced, however did not lead to good | | engagement. We changed it to a 5-Taiwanese FL4 catheter with selective | | engagement of the left coronary system, and angiographic views were | | obtained. Subsequently, a 5-Taiwanese FR4 catheter was advanced over the | [...] second diagonal branch is a | | wtofj-lu-cofnfo size vessel at 1.5 to 2 mm [...] occluded right | | coronary artery, with hwze-hm-xkinq collaterals. | | 2. Patent stents in [...] | + + + + + | [facility] | [address] | [place] [address] | | + + + + + POC ACT, arterial (12/04/2017 2:30 PM) + + + + + | Component | Value | Ref Range | Performed At | + + + + + | POC ACT | 136Comment: Testing | 74 - 137 seconds | [facility] | | | performed at [facility];[address] | | | | | [address];[place], [place] | | | | | [address] | | | + + + + + + + + + + | Performing | Address | City/State/Zipcode | Phone Number | | Organization | | | | + + + + + | [facility] | [address] | [place] [address] | | + + + + + aPTT - Q6 starting in 6 hours x 2 (12/04/2017 6:44 AM) + + + + + | Component | Value | Ref Range | Performed At | + + + + + | APTT | 46 (H)Comment: Testing | 23 - 32 seconds | [facility] | | | performed at [facility];[address] | | | [address];[place] | | | | | [address] | | | + + + + + + + | Specimen | + + | Blood | + + + + + + + | Performing | Address | City/State/Zipcode | Phone Number | | Organization | | | | + + + + + | [facility] | [address] | [place] [address] | | + + + + + aPTT - Q6 starting in 6 hours x 2 (12/04/2017 12:45 AM) + + + + + | Component | Value | Ref Range | Performed At | + + + + + | APTT | 43 (H)Comment: Testing | 23 - 32 seconds | [facility] | | | performed at [facility];[address] | | | | [address];[place] | | | | | [address] | | | + + + + + + + | Specimen | + + | Blood | + + + + + + + | Performing | Address | City/State/Zipcode | Phone Number | | Organization | | | | + + + + + | [facility] | [address] | [place] [address] | | + + + + + Brain natriuretic peptide (12/04/2017 12:43 AM) + + + + + | Component | Value | Ref Range | Performed At | + + + + + | BRAIN NATRIURETIC | 1,680 (H)Comment: | 0 - 100 pg/mL | [facility] | | PEPTIDE | Testing performed at | | | | | [facility];[address] | | [address];[place] [address] | | | + + + + + + + | Specimen | + + | Blood | + + + + + + + | Performing | Address | City/State/Zipcode | Phone Number | | Organization | | | | + + + + + | [facility] | [address] | [place] [address] | | + + + + + TSH (12/04/2017 12:43 AM) + + + + + | Component | Value | Ref Range | Performed At | + + + + + | TSH | 0.089 (L)Comment: | 0.450 - 5.100 uIU/mL | [facility] | | | Testing performed at | | LABORATORY | | | [facility], [address] | | | | | [place] | | | | | [address] | | | + + + + + + + | Specimen | + + | Blood | + + + + + + + | Performing | Address | City/State/Zipcode | Phone Number | | Organization | | | | + + + + + | [facility] | [address] | [place] [address] | [phone] | | LABORATORY | Blvd[address] | | | + + + + + Glycohemoglobin A1c (12/04/2017 12:43 AM) + + + + + | Component | Value | Ref Range | Performed At | + + + + + | HEMOGLOBIN A1C | 5.3Comment: The [place] | 4.0 - 6.0 % | [facility] | | | Diabetes Association | | [...] | | | | performed at [facility], [address] | | | | | [facility], | | | | | [place] [address] | | | + + + + + + + | Specimen | + + | Blood | + + + + + + + | Performing | Address | City/State/Zipcode | Phone Number | | Organization | | | | + + + + + | [facility] | [address] | [place] [address] | [phone] | | LABORATORY | [address]vd[address] | | [...] | 53Comment: Testing | <100 mg/dL | [facility] | | | performed at [facility], [address] | | LABORATORY | | | [facility], | | | | | [place] [address] | | | + + + + + + + | Specimen | + + | Blood | + + + + + + + | Performing | Address | City/State/Zipcode | Phone Number | | Organization | | | | + + + + + | [facility] | [address] | [place] [address] | [phone] | | LABORATORY | [address]vd[address] | | | + + + + + Phosphorus (12/04/2017 12:43 AM) + + + + + | Component | Value | Ref Range | Performed At | + + + + + | PHOSPHORUS | 3.7Comment: Testing | 2.3 - 4.8 mg/dL | [facility] | | | performed at [facility], [address] | | LABORATORY | | | [address], | | | | | [place] [address] | | | + + + + + + + | Specimen | + + | Blood | + + + + + + + | Performing | Address | City/State/Zipcode | Phone Number | | Organization | | | | + + + + + | [facility] | [address] [place] [address] | [place] [address] | [phone] | | LABORATORY | [address]vd[address] | | | + + + + + Magnesium (12/04/2017 12:43 AM) + + + + + | Component | Value | Ref Range | Performed At | + + + + + | MAGNESIUM | 2.0Comment: Testing | 1.7 - 2.4 mg/dL | [facility] | | | performed at [facility], [address] | | LABORATORY | | | [facility], | | | | | [place] [address] | | | + + + + + + + | Specimen | + + | Blood | + + + + + + + | Performing | Address | City/State/Zipcode | Phone Number | | Organization | | | | + + + + + | [facility] | [address] | [place] [address] | [phone] | | LABORATORY | [address] | | [...] (L) | 8.5 - 10.5 mg/dL | [facility] | | | | | LABORATORY | + + + + + | EGFR | 34 (L)Comment: GFR <60: | >60 mL/min/1.73m2 | [facility] | | | CHRONIC KIDNEY DISEASE, [...] at | | | | | [facility], [address] | | | | | [place], | | | | | [place] [address] | | | + + + + + + + | Specimen | + + | Blood | + + + + + + + | Performing | Address | City/State/Zipcode | Phone Number | | Organization | | | | + + + + + | [facility] | [address] | [place] [address] | [phone] | | LABORATORY | Blvd[address] | | [...] | 3.70 - 5.10 M/uL | [facility] | + + + + + | HGB | 9.5 (L) | 11.3 - 15.5 g/dL | [facility] | + + + + + | HCT | 29.3 (L) | 34.0 - 46.0 % | [facility] | + + + + + | MCV | 84.4 | 80.0 - 100.0 fl | [facility] | + + + + + | MCH | 27.4 | 27.0 - 34.0 pg | [facility] | + + + + + | MCHC | 32.5 | 32.0 - 35.5 g/dL | [facility] | + + + + + | RDW SD | 43.3 | 37 - 53 fl | [facility] | + + + + + | PLT | 168 | 150 - 400 K/uL | [facility] | + + + + + | MPV | 8.7 | fl | [facility] | + + + + + [...] RBC AND PLT MORPHOLOGY | | [facility] | | | APPEAR NORMALComment: | | | | | Testing performed at | | | | | [facility];[address] [facility] [address] | | | | | [place] [address] | | | + + + + + + + | Specimen | + + | Blood | + + + + + + + | Performing | Address | City/State/Zipcode | Phone Number | | Organization | | | | + + + + + | [facility] | [address] | [place] [address] | | + + + + + [...] + + + + | Calculated P [place] | 69 | degrees | [facility] | + + + + + | Calculated R [place] | 49 | degrees | [facility] | + + + + + | Calculated T [place] | 110 | degrees | [facility] [...] + + + + + | [facility] | [address] | [place] [address] | | + + + + + CK MB (12/03/2017 9:45 PM) + + + + + | Component | Value | Ref Range | Performed At | + + + + + | MMB | 13.3 (H) | 0.5 - 3.6 ng/mL | [facility] | + + + + + | CK-MB Index | 10.9Comment: CK INDEX | | [facility] | | | INTERPRETATION: | | [...] | | | performed at [facility] | | | | | [address];[place], [place] | | | | | [address] | | | + + + + + + + + + + | Performing | Address | City/State/Zipcode | Phone Number | | Organization | | | | + + + + + | [facility] | [address] | [place] [address] | | + + + + + CPK (12/03/2017 9:45 PM) + + + + + | Component | Value | Ref Range | Performed At | + + + + + | CPK | 122Comment: Testing | 30 - 240 U/L | [facility] | | | performed at [facility];[address] | | | | [address];[place] | | | | | [address] | | | + + + + + + + | Specimen | + + | Blood | + + + + + + + | Performing | Address | City/State/Zipcode | Phone Number | | Organization | | | | + + + + + | [facility] | [address] | [place] [address] | | + + + + + Troponin I (12/03/2017 9:45 PM) + + + + + | Component | Value | Ref Range | Performed At | + + + + + | TROPONIN I | 1.54 ()Comment: 0.00 | 0.00 - 0.10 ng/mL | [facility] | | | to 0.10 CONSISTENT [...] | | | | CRITERIA FOR ACUTE MO | | | | | CALLED NURSING UNITREAD | | | | | BACK RESULTS | | | | | VERIFIEDNANCY L ON 3OP | | | | | AT 2237 LMCTesting | | | | | performed at [facility];[address] | | | | | [address];[place] | | | | | [address] | | | + + + + + + + | Specimen | + + | Blood | + + + + + + + | Performing | Address | City/State/Zipcode | Phone Number | | Organization | | | | + + + + + | [facility] | [address] | [facility] [address] | | + + + + + [...] + + + + + | [facility] | [address] | [facility] [address] | | + + + + + Protime-INR (12/03/2017 7:05 PM) + + + + + | Component | Value | Ref Range | Performed At | + + + + + | INR | 1.0Comment: REFERENCE | | [facility] | | | RANGE:0.9 - | [...] | | | performed at [facility] | | | | | [address] [facility];[place], [place] | | | | | [address] | | | + + + + + + + | Specimen | + + | Blood | + + + + + + + | Performing | Address | City/State/Zipcode | Phone Number | | Organization | | | | + + + + + | [facility] | [address] | [place] [address] | | + + + + + aPTT (12/03/2017 7:05 PM) + + + + + | Component | Value | Ref Range | Performed At | + + + + + | APTT | 25Comment: Testing | 23 - 32 seconds | [facility] | | | performed at [facility];[address] | | | | | [facility];[place] | | | | | [address] | | | + + + + + + + | Specimen | + + | Blood | + + + + + + + | Performing | Address | City/State/Zipcode | Phone Number | | Organization | | | | + + + + + | [facility] | [address] | [facility] [place] [address] | | + + + + + CBC w/no diff (12/03/2017 7:05 PM) + + + + + | Component | Value | Ref Range | Performed At | + + + + + | WBC | 6.20 | 3.80 - 11.00 K/uL | [facility] | + + + + + | RBC | 3.44 (L) | 3.70 - 5.10 M/uL | [facility] | + + + + + | HGB | 9.4 (L) | 11.3 - 15.5 g/dL | [facility] | + + + + + | HCT | 28.9 (L) | 34.0 - 46.0 % | [facility] | + + + + + | MCV | 84.1 | 80.0 - 100.0 fl | [facility] | + + + + + | MCH | 27.2 | 27.0 - 34.0 pg | [facility] | + + + + + | MCHC | 32.3 | 32.0 - 35.5 g/dL | [facility] | + + + + + | RDW SD | 42.9 | 37 - 53 fl | [facility] | + + + + + | PLT | 163 | 150 - 400 K/uL | [facility] | + + + + + | MPV | 8.9Comment: Testing | fl | [facility] | | | performed at [facility] | | | | | [address];[place] | | | | | [address] | | | + + + + + + + + + + | Performing | Address | City/State/Zipcode | Phone Number | | Organization | | | | + + + + + | [facility] | [address] | [place] [address] | | + + + + + MRSA by PCR (12/03/2017 6:37 PM) + + + + + | Component | Value | Ref Range | Performed At | + + + + + | SOURCE | NARES(NOSE) | | [facility] | + + + + + | MRSA PCR | NEGATIVEComment: Testing | NEGATIVE | [facility] | | | performed at [facility] | | | | | [address];[place] | | | | | [address] | | | + + + + + + + | Specimen | + + | Nasopharyngeal - | | Nares(Nose) | + + + + + + + | Performing | Address | City/State/Zipcode | Phone Number | | Organization | | | | + + + + + | [facility] | [address] | [place] [address] | | + + + + + Basic metabolic panel (12/03/2017 5:00 PM) + + + + + | Component | Value | Ref Range | Performed At | + + + + + | SODIUM | 141 | 135 - 145 mmol/L | [facility] | + + + + + | POTASSIUM | 4.1 | 3.5 - 4.9 mmol/L | [facility] | + + + + + [...] | 8.5 - 10.5 mg/dL | [facility] | + + + + + | EGFR | 37 (L)Comment: GFR <60: | >60 mL/min/1.73m2 | [facility] | | | CHRONIC KIDNEY DISEASE, [...] the | | | | | MDRD [facility] traceable | | | | | equation. PLEASE NOTE | | | | | NEW CALCULATION | | | | | EFFECTIVE 12/03/2017 | | | | | Testing performed at | | | | | [facility];[address] [place] [address] | | | | | [facility];[place] [address] | | | + + + + + + + | Specimen | + + | Blood | + + + + + + + | Performing | Address | City/State/Zipcode | Phone Number | | Organization | | | | + + + + + | [facility] | [address] | [place] [address] | | + + + + + CK MB (12/03/2017 5:00 PM) + + + + + | Component | Value | Ref Range | Performed At | + + + + + | MMB | 9.7 (H) | 0.5 - 3.6 ng/mL | [facility] | + + + + + | CK-MB Index | 10.8Comment: CK INDEX | | [facility] | | | INTERPRETATION: | | [...] | | | performed at [facility] | | | | | [address];[place] | | | | | [address] | | | + + + + + + + + + + | Performing | Address | City/State/Zipcode | Phone Number | | Organization | | | | + + + + + | [facility] | [address] | [place] [address] | | + + + + + CPK (12/03/2017 5:00 PM) + + + + + | Component | Value | Ref Range | Performed At | + + + + + | CPK | 90Comment: Testing | 30 - 240 U/L | [facility] | | | performed at [facility] | | | | | [facility];[place], [place] | | | | | [address] | | | + + + + + + + | Specimen | + + | Blood | + + + + + + + | Performing | Address | City/State/Zipcode | Phone Number | | Organization | | | | + + + + + | [facility] | [address] | [place] [address] | | + + + + + Troponin I (12/03/2017 5:00 PM) + + + + + | Component | Value | Ref Range | Performed At | + + + + + | TROPONIN I | 0.821 ()Comment: | 0.00 - 0.10 ng/mL | [facility] | | | 0.00 to 0.10 [...] | | | | CRITERIA FOR ACUTE [place] | | | | | CALLED NURSING UNITREAD | | | | | BACK RESULTS | | | | | VERIFIEDMELISSA H ON 3OP | | | | | AT 1841 LMCTesting | | | | | performed at [facility];[address] | | | | | [facility];[place], [place] | | | | | [address] | | | + + + + + + + | Specimen | + + | Blood | + + + + + + + | Performing | Address | City/State/Zipcode | Phone Number | | Organization | | | | + + + + + | [facility] | [address] | [place] [address] | | + + + + + [...] at | | | | | [facility], [address] [facility] | | | | | [place] | | | | | [address] | | | + + + + + + + | Specimen | + + | Nasal Swab | + + + + + + + | Performing | Address | City/State/Zipcode | Phone Number | | Organization | | | | + + + + + | [facility] | [address] [facility] | [place] [address] | [phone] | | LABORATORY | [address] | | | + + + + + D Dimer,Quantitative (12/03/2017 10:55 AM) + + + + + | Component | Value | Ref Range | Performed At | + + + + + | D DIMER, | 0.99 (H)Comment: D Dimer | 0.19 - 0.50 mg/L FEU | [facility] | | QUANTITATIVE | results less [...] | | | performed at [facility];[address] | | | | | [address];[place] | | | | | [address] | | | + + + + + + + + + + | Performing | Address | City/State/Zipcode | Phone Number | | Organization | | | | + + + + + | [facility] | [address] | [place] [address] | | + + + + + Urinalysis (reflex to microscopic/reflex to culture) (12/03/2017 10:55 AM) + + + + + | Component | Value | Ref Range | Performed At | + + + + + | COLOR UA | STRAW | | [facility] | + + + + + | CLARITY | CLEAR | | [facility] | + + + + + | Specific [place], UA | 1.006 | 1.002 - 1.030 | [facility] | + + + + + [...] NEGATIVEComment: Testing | NEGATIVE mg/dL | [facility] | | | performed at [facility] | | | | | [address];[place] | | | | | [address] | | | + + + + + + + | Specimen | + + | Urine, Clean Catch | + + + + + + + | Performing | Address | City/State/Zipcode | Phone Number | | Organization | | | | + + + + + | [facility] | [address] | [place] [address] | | + + + + + CK MILAD (12/03/2017 10:55 AM) + + + + + | Component | Value | Ref Range | Performed At | + + + + + | MMB | 1.3 | 0.5 - 3.6 ng/mL | [facility] | + + + + + | CK-MB Index | UNABLE TO | | [facility] | | | CALCULATEComment: | | | | | Testing performed at | | | | | [facility];[address];[place] [address] | | | + + + + + + + | Specimen | + + | Blood | + + + + + + + | Performing | Address | City/State/Zipcode | Phone Number | | Organization | | | | + + + + + | [facility] | [address] | [place] [address] | | + + + + + Troponin I, Lab (12/03/2017 10:55 AM) + + + + + | Component | Value | Ref Range | Performed At | + + + + + | TROPONIN I | 0.03Comment: 0.00 to | 0.00 - 0.10 ng/mL | [facility] | | | 0.10 CONSISTENT WITH | | | | | NORMAL POPULATION0.11 | | | | | to 0.60 CONSISTENT | | | | | WITH INCREASED RISK FOR | | | | | ADVERSE OUTCOMES> | | | | | 0.60 | | | | | CONSISTENT WITH WHO | | | | | CRITERIA FOR ACUTE [place] | | | | | Testing performed at | | | | | [facility];[address] [place] [address] | | | | | [facility];[place] [address] | | | + + + + + + + | Specimen | + + | Blood | + + + + + + + | Performing | Address | City/State/Zipcode | Phone Number | | Organization | | | | + + + + + | [facility] | [address] | [place] [address] | | + + + + + [...] + + + + | Calculated P [place] | 73 | degrees | [facility] | + + + + + | Calculated R [place] | 51 | degrees | [facility] | + + + + + | Calculated T [place] | 127 | degrees | [facility] | + + + + + | Diagnosis | Sinus tachycardia with | | [facility] | | | Premature | | [...] -COMPUTER (500), | | | | | news assignment editor Neville Wise | | | | | David (123) on 12/03/2017 | | | | | 8:28:40 PM | | | + + + + + + + + + + | Performing | Address | City/State/Zipcode | Phone Number | | Organization | | | | + + + + + | [facility] | [address] | [place] [address] | | + + + + + ED INFORMATION EXCHANGE (12/03/2017 10:43 AM) + + + | Narrative | Performed At | + + + | [id number] This patient has registered at the | ED | | [facility] Emergency Department For more | INFORMATION | | information visit: | EXCHANGE | | [email or web address] | | | [email or web address] Security Events No [...] Chief Complaint November | | | 2017 [facility] Emergency Emergency | | | Chest pain, unspecified December 03, 2017 [facility] | | | [place] Emergency Emergency Chief Complaint: SOB | | | E.D. Visit Count (12 mo.) Facility Visits [facility] Acuity [facility] | | | [facility] 2 0 [facility] 6 0 Total 8 0 | | [...] | | facilities for additional information. 2018 [employer] [facility] | | | [employer] - [place], [place] - | | | [email or web address] | | + + + + + | Procedure Note | + + | Interface, Lab - 12/03/2017 10:44 AM PDT Formatting of this note may be different | | from the original.EDIE10:41SANDRA [id number] patient has registered at the [facility] | | [facility] Emergency Department For more information visit: | | [email or web address] Security | | EventsNo recent Security Events currently on fileED Care GuidelinesThere are currently | | no ED Care Guidelines in [place] for this patient. Please check your facility's medical | | records system.Recent Emergency Department Visit SummaryAdmit Date Facility [facility] | | Type Major Type Diagnoses or Chief Complaint December 03, 2017 [facility] | | Emergency Emergency Chest pain, unspecified December 03, 2017 [facility]. | | [place] Emergency Emergency Chief Complaint: SOB E.D. Visit Count (12 mo.)Facility Visits | | [facility] Acuity [facility] 2 0 [facility] 6 0 Total 8 0 | | [...] facilities for additional information. | | 2018 [employer]. [place], [place] - | | [email or web address] | |Note: Visits indicate total known visits. [...] aforementioned facilities for additional information. | |2018 [employer] - [place] - [email or web address] | + + + +---------+ + + [...] [facility] | [address] | [place] [address] | | + + + + + [...] classified | + + | Atherosclerosis of [place] coronary artery of [place] heart | + + | Rheumatoid arthritis [...]
--- OUTSIDE RECORDS SUMMARY | ~2018-02-23 | XMS | Encounter Summary ---
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 | | | | | coronary | [place], [place] | [facility] | | | | | artery of | [address] | [address] | | | | | [place] | Phone: | JESSICA H[place]A | | | | | heart, | [phone] | [place] | | | | | angina | Fax: | [address] | | | | | presence | [phone] | Phone: | | | | | unspecified | | [phone] | | | | | S/P PTCA | | Fax: | | | | | (percutaneou | | [phone] | | | | | s | [...] | | | | | | | [place] | | | | | | | [...] | | | | UP | [place] [address] | [place], [place] | | | | | | Phone: | [address] Phone: | | | | | | [phone] | [phone] | | | | | | Fax: | Fax: | | | | | | [phone] | [phone] | + +--------+ + + + + Encounter Details +--------+---------+ + + + | Date | Type | Department | Care Team | Description | +--------+---------+ + + + | 01/23/ | Office | SANDRA Oneill | Alesia Freire | Atherosclerosis of | | 2018 | Visit | Cardiology [place] | [address] | w[place] coronary | | | | [address] | Myriam Cronin F | artery of [place] | | | | [address] | [place] [address] | heart, angina | | | | [place] [address] | [phone] | presence unspecified | | | | [phone] | | (Primary Dx); S/P | | [...] | | | | | occlusion of [place] | | | | | | coronary artery; | | | | | | History of [place] | | | | | | (myocardial | | | | | | infarction); | | | | | | Paroxysmal atrial | | | | | | fibrillation ([facility]); | | | | | | Mild pulmonary | | | | | | hypertension ([facility]); | | | | | | [...] to refer you to Cardiac Rehab in [place] , as no room at the one in [place], but think we need to wait given your recent hospitalization Bring blood pressure cuff to our clinic or Dr. Andrade to check how close it is to our readi ngs. I have referred you to Dr. Duran at [place] , call [phone] for an appoi ntment next week Since [...] p reviously seen by him in our [place] office. Her previous testing and procedures are detailed below. I saw her last for hospital follow up from [facility]( [facility]) on December 05 after non-STEMI with [...] being admitted to the emergency room at [facility],and then hospitalized fr 01/16/2018-01/18/2018 for hypertension, [...] exe rcises Due to dyspnea, Lives in [place]. Lives Alone Outpatient Medications Prior to Visit [...] No results found for: METF, NMETFX, TFNMFX, [id number], [id number], TOTEPI PROCEDURES/IMAGING Last Cardiac Cath:12/04/2017: ( NSTEMI) Three-vessel coronary artery disease with chronicall y occluded RCA, with olkh-as-clfzb collaterals. Patent stents in LCX ,severe disease of a s mall diagonal branch. DATA: Left Main: trifurcates , gives rise to LAD, ramus intermedius, and l eft circumflex arteries. left main coronary artery is free of disease. LAD. without sign ificant disease. 1st Dx: very tiny vessel. 2nd Dx branch : zvwrk-oa-rrkfyg size vessel at 1 .5 to 2 [...] HTN, RVSP 56-61 mm Hg EKG/EVENT MONITOR EK08/29/2017:([facility]) , Left ventricular hypertrophy, mild nonspecific ST and T -wave abnormalities. Rate 76 bpm, NJ 140 ms, QRS 98 ms, QTC 452 ms, tracing personally revi ewed by co EK12/03/2017:( [facility]) Sinus tachycardia with premature SVC, left ventricular hypertrophy, ST depression to anterolateral leads, T wave inversion to lateral leads. Prolonged QTC. R ate 103 bpm, NJ 172 ms, QRS 102 ms, QTC 508 ms tracing personally reviewed by co EK12/03/2017 ( [facility]) Sinus tachycardia, ST abnormalities to anterolateral leads, resolutio n of premature SVC,, resolution of prolonged QTC resolution of T-wave inversions to lateral leads. Rate 102 bpm, NJ 148 ms, QRS 92 ms, QTC 461 ms tracing personally reviewed by co EK12/09/2017:( [facility] ) Normal sinus rhythm, nonspecific T-wave abnormality to anterolateral leads, low voltage QRS. Rate 70 bpm, NJ 146 ms, QRS 94 ms, QTC 474 ms, maryjane donnelly reviewed by me and compared to EKG performed on December 03, now in sinus rhythm instead of sin us tachycardia, and ST abnormalities less pronounced to anterolateral leads EK01/13/2018: ( [facility]) Normal sinus rhythm, nonspecific ST abnormality. Rate 60 bpm, NJ 142 ms, QRS 92 ms, QTC 487 [...] 24, GFR 30. Magnesium 2.3 Labs: 01/13/2018 ([facility]): CMP: Sodium 138, potassium 3.7, chloride [...] Her EKG and troponin's were negative at [facility], and I think some of her problems r esulted from the fact that I had stopped her amlodipine believing her to be on Cardizem, marci vallejo she had a prescription for after being discharged from [facility]. It turns out she was [...] of her medication bottles, including supplements and ploq-fyv-bvhfsbc m edications to the clinic today, and [...] on February 18, and will also see requirements analyst Dr. Santy ritter n February 10, and will be following up with PCP Dr. Andrade in 4 weeks, so we will be closely m onitored. I had hoped to refer her to the cardiac rehab program in [place], as currently 6 patien t waiting list for cardiac rehab in [place], but given her recent hospitalization and inst ability, I think this needs to be deferred I told her that Dr. Cochran can decide when he sees her back if she is a candidate for cardi ac rehab. She did feel much improved with CPAP when she was in the hospital, and I have referred he r to Dr. Duran at the [facility] sleep disorders clinic for further evaluation and treatm ent. 1. Atherosclerosis of [place] coronary artery of [place] heart, angina presence unspecified 2. S/P PTCA (percutaneous transluminal coronary angioplasty) 3. Status post insertion of drug eluting coronary artery stent 4. 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 History of [place] (myocardial infarction) 6. Paroxysmal atrial fibrillation ([facility]) 7. Mild pulmonary hypertension ([facility]) 8. Moderate aortic valve stenosis 9. Acute on chronic diastolic heart failure ([facility]) 10. Hypertension goal BP (blood pressure) < 130/80 11. Mixed hyperlipidemia 12. Carotid stenosis, asymptomatic, bilateral 13. Chronic obstructive pulmonary disease, unspecified COPD type ([facility]) 14. PVD (peripheral vascular disease) ([facility]) 15. Rheumatoid arthritis, involving unspecified site, unspecified rheumatoid factor presenc e ([facility]) 16. Thyroid disease 17. Stage 3 [...] past surgical history. Problem list. JHOAN Hernandez [facility] 01/24/2018in this encounter Plan of Treatment +--------+---------+ + + + | Date | Type | Specialty | Care Team | Description | +--------+---------+ + + + | 03/24/ | Office | Nephrology | Leland Madera MD | | | 2018 | Visit | | [address] [place] | | | | | | [address] [place], [place] | | | | | | [address] | | | | | | | | +--------+---------+ + + + | 06/17/ | Office | Cardiology | Cristhian Cochran, | | | 2017 | Visit | | [address] | | | | | | [place], | | | | | | [place] [address] | | | | | | [phone] | | | | | | | | +--------+---------+ + + + + +--------+ + + | Name | Priori | Associated Diagnoses | Order Schedule | | | ty | | | + +--------+ + + | Ambulatory referral to | Routin | Atherosclerosis of | Ordered: 01/23/2018 | | Pulmonology | e | [place] coronary | | | | | artery of [place] | | | | | heart, angina [...] | | | | stent History of [place] | | | | | (myocardial | [...] Diagnosis | + + | Atherosclerosis of [place] coronary artery of [place] heart, angina presence unspecified - | | Primary | + + | S/P PTCA (percutaneous transluminal coronary angioplasty) | + + | Postsurgical percutaneous transluminal coronary angioplasty status | + + | Status post insertion of drug eluting coronary artery stent | + + | History of [place] (myocardial infarction) | + + | Old [...]
--- OUTSIDE RECORDS SUMMARY | ~2018-02-23 | XMS | Clinical Summary ---
Demographics + + + | Address | [address] | | | [place] [address] | + + + | Home Phone | | + + + | Preferred Language | Unknown | + + + | Marital Status | Single | + + + | Jew Affiliation | 1009 | + + + | Race | Unknown | + + + | Ethnic Group | Unknown | + + + Author + + + | Author | [employer] | + + + | Organization | [facility] | + + + | Address | Unknown | + + + | Phone | Unavailable | + + + Support + + +---------+ + | Name | Relationship | Address | Phone | + + +---------+ + | Lavell Chiu | ECON | Unknown | | + + +---------+ + Care Team Providers + +------+ + | Care Wiring Technician Name | Role | Phone | [...] + + | 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 | 01/23/2018 | + + + | History of VT (myocardial infarction) | 01/23/2018 | + + [...] + + + | Paroxysmal atrial fibrillation ([facility]) | 07/27/2017 | + + + | Claudication ([facility]) | 02/15/2014 | + + + | Mesenteric ischemia ([facility]) | 12/16/2013 | + + + | PVD (peripheral vascular disease) ([facility]) | 07/08/2013 | + + + + + | Overview: severe bilateral PVD, occluded right external | | iliac, left internal iliac, severe stenoses in bilateral common | | iliacs and left SFA | + + + +---+ | COPD (chronic obstructive pulmonary disease) (HCC) | | + +---+ + + | Overview: severe Emphysema | + + + +---+ | Atherosclerosis of king salmon coronary artery of king salmon heart | | + +---+ | History [...] of | | | | | | king salmon coronary | | | | | | artery of king salmon | | | | | | heart, [...] | | | | | occlusion of king salmon | | | | | | coronary artery; | | | | | | History of VT | | | | | | (myocardial [...] | Visit | | JHOAN Gong | king salmon coronary | | | | | | artery of king salmon | | | | | | heart, [...] | | | | | occlusion of king salmon | | | | | | coronary artery; | | | | | | History of VT | | | | | | (myocardial | | | | | | infarction); | | | | | | Paroxysmal atrial | | | | | | fibrillation ([facility]); | | | | | | Mild pulmonary | | | | | | hypertension ([facility]); | | | | | | Moderate aortic | | | | | | valve stenosis | +--------+ + + + + | 01/23/ | Documentati | | Ana Mcfadden, | [place] | | 2017 | on Only | | [place] | ED Visit 01/13/18) | +--------+ + + + + | 01/23/ | Documentati | | Ana Mcfadden, | [place] | 2017 | on Only | | LENA | PCP Note 01/22/18) | +--------+ + + + + | 12/17/ | Documentati | | Ana Mcfadden, | [place] | 2017 | on Only | | [...] | | | | | | infarction) ([facility]); | | | | | | Coronary artery | | | | | | disease involving | | | | | | king salmon coronary | | | | | | artery of king salmon | | | | | | heart without angina | | | | | | pectoris; S/P PTCA | | | | | | (percutaneous | | | | | | transluminal | | | | | | coronary | | | | | | angioplasty); | | | | | | Paroxysmal A-fib | | | | | | ([facility]); PVD | | | | | | (peripheral vascular | | | | | | disease) ([facility]); | | | | | | Pulmonary emphysema, | | | | | | unspecified | | | | | | emphysema type | | | | | | ([facility]); 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 | | | [address] | | | Mehrdad | | | [address] | | | n [place] | | | [phone] | | | [phone] | | | weekLohith | | | Cool, | | | [id number] | | | [place] | | | [place] | | | n [place] | | | [phone] | | | [phone] | | | [...] [place] | | | | | | [address] | | | | | | | | +--------+---------+ + + + | 06/17/ | Office | | Cristhian Cochran, | | | 2017 | Visit | | MD [address] | | | | | | [place] | | | | | | [place] [address] | | | | | | [phone] | | | | | | | [...] | Brown | | | 01/29/ | [id number] | | 16-08/06/2017Implanted: | | ry | | | 2017 | [id number] | | 08/06/2017 by Britany Guerra, | | | | | | 00 / | | MD (Quantity not on file) | | | | | | /[id number] | | | | | | | [...] | | | | | | infarction) ([facility]) | | | | | | Coronary artery | | | | | | disease involving | | | | | | king salmon coronary | | | | | | artery of king salmon | | | | | | heart [...] | | | | | | disease) ([facility]) | | | | | | Pulmonary emphysema, | | | | | | unspecified | | | | | | emphysema type ([facility]) | | | | | | 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 | | | | | | hypertension ([facility]) | | | | | | Bilateral carotid | | | | | | bruits Moderate | | | | | | aortic stenosis | | | | | | Chronic obstructive | | | | | | pulmonary disease, | | | | | | unspecified COPD | | | | | | type ([facility]) | | + +--------+ + + + [...] | [address] | [place] [address] | | | LABORATORY | 13 | [...] | [address] | [place] [address] | | | LABORATORY | 13 | [...] | [address] | [place] [address] | | | LABORATORY | 13 | [...] + + + | [facility] | [address] | [place] [address] | | | LABORATORY | 13 | [...] + + + + | Calculated P [place] | 78 | degrees | [facility] | + + + + + | Calculated R [place] | 74 | degrees | [facility] | + + + + + | Calculated T [place] | 57 | degrees | [facility] | + + + + + | Diagnosis | Please refer to | | [facility] | | | Providers office visit | | | | | note for Providers | | | | | Interpretation.Confirmed | | | | | by [facility] [place] Read Only, | | | | | [facility] [place] ([id number]), | | | | | city editor Tanmay Esquivel | | | | | ([id number]) on 12/09/2017 | | | | | 2:49:53 PM | | | + + + + + + + + + + | Performing | Address | City/State/Zipcode | Phone Number | | Organization | | | | + + + + + | [facility] | [address] | [place] [address] | | + + + + + [...] (H) | 0.50 - 1.00 mg/dL | [facility] | | | | | LABORATORY | + + + + + | BUN/CREAT | 20 | | [facility] | | | | | LABORATORY | + + + + + | CALCIUM | 8.5 | 8.5 - 10.5 mg/dL | [facility] | | | | | LABORATORY | + + + + + | EGFR | 34 (L)Comment: GFR <60: | >60 mL/min/1.73m2 | [facility] | | | CHRONIC KIDNEY [...] at | | | | | TC, [address] [place] [address] | | | | | [place], | | | | | [place] [address] | | | + + + + + + + | Specimen | + + | Blood | + + + + + + + | Performing | Address | City/State/Zipcode | Phone Number | | Organization | | | | + + + + + | [facility] | [address] | [place] [address] | [phone] | | LABORATORY | [place]. | | | + + + + + CL left heart catheterization with coronary angio (12/04/2017 2:55 PM) + + + | Narrative | Performed At | + + + | | [facility] | | | RADIOLOGY | | DATE [...] right coronary artery with | | | kpvl-ft-qcqnz collaterals. Severe disease of a small second [...] radial artery, then I will use a 4-Swazi sheath | | | and 4-Swazi catheter. Lidocaine 2% was used for local [...] a micropuncture | | | needle. A 5-Swazi sheath was placed into the left femoral artery | | | without difficulty. Subsequently, a 5-Swazi 3.5 catheter was | | | advanced, however did not lead to good engagement. We changed it to a | | | 5-Swazi FL4 catheter with selective engagement of the left coronary | | | system, and angiographic views were obtained. Subsequently, a | | | 5-Swazi FR4 catheter was advanced over the guidewire [...] | | | diagonal branch is a tetov-sz-rnwjlr size vessel at 1.5 to 2 mm [...] right coronary | | | artery, with ubhr-fx-pugbo collaterals. 2. Patent stents in the left [...] | | occluded right coronary artery with meqj-wb-otsyb collaterals. Severe | | disease of a [...] radial artery, then I will use a 4-Swazi sheath | | and 4-Swazi catheter. Lidocaine 2% was used for local [...] was accessed using a micropuncture needle. A 5-Swazi sheath | | was placed into the left femoral artery without difficulty. Subsequently, a | | 5-Swazi 3.5 catheter was advanced, however did not lead to good | | engagement. We changed it to a 5-Swazi FL4 catheter with selective | | engagement of the left coronary system, and angiographic views were | | obtained. Subsequently, a 5-Swazi FR4 catheter was advanced over the | [...] second diagonal branch is a | | stepz-qx-toepfd size vessel at 1.5 to 2 mm [...] occluded right | | coronary artery, with veys-ik-otvic collaterals. | | 2. Patent stents in [...] | + + + + + | [facility] | [address] | [facility] [address] | | + + + + + POC ACT, arterial (12/04/2017 2:30 PM) + + + + + | Component | Value | Ref Range | Performed At | + + + + + | POC ACT | 136Comment: Testing | 74 - 137 seconds | [facility] | | | performed at [facility];[address] | | | | | [address];[place], [place] | | | | | [address] | | | + + + + + + + + + + | Performing | Address | City/State/Zipcode | Phone Number | | Organization | | | | + + + + + | [facility] | [address] | [place] [address] | | + + + + + [...] Testing | 23 - 32 seconds | [facility] | | | performed at [facility];[address] | | | | | [address] [facility];[place] | | | | | [address] | | | + + + + + + + | Specimen | + + | Blood | + + + + + + + | Performing | Address | City/State/Zipcode | Phone Number | | Organization | | | | + + + + + | [facility] | [address] | [place] [address] | | + + + + + TSH (12/04/2017 12:43 AM) + + + + + | Component | Value | Ref Range | Performed At | + + + + + | TSH | 0.089 (L)Comment: | 0.450 - 5.100 uIU/mL | [facility] | | | Testing performed at | | LABORATORY | | | TCL, [address] | | | | | [place], [place] | | | | | [address] | | | + + + + + + + | Specimen | + + | Blood | + + + + + + + | Performing | Address | City/State/Zipcode | Phone Number | | Organization | | | | + + + + + | [facility] | [address] [place] [address] | [place] [address] | [phone] | | LABORATORY | Blvd. | | | + + + + + Phosphorus (12/04/2017 12:43 AM) + + + + + | Component | Value | Ref Range | Performed At | + + + + + | PHOSPHORUS | 3.7Comment: Testing | 2.3 - 4.8 mg/dL | [facility] | | | performed at [facility], [address] | | LABORATORY | | | [facility], | | | | | [place] [address] | | | + + + + + + + | Specimen | + + | Blood | + + + + + + + | Performing | Address | City/State/Zipcode | Phone Number | | Organization | | | | + + + + + | [facility] | [address] | [place] [address] | [phone] | | LABORATORY | Blvd. | | | + + + + + Glycohemoglobin A1c (12/04/2017 12:43 AM) + + + + + | Component | Value | Ref Range | Performed At | + + + + + | HEMOGLOBIN A1C | 5.3Comment: The Ghanaian | 4.0 - 6.0 % | [facility] | | | Diabetes Association [...] | 105Comment: The ADA | mg/dL | [facility] | | GLUCOSE | considers an eAG [...] | | | | | performed at [facility], [address] | | | | | [facility], | | | | | [place] [address] | | | + + + + + + + | Specimen | + + | Blood | + + + + + + + | Performing | Address | City/State/Zipcode | Phone Number | | Organization | | | | + + + + + | [facility] | [address] | [place] [address] | [phone] | | LABORATORY | Blvd. | | [...] | [facility] | | | performed at [facility], [address] | | LABORATORY | | | [place], | | | | | [place] [address] | | | + + + + + + + | Specimen | + + | Blood | + + + + + + + | Performing | Address | City/State/Zipcode | Phone Number | | Organization | | | | + + + + + | [facility] | [address] | [place] [address] | [phone] | | LABORATORY | Blvd. | | [...] Index | 10.9Comment: CK INDEX | | [facility] | | | INTERPRETATION: | | [...] | | | | | performed at [facility];[address] | | | | | [address];[place] | | | | | [address] | | | + + + + + + + + + + | Performing | Address | City/State/Zipcode | Phone Number | | Organization | | | | + + + + + | [facility] | [address] | [facility] [place] [place] [address] | | + + + + + Troponin I (12/03/2017 9:45 PM)Only the most recent of 3 results within the time period is included. + + + + + | Component | Value | Ref Range | Performed At | + + + + + | TROPONIN I | 1.54 ()Comment: 0.00 | 0.00 - 0.10 ng/mL | [facility] | | | to 0.10 CONSISTENT [...] | | | | CRITERIA FOR ACUTE VT | | | | | CALLED NURSING UNITREAD | | | | | BACK RESULTS | | | | | VERIFIEDNANCY L ON 3OP | | | | | AT 2237 LMCTesting | | | | | performed at [facility];[address] | | | | | [address];[place], [place] | | | | | [address] | | | + + + + + + + | Specimen | + + | Blood | + + + + + + + | Performing | Address | City/State/Zipcode | Phone Number | | Organization | | | | + + + + + | [facility] | [address] | [place] [address] | | + + + + + CODIE (12/03/2017 9:45 PM)Only the most recent of 2 results within the time period is includ ed. + + + + + | Component | Value | Ref Range | Performed At | + + + + + | CPK | 122Comment: Testing | 30 - 240 U/L | [facility] | | | performed at [facility];[address] | | | [address];[place], [place] | | | | | [address] | | | + + + + + + + | Specimen | + + | Blood | + + + + + + + | Performing | Address | City/State/Zipcode | Phone Number | | Organization | | | | + + + + + | [facility] | [address] | [place] [address] | | + + + + + [...] | [address] | [place] [address] | | + + + + + CBC w/no diff (12/03/2017 7:05 PM) + + + + + | Component | Value | Ref Range | Performed At | + + + + + | WBC | 6.20 | 3.80 - 11.00 K/uL | [facility] | + + + + + | RBC | 3.44 (L) | 3.70 - 5.10 M/uL | [facility] | + + + + + | HGB | 9.4 (L) | 11.3 - 15.5 g/dL | [facility] | + + + + + | HCT | 28.9 (L) | 34.0 - 46.0 % | [facility] | + + + + + | MCV | 84.1 | 80.0 - 100.0 fl | [facility] | + + + + + | MCH | 27.2 | 27.0 - 34.0 pg | [facility] | + + + + + | MCHC | 32.3 | 32.0 - 35.5 g/dL | [facility] | + + + + + | RDW SD | 42.9 | 37 - 53 fl | [facility] | + + + + + | PLT | 163 | 150 - 400 K/uL | [facility] | + + + + + | MPV | 8.9Comment: Testing | fl | [facility] | | | performed at [facility];[address] | | | | | [address];[place] | | | | | [address] | | | + + + + + + + + + + | Performing | Address | City/State/Zipcode | Phone Number | | Organization | | | | + + + + + | [facility] | [address] | [place] [address] | | + + + + + Dexter-RAN (12/03/2017 7:05 PM) + + + + + | Component | Value | Ref Range | Performed At | + + + + + | INR | 1.0Comment: REFERENCE | | [facility] | | | RANGE:0.9 - | [...] | | | | | performed at [facility];[address] | | [address];[place], [place] | | | | | [address] | | | + + + + + + + | Specimen | + + | Blood | + + + + + + + | Performing | Address | City/State/Zipcode | Phone Number | | Organization | | | | + + + + + | [facility] | [address] | [place] [address] | | + + + + + MRSA by PCR (12/03/2017 6:37 PM) + + + + + | Component | Value | Ref Range | Performed At | + + + + + | SOURCE | NARES(NOSE) | | [facility] | + + + + + | MRSA PCR | NEGATIVEComment: Testing | NEGATIVE | [facility] | | | performed at [facility];[address] | | | | | [address];[place], [place] | | | | | [address] | | | + + + + + + + | Specimen | + + | Nasopharyngeal - | | Nares(Nose) | + + + + + + + | Performing | Address | City/State/Zipcode | Phone Number | | Organization | | | | + + + + + | [facility] | [address] | [place] [address] | | + + + + + [...] performed at | | | | | [facility], [address] | | | | | [place] | | | | | [address] | | | + + + + + + + | Specimen | + + | Nasal Swab | + + + + + + + | Performing | Address | City/State/Zipcode | Phone Number | | Organization | | | | + + + + + | [facility] | [address] | [place] [address] | [phone] | | LABORATORY | Blvd. | | | + + + + + Urinalysis (reflex to microscopic/reflex to culture) (12/03/2017 10:55 AM) + + + + + | Component | Value | Ref Range | Performed At | + + + + + | COLOR UA | STRAW | | [facility] | + + + + + | CLARITY | CLEAR | | [facility] | + + + + + | Specific [place], UA | 1.006 | 1.002 - 1.030 [...] [facility] | | | performed at [facility];[address] | | | | | [address];[place] | | | | | [address] | | | + + + + + + + | Specimen | + + | Urine, Clean Catch | + + + + + + + | Performing | Address | City/State/Zipcode | Phone Number | | Organization | | | | + + + + + | [facility] | [address] | [place] [address] | | + + + + + D Dimer,Quantitative (12/03/2017 10:55 AM) + + + + + | Component | Value | Ref Range | Performed At | + + + + + | D DIMER, | 0.99 (H)Comment: D Dimer | 0.19 - 0.50 mg/L FEU | [facility] | | QUANTITATIVE | results less [...] | | | | | performed at [facility] | | | | | [address];[place], [place] | | | | | [address] | | | + + + + + + + + + + | Performing | Address | City/State/Zipcode | Phone Number | | Organization | | | | + + + + + | [facility] | [address] | [place] [address] | | + + + + + [...] + + + + | Calculated P [place] | 73 | degrees | [facility] | + + + + + | Calculated R [place] | 51 | degrees | [facility] | + + + + + | Calculated T [place] | 127 | degrees | [facility] | + + + + + | Diagnosis | Sinus tachycardia with | | [facility] | | | Premature | | [...] -COMPUTER (500), | | | | | city editor Neville Wise | | | | | David (123) on 12/03/2017 | | | | | 8:28:40 PM | | | + + + + + + + + + + | Performing | Address | City/State/Zipcode | Phone Number | | Organization | | | | + + + + + | [facility] | [address] | [place] [address] | | + + + + + ED INFORMATION EXCHANGE (12/03/2017 10:43 AM) + + + | Narrative | Performed At | + + + | EDIE10:41SANDRA [id number] This patient has registered at the | ED | | [facility] Emergency Department For more | INFORMATION | | information visit: | EXCHANGE | | [email or web address] | | | [email or web address] Security Events No [...] Chief Complaint November | | | 2017 [facility] Emergency Emergency | | | Chest pain, unspecified December 03, 2017 [facility] | | | [place] Emergency Emergency Chief Complaint: SOB | | | E.D. Visit Count (12 mo.) Facility Visits [facility] | | | [facility] 2 0 [facility] 6 0 Total 8 0 | | [...] | | facilities for additional information. 2018 [facility] | | | [facility] - [place], [place] - | | | [email or web address] | | + + + + + | Procedure Note | + + | Interface, Lab - 12/03/2017 10:44 AM PDT Formatting of this note may be different | | from the original.SVETLANA10:41SANDRA [id number] patient has registered at the [facility] | | [facility] Emergency Department For more information visit: | | [email or web address] Security | | EventsNo recent Security Events currently on fileED Care GuidelinesThere are currently | | no ED Care Guidelines in SVETLANA for this patient. Please check your facility's medical | | records system.Recent Emergency Department Visit SummaryAdmit Date Facility [facility] | | Type Major Type Diagnoses or Chief Complaint December 03, 2017 [facility]. [place] | | Emergency Emergency Chest pain, unspecified December 03, 2017 [facility]. | | [place] Emergency Emergency Chief Complaint: SOB E.D. Visit Count (12 mo.)Facility Visits | | [facility] 2 0 [facility] 6 0 Total 8 0 | | [...] facilities for additional information. | | 2018 [facility] [address] - [place], [place] - | | [email or web address] | |Note: Visits indicate total known visits. [...] aforementioned facilities for additional information. | |2018 [address] - [place], [place] - [email or web address] | + + + +---------+ + + | Performing | Address | City/State/[facility] | Phone Number | | Organization [...] [facility] | [address] | [place] [address] | | + + + + + [...] [place] - MODA | [place] - | [id number] | [employer] | | | | | [...] | | al/Fam | | 1945 | [phone] [address], | | | [place] | | | [address] | [place] [address] | + +--------+ +--------+ + +
--- OUTSIDE RECORDS SUMMARY | ~2018-02-23 | XMS | Encounter Summary ---
Demographics + + + | Address | [address] | | | [place] [address] | + + + | Home Phone [...] + + + | Author | Rojelio [employer] | + + + | Organization | [facility] [employer] [facility] | + + + | Address | Unknown | + + + | Phone | Unavailable | + + + Support + + +---------+ + | Name | Relationship | Address | Phone | + + +---------+ + | Lavell Chiu | ECON | Unknown | | + + +---------+ + Care Team Providers + +------+ + | Care Proof Reader Name | Role | Phone | + [...] | | 2018 | on Only | [place] [address] | | Labs dated | | | | [address] | | 02/07/2018; ) | | | | [place] [address] | | | | | | [phone] | | | +--------+ + + + [...] | | | | | | [address] [facility] | | | | | | [address] | | | | | | | | +--------+---------+ + + + | 06/17/ | Office | Cardiology | Cristhian Cochran, | | | 2017 | Visit | | MD [address] | | | | | | [place], | | | | | | [place] [address] | | | | | | [phone] | | | | | | | [...] | [facility] | [address] | [place] [address] | | | LABORATORY | 13 | [...] | [address] | [place] [address] | | | LABORATORY | 13 | [...] | [address] | [place] [address] | | | LABORATORY | 13 | [...] | [address] | [place] [address] | | | LABORATORY | 13 | | | + + + + + in this encounter Visit Diagnoses Not on filein this encounter"
--- OUTSIDE RECORDS SUMMARY | ~2018-02-23 | XMS | Encounter Summary ---
Demographics + + + | Address | [address] | | | [place] [address] | + + + | Home Phone [...] + + + | Author | Rojelio MetaLINCS | + + + | Organization | [facility] | + + + | Address | Unknown | + + + | Phone | Unavailable | + + + Support + + +---------+ + | Name | Relationship | Address | Phone | + + +---------+ + | Lavell Chiu | ECON | Unknown | | + + +---------+ + Care Team Providers + +------+ + | Care Director Of Marketing Analytics Name | Role | Phone | + +------+ + | Eliza Andrade MD | PCP | Unavailable | + +------+ + Encounter Details +--------+ + + + + | Date | Type | Department | Care Team | Description | +--------+ + + + + | 12/10/ | Telephone | [facility] Oneill | Ana Mcfadden, | | | 2017 | | [facility] | [place] | | | | | [address] | | | | | | [facility] | | | | | | [place] [address] | | | | | | [phone] | | | +--------+ + + + [...] [place] | | | | | | [id number] | | | | | | | | +--------+---------+ + + + | 06/17/ | Office | Cardiology | Cristhian Cochran, | | | 2017 | Visit | | [address] | | | | | | [place], | | | | | | [place] [address] | | | | | | [phone] | | | | | | | | +--------+---------+ + + + as of this encounter Visit Diagnoses Not on filein this encounter"
--- OUTSIDE RECORDS SUMMARY | ~2018-02-23 | XMS | Encounter Summary ---
Demographics + + + | Address | [address] | | | [place] [address] | + + + | Home Phone | | + + + | Preferred Language | Unknown | + + + | Marital Status | Single | + + + | Zoroastrianism Affiliation | 1009 | + + + | Race | Unknown | + + + | Ethnic Group | Unknown | + + + Author + + + | Author | Rojelio GenePeeks | + + + | Organization | [facility] | + + + | Address | Unknown | + + + | Phone | Unavailable | + + + Support + + +---------+ + | Name | Relationship | Address | Phone | + + +---------+ + | Lavell Chiu | ECON | Unknown | | + + +---------+ + Care Team Providers + +------+ + | Care Wire Steward Name | Role | Phone | + +------+ + | Eliza Andrade MD | PCP | Unavailable | + +------+ + Encounter Details +--------+ + + + + | Date | Type | Department | Care Team | Description | +--------+ + + + + | 12/04/ | Procedure | [facility] | | | | 2018 | Pass | [address] | | | | | | [facility] | | | | | | [address] | | | | | | [place] [address] | | | | | | [phone] | | | +--------+ + + + [...] | | | | | | [place] [address] | | | | | | [phone] | | | | | | | | +--------+---------+ + + + as of this encounter Visit Diagnoses Not on filein this encounter"
--- OUTSIDE RECORDS SUMMARY | ~2018-02-23 | XMS | Encounter Summary ---
Demographics + + + | Address | [address] | | | [place] [address] | + + + | Home Phone | | + + + | Preferred Language | Unknown | + + + | Marital Status | Single | + + + | Evangelical Affiliation | 1009 | + + + | Race | Unknown | + + + | Ethnic Group | Unknown | + + + Author + + + | Author | Rojelio Basis Science | + + + | Organization | [facility] | + + + | Address | Unknown | + + + | Phone | Unavailable | + + + Support + + +---------+ + | Name | Relationship | Address | Phone | + + +---------+ + | Lavell Chiu | ECON | Unknown | | + + +---------+ + Care Team Providers + +------+ + | Care General Office Associate Name | Role | Phone | + [...] | | | | | [place] [address] | | | | | | [phone] | | | +--------+ + + + [...] | | | | | | [address] [place] | | | | | | [address] | | | | | | | | +--------+---------+ + + + | 06/17/ | Office | Cardiology | Cristhian Cochran, | | | 2018 | Visit | | [address] | | | | | | [place], | | | | | | [place] [address] | | | | | | [phone] | | | | | | | | +--------+---------+ + + + as of this encounter Visit Diagnoses Not on filein this encounter"
--- OUTSIDE RECORDS SUMMARY | ~2018-02-23 | XMS | Encounter Summary ---
Demographics + + + | Address | [address] | | | [place] [address] | + + + | Home Phone | | + + + | Preferred Language | Unknown | + + + | Marital Status | Single | + + + | Bahai Affiliation | 1009 | + + + | Race | Unknown | + + + | Ethnic Group | Unknown | + + + Author + + + | Author | Rojelio arGEN-X | + + + | Organization | [facility] | + + + | Address | Unknown | + + + | Phone | Unavailable | + + + Support + + +---------+ + | Name | Relationship | Address | Phone | + + +---------+ + | Lavell Chiu | ECON | Unknown | | + + +---------+ + Care Team Providers + +------+ + | Care Sales Consultant Residential Manager Name | Role | Phone | + +------+ + | Eliza Andrade MD | PCP | Unavailable | + +------+ + Encounter Details +--------+ + + + + | Date | Type | Department | Care Team | Description | +--------+ + + + + | 12/04/ | Procedure | [facility] | | | | 2018 | Pass | [address] | | | | | | [facility] | | | | | | [address] | | | | | | [place] [address] | | | | | | [phone] | | | +--------+ + + + [...] | | | | | | [place] [address] | | | | | | [phone] | | | | | | | | +--------+---------+ + + + as of this encounter Visit Diagnoses Not on filein this encounter"
--- OUTSIDE RECORDS SUMMARY | ~2018-02-23 | XMS | Clinical Summary ---
Demographics + + + | Address | [address] | | | [place] [address] | + + + | Home Phone | | + + + | Preferred Language | Unknown | + + + | Marital Status | Single | + + + | Church Affiliation | 1009 | + + + | Race | Unknown | + + + | Ethnic Group | Unknown | + + + Author + + + | Author | [employer] | + + + | Organization | [facility] | + + + | Address | Unknown | + + + | Phone | Unavailable | + + + Support + + +---------+ + | Name | Relationship | Address | Phone | + + +---------+ + | Lavell Chiu | ECON | Unknown | | + + +---------+ + Care Team Providers + +------+ + | Care Quill Reamer Name | Role | Phone | + [...] + + | 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) | 07/27/2017 | + + + | Claudication ([facility]) | 02/15/2014 | + + + | Mesenteric ischemia ([facility]) | 12/16/2013 | + + + | PVD (peripheral vascular disease) ([facility]) | 07/08/2013 | + + + + + | Overview: severe bilateral PVD, occluded right external | | iliac, left internal iliac, severe stenoses in bilateral common | | iliacs and left SFA | + + + +---+ | COPD (chronic obstructive pulmonary disease) (HCC) | | + +---+ + + | Overview: severe Emphysema | + + + +---+ | Atherosclerosis of grand r[place] tribes coronary artery of grand [place] tribes heart | | + +---+ | History [...] of | | | | | | grand ronde tribes coronary | | | | | | artery of grand r[place] tribes | | | | | | heart, [...] | | | | | occlusion of grand [place] tribes | | | | | | coronary artery; | | | | | | History of [place] | | | | | | (myocardial [...] | Visit | | JHOAN Gong | grand ronde tribes coronary | | | | | | artery of grand r[place] tribes | | | | | | heart, [...] | | | | | occlusion of grand [place] tribes | | | | | | coronary artery; | | | | | | History of [place] | | | | | | (myocardial | | | | | | infarction); | | | | | | Paroxysmal atrial | | | | | | fibrillation ([facility]); | | | | | | Mild pulmonary | | | | | | hypertension ([facility]); | | | | | | Moderate aortic | | | | | | valve stenosis | +--------+ + + + + | 01/23/ | Documentati | | Ana Mcfadden, | [place] Page | | 2017 | on Only | | [place] | ED Visit 01/13/18) | +--------+ + + + + | 01/23/ | Documentati | | Ana Mcfadden, | [place] ([place] | 2017 | on Only | | LENA | PCP Note 01/22/18) | +--------+ + + + + | 12/17/ | Documentati | | Ana Mcfadden, | [place] ([place] | 2017 | on Only | | [...] | | | | | | infarction) ([facility]); | | | | | | Coronary artery | | | | | | disease involving | | | | | | grand ronde tribes coronary | | | | | | artery of grand ronde tribes | | | | | | heart without angina | | | | | | pectoris; S/P PTCA | | | | | | (percutaneous | | | | | | transluminal | | | | | | coronary | | | | | | angioplasty); | | | | | | Paroxysmal A-fib | | | | | | ([facility]); PVD | | | | | | (peripheral vascular | | | | | | disease) ([facility]); | | | | | | Pulmonary emphysema, | | | | | | unspecified | | | | | | emphysema type | | | | | | (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) | +--------+ + + + + | [...] | | | MRN: | | | [id number] | | | OM: | | | [...] | | | elevation | | | [place].Status | | | post left | | [...] | | | Filmarray | | | [[id number]] | | | Collected: | | | [...] | | | PCR | | | [[id number]] | | | Collected: | | | [...] | | | Cool, | | | [id number] | | | [place] | | | [place] | | | n [place] | | | [phone] | | | [phone] 1 | | | weekMary | | | Farideh | | | [place]han, | | | [id number] | | | Jessica | | | [place] | | | n [place] | | | [phone] | | | [phone] | | | H Akoum, | | | [address] | | | [address] | | | Mehrdad | | | [address] | | | n [place] | | | [phone] | | | [phone] 1 | | | weekLohith | | | Cool, | | | [address] | | | [place]ICA | | | [place] | | | n [place] | | | [phone] | | | [phone] | | | [...] [place] | | | | | | [address] | | | | | | | | +--------+---------+ + + + | 06/17/ | Office | | Cristhian Cochran, | | | 2017 | Visit | | MD [address] | | | | | | [place] | | | | | | [place] [address] | | | | | | [phone] | | | | | | | [...] | Brown | | | 01/29/ | [id number] | | 16-08/06/2017Implanted: | | ry | | | 2017 | [id number] | | 08/06/2017 by Britany Guerra, | | | | | | 00 / | | MD (Quantity not on file) | | | | | | /[id number] | | | | | | | [...] | | | | | | infarction) ([facility]) | | | | | | Coronary artery | | | | | | disease involving | | | | | | grand ronde tribes coronary | | | | | | artery of grand ronde tribes | | | | | | heart [...] | | | | | | disease) ([facility]) | | | | | | Pulmonary emphysema, | | | | | | unspecified | | | | | | emphysema type (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) | | | | | | Bilateral carotid | | | | | | bruits Moderate | | | | | | aortic stenosis | | | | | | Chronic obstructive | | | | | | pulmonary disease, | | | | | | unspecified COPD | | | | | | type ([facility]) | | + +--------+ + + + [...] | [address] | [place] [address] | | | LABORATORY | 13 | [...] | [address] | [place] [address] | | | LABORATORY | 13 | [...] | [address] | [place] [address] | | | LABORATORY | 13 | [...] + + + | [facility] | [address] | [place] [address] | | | LABORATORY | 13 | [...] + + + + | Calculated P Aurora | 78 | degrees | [facility] | + + + + + | Calculated R Aurora | 74 | degrees | [facility] | + + + + + | Calculated T Aurora | 57 | degrees | [facility] | + + + + + | Diagnosis | Please refer to | | [facility] | | | Providers office visit | | | | | note for Providers | | | | | Interpretation.Confirmed | | | | | by [facility] Langlois Read Only, | | | | | [facility]CA Myriam ([id number]), | | | | | rewrite editor Tanmay Esquivel | | | | | ([id number]) on 12/09/2017 | | | | | 2:49:53 PM | | | + + + + + + + + + + | Performing | Address | City/State/Zipcode | Phone Number | | Organization | | | | + + + + + | [facility] | [address] | [place] [address] | | + + + + + [...] (H) | 0.50 - 1.00 mg/dL | [facility] | | | | | LABORATORY | + + + + + | BUN/CREAT | 20 | | [facility] | | | | | LABORATORY | + + + + + | CALCIUM | 8.5 | 8.5 - 10.5 mg/dL | [facility] | | | | | LABORATORY | + + + + + | EGFR | 34 (L)Comment: GFR <60: | >60 mL/min/1.73m2 | [facility] | | | CHRONIC KIDNEY DISEASE, [...] at | | | | | TC, [address] [place] [address] | | | | | [place], | | | | | [place] [address] | | | + + + + + + + | Specimen | + + | Blood | + + + + + + + | Performing | Address | City/State/Zipcode | Phone Number | | Organization | | | | + + + + + | [facility] | [address] | [place] [address] | [phone] | | LABORATORY | [address]. | | | + + + + + CL left heart catheterization with coronary angio (12/04/2017 2:55 PM) + + + | Narrative | Performed At | + + + | | [facility] | | | RADIOLOGY | | [...] right coronary artery with | | | yfsa-ro-hrzkz collaterals. Severe disease of a small second [...] radial artery, then I will use a 4-Andorran sheath | | | and 4-Andorran catheter. Lidocaine 2% was used for local [...] a micropuncture | | | needle. A 5-Andorran sheath was placed into the left femoral artery | | | without difficulty. Subsequently, a 5-Andorran 3.5 catheter was | | | advanced, however did not lead to good engagement. We changed it to a | | | 5-Andorran FL4 catheter with selective engagement of the left coronary | | | system, and angiographic views were obtained. Subsequently, a | | | 5-Andorran FR4 catheter was advanced over the guidewire [...] | | | diagonal branch is a yhkzu-ey-czvozc size vessel at 1.5 to 2 mm [...] right coronary | | | artery, with yhsm-ph-ndxfm collaterals. 2. Patent stents in the left [...] | | occluded right coronary artery with vqbf-xw-larwe collaterals. Severe | | disease of a [...] radial artery, then I will use a 4-Andorran sheath | | and 4-Andorran catheter. Lidocaine 2% was used for local [...] was accessed using a micropuncture needle. A 5-Andorran sheath | | was placed into the left femoral artery without difficulty. Subsequently, a | | 5-Andorran 3.5 catheter was advanced, however did not lead to good | | engagement. We changed it to a 5-Andorran FL4 catheter with selective | | engagement of the left coronary system, and angiographic views were | | obtained. Subsequently, a 5-Andorran FR4 catheter was advanced over the | [...] second diagonal branch is a | | cepyp-pl-wzgckq size vessel at 1.5 to 2 mm [...] occluded right | | coronary artery, with eqia-dt-ayksz collaterals. | | 2. Patent stents in [...] | + + + + + | [facility] | [address] | [place] [address] | | + + + + + POC ACT, arterial (12/04/2017 2:30 PM) + + + + + | Component | Value | Ref Range | Performed At | + + + + + | POC ACT | 136Comment: Testing | 74 - 137 seconds | [facility] | | | performed at [facility];[address] | | | | | [address];[place], [place] | | | | | [address] | | | + + + + + + + + + + | Performing | Address | City/State/Zipcode | Phone Number | | Organization | | | | + + + + + | [facility] | [address] | [place] [address] | | + + + + + [...] HOSPITAL LABORATORY | | | performed at [facility];[address] | | | | | [address] [facility];[place] | | | | | [address] | | | + + + + + + + | Specimen | + + | Blood | + + + + + + + | Performing | Address | City/State/Zipcode | Phone Number | | Organization | | | | + + + + + | [facility] | [address] | [place] [address] | | + + + + + TSH (12/04/2017 12:43 AM) + + + + + | Component | Value | Ref Range | Performed At | + + + + + | TSH | 0.089 (L)Comment: | 0.450 - 5.100 uIU/mL | [facility] | | | Testing performed at | | LABORATORY | | | TCL, [address] [facility] | | | | | [place], [place] | | | | | [address] | | | + + + + + + + | Specimen | + + | Blood | + + + + + + + | Performing | Address | City/State/Zipcode | Phone Number | | Organization | | | | + + + + + | [facility] | [address] [place] [address] | [place] [address] | [phone] | | LABORATORY | Blvd[address] | | | + + + + + Phosphorus (12/04/2017 12:43 AM) + + + + + | Component | Value | Ref Range | Performed At | + + + + + | PHOSPHORUS | 3.7Comment: Testing | 2.3 - 4.8 mg/dL | [facility] | | | performed at [facility], [address] | | LABORATORY | | | [facility], | | | | | [place] [address] | | | + + + + + + + | Specimen | + + | Blood | + + + + + + + | Performing | Address | City/State/Zipcode | Phone Number | | Organization | | | | + + + + + | [facility] | [address] | [place] [address] | [phone] | | LABORATORY | [address]vd[address] | | | + + + + + Glycohemoglobin A1c (12/04/2017 12:43 AM) + + + + + | Component | Value | Ref Range | Performed At | + + + + + | HEMOGLOBIN A1C | 5.3Comment: The [place] | 4.0 - 6.0 % | [facility] | | | Diabetes Association | [...] | 105Comment: The ADA | mg/dL | [facility] | | GLUCOSE | considers an eAG [...] | | | | | performed at [facility], [address] | | | | | [facility], | | | | | [place] [address] | | | + + + + + + + | Specimen | + + | Blood | + + + + + + + | Performing | Address | City/State/Zipcode | Phone Number | | Organization | | | | + + + + + | [facility] | [address] | [place] [address] | [phone] | | LABORATORY | Blvd. | | [...] | [facility] | | | performed at [facility], [address] | | LABORATORY | | | [address], | | | | | [place] [address] | | | + + + + + + + | Specimen | + + | Blood | + + + + + + + | Performing | Address | City/State/Zipcode | Phone Number | | Organization | | | | + + + + + | [facility] | [address] | [place] [address] | [phone] | | LABORATORY | Blvd. | | [...] | | | | | performed at [facility];[address] | | | | | [address];[place] | | | | | [address] | | | + + + + + + + + + + | Performing | Address | City/State/Zipcode | Phone Number | | Organization | | | | + + + + + | [facility] | [address] | [place] [address] | | + + + + + [...] | | | | CRITERIA FOR ACUTE [place] | | | | | CALLED NURSING UNITREAD | | | | | BACK RESULTS | | | | | VERIFIEDNANCY L ON 3OP | | | | | AT 2237 LMCTesting | | | | | performed at [facility];[address] | | | | | [address];[place], [place] | | | | | [address] | | | + + + + + + + | Specimen | + + | Blood | + + + + + + + | Performing | Address | City/State/Zipcode | Phone Number | | Organization | | | | + + + + + | [facility] | [address] | [place] [address] | | + + + + + [...] HOSPITAL LABORATORY | | | performed at [facility];[address] | [address];[place], [place] | | | | | [address] | | | + + + + + + + | Specimen | + + | Blood | + + + + + + + | Performing | Address | City/State/Zipcode | Phone Number | | Organization | | | | + + + + + | [facility] | [address] [facility] [address] [facility] [facility] | [place] [address] | | + + + + + [...] | [address] | [place] [address] | | + + + + + CBC w/no diff (12/03/2017 7:05 PM) + + + + + | Component | Value | Ref Range | Performed At | + + + + + | WBC | 6.20 | 3.80 - 11.00 K/uL | [facility] | [...] 84.1 | 80.0 - 100.0 fl | [facility] | + + + + + | MCH | 27.2 | 27.0 - 34.0 pg | [facility] | + + + + + | MCHC | 32.3 | 32.0 - 35.5 g/dL | [facility] | + + + + + | RDW SD | 42.9 | 37 - 53 fl | [facility] | + + + + + | PLT | 163 | 150 - 400 K/uL | [facility] | + + + + + | MPV | 8.9Comment: Testing | fl | [facility] | | | performed at [facility];[address] | | | | | [address];[place] | | | | | [address] | | | + + + + + + + + + + | Performing | Address | City/State/Zipcode | Phone Number | | Organization | | | | + + + + + | [facility] | [address] | [place] [address] | | + + + + + [...] | | | | | performed at [facility];[address] | | | | | [address];[place], [place] | | | | | [address] | | | + + + + + + + | Specimen | + + | Blood | + + + + + + + | Performing | Address | City/State/Zipcode | Phone Number | | Organization | | | | + + + + + | [facility] | [address] | [place] [address] | | + + + + + [...] HOSPITAL LABORATORY | | | performed at [facility];[address] | | | | | [address];[place], [place] | | | | | [address] | | | + + + + + + + | Specimen | + + | Nasopharyngeal - | | Nares(Nose) | + + + + + + + | Performing | Address | City/State/Zipcode | Phone Number | | Organization | | | | + + + + + | [facility] | [address] | [place] [address] | | + + + + + [...] performed at | | | | | [facility], [address] | | | | | [place] | | | | | [address] | | | + + + + + + + | Specimen | + + | Nasal Swab | + + + + + + + | Performing | Address | City/State/Zipcode | Phone Number | | Organization | | | | + + + + + | [facility] | [address] | [place] [address] | [phone] | | LABORATORY | Blvd. | | | + + + + + Urinalysis (reflex to microscopic/reflex to culture) (12/03/2017 10:55 AM) + + + + + | Component | Value | Ref Range | Performed At | + + + + + | COLOR UA | STRAW | | [facility] | + + + + + | CLARITY | CLEAR | | [facility] | + + + + + | Specific [place], UA | 1.006 | 1.002 - [...] [facility] | | | performed at [facility];[address] | | | | | [address];[place] | | | | | [address] | | | + + + + + + + | Specimen | + + | Urine, Clean Catch | + + + + + + + | Performing | Address | City/State/Zipcode | Phone Number | | Organization | | | | + + + + + | [facility] | [address] | [place] [address] | | + + + + + [...] | | | | | performed at [facility] | | | | | [facility];[place], [place] | | | | | [address] | | | + + + + + + + + + + | Performing | Address | City/State/Zipcode | Phone Number | | Organization | | | | + + + + + | [facility] | [address] | [place] [address] | | + + + + + [...] + + + + | Calculated P Aurora | 73 | degrees | [facility] | + + + + + | Calculated R Aurora | 51 | degrees | [facility] | + + + + + | Calculated T Aurora | 127 | degrees | [facility] | + + + + + [...] -COMPUTER (500), | | | | | rewrite editor Neville Wise | | | | | David (123) on 12/03/2017 | | | | | 8:28:40 PM | | | + + + + + + + + + + | Performing | Address | City/State/Zipcode | Phone Number | | Organization | | | | + + + + + | [facility] | [address] | [place] [address] | | + + + + + ED INFORMATION EXCHANGE (12/03/2017 10:43 AM) + + + | Narrative | Performed At | + + + | [id number]:41SANDRA [id number] This patient has registered at the | ED | | [facility] Emergency Department For more | INFORMATION | | information visit: | EXCHANGE | | [email or web address] | | | [email or web address] Security Events No [...] Chief Complaint November | | | 2017 [facility] Emergency Emergency | | | Chest pain, unspecified December 03, 2017 [facility] | | | [place] Emergency Emergency Chief Complaint: SOB | | | E.D. Visit Count (12 mo.) Facility Visits Low Acuity [facility] | | | [facility] 2 0 [facility] 6 0 Total 8 0 | [...] | | facilities for additional information. 2018 [employer] | | | [employer] - [place], [place] - | | | [email or web address] | | + + + + + | Procedure Note | + + | Interface, Lab - 12/03/2017 10:44 AM PDT Formatting of this note may be different | | from the original.SVETLANA10:41SANDRA [id number] patient has registered at the [facility] | | [facility] Emergency Department For more information visit: | | [email or web address] Security | | EventsNo recent Security Events currently on fileED Care GuidelinesThere are currently | | no ED Care Guidelines in SVETLANA for this patient. Please check your facility's medical | | records system.Recent Emergency Department Visit SummaryAdmit Date Facility [facility] State | | Type Major Type Diagnoses or Chief Complaint December 03, 2017 [facility]. [place] | | Emergency Emergency Chest pain, unspecified December 03, 2017 [facility]. | | [place] Emergency Emergency Chief Complaint: SOB E.D. Visit Count (12 mo.)Facility Visits | | [facility] Acuity [facility] 2 0 [facility] 6 0 Total 8 0 | [...] facilities for additional information. | | 2018 [employer] - [place], [place] - | | [email or web address] | |Note: Visits indicate total known visits. [...] aforementioned facilities for additional information. | |2018 [employer] - [place], [place] - [email or web address] | + + + +---------+ + + | Performing | Address | City/State/Rustcode | Phone Number | | Organization | [...] [facility] | [address] | [place] [address] | | + + + + + [...] [place] - MODA | [place] - | [id number] | [employer] | | | | | [...] | | al/Fam | | 1945 | [phone] | [address], | | | [place] | | | [address] | [place] [address] | + +--------+ +--------+ + +
--- OUTSIDE RECORDS SUMMARY | ~2018-02-23 | XMS | Encounter Summary ---
Demographics + + + | Address | [address] | | | [place] [address] | + + + | Home Phone | | + + + | Preferred Language | Unknown | + + + | Marital Status | Single | + + + | Episcopalian Affiliation | 1009 | + + + | Race | Unknown | + + + | Ethnic Group | Unknown | + + + Author + + + | Author | [employer] | + + + | Organization | [facility] | + + + | Address | Unknown | + + + | Phone | Unavailable | + + + Support + + +---------+ + | Name | Relationship | Address | Phone | + + +---------+ + | Lavell Chiu | ECON | Unknown | | + + +---------+ + Care Team Providers + +------+ + | Care Candy Roller Name | Role | Phone | + [...] + + | 12/03/ | Hospital | [facility] | Jose Ballesteros, | Shortness of breath | | 2018 - | Encounter | [address] | MD [address] | (Primary Dx); Chest | | | | Floor [facility] | [place] [address] | pain, unspecified | | 12/05/ | | [address] | [phone] | type; History of | | 2018 | | [place] [address] | | coronary artery | | | | [phone] | Slick Liang, | disease; History of | | | | | MD [address] | coronary artery | | | | | [place] [address] | stent placement; | | | | | [phone] | History of COPD; | | | | | | NSTEMI (non-ST | | | | | Morteza Shane MD | elevated myocardial | | | | | [address] | infarction) (HCC) | | | | | [place] [address] | | | | | | [phone] | | | | | | | [...] may be different from sejal bae. [facility] Service: Hospitalist Physician Discharge Summary Pt: Davina Chiu AGE/SEX: 72 y.o. female ROOM: [facility]- PCP: Eliza Cool : 1945 Admit date: 12/03/2017 Discharge date and time: 12/05/2017 11:14 AM Admitting Physician: Slick Liang MD Discharge Physician: Morteza Shane MD Consults: DR. Pruitt Primary Discharge Diagnoses: Principal Problem (Resolved): NSTEMI (non-ST elevated myocardial infarction) ([facility]) Active Problems: COPD (chronic obstructive pulmonary disease) [...] , who presented as a transfer from [facility] to our ER for persistent chest pain felt to be potentially unstable angina have elevated troponin more likely relate d to the non-ST elevation UT. Status post left heart catheter without any [...] Procedure Component Value Units Date/Time Respiratory Filmarray [[id number]] Collected: 12/03/17 152 Specimen: Nasal Swab Updated: [...] performed by Molecular Methodology MRSA by PCR [[id number]] Collected: 12/03/171836 Specimen: Nasopharyngeal from Nares(Nose) Updated: [...] medications if needed. Follow-Up: Eliza Cool MD [address] [facility] [place] [address] [facility] [address] [place] [address] Bekah Madera MD [address] [place] [address] In 1 week Eliza Cool MD [address] [place] [address] Discharge took more than 35 minutes, to include final examination, discussion of admission, and preparation of prescriptions, instructions for ongoing care, follow up and dictation of summary. Signed: MORTEZA SHANE MD 12/05/2017 11:14 AM Dictation software, [employer] vascular solution, used which may contain error for similar [...] may be different from the original. [facility] Service: Cardiology Progress Note Hospital Day: [...] these symptoms, which were unlike her previous UT symptoms, would go away on their own. On Saturday night, she had the same symptoms, but it persisted, and she was unable to sleep. She called her son around 4 AM, and he brought her to the emergency room at [facility]. Her troponin was negative in [facility], but has subsequently become elevated, ru [...] class I. She was previously `transferred from [facility] to [facility] 07/31/17 for an acute NSTE UT, awakened at 5:30 AM with severe right [...] 60% D2 COPD (chronic obstructive pulmonary disease) ([facility]) severe Emphysema GERD (gastroesophageal reflux disease) Hiatal hernia HLD (hyperlipidemia) HTN (hypertension) Hypothyroidism MRSA (methicillin resistant Staphylococcus aureus) 2014 line sepsis following SBO surgery Myocardial infarct ([facility]) 2008 and NSTEMI 07/31/17 Paroxysmal atrial fibrillation ([facility]) 07/27/2017 PVD (peripheral vascular disease) ([facility]) 2013 severe bilateral PVD, occluded right external iliac, left internal iliac, severe stenoses in bilateral common iliacs and left SFA Rheumatoid arthritis ([facility]) Small bowel obstruction due to adhesions ([facility]) several times Status post insertion [...] disease, with a chronically occluded RCA, with kxhd-yu-dawgk ayden aterals, with patent stents in the left circumflex, and severe disease of the small diagonal branch, unchanged from the end result of her previous procedure done 08/06/17. PROBLEM LIST Principal Problem: NSTEMI (non-ST elevated myocardial infarction) ([facility]) Active Problems: COPD (chronic obstructive pulmonary disease) ([facility]) CAD (coronary artery disease) Rheumatoid arthritis (HCC) Pulmonary HTN (HCC) Chronic respiratory failure with hypoxia ([facility]) HTN (hypertension) HLD (hyperlipidemia) GERD (gastroesophageal reflux [...] basis post d/c (Dr. Madera goes to [place], where she lives). 10. Mild-moderate anemia, chronic, likely secondary to #8 11. Rheumatoid arthritis Disposition: Okay for discharge today from my standpoint, on current medications, follow u p with JHOAN Thomas at the [place] office in 1-2 weeks, and Dr. Madera at his n ext available appointment. Code Status: Full Code Cristhian Cochran MD [facility]2017[facility] - 12/04/2017 3:35 PM PDTFormatting of this [...] renal function and adjust accordingly. Carson Bhagat [facility] 12/04/2017 3:34 Morteza Lopez MD - 12/04/2017 10:40 AM PDTFormatting of this note may be different from the original. [facility] Service: Hospitalist Progress Note Pt: Davina [...] , who presented as a transfer from [facility] to our ER for persistent chest pain f elt to be potentially unstable angina have elevated troponin more likely related to the non- ST elevation UT. SUBJECTIVE: Patient seen and examine. She continues [...] Procedure Component Value Units Date/Time Respiratory Filmarray [[id number]] Collected: 12/03/17 1526 Specimen: Nasal Swab Updated: [...] performed by Molecular Methodology MRSA by PCR [[id number]] Collected: 12/03/171836 Specimen: Nasopharyngeal from Nares(Nose) Updated: 12/03/171958 SOURCE NARES(NOSE) MRSA PCR NEGATIVE PROBLEM LIST Principal Problem: NSTEMI (non-ST elevated myocardial infarction) ([facility]) Active Problems: COPD (chronic obstructive pulmonary disease) [...] , who presented as a transfer from [facility] to our ER for persistent chest pain f elt to be potentially unstable angina have elevated troponin more likely related to the non- ST elevation UT. Principal Problem: NSTEMI (non-ST elevated myocardial infarction) ([facility]) She had a EKG changes as well [...] MD, FACP 12/04/2017 10:40 AM Dictation software, Biomedix vascular solution, used which may contain error for similar sounding words even af ter review. Personal communication requested for any clarification. Portions of this chart may have been copied from previous notes for continuity of care purp Casron Elizabeth, [facility] - 12/03/2017 7:31 PM PDTFormatting of this [...] [place] | | | | | | [address] | | | | | | | | +--------+---------+ + + + | 06/17/ | Office | Cardiology | Cristhian Cochran, | | | 2017 | Visit | | MD [address] | | | | | | [place], | | | | | | [place] [address] | | | | | | [phone] | | | | | | | | +--------+---------+ + + + + +--------+ + + | Name | Priori | Associated Diagnoses | Order Schedule | | | ty | | | + +--------+ + + | Basic metabolic panel | Routin | NSTEMI (non-ST | Expected: | | | e | elevated myocardial | 12/10/2017, Expires: | | | | infarction) ([facility]) | 12/05/2018 | + +--------+ + + | CBC w/auto diff (reflex to | Routin | NSTEMI (non-ST | Expected: | | manual) | e | elevated myocardial | 12/11/2017, Expires: | | | | infarction) ([facility]) | 12/05/2018 | + +--------+ + + [...] | [facility] | | | performed at [facility], [address] | | LABORATORY | | | [place], | | | | | [place] [address] | | | + + + + + + + | Specimen | + + | Blood | + + + + + + + | Performing | Address | City/State/Zipcode | Phone Number | | Organization | | | | + + + + + | [facility] | [address] | [place] [address] | [phone] | | LABORATORY | Blvd. | | [...] 74 | 35 - 115 U/L | [facility] | | | | | LABORATORY | + + + + + | AST | 20 | 10 - 45 U/L | [facility] | | | | | LABORATORY | + + + + + | ALT | 24 | 10 - 65 U/L | [facility] | | | | | LABORATORY | + + + + + | EGFR | 30 (L)Comment: GFR <60: | >60 mL/min/1.73m2 | [facility] | | | CHRONIC KIDNEY DISEASE, [...] performed at | | | | | [facility], [address] | | | | | [place] | | | | | [place] [address] | | | + + + + + + + | Specimen | + + | Blood | + + + + + + + | Performing | Address | City/State/Zipcode | Phone Number | | Organization | | | | + + + + + | [facility] | [address] | [place] [address] | [phone] | | LABORATORY | Blvd. | | [...] | | | | | [place] [address] | | | + + + + + + + | Specimen | + + | Blood | + + + + + + + | Performing | Address | City/State/Zipcode | Phone Number | | Organization | | | | + + + + + | [facility] | [address] | [place] [address] | [phone] | | LABORATORY | Blvd. | | [...] performed at | | | | | [facility], [address] | | | | | [place], | | | | | [place] [address] | | | + + + + + + + | Specimen | + + | Blood | + + + + + + + | Performing | Address | City/State/Zipcode | Phone Number | | Organization | | | | + + + + + | [facility] | [address] | [place] [address] | [phone] | | LABORATORY | Blvd. | | [...] | | | | | performed at [facility], [address] | | | | | [address], | | | | | [place] [address] | | | + + + + + + + | Specimen | + + | Blood | + + + + + + + | Performing | Address | City/State/Zipcode | Phone Number | | Organization | | | | + + + + + | [facility] | [address] | [place] [address] | [phone] | | LABORATORY | Blvd. | | [...] right coronary artery with | | | eoxc-ct-uldcy collaterals. Severe disease of a small second [...] radial artery, then I will use a 4-[place] sheath | | | and 4-[place] catheter. Lidocaine 2% was used for local [...] a micropuncture | | | needle. A 5-[place] Citizen sheath was placed into the left femoral artery | | | without difficulty. Subsequently, a 5-[place] Citizen 3.5 catheter was | | | advanced, however did not lead to good engagement. We changed it to a | | | 5-[place] FL4 catheter with selective engagement of the left coronary | | | system, and angiographic views were obtained. Subsequently, a | | | 5-[place] Citizen FR4 catheter was advanced over the guidewire [...] | | | diagonal branch is a qvxzp-la-glsdam size vessel at 1.5 to 2 mm [...] right coronary | | | artery, with datu-ct-ytuls collaterals. 2. Patent stents in the left [...] | | occluded right coronary artery with mkhj-cq-atokx collaterals. Severe | | disease of a [...] radial artery, then I will use a 4-[place] Citizen sheath | | and 4-[place] Citizen catheter. Lidocaine 2% was used for local [...] was accessed using a micropuncture needle. A 5-[place] Citizen sheath | | was placed into the left femoral artery without difficulty. Subsequently, a | | 5-[place] Citizen 3.5 catheter was advanced, however did not lead to good | | engagement. We changed it to a 5-[place] FL4 catheter with selective | | engagement of the left coronary system, and angiographic views were | | obtained. Subsequently, a 5-[place] FR4 catheter was advanced over the | [...] second diagonal branch is a | | dzhlo-vp-fcvxbf size vessel at 1.5 to 2 mm [...] occluded right | | coronary artery, with zyhe-hf-pkqpv collaterals. | | 2. Patent stents in [...] | + + + + + | [facility] | [address] | [place] [address] | | + + + + + POC ACT, arterial (12/04/2017 2:30 PM) + + + + + | Component | Value | Ref Range | Performed At | + + + + + | POC ACT | 136Comment: Testing | 74 - 137 seconds | [facility] | | | performed at [facility];[address] | | | | | [address];[place], [place] | | | | | [address] | | | + + + + + + + + + + | Performing | Address | City/State/Zipcode | Phone Number | | Organization | | | | + + + + + | [facility] | [address] | [place] [address] | | + + + + + aPTT - Q6 starting in 6 hours x 2 (12/04/2017 6:44 AM) + + + + + | Component | Value | Ref Range | Performed At | + + + + + | APTT | 46 (H)Comment: Testing | 23 - 32 seconds | [facility] | | | performed at [facility];[address] | | | | [address];[place] | | | | | [address] | | | + + + + + + + | Specimen | + + | Blood | + + + + + + + | Performing | Address | City/State/Zipcode | Phone Number | | Organization | | | | + + + + + | [facility] | [address] | [place] [address] | | + + + + + aPTT - Q6 starting in 6 hours x 2 (12/04/2017 12:45 AM) + + + + + | Component | Value | Ref Range | Performed At | + + + + + | APTT | 43 (H)Comment: Testing | 23 - 32 seconds | [facility] | | | performed at [facility];[address] | | | | [address];[place] | | | | | [address] | | | + + + + + + + | Specimen | + + | Blood | + + + + + + + | Performing | Address | City/State/Zipcode | Phone Number | | Organization | | | | + + + + + | [facility] | [address] | [place] [address] | | + + + + + [...] | | | | | Blvd;[place] [address] | | | + + + + + + + | Specimen | + + | Blood | + + + + + + + | Performing | Address | City/State/Zipcode | Phone Number | | Organization | | | | + + + + + | [facility] | [address] | [place] [address] | | + + + + + TSH (12/04/2017 12:43 AM) + + + + + | Component | Value | Ref Range | Performed At | + + + + + | TSH | 0.089 (L)Comment: | 0.450 - 5.100 uIU/mL | [facility] | | | Testing performed at | | LABORATORY | | | [place], [address] | | | | | [place] | | | | | [address] | | | + + + + + + + | Specimen | + + | Blood | + + + + + + + | Performing | Address | City/State/Zipcode | Phone Number | | Organization | | | | + + + + + | [facility] | [address] | [place] [address] | [phone] | | LABORATORY | Blvd. | | | + + + + + Glycohemoglobin A1c (12/04/2017 12:43 AM) + + + + + | Component | Value | Ref Range | Performed At | + + + + + | HEMOGLOBIN A1C | 5.3Comment: The [employer] | 4.0 - 6.0 % | [facility] | | | Diabetes Association [...] | | | | | performed at [facility], [address] | | | | | [facility], | | | | | [place] [address] | | | + + + + + + + | Specimen | + + | Blood | + + + + + + + | Performing | Address | City/State/Zipcode | Phone Number | | Organization | | | | + + + + + | [facility] | [address] | [place] [address] | [phone] | | LABORATORY | Blvd. | | [...] | 53Comment: Testing | <100 mg/dL | [facility] | | | performed at [facility], [address] | | LABORATORY | | | [facility], | | | | | [place] [address] | | | + + + + + + + | Specimen | + + | Blood | + + + + + + + | Performing | Address | City/State/Zipcode | Phone Number | | Organization | | | | + + + + + | [facility] | [address] | [place] [address] | [phone] | | LABORATORY | Blvd[address] | | | + + + + + Phosphorus (12/04/2017 12:43 AM) + + + + + | Component | Value | Ref Range | Performed At | + + + + + | PHOSPHORUS | 3.7Comment: Testing | 2.3 - 4.8 mg/dL | [facility] | | | performed at [facility], [address] | | LABORATORY | | | [address], | | | | | [place] [address] | | | + + + + + + + | Specimen | + + | Blood | + + + + + + + | Performing | Address | City/State/Zipcode | Phone Number | | Organization | | | | + + + + + | [facility] | [address] [place] [address] | [place] [address] | [phone] | | LABORATORY | [address]vd[address] | | | + + + + + Magnesium (12/04/2017 12:43 AM) + + + + + | Component | Value | Ref Range | Performed At | + + + + + | MAGNESIUM | 2.0Comment: Testing | 1.7 - 2.4 mg/dL | [facility] | | | performed at [facility], [address] | | LABORATORY | | | [facility], | | | | | [place] [address] | | | + + + + + + + | Specimen | + + | Blood | + + + + + + + | Performing | Address | City/State/Zipcode | Phone Number | | Organization | | | | + + + + + | [facility] | [address] | [place] [address] | [phone] | | LABORATORY | Blvd. | | [...] (L) | 8.5 - 10.5 mg/dL | [facility] | | | | | LABORATORY | + + + + + | EGFR | 34 (L)Comment: GFR <60: | >60 mL/min/1.73m2 | [facility] | | | CHRONIC KIDNEY [...] performed at | | | | | [facility], [address] | | | | | [place], | | | | | [place] [address] | | | + + + + + + + | Specimen | + + | Blood | + + + + + + + | Performing | Address | City/State/Zipcode | Phone Number | | Organization | | | | + + + + + | [facility] | [address] | [place] [address] | [phone] | | LABORATORY | Blvd. | | [...] 168 | 150 - 400 K/uL | [facility] | + + + + + | MPV | 8.7 | fl | [facility] | + + + + + [...] performed at | | | | | [facility];[address] | | | | | [place] [address] | | | + + + + + + + | Specimen | + + | Blood | + + + + + + + | Performing | Address | City/State/Zipcode | Phone Number | | Organization | | | | + + + + + | [facility] | [address] | [place] [address] | | + + + + + [...] + + + + | Calculated P [place] | 69 | degrees | [facility] | + + + + + | Calculated R [place] | 49 | degrees | [facility] | + + + + + | Calculated T [place] | 110 | degrees | [facility] [...] | [address] | [place] [address] | | + + + + + [...] | | | | | performed at [facility] | | | | | [address];[place], [place] | | | | | [address] | | | + + + + + + + + + + | Performing | Address | City/State/Zipcode | Phone Number | | Organization | | | | + + + + + | [facility] | [address] | [place] [address] | | + + + + + CPK (12/03/2017 9:45 PM) + + + + + | Component | Value | Ref Range | Performed At | + + + + + | CPK | 122Comment: Testing | 30 - 240 U/L | [facility] | | | performed at [facility];[address] | | | | | [address];[place] | | | | | [address] | | | + + + + + + + | Specimen | + + | Blood | + + + + + + + | Performing | Address | City/State/Zipcode | Phone Number | | Organization | | | | + + + + + | [facility] | [address] | [place] [address] | | + + + + + [...] | | | | CRITERIA FOR ACUTE UT | | | | | CALLED NURSING UNITREAD | | | | | BACK RESULTS | | | | | VERIFIEDNANCY L ON 3OP | | | | | AT 2237 LMCTesting | | | | | performed at [facility];[address] | | | | | [address];[place] | | | | | [address] | | | + + + + + + + | Specimen | + + | Blood | + + + + + + + | Performing | Address | City/State/Zipcode | Phone Number | | Organization | | | | + + + + + | [facility] | [address] | [facility] [address] | | + + + + + [...] + + + + + | [facility] | [address] | [facility] [place] [address] | | + + + + + [...] | | | | | performed at [facility] | | | | | [address] [facility];[place], [place] | | | | | [address] | | | + + + + + + + | Specimen | + + | Blood | + + + + + + + | Performing | Address | City/State/Zipcode | Phone Number | | Organization | | | | + + + + + | [facility] | [address] | [place] [address] | | + + + + + aPTT (12/03/2017 7:05 PM) + + + + + | Component | Value | Ref Range | Performed At | + + + + + | APTT | 25Comment: Testing | 23 - 32 seconds | [facility] | | | performed at [facility];[address] | | | | | [address] [facility] [address] [facility];[place] | | | | | [address] | | | + + + + + + + | Specimen | + + | Blood | + + + + + + + | Performing | Address | City/State/Zipcode | Phone Number | | Organization | | | | + + + + + | [facility] | [address] | [place] [address] | | + + + + + CBC w/no diff (12/03/2017 7:05 PM) + + + + + | Component | Value | Ref Range | Performed At | + + + + + | WBC | 6.20 | 3.80 - 11.00 K/uL | [facility] | + + + + + [...] HOSPITAL LABORATORY | | | performed at [facility] | | | | | [address];[place] | | | | | [address] | | | + + + + + + + + + + | Performing | Address | City/State/Zipcode | Phone Number | | Organization | | | | + + + + + | [facility] | [address] | [place] [address] | | + + + + + [...] HOSPITAL LABORATORY | | | performed at [facility];[address] | | | | | [address];[place] | | | | | [address] | | | + + + + + + + | Specimen | + + | Nasopharyngeal - | | Nares(Nose) | + + + + + + + | Performing | Address | City/State/Zipcode | Phone Number | | Organization | | | | + + + + + | [facility] | [address] | [place] [address] | | + + + + + Basic metabolic panel (12/03/2017 5:00 PM) + + + + + | Component | Value | Ref Range | Performed At | + + + + + | SODIUM | 141 | 135 - 145 mmol/L | [facility] | + + + + + | POTASSIUM | 4.1 | 3.5 - 4.9 mmol/L | [facility] | + + + + + [...] | | | MDRD [facility] traceable | | | | | equation. PLEASE NOTE | | | | | NEW CALCULATION | | | | | EFFECTIVE 12/03/2017 | | | | | Testing performed at | | | | | [facility];[address] [place] [address] | | | | | [facility];[place] [address] | | | + + + + + + + | Specimen | + + | Blood | + + + + + + + | Performing | Address | City/State/Zipcode | Phone Number | | Organization | | | | + + + + + | [facility] | [address] | [place] [address] | | + + + + + [...] | | | | | performed at [facility];[address] | | | | | [address];[place] | | | | | [address] | | | + + + + + + + + + + | Performing | Address | City/State/Zipcode | Phone Number | | Organization | | | | + + + + + | [facility] [facility] | [address] | [place] [address] | | + + + + + CPK (12/03/2017 5:00 PM) + + + + + | Component | Value | Ref Range | Performed At | + + + + + | CPK | 90Comment: Testing | 30 - 240 U/L | [facility] | | | performed at [facility] | | | | | [facility];[place], [place] | | | | | [address] | | | + + + + + + + | Specimen | + + | Blood | + + + + + + + | Performing | Address | City/State/Zipcode | Phone Number | | Organization | | | | + + + + + | [facility] | [address] | [place] [address] | | + + + + + [...] | | | | CRITERIA FOR ACUTE UT | | | | | CALLED NURSING UNITREAD | | | | | BACK RESULTS | | | | | VERIFIEDMELISSA H ON 3OP | | | | | AT 1841 LMCTesting | | | | | performed at [facility];[address] | | | | | [facility];[place], [place] | | | | | [address] | | | + + + + + + + | Specimen | + + | Blood | + + + + + + + | Performing | Address | City/State/Zipcode | Phone Number | | Organization | | | | + + + + + | [facility] | [address] | [place] [address] | | + + + + + [...] performed at | | | | | [facility], [address] [facility] | | | | | [place] | | | | | [address] | | | + + + + + + + | Specimen | + + | Nasal Swab | + + + + + + + | Performing | Address | City/State/Zipcode | Phone Number | | Organization | | | | + + + + + | [facility] | [address] [facility] | [place] [address] | [phone] | | LABORATORY | Blvd. | | [...] | | | | | performed at [facility];[address] | | | | | [address];[place] | | | | | [address] | | | + + + + + + + + + + | Performing | Address | City/State/Zipcode | Phone Number | | Organization | | | | + + + + + | [facility] | [address] | [place] [address] | | + + + + + Urinalysis (reflex to microscopic/reflex to culture) (12/03/2017 10:55 AM) + + + + + | Component | Value | Ref Range | Performed At | + + + + + | COLOR UA | STRAW | | [employer] | + + + + + | CLARITY | CLEAR | | [facility] | + + + + + | Specific [place], UA | 1.006 | 1.002 - 1.030 | [facility] | + + + + + [...] HOSPITAL [facility] | | | performed at [facility] | | | | | [address];[place] | | | | | [address] | | | + + + + + + + | Specimen | + + | Urine, Clean Catch | + + + + + + + | Performing | Address | City/State/Zipcode | Phone Number | | Organization | | | | + + + + + | [facility] | [address] | [place] [address] | | + + + + + [...] performed at | | | | | [facility];[address];[place] [address] | | | + + + + + + + | Specimen | + + | Blood | + + + + + + + | Performing | Address | City/State/Zipcode | Phone Number | | Organization | | | | + + + + + | [facility] | [address] | [place] [address] | | + + + + + [...] | | | | CRITERIA FOR ACUTE UT | | | | | Testing performed at | | | | | [facility];[address] [place] [address] | | | | | [facility];[place] [address] | | | + + + + + + + | Specimen | + + | Blood | + + + + + + + | Performing | Address | City/State/Zipcode | Phone Number | | Organization | | | | + + + + + | [facility] | [address] | [place] [address] | | + + + + + [...] + + + + | Calculated P [place] | 73 | degrees | [facility] EKG | + + + + + | Calculated R [place] | 51 | degrees | [facility]KG | + + + + + | Calculated T [place] | 127 | degrees | [facility] EKG [...] -COMPUTER (500), | | | | | production editor Neville Wise | | | | [...] | [address] | [place] [address] | | + + + + + ED INFORMATION EXCHANGE (12/03/2017 10:43 AM) + + + | Narrative | Performed At | + + + | [id number] This patient has registered at the | ED | | [facility] Emergency Department For more | INFORMATION | | information visit: | EXCHANGE | | [email or web address] | | | [email or web address] Security Events No [...] Chief Complaint November | | | [address] [facility] Emergency Emergency | | | Chest pain, unspecified December 03, 2017 [facility] | | | [place] Emergency Emergency Chief Complaint: SOB | | | E.D. Visit Count (12 mo.) Facility Visits [facility] | | | [facility] 2 0 [facility] 6 0 Total 8 0 | [...] Primary | | | Care Current Blood, Danielel C | | | Primary Care Current [...] | | facilities for additional information. 2018 [facility] | | | [employer] - [place], [place] - | | | [email or web address] | | + + + + + | Procedure Note | + + | Interface, Lab - 12/03/2017 10:44 AM PDT Formatting of this note may be different | | from the original.[id number] [id number] patient has registered at the [facility] | | [facility] Emergency Department For more information visit: | | [email or web address] Security | | EventsNo recent Security Events currently on fileED Care GuidelinesThere are currently | | no ED Care Guidelines in [place]ET[place] for this patient. Please check your facility's medical | | records system.Recent Emergency Department Visit SummaryAdmit Date Facility [facility] | | Type Major Type Diagnoses or Chief Complaint December 03, [address] [facility] | | Emergency Emergency Chest pain, unspecified December 03, 2017 [facility]. | | [place] Emergency Emergency Chief Complaint: SOB E.D. Visit Count (12 mo.)Facility Visits | | [facility] 2 0 [facility] 6 0 Total 8 0 | [...] facilities for additional information. | | 2018 [employer] [place], [place] - | | [email or web address] | |Note: Visits indicate total known visits. [...] aforementioned facilities for additional information. | |2018 [employer] - [place], [place] - | + + + +---------+ + + [...] [facility] | [address] | [place] [address] | | + + + + + [...] classified | + + | Atherosclerosis of [place] coronary artery of [place] heart | + + | Rheumatoid arthritis [...]
--- OUTSIDE RECORDS SUMMARY | ~2018-02-23 | XMS | Encounter Summary ---
Demographics + + + | Address | [address] | | | [place] [address] | + + + | Home Phone | | + + + | Preferred Language | Unknown | + + + | Marital Status | Single | + + + | Latter Day Affiliation | 1009 | + + + | Race | Unknown | + + + | Ethnic Group | Unknown | + + + Author + + + | Author | [employer] | + + + | Organization | [facility] [facility] | + + + | Address | Unknown | + + + | Phone | Unavailable | + + + Support + + +---------+ + | Name | Relationship | Address | Phone | + + +---------+ + | Lavell Chiu | ECON | Unknown | | + + +---------+ + Care Team Providers + +------+ + | Care Plating Foreman Name | Role | Phone | + [...] | | | | | [place] [address] | | | | | | [phone] | | | +--------+ + + + [...] | | | | | | [address] [place] | | | | | | [address] | | | | | | | | +--------+---------+ + + + | 06/17/ | Office | Cardiology | Cristhian Cochran, | | | 2018 | Visit | | MD [address] | | | | | | [place], | | | | | | [place] [address] | | | | | | [phone] | | | | | | | | +--------+---------+ + + + as of this encounter Visit Diagnoses Not on filein this encounter"
--- OUTSIDE RECORDS SUMMARY | ~2018-02-23 | XMS | Encounter Summary ---
Demographics + + + | Address | [address] | | | [place] [address] | + + + | Home Phone [...] + + + | Author | [employer] [employer] | + + + | Organization | [facility] | + + + | Address | Unknown | + + + | Phone | Unavailable | + + + Support + + +---------+ + | Name | Relationship | Address | Phone | + + +---------+ + | Lavell Chiu | ECON | Unknown | | + + +---------+ + Care Team Providers + +------+ + | Care Business Development Recruiter Name | Role | Phone | + +------+ + | Eliza Andrade MD | PCP | Unavailable | + +------+ + Reason for Visit +--------+ + | Reason | Comments | +--------+ + | Other | [facility] Notes 12/03/17 | +--------+ + Encounter Details +--------+ + + + + | Date | Type | Department | Care Team | Description | +--------+ + + + + | 12/17/ | Documentati | SANDRA Oneill | Ana Mcfadden, | Other ([facility] | | 2018 | on Only | Ambika Proctor | [place] | ED Notes 12/03/17) | | | | [address] [facility] [address] | | | | | | [facility] [address] | | | | | | [place] [address] | | | | | | [phone] | | | +--------+ + + + [...] | | | | | | [address] [place] | | | | | | [address] | | | | | | | | +--------+---------+ + + + | 06/17/ | Office | Cardiology | Cristhian Cochran, | | | 2018 | Visit | | MD [address] | | | | | | [place], | | | | | | [place] [address] | | | | | | [phone] | | | | | | | | +--------+---------+ + + + as of this encounter Visit Diagnoses Not on filein this encounter"
--- OUTSIDE RECORDS SUMMARY | ~2018-02-23 | XMS | Encounter Summary ---
Demographics + + + | Address | [address] | | | [place] [address] | + + + | Home Phone | | + + + | Preferred Language | Unknown | + + + | Marital Status | Single | + + + | Hinduism Affiliation | 1009 | + + + | Race | Unknown | + + + | Ethnic Group | Unknown | + + + Author + + + | Author | [address]jelio [address] | + + + | Organization | [facility] [employer] [facility] | + + + | Address | Unknown | + + + | Phone | Unavailable | + + + Support + + +---------+ + | Name | Relationship | Address | Phone | + + +---------+ + | Lavell Chiu | ECON | Unknown | | + + +---------+ + Care Team Providers + +------+ + | Care Laser Print Operator Name | Role | Phone | [...] | | heart | Myriam Khanna | [address] | | | | | failure | [place] [address] | Jessica Fournier | | | | | ([facility]) | [place] | [place] | | | | | Procedures | [address] | [address] | | | | | Echo cardiac | Phone: | Phone: | | | | | adult | [phone] | [phone] | | | | | complete | Fax: | Fax: | | | | | | [phone] | [phone] | + +--------+ + + + + [...] | Way | | | | | ([facility]) S/P | [facility] [place] | [place] | | | | | PTCA | [address] | [address] | | | | | (percutaneou | Phone: | Phone: | | | | | s | [phone] | [phone] | | | | | transluminal | Fax: | Fax: | | | | | coronary | [phone] | [phone] | | | | | angioplasty) | [...] | | | | UP | [place] [address] | [place] | | | | | | Phone: | [address] Phone: | | | | | | [phone] | [phone] | | | | | | Fax: | Fax: | | | | | | [phone] | [phone] | + +--------+ + + + + [...] | (Primary Dx); | | | | [place] [address] | [place] [address] | Atherosclerosis of | | | | [place] [address] | [phone] | [place] coronary | | | | [phone] | | artery of [place] | | | | | | heart, [...] | | | | | occlusion of [place] | | | | | | coronary [...] follow-up visit. She was hospita lized at [facility] 02/07/18 for SOB, and records note that she had been there in [facility] emergency room 01/27/18 with an exacerbation of [...] oxygen. She had previously been admitted to [facility] 12/03/17 for severe dyspnea on exertio, and mid re trosternal pressure described as a "cold, tight" feeling, present on a daily basis for 10 da ys, but did not immediately seek medical attention, as these were unlike her previous [place] sym ptoms. The night of admission, it [...] a remote prior history of CAD, remote [place], 3 coronary stents placed in 2004, and a recent episode of paroxysmal atrial fibrillation at [facility] several days prio r to admission. She used to see Mason Grier DO but had been lost to follow up. Her blood pressure is well-controlled today. She seems to be doing well at this point, and I will see her back in a few months, after her updated echo. She was referred to cardiopul monary rehab at [facility]. Review of Systems CONSTITUTIONAL: 9 lb [...] She has a history of C AD, [place] and 3 drug-eluting intracoronary stents placed in [...] 3-vessel disease with chronically occluded RCA, with bqmx-dd-kxsj t collaterals. . Patent stents in the [...] common femoral filled via collaterals from the risk management internship al iliac -- Echo (08/01/17): EF 65-70%, [...] failure (HCC) COPD (chronic obstructive pulmonary disease) ([facility]) severe Emphysema GERD (gastroesophageal reflux disease) Hiatal hernia HLD (hyperlipidemia) HTN (hypertension) Hypothyroidism MRSA (methicillin resistant Staphylococcus aureus) 2013 line sepsis following SBO surgery Myocardial infarct ([facility]) 2008 and NSTEMI 07/31/17 Paroxysmal atrial fibrillation ([facility]) 07/27/2017 PVD (peripheral vascular disease) ([facility]) 2013 severe bilateral PVD, occluded right external iliac, left internal iliac, severe stenoses in bilateral common iliacs and left SFA Rheumatoid arthritis ([facility]) Small bowel obstruction due to adhesions ([facility]) several times Status post insertion [...] Acute diastolic heart failure (HCC) Atherosclerosis of [place] coronary artery of [place] heart, angina presence unspecified S/P PTCA (percutaneous transluminal coronary angioplasty) Status post insertion of drug eluting coronary artery stent Chronic total occlusion of [place] coronary artery History of [place] (myocardial infarction) Paroxysmal atrial fibrillation (HCC) Mild [...] | | | | | | [address] [place], [place] | | | | | | [address] | | | | | | | | +--------+---------+ + + + | 06/17/ | Office | Cardiology | Cristhian Cochran, | | | 2018 | Visit | | MD [address] | | | | | | [place], | | | | | | [place] [address] | | | | | | [phone] | | | | | | | [...] failure | + + | Atherosclerosis of [place] coronary artery of [place] heart, angina presence unspecified | + + | S/P PTCA (percutaneous transluminal coronary angioplasty) | + + | Postsurgical percutaneous transluminal coronary angioplasty status | + + | Status post insertion of drug eluting coronary artery stent | + + | History of [place] (myocardial infarction) | + + | Old [...]
--- OUTSIDE RECORDS SUMMARY | ~2018-02-23 | XMS | Encounter Summary ---
Demographics + + + | Address | [address] | | | [place] [address] | + + + | Home Phone [...] + + + | Author | [employer] | + + + | Organization | [facility] [employer] [facility] | + + + | Address | Unknown | + + + | Phone | Unavailable | + + + Support + + +---------+ + | Name | Relationship | Address | Phone | + + +---------+ + | Lavell Chiu | ECON | Unknown | | + + +---------+ + Care Team Providers + +------+ + | Care Gas Distribution And Emergency Clerk Name | Role | Phone | + [...] | | 2018 | on Only | [place] [address] | | Labs dated | | | | [address] | | 02/07/2018; ) | | | | [place] [address] | | | | | | [phone] | | | +--------+ + + + [...] | | | | | | [address] [facility] | | | | | | [address] | | | | | | | | +--------+---------+ + + + | 06/17/ | Office | Cardiology | Cristhian Cochran, | | | 2017 | Visit | | MD [address] | | | | | | [place], | | | | | | [place] [address] | | | | | | [phone] | | | | | | | [...] | [address] | [place] [address] | | | LABORATORY | 13 | [...] | [address] | [place] [address] | | | LABORATORY | 13 | [...] | [address] | [place] [address] | | | LABORATORY | 13 | [...] | [address] | [place] [address] | | | LABORATORY | 13 | | | + + + + + in this encounter Visit Diagnoses Not on filein this encounter"
--- OUTSIDE RECORDS SUMMARY | ~2018-02-23 | XMS | Encounter Summary ---
Demographics + + + | Address | [address] | | | [place] [address] | + + + | Home Phone | | + + + | Preferred Language | Unknown | + + + | Marital Status | Single | + + + | Zoroastrian Affiliation | 1009 | + + + | Race | Unknown | + + + | Ethnic Group | Unknown | + + + Author + + + | Author | [employer]jelio [employer] | + + + | Organization | [facility] [employer] [facility] | + + + | Address | Unknown | + + + | Phone | Unavailable | + + + Support + + +---------+ + | Name | Relationship | Address | Phone | + + +---------+ + | Lavell Chiu | ECON | Unknown | | + + +---------+ + Care Team Providers + +------+ + | Care Middleware Consultant Name | Role | Phone | + [...] | records) | | | | [address] [facility] [address] | | | | | | [facility] [address]- | | | | | | [place] [address] | | | | | | [phone] | | | +--------+ + + + [...] | | | | | | [address] [place], [place] | | | | | | [address] | | | | | | | | +--------+---------+ + + + | 06/17/ | Office | Cardiology | Cristhian Cochran, | | | 2018 | Visit | | MD [address] | | | | | | [place], | | | | | | [place] [address] | | | | | | [phone] | | | | | | | | +--------+---------+ + + + as of this encounter Visit Diagnoses Not on filein this encounter"
--- OUTSIDE RECORDS SUMMARY | ~2018-02-23 | XMS | Encounter Summary ---
Demographics + + + | Address | [address] | | | [place] [address] | + + + | Home Phone [...] + + + | Author | [employer]jelio [employer] | + + + | Organization | [facility] [employer] [facility] | + + + | Address | Unknown | + + + | Phone | Unavailable | + + + Support + + +---------+ + | Name | Relationship | Address | Phone | + + +---------+ + | Lavell Chiu | ECON | Unknown | | + + +---------+ + Care Team Providers + +------+ + | Care Six Color Press Operator Name | Role | Phone [...] | | | | | [place] [address] | | | | | | [phone] | | | +--------+ + + + [...] | | | | | | [address] [place] | | | | | | [address] | | | | | | | | +--------+---------+ + + + | 06/17/ | Office | Cardiology | Cristhian Cochran, | | | 2018 | Visit | | MD [address] | | | | | | [place], | | | | | | [place] [address] | | | | | | [phone] | | | | | | | | +--------+---------+ + + + as of this encounter Visit Diagnoses Not on filein this encounter"
--- OUTSIDE RECORDS SUMMARY | ~2018-02-23 | XMS | Encounter Summary ---
Demographics + + + | Address | [address] | | | [place] [address] | + + + | Home Phone | | + + + | Preferred Language | Unknown | + + + | Marital Status | Single | + + + | Druze Affiliation | 1009 | + + + | Race | Unknown | + + + | Ethnic Group | Unknown | + + + Author + + + | Author | [employer] | + + + | Organization | [facility] [employer] [facility] | + + + | Address | Unknown | + + + | Phone | Unavailable | + + + Support + + +---------+ + | Name | Relationship | Address | Phone | + + +---------+ + | Lavell Chiu | ECON | Unknown | | + + +---------+ + Care Team Providers + +------+ + | Care Senior Sales Consultant Name | Role | Phone | [...] | | | Dr. Cochran pt | [address] | [address] | | | | | Procedures | JESSICA HINOJOSA | Myriam Khanna | | | | | CRD FOLLOW | TRUE | Mehrdad [place]levins | | | | | UP | [place] [address] | [place], [place] | | | | | | Phone: | [address] Phone: | | | | | | [phone] | [phone] | | | | | | Fax: | Fax: | | | | | | [phone] | [phone] | + +--------+ + + + + Encounter Details +--------+---------+ + + + | Date | Type | Department | Care Team | Description | +--------+---------+ + + + | 12/09/ | Office | [facility] | Alesia Freire | Hospital discharge | | 2018 | Visit | Cardiology True | J[address]AN [address] | follow-up (Primary | | | | [address] | Myriam Grewal | Dx); NSTEMI (non-ST | | | | [address] | [place] [address] | elevated myocardial | | | | [place] [address] | [phone] | infarction) (HCC); | | | | [phone] | | Coronary artery | | | | | | disease involving | | | | | | wrangell coronary | | | | | | artery of wrangell | | | | | | heart without angina | | | | | | pectoris; S/P PTCA | | | | | | (percutaneous | | | | | | transluminal | | | | | | coronary | | | | | | angioplasty); | | | | | | Paroxysmal A-fib | | | | | | ([facility]); PVD | | | | | | (peripheral vascular | | | | | | disease) ([facility]); | | | | | | Pulmonary emphysema, | | | | | | unspecified | | | | | | emphysema type | | | | | | ([facility]); 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 This means you can have only [id number] to 700mg of sodium at each meal.People [...] matzo crackers Avoid: Salted crackers, pretzels, popcorn, Swedish toast, pancakes, muffins Dairy Ok: Milk, chocolate [...] vegetables; tomato juice, olives Date Last Reviewed: 02/06/201619996324-5760 [employer] [address] [place] [address], [place] [address]. All righ ts reserved. This information is [...] to follow-up her being d ischarged from [facility]( [facility]) on December 05 after non-STEMI [...] p reviously seen by him in our [place] office in August 2017. I reviewed his documentation, as well all previous documentation available to me in [facility] medical record and external sources. Her previous [...] when taken to the emergency room at [facility] by her son around 4 AM. Her troponin was documented as being initially negative at [facility], but subsequently elevated to 0.62 and she was ruled in for an acute non-STEMI. Her EKG had shown anterolateral ST depressions consistent with ischemia and was treated with phenylephrine and Solu-Medrol which helped her feelings of chest pain. She was transferred [facility], and cardiac catheter performed 12/04/2017 [...] and bruising easily. She has ongo ing VARGAS, which is not abnormal for her. She [...] exe rcises Due to dyspnea, Lives in [place]. Lives Alone Outpatient Medications Prior to Visit [...] No results found for: METF, NMETFX, TFNMFX, [id number], [id number], TOTEPI PROCEDURES/IMAGING Last Cardiac Cath:12/04/2017: ( NSTEMI) Three-vessel coronary artery disease with chronicall y occluded RCA, with fyzs-ex-hijhz collaterals. Patent stents in LCX ,severe disease of a s mall diagonal branch. DATA: Left Main: trifurcates , gives rise to LAD, ramus intermedius, and l eft circumflex arteries. left main coronary artery is free of disease. LAD. without sign ificant disease. 1st Dx: very tiny vessel. 2nd Dx branch : cohuo-bn-vrbvrg size vessel at 1 .5 to 2 [...] HTN, RVSP 56-61 mm Hg EKG/EVENT MONITOR EK08/29/2017:([facility]) , Left ventricular hypertrophy, mild nonspecific ST and T -wave abnormalities. Rate 76 bpm, MT 140 ms, QRS 98 ms, QTC 452 ms, tracing personally revi ewed by hi EK12/03/2017:( [facility]) Sinus tachycardia with premature SVC, left ventricular hypertrophy, ST depression to anterolateral leads, T wave inversion to lateral leads. Prolonged QTC. R ate 103 bpm, MT 172 ms, QRS 102 ms, QTC 508 ms tracing personally reviewed by hi EK12/03/2017 ( [facility]) Sinus tachycardia, ST abnormalities to anterolateral leads, resolutio n of premature SVC,, resolution of prolonged QTC resolution of T-wave inversions to lateral leads. Rate 102 bpm, MT 148 ms, QRS 92 ms, QTC 461 ms tracing personally reviewed by me EK12/09/2017:( [facility] ) Normal sinus rhythm, nonspecific T-wave abnormality to anterolateral leads, low voltage QRS. Rate 70 bpm, MT 146 ms, QRS 94 ms, QTC 474 [...] resolving ST abnormalities to Anterolateral leads, and MT and QTC interval normalized. She did not [...] infarction) (HCC) 3. Coronary artery disease involving wrangell coronary artery of wrangell heart without angina pectoris 4. S/P PTCA [...] past surgical history. Problem list. Alesia FreireJHOAN [facility] Cardiology 12/09/2017in this encounter Plan of Treatment +--------+---------+ + + + | Date | Type | Specialty | Care Team | Description | +--------+---------+ + + + | 03/24/ | Office | Nephrology | Leland Madera MD | | | 2017 | Visit | | [address] | | | | | | [address] [place] | | | | | | [address] | | | | | | | | +--------+---------+ + + + | 06/17/ | Office | Cardiology | Cristhian Cochran, | | | 2017 | Visit | | [address] | | | | | | [place], | | | | | | [place] [address] | | | | | | [phone] | | | | | | | [...] | | | | | infarction) ([facility]) | | | | | | Coronary artery | | | | | | disease involving | | | | | | wrangell coronary | | | | | | artery of wrangell | | | | | | heart without angina | | | | | | pectoris S/P PTCA | | | | | | (percutaneous | | | | | | transluminal | | | | | | coronary | | | | | | angioplasty) | | | | | | Paroxysmal A-fib | | | | | | ([facility]) PVD | | | | | | (peripheral vascular | | | | | | disease) ([facility]) | | | | | | [...] Ventricular Rate | 78 | BPM | [facility] | + + + [...] + + + + | Calculated P [place] | 78 | degrees | [facility] | + + + + + | Calculated R [place] | 74 | degrees | [facility] | + + + + + | Calculated T [place] | 57 | degrees | [facility] | + + + + + | Diagnosis | Please refer to | | [facility] | | | Providers office visit | | | | | note for Providers | | | | | Interpretation.Confirmed | | | | | by [employer] [employer] Read Only, | | | | | ICA Myriam ([id number]), | | | | | publication editor Tanmay Esquivel | | | | | (253) on 12/09/2017 | | | | | 2:49:53 PM | | | + + + + + + + + + + | Performing | Address | City/State/Zipcode | Phone Number | | Organization | | | | + + + + + | [facility] | [address] | [place] [address] | | + + + + + in this encounter Visit Diagnoses + + | Diagnosis | + + | Hospital discharge follow-up - Primary | + + | Other follow-up examination | + + | NSTEMI (non-ST elevated myocardial infarction) (HCC) | + + | Acute myocardial infarction, subendocardial infarction, episode of care unspecified | + + | Coronary artery disease involving wrangell coronary artery of wrangell heart without angina | | pectoris | [...]
--- OUTSIDE RECORDS SUMMARY | ~2018-02-23 | XMS | Encounter Summary ---
Demographics + + + | Address | [address] | | | [place] [address] | + + + | Home Phone | | + + + | Preferred Language | Unknown | + + + | Marital Status | Single | + + + | Mandaeism Affiliation | 1009 | + + + | Race | Unknown | + + + | Ethnic Group | Unknown | + + + Author + + + | Author | [employer]jelio [employer] | + + + | Organization | [facility] [employer] [facility] | + + + | Address | Unknown | + + + | Phone | Unavailable | + + + Support + + +---------+ + | Name | Relationship | Address | Phone | + + +---------+ + | Lavell Chiu | ECON | Unknown | | + + +---------+ + Care Team Providers + +------+ + | Care Rd Mechanical Engineer Name | Role | Phone | [...] Note 10/29/17) | | | | [address] [facility] [address] | | | | | | [facility] [address] | | | | | | [place] [address] | | | | | | [phone] | | | +--------+ + + + [...] | | | | | | [address] [place] | | | | | | [address] | | | | | | | | +--------+---------+ + + + | 06/17/ | Office | Cardiology | Cristhian Cochran, | | | 2018 | Visit | | MD [address] | | | | | | [place], | | | | | | [place] [address] | | | | | | [phone] | | | | | | | | +--------+---------+ + + + as of this encounter Visit Diagnoses Not on filein this encounter"
--- OUTSIDE RECORDS SUMMARY | ~2018-02-23 | XMS | Encounter Summary ---
Demographics + + + | Address | [address] | | | [place] [address] | + + + | Home Phone | | + + + | Preferred Language | Unknown | + + + | Marital Status | Single | + + + | Mu-Ism Affiliation | 1009 | + + + | Race | Unknown | + + + | Ethnic Group | Unknown | + + + Author + + + | Author | [facility] | + + + | Organization | [facility] [employer] [facility] | + + + | Address | Unknown | + + + | Phone | Unavailable | + + + Support + + +---------+ + | Name | Relationship | Address | Phone | + + +---------+ + | Lavell Chiu | ECON | Unknown | | + + +---------+ + Care Team Providers + +------+ + | Care Manager Of Marketing Name | Role | Phone | + [...] [address] | | | | | [address] [facility] [address] | Myriam Grewal | | | | | [facility] [address]- | [place] [address] | | | | | [place] [address] | [phone] | | | | | [phone] | | | +--------+ + + + [...] | | | | | | [place] [address] | | | | | | [phone] | | | | | | | | +--------+---------+ + + + as of this encounter Visit Diagnoses Not on filein this encounter"
--- OUTSIDE RECORDS SUMMARY | ~2018-02-23 | XMS | Encounter Summary ---
Demographics + + + | Address | [address] | | | [place] [address] | + + + | Home Phone | | + + + | Preferred Language | Unknown | + + + | Marital Status | Single | + + + | Spiritism Affiliation | 1009 | + + + | Race | Unknown | + + + | Ethnic Group | Unknown | + + + Author + + + | Author | Rojelio [employer] | + + + | Organization | [facility] [employer] [facility] | + + + | Address | Unknown | + + + | Phone | Unavailable | + + + Support + + +---------+ + | Name | Relationship | Address | Phone | + + +---------+ + | Lavell Chiu | ECON | Unknown | | + + +---------+ + Care Team Providers + +------+ + | Care Hooker Operator Name | Role | Phone | [...] [address] | | | | | 600 [facility] [address] | Myriam Grewal | | | | | [facility] [address]- | [place] [address] | | | | | [place] [address] | [phone] | | | | | [phone] | | | +--------+ + + + [...] | | | | | | [place] [address] | | | | | | [phone] | | | | | | | | +--------+---------+ + + + as of this encounter Visit Diagnoses Not on filein this encounter"
--- OUTSIDE RECORDS SUMMARY | ~2018-02-23 | XMS | Encounter Summary ---
Demographics + + + | Address | [address] | | | [place] [address] | + + + | Home Phone [...] + + + | Author | [employer]io [employer] | + + + | Organization | [facility] | + + + | Address | Unknown | + + + | Phone | Unavailable | + + + Support + + +---------+ + | Name | Relationship | Address | Phone | + + +---------+ + | Lavell Chiu | ECON | Unknown | | + + +---------+ + Care Team Providers + +------+ + | Care Transportation Planning Technician Name | Role | Phone | [...] Notes 12/03/17) | | | | [address] [facility] 11 | | | | | | [facility] [address] | | | | | | [place] [address] | | | | | | [phone] | | | +--------+ + + + [...] | | | | | | [address] [place] | | | | | | [address] | | | | | | | | +--------+---------+ + + + | 06/17/ | Office | Cardiology | Cristhian Cochran, | | | 2018 | Visit | | MD [address] | | | | | | [place], | | | | | | [place] [address] | | | | | | [phone] | | | | | | | | +--------+---------+ + + + as of this encounter Visit Diagnoses Not on filein this encounter"
--- OUTSIDE RECORDS SUMMARY | ~2018-02-23 | XMS | Encounter Summary ---
Demographics + + + | Address | [address] | | | [place] [address] | + + + | Home Phone | | + + + | Preferred Language | Unknown | + + + | Marital Status | Single | + + + | Anabaptist Affiliation | 1009 | + + + | Race | Unknown | + + + | Ethnic Group | Unknown | + + + Author + + + | Author | [employer] | + + + | Organization | [facility] [employer] [facility] | + + + | Address | Unknown | + + + | Phone | Unavailable | + + + Support + + +---------+ + | Name | Relationship | Address | Phone | + + +---------+ + | Lavell Chiu | ECON | Unknown | | + + +---------+ + Care Team Providers + +------+ + | Care Fermenter Name | Role | Phone | + [...] Notes 12/03/17) | | | | [address] [facility] 11 | | | | | | [facility] [address] | | | | | | [place] [address] | | | | | | [phone] | | | +--------+ + + + [...] | | | | | | [address] [place] | | | | | | [address] | | | | | | | | +--------+---------+ + + + | 06/17/ | Office | Cardiology | Cristhian Cochran, | | | 2018 | Visit | | MD [address] | | | | | | [place], | | | | | | [place] [address] | | | | | | [phone] | | | | | | | | +--------+---------+ + + + as of this encounter Visit Diagnoses Not on filein this encounter"
--- OUTSIDE RECORDS SUMMARY | ~2018-02-23 | XMS | Encounter Summary ---
Demographics + + + | Address | [address] | | | [place] [address] | + + + | Home Phone [...] + + + | Author | [employer]jelio [employer] | + + + | Organization | [facility] [employer] [facility] | + + + | Address | Unknown | + + + | Phone | Unavailable | + + + Support + + +---------+ + | Name | Relationship | Address | Phone | + + +---------+ + | Lavell Chiu | ECON | Unknown | | + + +---------+ + Care Team Providers + +------+ + | Care Senior Manager [employer]ergers [employer] Acquisitions Name | Role | Phone | + [...] | | | Dr. Cochran pt | [address] | [address] | | | | | Procedures | JESSICA HINOJOSA | [address]riam Khanna | | | | | CRD FOLLOW | TRUE | Mehrd[address] [place] | | | | | [place] | [place] [address] | [place], [place] | | | | | | Phone: | [address] Phone: | | | | | | [phone] | [phone] | | | | | | Fax: | Fax: | | | | | | [phone] | [phone] | + +--------+ + + + + Encounter Details +--------+---------+ + + + | Date | Type | Department | Care Team | Description | +--------+---------+ + + + | 12/09/ | Office | [facility] | Alesia Freire | Hospital discharge | | 2018 | Visit | Cardiology True | JHOAN [address] | follow-up (Primary | | | | [address] | Myriam Grewal | Dx); NSTEMI (non-ST | | | | [address] | [place] [address] | elevated myocardial | | | | [place] [address] | [phone] | infarction) (HCC); | | | | [phone] | | Coronary artery | | | | | | disease involving | | | | | | chevak coronary | | | | | | artery of chevak | | | | | | heart without angina | | | | | | pectoris; S/P PTCA | | | | | | (percutaneous | | | | | | transluminal | | | | | | coronary | | | | | | angioplasty); | | | | | | Paroxysmal A-fib | | | | | | ([facility]); PVD | | | | | | (peripheral vascular | | | | | | disease) ([facility]); | | | | | | Pulmonary emphysema, | | | | | | unspecified | | | | | | emphysema type | | | | | | ([facility]); 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 This means you can have only [id number] to 700mg of sodium at each meal.People [...] matzo crackers Avoid: Salted crackers, pretzels, popcorn, Swazi toast, pancakes, muffins Dairy Ok: Milk, chocolate [...] vegetables; tomato juice, olives Date Last Reviewed: 02/06/201619990285-0338 [employer]. [address] [place] [address], [place] [address]. All righ ts reserved. This information is [...] to follow-up her being d ischarged from [facility]( [facility]) on December 05 after non-STEMI with unchange [...] p reviously seen by him in our [place] office in August 2017. I reviewed his documentation, as well all previous documentation available to me in [facility] medical record and external sources. Her [...] when taken to the emergency room at [facility] by her son around 4 AM. Her troponin was documented as being initially negative at [facility], but subsequently elevated to 0.62 and she was ruled in for an acute non-STEMI. Her EKG had shown anterolateral ST depressions consistent with ischemia and was treated with phenylephrine and Solu-Medrol which helped her feelings of chest pain. She was transferred [facility], and cardiac catheter performed 12/04/2017 showed no [...] exe rcises Due to dyspnea, Lives in [place]. Lives Alone Outpatient Medications Prior to Visit [...] No results found for: METF, NMETFX, TFNMFX, [id number], [id number], TOTEPI PROCEDURES/IMAGING Last Cardiac Cath:12/04/2017: ( NSTEMI) Three-vessel coronary artery disease with chronicall y occluded RCA, with mnco-ui-ttsus collaterals. Patent stents in LCX ,severe disease of a s mall diagonal branch. DATA: Left Main: trifurcates , gives rise to LAD, ramus intermedius, and l eft circumflex arteries. left main coronary artery is free of disease. LAD. without sign ificant disease. 1st Dx: very tiny vessel. 2nd Dx branch : oauyv-vb-spvqkj size vessel at 1 .5 to 2 [...] HTN, RVSP 56-61 mm Hg EKG/EVENT MONITOR EK08/29/2017:([facility]) , Left ventricular hypertrophy, mild nonspecific ST and T -wave abnormalities. Rate 76 bpm, UT 140 ms, QRS 98 ms, QTC 452 ms, tracing personally revi ewed by ia EK12/03/2017:( [facility]) Sinus tachycardia with premature SVC, left ventricular hypertrophy, ST depression to anterolateral leads, T wave inversion to lateral leads. Prolonged QTC. R ate 103 bpm, UT 172 ms, QRS 102 ms, QTC 508 ms tracing personally reviewed by ia EK12/03/2017 ( [facility]) Sinus tachycardia, ST abnormalities to anterolateral leads, resolutio n of premature SVC,, resolution of prolonged QTC resolution of T-wave inversions to lateral leads. Rate 102 bpm, UT 148 ms, QRS 92 ms, QTC 461 ms tracing personally reviewed by me EK12/09/2017:( [facility] ) Normal sinus rhythm, nonspecific T-wave abnormality to anterolateral leads, low voltage QRS. Rate 70 bpm, UT 146 ms, QRS 94 ms, QTC 474 [...] resolving ST abnormalities to Anterolateral leads, and UT and QTC interval normalized. She did not [...] infarction) (HCC) 3. Coronary artery disease involving chevak coronary artery of chevak heart without angina pectoris 4. S/P PTCA [...] past surgical history. Problem list. Alesia FreireJHOAN [facility] Cardiology 12/09/2017in this encounter Plan of Treatment +--------+---------+ + + + | Date | Type | Specialty | Care Team | Description | +--------+---------+ + + + | 03/24/ | Office | Nephrology | Leland Madera MD | | | 2017 | Visit | | [address] | | | | | | [address] [place] | | | | | | [address] | | | | | | | | +--------+---------+ + + + | 06/17/ | Office | Cardiology | Cristhian Cochran, | | | 2017 | Visit | | [address] | | | | | | [place], | | | | | | [place] [address] | | | | | | [phone] | | | | | | | [...] | | | | | | infarction) ([facility]) | | | | | | Coronary artery | | | | | | disease involving | | | | | | chevak coronary | | | | | | artery of chevak | | | | | | heart without angina | | | | | | pectoris S/P PTCA | | | | | | (percutaneous | | | | | | transluminal | | | | | | coronary | | | | | | angioplasty) | | | | | | Paroxysmal A-fib | | | | | | ([facility]) PVD | | | | | | (peripheral vascular | | | | | | disease) ([facility]) | | | | | | [...] Ventricular Rate | 78 | BPM | [facility] | + + + + [...] + + + + | Calculated P [place] | 78 | degrees | [facility] | + + + + + | Calculated R [place] | 74 | degrees | [facility] | + + + + + | Calculated T [place] | 57 | degrees | [facility] | + + + + + | Diagnosis | Please refer to | | [facility] | | | Providers office visit | | | | | note for Providers | | | | | Interpretation.Confirmed | | | | | by [facility] [place] Read Only, | | | | | ICA Myriam ([id number]), | | | | | fashion editor Tanmay Esquivel | | | | | (253) on 12/09/2017 | | | | | 2:49:53 PM | | | + + + + + + + + + + | Performing | Address | City/State/Zipcode | Phone Number | | Organization | | | | + + + + + | [facility] | [address] | [place] [address] | | + + + + + in this encounter Visit Diagnoses + + | Diagnosis | + + | Hospital discharge follow-up - Primary | + + | Other follow-up examination | + + | NSTEMI (non-ST elevated myocardial infarction) (HCC) | + + | Acute myocardial infarction, subendocardial infarction, episode of care unspecified | + + | Coronary artery disease involving chevak coronary artery of chevak heart without angina | | pectoris | [...]
--- OUTSIDE RECORDS SUMMARY | ~2018-02-23 | XMS | Encounter Summary ---
Demographics + + + | Address | [address] | | | [place] [address] | + + + | Home Phone | | + + + | Preferred Language | Unknown | + + + | Marital Status | Single | + + + | Restorationism Affiliation | [id number] | + + + | Race | Unknown | + + + | Ethnic Group | Unknown | + + + Author + + + | Author | [facility] [employer] | + + + | Organization | [facility] [employer] | + + + | Address | Unknown | + + + | Phone | Unavailable | + + + Support + + +---------+ + | Name | Relationship | Address | Phone | + + +---------+ + | Lavell Chiu | ECON | Unknown | | + + +---------+ + Care Team Providers + +------+ + | Care Hollow Handle Knife Assembler Name | Role | Phone | + [...] | | heart | Myriam Khanna | [address] | | | | | failure | Mehrdad F | Jessica Fournier | | | | | ([facility]) | [place] | [place] | | | | | Procedures | [address] | [address] | | | | | Echo cardiac | Phone: | Phone: | | | | | adult | [phone] | [phone] | | | | | complete | Fax: | Fax: | | | | | | [phone] | [phone] | + +--------+ + + + + [...] | Way | | | | | ([facility]) S/P | [facility] [place] | [place] | | | | | PTCA | [address] | [address] | | | | | (percutaneou | Phone: | Phone: | | | | | s | [phone] | [phone] | | | | | transluminal | Fax: | Fax: | | | | | coronary | [phone] | [phone] | | | | | angioplasty) | [...] | | | | UP | [place] [address] | [place] | | | | | | Phone: | [phone] Phone: | | | | | | [phone] | [phone] | | | | | | Fax: | Fax: | | | | | | [phone] | [phone] | + +--------+ + + + + [...] | (Primary Dx); | | | | [place] [address] | [place] [address] | Atherosclerosis of | | | | [place] [address] | [phone] | makah coronary | | | | [phone] | | artery of makah | | | | | | heart, [...] | | | | | occlusion of makah | | | | | | coronary artery; | | | | | | History of MD | | | | | | (myocardial [...] follow-up visit. She was hospita lized at [facility] 02/07/18 for SOB, and records note that she had been there in [facility] emergency room 01/27/18 with an [...] oxygen. She had previously been admitted to [facility] 12/03/17 for severe dyspnea on exertio, and mid re trosternal pressure described as a "cold, tight" feeling, present on a daily basis for 10 da ys, but did not immediately seek medical attention, as these were unlike her previous MD sym ptoms. The night of admission, it persisted, and her son brought her to [facility]. Her troponin was elevated, ruling her [...] a remote prior history of CAD, remote MD, 3 coronary stents placed in 2004, and a recent episode of paroxysmal atrial fibrillation at [facility] several days prio r to admission. She used to see Mason Grier DO but had been lost to follow up. Her blood pressure is well-controlled today. She seems to be doing well at this point, and I will see her back in a few months, after her updated echo. She was referred to cardiopul monary rehab at [facility]. Review of Systems CONSTITUTIONAL: 9 lb [...] She has a history of C AD, MD and 3 drug-eluting intracoronary stents placed in [...] 3-vessel disease with chronically occluded RCA, with [id number] t collaterals. . Patent stents in the [...] common femoral filled via collaterals from the hr internship al iliac -- Echo (08/01/17): EF [...] failure (HCC) COPD (chronic obstructive pulmonary disease) ([facility]) severe Emphysema GERD (gastroesophageal reflux disease) Hiatal hernia HLD (hyperlipidemia) HTN (hypertension) Hypothyroidism MRSA (methicillin resistant Staphylococcus aureus) 2013 line sepsis following SBO surgery Myocardial infarct ([facility]) 2008 and NSTEMI 07/31/17 Paroxysmal atrial fibrillation ([facility]) 07/27/2017 PVD (peripheral vascular disease) ([facility]) 2013 severe bilateral PVD, occluded right external iliac, left internal iliac, severe stenoses in bilateral common iliacs and left SFA Rheumatoid arthritis ([facility]) Small bowel obstruction due to adhesions ([facility]) several times Status post insertion [...] Acute diastolic heart failure (HCC) Atherosclerosis of makah coronary artery of makah heart, angina presence unspecified S/P PTCA (percutaneous transluminal coronary angioplasty) Status post insertion of drug eluting coronary artery stent Chronic total occlusion of makah coronary artery History of MD (myocardial infarction) Paroxysmal atrial fibrillation (HCC) Mild [...] | | | | | | [address] [place], [place] | | | | | | [address] | | | | | | | | +--------+---------+ + + + | 06/17/ | Office | Cardiology | Cristhian Cochran, | | | 2018 | Visit | | MD [address] | | | | | | [place], | | | | | | [place] [address] | | | | | | [phone] | | | | | | | [...] failure | + + | Atherosclerosis of makah coronary artery of makah heart, angina presence unspecified | + + | S/P PTCA (percutaneous transluminal coronary angioplasty) | + + | Postsurgical percutaneous transluminal coronary angioplasty status | + + | Status post insertion of drug eluting coronary artery stent | + + | History of MD (myocardial infarction) | + + | Old [...]
--- OUTSIDE RECORDS SUMMARY | ~2018-02-23 | XMS | Encounter Summary ---
Demographics + + + | Address | [address] | | | [place] [address] | + + + | Home Phone [...] + + + | Author | [facility] [employer] | + + + | Organization | [facility] [employer] [facility] | + + + | Address | Unknown | + + + | Phone | Unavailable | + + + Support + + +---------+ + | Name | Relationship | Address | Phone | + + +---------+ + | Lavell Chiu | ECON | Unknown | | + + +---------+ + Care Team Providers + +------+ + | Care Housekeeping Director Name | Role | Phone | [...] | | | | | [place] [address] | | | | | | [phone] | | | +--------+ + + + [...] | | | | | | [address] [place] | | | | | | [address] | | | | | | | | +--------+---------+ + + + | 06/17/ | Office | Cardiology | Cristhian Cochran, | | | 2018 | Visit | | MD [address] | | | | | | [place], | | | | | | [place] [address] | | | | | | [phone] | | | | | | | | +--------+---------+ + + + as of this encounter Visit Diagnoses Not on filein this encounter"
--- OUTSIDE RECORDS SUMMARY | ~2018-02-23 | XMS | Encounter Summary ---
Demographics + + + | Address | [address] | | | [place] [address] | + + + | Home Phone [...] + + + | Author | Rojelio [employer] | + + + | Organization | [facility] [employer] [facility] | + + + | Address | Unknown | + + + | Phone | Unavailable | + + + Support + + +---------+ + | Name | Relationship | Address | Phone | + + +---------+ + | Lavell Chiu | ECON | Unknown | | + + +---------+ + Care Team Providers + +------+ + | Care Scrap Stripper Hand Name | Role | Phone | [...] Note 10/29/17) | | | | [address] [facility] [address] | | | | | | [facility] [address] | | | | | | [place] [address] | | | | | | [phone] | | | +--------+ + + + [...] | | | | | | [address] [place] | | | | | | [address] | | | | | | | | +--------+---------+ + + + | 06/17/ | Office | Cardiology | Cristhian Cochran, | | | 2018 | Visit | | MD [address] | | | | | | [place], | | | | | | [place] [address] | | | | | | [phone] | | | | | | | | +--------+---------+ + + + as of this encounter Visit Diagnoses Not on filein this encounter"
--- OUTSIDE RECORDS SUMMARY | ~2018-02-23 | XMS | Encounter Summary ---
Demographics + + + | Address | [address] | | | [place] [address] | + + + | Home Phone [...] + + + | Author | Rojelio Elimi | + + + | Organization | [facility] [employer] [facility] | + + + | Address | Unknown | + + + | Phone | Unavailable | + + + Support + + +---------+ + | Name | Relationship | Address | Phone | + + +---------+ + | Lavell Chiu | ECON | Unknown | | + + +---------+ + Care Team Providers + +------+ + | Care Switchboard Mechanic Name | Role | Phone | + [...] | | | | | Camilo Fournier [facility] | | | | | | [address] [place] | | | | | | [address] | | | +--------+ + + + [...] | | | | | | [place] [address] | | | | | | [phone] | | | | | | | [...]
--- NOTE | 2018-02-23 22:12 | NUR ---
PT ARRIVED TO ROOM 130 AT 2200 ON 3.5L O2 NC. RT IN AT BEDSIDE TO PLACE BIPAP. SETTINGS 14/8 WITH RATE OF 12, FI02 30% WITH HUMIDITY. TOLERATING WELL. ADMISSION ASSESSMENT HELD AT THIS TIME FOR SOB. PT INSTRUCTED STEREO EQUIPMENT SALESPERSON LIGHT USE. NO NEEDS AT THIS TIME. ON MONITORS.
--- NOTE | 2018-02-24 00:16 | NUR ---
PT REQUESTING MEDICATION FOR ANXIETY. ATTENDS OFF FOR INCONTINENCE AND CHANGED. PT EXTREMELY SOB WITH EXERTION AND ACTIVITY. PLACED ON BIPAP. WAS PREVIOUSLY REQUESTING NC WAS ATTEMPTING TO DRINK MILKSHAKE, HOWEVER MADE HER COUGH SO STOPPED. WORE BIPAP FOR 30MIN TO RECOVER, HOWEVER REFUSING NOW. STATES 'SHE CANT SLEEP WITH IT ON'. COUNSELED BY BOTH RT AND MYSELF TO IMPLICATIONS OF NOT WEARING IT.
--- NOTE | 2018-02-24 04:57 | NUR ---
PT AGREED TO WEAR BIPAP AT 0400. PLACED BY RT. REPORTS FEELING BETTER. EX WHEEZES HEARD, PREVIOUSLY DIMINISHED BREATH SOUNDS IN LUNGS. TYLENOL RELIEVED GENERAL ACHES AND SHOULDER PAINS.
--- NOTE | 2018-02-24 06:48 | NUR ---
PT ASLEEP WITH BIPAP ON.
--- NOTE | 2018-02-24 07:45 | NUR ---
REPORT RC'D FORM TERMITE CONTROL SERVICE REPRESENTATIVE NURSE. PT RESTING COMFOTABLY IN BED WITH BIPAP, 14/8, RATE 12, AND FIO2 30%. NO ACUTE DISTRESS NOTED. PT OPENED EYES, SMILED, THEN WENT BACK TO SLEEP.
--- NOTE | 2018-02-24 08:30 | NUR ---
PT RESTING IN BED, NEB GIVEN, PT STATES SHE IS FEELING MUCH BETTER AND SLEPT WELL. DENIES PAIN. A&O X3, RESPONDING APPROPRIATELY, PERRLA. S1 AND S2 NOTED, RHYTHM REGULAR, SINUS RHYTHM ON SPECIAL WARFARE BOAT OPERATOR, MURMUR NOTED, UTILITY ACCOUNTS DIRECTOR LESS THAN 3 SECONDS, PERIPHERAL PULSES +2 BILATERALLY, NO EDEMA NOTED, DENIES N/T. RESPIRATIONS EVEN AND AT TIMES LABORED, BUL CLEAR TO AUSCULATION, EXPIRATORY WHEEZE AND DIM IN BLL, PRODUCTIVE COUGH WITH THIN CLEAR SPUTUM. ABD SOFT, SLIGHTLY DISTENDED, BOWEL TONES ACTIVE X4, DENIES NAUSEA, LAST BM YESTERDAY, AND TOLERATING ADA DIET. PT STATES SHE HAS HAD ISSUES WITH INCONTINENCE, ATTENDS IN PLACE. MUSCULOSKELETAL WNL. SKIN WARM, DRY, INTACT, DUSKY IN COLOR, BRUISING NOTED ON RIGHT HAND. LEFT HAND IV PATENT AND WNL, FLUSHED WITH 10ML NS, SALINE LOCKED AT THIS TIME. DENIES OTHER NEEDS AT THIS TIME. BREAKFAST AT BEDSIDE. BED IN LOWEST POSITION. CALL LIGHT WITHIN REACH.
--- NOTE | 2018-02-24 09:50 | NUR ---
CALL LIGHT ANSWERED, PT REQUESTING TO BE PLACED ON BIPAP. BIPAP PLACED, 18/02, RATE 12, FIO2 30%. DENIES OTHER NEEDS. CALL LIGHT WITHIN REACH.
--- NOTE | 2018-02-24 10:44 | NUR ---
PT AMBULATED WITH PHYSICAL THERAPY, SBA WITH FWW, OXYGEN SATURATION NOTED TO DROP TO HIGH 8O'S WHILE ON 3L, TITRATED TO 4L, REQUESTING TO REST AFTER 3 MINS, PT ASSISTED TO CHAIR, OXYGEN SATURATION RETURNED TO 96% ON 4L. PT MARCHED IN PLACE WITH PHYSICAL THERAPY FOR AN ADDITIONAL 2 MINS, NO OXYGEN SATURATION DROP. PT NOW IN ROOM WITH OT. KENTON MUÑOZ, RECOMMENDATION TO CONTINUE PHYSICAL THERAPY AND NOT TO DC HOME AT THIS TIME.
--- NOTE | 2018-02-24 11:00 | NUR ---
PT SBA TO BSC, TOLERATED WELL. SBA BACK TO BED, OXYGEN SATURATION 97% ON 4L, TITRATED DOWN TO 3L AT THIS TIME. WILL CONTINUE TO MONITOR.
--- NOTE | 2018-02-24 11:35 | NUR ---
DR. ZAMAN AT BEDSIDE TO ASSESS PT AND UPDATE PLAN OF CARE.
--- NOTE | 2018-02-24 11:42 | NUR ---
PT'S OXYGEN SATURATION NOTED TO BE 98% ON 3L, ABLE TO HAVE FULL CONVERSATION W/O DIFFICULTY. OXYGEN SATURATION DROPPED TO 2L AT THIS TIME. WILL CONTINUE TO MONITOR.
--- NOTE | 2018-02-24 13:01 | NUR ---
RECIEVED BEDSIDE REPORT FROM CHARLY BARAHONA IN CCU AT 1240. PT TRANSFERED VIA BED TO ROOM 119 ON MEDICAL SURGICAL FLOOR AT 1248. ACCOMPANIED BY THIS RN, CHARLY KENT, AND PT'S SON OSVALDO. PT ON 2L O2 VIA NC, OXYGEN SATURATION LEVEL 92%. PT USED INSENTIVE SPIROMETER, GOT UP TO HIGH 1500. DEVORA, PHARMACIST IN TO REVIEW PT'S HOME MEDICATIONS, WHICH PT'S SON, OSVALDO BROUGHT TO HOSPITAL FOR REVIEW. PT ALERT, ORIENTED X 4.
[2018-02-24] MEDS ORDERED: NORVASC5 MG PO (13:27)
--- NOTE | 2018-02-24 13:28 | NUR ---
PT AND PT'S SON REQUESTED TO SPEAK WITH DR. ZAMAN. DR. ZAMAN IN TO PT'S ROOM, DISCUSSED PT'S PLAN OF CARE AND DISCUSSED PT'S HEALTH. QUESTIONS FROM PT AND PT'S SON ANSWERED BY DR. ZAMAN.
--- NOTE | 2018-02-24 13:57 | NUR ---
PT HAD 2 ORDERS FOR OXYGEN. [address]ED [address] ZAMAN TO CLARRIFY WHAT HE WANTED THE OYXGEN ORDER TO BE. RECIEVED TORB FOR OXYGEN TO KEEP OXYGEN SATURATION LEVEL AT OR GREATER THAN 89%.
--- NOTE | 2018-02-24 14:00 | NUR ---
UPDATED RAISA DWYER FROM PCP OFFICE THAT PATIENT IS REQUESTING SOME CNA INSTRUCTOR AT HOME. SHE WILL FOLLOW THIS PATIENT AFTER DISCHARGE.
--- NOTE | 2018-02-24 14:11 | NUR ---
PATIENT IN BED SON AT BEDSIDE. RN IN ROOM. V\S TAKEN. CALL LIGHT IN REACH. NO FURTHER NEEDS AT THIS TIME.
--- NOTE | 2018-02-24 14:25 | NUR ---
IN TO CHECK ON PT, PT IN BED, HOB ELEVATED. PT REMAINS ON 2L O2 VIA NC, OXYGEN SATURATION LEVEL 92%. PT REQUESTED A PRN NEBULIZER TREATMENT, STATED "I THINK IT'S TIME FOR A TREATMENT". PT'S RESPIRATORY RATE 24, NO ACCESSORY MUSCLE USE NOTED, PT DID REPORT FEELING MODERATELY SHORT OF BREATH. ASSESSED PT'S PAIN LEVEL, PT REPORTED THAT SHE STILL HAD SOME HEADACHE PAIN, RATED PAIN 1/10, DENIED NEED FOR FURTHER INTERVENTION AT THIS TIME. PT'S PERSONAL SUPPLIES AND CALL LIGHT IN REACH. PT DENIED OTHER NEEDS AT THIS TIME.
--- NOTE | 2018-02-24 14:55 | NUR ---
BETTYE, RESPIRATORY THERAPIST IN TO GIVE PT NEBULIZER TREATMENT. ONCE DONE WITH THIS, BETTYE REPORTED TO THIS RN THAT PT REQUESTED TO BE PLACED ON BIPAP, HER WORK OF BREATHING WAS INCREASED, SO BETTYE PLACED PT ON BIPAP. APROXIMATELY 5 MINUTES AFTER BETTYE NOTIFIED THIS RN OF THIS, PT CALLED, REQUESTED TO HAVE BIPAP TAKEN OFF, WHICH THIS RN DID, PLACING PT BACK ON 2L O2 VIA NC. PT REPORTED THAT BEING ON THE BIPAP "WAS MAKING ME FEEL DIZZY". REPORTED RELIEF OF THIS FEELING ONCE ON NC. NOTIFIED BETTYE, RT OF ABOVE NOTED.
--- NOTE | 2018-02-24 15:45 | NUR ---
PT STILL C/O INCREASED HEADACHE PAIN. GAVE PT AN ICE PACK FOR THE BACK OF HER NECK. PT REPORTED THAT THE ICE PACK FELT GOOD. PT ON 2L O2 VIA NC, PT REPORTED FEELING LIKE HER WORK OF BREATHING WAS STILL INCREASED, REQUESTED TO HAVE HER OXYGEN LEVEL INCREASED TO 3L. PT'S OXYGEN SATURATION LEVEL ON 2L WAS 92-93%, INCREASED TO 3L VIA NC, OXYGEN SATURAION LEVEL 94-95%. PT VERBALIZED FEELING A DECREASE IN HER WORK OF BREATHING. ENCOURAGED PT TO USE CALL LIGHT FOR ANY NEEDS. PT VEBALIZED UNDERSTANDING. CALL LIGHT AND PERSONAL SUPPLIES IN REACH. PT'S SON OSVALDO AT BEDSIDE.
--- NOTE | 2018-02-24 16:41 | NUR ---
IN TO SEE PT, PT RESTING IN BED, PT REPORTED THAT SHE IS HAVING INCREASED WORK OF BREATHING. PT ON 3L O2 VIA NC, OXYGEN SATURATION LEVEL 95%. PLACED PT ON BIPAP. NOTIFIED KB, RT VIA TELEPHONE, WHO SAID HE WOULD COME SEE PT SHORTLY. PT C/O GENERALIZED CHEST PAIN, AND HEADACHE.
--- NOTE | 2018-02-24 16:48 | NUR ---
NOTIFIED DR. ZAMAN OF PT'S CONTINUED C/O GENERALIZED CHEST PAIN AND C/O INCREASED WORK OF BREATHING. NOTIFIED DR. ZAMAN THAT PT REPORTED TO STAFF THAT SHE TAKES ANTI ANXIETY MEDICATION AT HOME AT TIMES. RECIEVED TORB FOR: ATIVAN 0.5 MG IV Q 3 HOURS PRN ANXIETY.
--- NOTE | 2018-02-24 17:31 | NUR ---
PT IN BED. REPORTED THAT HER GENERALIZED CHEST PAIN HAS STOPPED. REPORTED THAT SHE CONTINUES TO FEEL AN INCREASE IN HER WORK OF BREATHING. WAS ON BIPAP, REQUESTED TO HAVE IT OFF, AND BE PLACED BACK ON NC, SO NOW ON 3L VIA NC, SAT 95%. PT GIVEN ATIVAN 0.5 MG IV PRN ANXIETY.
--- NOTE | 2018-02-24 17:57 | NUR ---
SPOKE WITH PATIENT IN ROOM. PATIENT LIVES ALONE BUT SON LIVES WITHIN 3 MINUTES FROM HER. HE ALSO IS ABLE TO LEAVE WORK IF SHE NEEDS HIM. SHE STATES HE IS VERY ACTIVE IN HER LIFE. SHE STATES SHE FEELS SAFE, AND ABLE TO GO HOME AT DISCHARGE. SHE STATES SHE WOULD LIKE POSSIBLE CARE IN THE FUTURE SUCH SOME HOUSEKEEPING AND MAYBE SOME MEALS ON WHEELS. WE DISCUSSED THAT CHW FROM HER PCP OFFICE WILL BE FOLLOWING HER AND THEY CAN HELP HER WITH THIS. SHE IS IN AGREEMENT. NO OTHER CONCERNS AT THIS TIME.
--- NOTE | 2018-02-24 18:53 | NUR ---
PT TRANSFERED TO FLOOR FROM CCU THIS AFTERNOON. PT ON 2-3L O2 VIA NC, OXYGEN TO BE USED TO MAINTAIN OXYGEN SATURATION LEVEL OF 89% OR GREATER. PT HAS DIMINISHED LUNG SOUNDS THROUGHOUT. C/O INCREASED WORK OF BREATHING THIS AFTERNOON AND EVENING, WORE BIPAP OFF AND ON WITH LITTLE RELIEF REPORTED. DR. ZAMAN NOTIFIED OF PT'S REPORTS. DID START NEW ORDER FOR ATIVAN PRN THIS EVENING. PT RECIEVED ATIVAN 0.5 MG IV PRN, AND REPORTED RELIEF OF FEELING OF INCREASED WORK OF BREATHING. PT ON AN ADA DIET. PER CCU RN JUN'S REPORT, PT HAD A BM THIS SHIFT PRIOR TO TRANSFER TO FLOOR. PT UP WITH 1 PERSON ASSIST FOR SHORT TRANSFERS OR AMBULATION, USING FWW. PT NOT TOLERATING ACTIVITY WELL AT THIS TIME. BECOMES SHORT OF BREATH WITH MINIMAL ACTIVITY. PT RECIEVED SCHEDULED NEBS AND PRN NEB.
--- NOTE | 2018-02-24 19:07 | NUR ---
RECIEVED REPORT FROM CHARLY SOLARES. PT UP TO COMMODE WITH VOID AND BACK TO BED. PT ON 3 L VIA NC WITH O2 SAT OF 94%. PT REQUESTED TO USE BIPAP AND REST AT THIS TIME, BIPAP APPLIED BY RN. NO ADDITIONAL REQUESTS, CALL LIGHT IN REACH.
--- NOTE | 2018-02-24 22:12 | NUR ---
PT ASSESSMENT COMPLETE. DIMINISHED LUNG SOUNDS BLL, CLEAR BUL. O2 SATURATIONS WNL ON 3 L NC. BIPAP APPLIED FOR SLEEP PER PT REQUEST. PRN TRAZADONE GIVEN. IV SALINE LOCKED. PT GIVEN MASK FOR SLEEP. CALL LIGHT IN REACH AND PT HAD NO FURTHER REQUESTS.
--- NOTE | 2018-02-24 22:29 | NUR ---
RESPONDED TO CALL LIGHT. PT C/O HAVING AN ANXIETY ATTACK. REQUESTED TO REMOVE BIPAP, 3 L OXYGEN VIA NC APPLIED. PT GIVEN PRN ATIVAN. SLEEP MASK ON AND CALL LIGHT IN REACH.
--- NOTE | 2018-02-25 00:36 | NUR ---
PT SLEEPING IN BED. NASAL CANULA IN PLACE, BREATHING UNLABORED. CALL LIGHT IN REACH.
--- NOTE | 2018-02-25 01:45 | NUR ---
RESPONDED TO CALL LIGHT. PT REQUESTED WARM BLANKETS. CALL LIGHT IN REACH.
--- NOTE | 2018-02-25 03:25 | NUR ---
1 PA TO THE BEDSIDE COMMODE AND BACK TO BED. PATIENT HAVE SHORTNESS OF BREATH. CALL LIGHT AND SIDE TABLE WITHIN REACH. NO OTHER NEEDS AT THIS TIME.
--- NOTE | 2018-02-25 03:32 | NUR ---
PT REQUESTED PRN BREATHING TX, RT JANET CALLED.
--- NOTE | 2018-02-25 04:29 | NUR ---
IN ROOM TO CHECK ON PT. PT SLEEPING WITH BIPAP, OXYGEN SATURATION WNL. CALL LIGHT IN REACH.
--- NOTE | 2018-02-25 06:09 | NUR ---
ASSESSMENT COMPLETE. CLEAR LUNG SOUNDS BILAT UPPER LOBES, DIMINISHED BILAT LOWER LOBES. PT ON BIPAP. IV SALINE LOCKED. CALL LIGHT IN REACH.
--- NOTE | 2018-02-25 06:17 | NUR ---
PT ON AND OFF BIPAP AND 3 L NC THROUGHOUT NIGHT, O2 SATS WNL. PRN ATIVAN AND BREATHING TX GIVEN FOR ANXIETY AND SOB X1. IV SALINE LOCKED. UP TO BEDSIDE COMMODE WITH SBA. ADA DIET. LUNG SOUNDS DIMINISHED IN BLL.
--- NOTE | 2018-02-25 07:20 | NUR ---
BEDSIDE REPORT RECEIVED FROM MANAGER CARDIAC RN. PATIENT RESTING IN BED, RESPIRATIONS EVEN AND UNLABORED. CALL LIGHT WITHIN REACH.
--- NOTE | 2018-02-25 09:05 | NUR ---
MORNING ASSESSMENT AND ROUTINE MEDICATIONS ADMINISTERED AT THIS TIME. PATIENT IS ALERT AND ORIENTED X3 AND UTILIZES CALL LIGHT APPROPERIATELY. LUNGS ARE CLEAR IN UPPER LOBES BILATERALLY, DIMINISED IN LOWER LOBES BILATERALLY. PATIENT ON 2LNC AND SATTING IN THE MID TO UPPER 90'S. PATIENT DENIES PAIN AND HAS NO OTHER REQUESTS AT THIS TIME. CALL LIGHT WITHIN REACH.
--- NOTE | 2018-02-25 09:05 | NUR ---
SPOKE WITH PATIENTS SON BY PHONE. ROSANNA CA STATES HE IS CONCERNED REGARDING MOTHER LIVING ALONE. HE STATES HE IS CLOSE BY, BUT HE WORKS AND IS NOT ABLE TO BE THERE MUCH NEEDED. HE ALSO STATES SHE IS PROGRESSIVELY GETTING WORSE IN ABLE TO DO HER ADL'S DUE TO SOB. WE DISCUSSED THAT PATIENT REQUESTED INFO ON IN-HOME HOUSECLEANING AND MEALS ON WHEELS. HE STATES HE HAS SUGGESSTED ASSISTED LIVING TO HER AND ALTHOUGH SHE DIDN'T AGREE, SHE DIDN'T SAY NEVER. DISCUSSED WITH HIM THAT I HAS SPOKEN TO YULIYA KLINE FROM HER PCP CLINIC ANS SHE IS PLANNING ON FOLLOWING PATIENT AFTER DISCHARGE. HE IS IN AGREEMENT WITH THIS.
--- NOTE | 2018-02-25 10:18 | NUR ---
PT STATED THAT SHE WANTED TO TRY AND SHOWER AFTER PT WORKS WITH HER.
--- NOTE | 2018-02-25 12:30 | NUR ---
PATIENT UP TO BEDSIDE COMMODE. PATIENT VOIDED ONCE AND HAD ONE MEDIUM SIZED BM WNL. PATEINT DENIED SOB OR EXERTIONAL DYSPNEA. PATIENT ENJOYING LUNCH, SON IN ROOM. CALL LIGHT WITHIN REACH.
--- NOTE | 2018-02-25 14:00 | NUR ---
ENTERED PT'S RM, AND SHE WAS IN BED, MENTIONED THAT FOR SOME REASON SHE WAS VERY TIRED. PT WAS TO BE DC'D TODAY, BUT THAT HAS CHANGED. I EXTENDED TO HER A BLESSING, AND WILL FOLLOW NEEDED
--- NOTE | 2018-02-25 14:13 | NUR ---
PT DECLINES SHOWER AT THIS TIME. WILL GO BACK AGAIN LATER TO SEE IF SHE WILL SHOWER.
--- NOTE | 2018-02-25 14:30 | NUR ---
AFTERNOON ASSESSMENT COMPLETED AT THIS TIME. PATIENT STATUS IS UNCHANGED. PATIENT HAS NO FURTHER REQUESTS OR COMPLAINTS AT THIS TIME. CALL LIGHT WITHIN REACH.
--- NOTE | 2018-02-25 16:40 | NUR ---
PATIENT WOKE UP FROM NAP, REQUESTED BIPAP MACHINE BE TAKEN OFF. PATIENT STATED SHE IS FEELING "SHORT OF BREATH". PATIENT O2 SATTING BETWEEN 88-89%. TITRATED OXYGEN TO 2.5 L NC AND PLACED PATIENT IN SHEEHAN'S POSITION. PATIENT ENCOURAGED TO DEEP BREATH. CALLED RT FOR NEBULIZER TREATMENT. CALL LIGHT WITHIN REACH.
--- NOTE | 2018-02-25 18:08 | NUR ---
MARGIN ANALYST AND OT ASSISTED PATIENT WITH SHOWER. NEW GOWN AND SOCKS GIVEN. LINENS CHANGED. PATIENT RESTING IN BED.
--- NOTE | 2018-02-25 18:41 | NUR ---
PATIENT HAD UNEVENTFUL DAY. PATIENT IS ALERT AND ORIENTED X3. LUNGS ARE CLEAR AND DIMINISHED IN THE BASES BILATERALLY. BOWEL TONES ACTIVE IN ALL FOUR QUADRANTS. PATIENT USES CIPAP WHILE ASLEEP. LAST BM 02/25/18. ACCU CHECKS DISCONTINUED DUE TO BLOOD SUGAR BEING WNL. PATIENT HAS 20 GAUGE, SL.
--- NOTE | 2018-02-25 19:35 | NUR ---
PT RESTING SUPINE IN BED, DENIES SOB ON 2LPNC. ASSESSMENT COMPLETED, CALL LIGHT AND H20 IN REACH AND PT DENIES CONCERNS OR REQUESTS.
--- NOTE | 2018-02-25 20:31 | NUR ---
PT RESTING IN BED, REPORTS "I FEEL SO ANXIOUS AND NOTHING I'VE DON'E HAS HELPED, COUDL I HAVE SOMETHING TO HELP WITH THIS ANXIETY?" PT REPORTS ANXIETY PT STATES SHE HAS NOT HAD ANY RELEIF WITH DEEP BREATHING OR DISTRACTION. PRN IV ATIVAN ADMINISTERED SLOW IVP. CALL LIGHT ADN H20 IN REACH. PT DENIES ANY FURTHER CONERNS/REQUESTS.
--- NOTE | 2018-02-26 00:42 | NUR ---
PT RESTING ON RIGHT LATERAL SIDE, RESPIRATIONS VISABLE, BIPAP IN PLACE. CALL LIGHT AND H20 IN REACH.
--- NOTE | 2018-02-26 03:47 | NUR ---
pt resting in bed, 02 running at 2lpnc, [id number]. pt appears to be sleeping comfortably. call light and h2o in reach.
--- NOTE | 2018-02-26 05:00 | NUR ---
PT RESTING IN BED ON 2LPNC SATTING 98%. ASSESSMENT COMPLETED ADN FRESH ICE WATER PROVIDED PER PT REQUEST. CALL LIGHT IN REACH NO FURHTER CONCERNS OR REQUESTS VOICED.
--- NOTE | 2018-02-26 05:56 | NUR ---
PT STATES SHE HAD A GOOD NIGHTS SLEEP. PT HAS BEEN ALTERNATING BETWEEN BIPAP AND NASAL CANULA AND IS CURRENTLY SATTING 98% ON 2LPNC. PT TOLORATING SCHEDULED NEBS AND DENIES SOB AT REST. UP WITH 1PA AND FWW. PT HAD 2 BM'S ON 02/25 AND HAS BEEN VOIDING QS URINE. PT MAY POSSIBLY BE DISCHARGING HOME TODAY.
--- NOTE | 2018-02-26 06:33 | NUR ---
In to administer am medication. pt states "I feel much better than i did when i first came in". pt states she feels she is ready to be discharged. PO thyroid medication administered. pt satting 98% on 2.5lpnc. [facility]. pt took pill in pudding per her request states "that's how i always take my pills."
--- NOTE | 2018-02-26 07:25 | NUR ---
SHIFT REPORT RECEIVED FROM SALES UTILITY REPRESENTATIVE RN AT BEDSIDE. PATIENT RESTING IN BED, RESPIRATIONS EVEN AND UNLABORED. CALL LIGHT WITHIN REACH.
[2018-02-26] MEDS ORDERED: SENNA-TIME S T1 EACH PO (09:20)
[2018-02-26] MEDS ORDERED: MIRALAX17 GM PO (09:20)
[2018-02-26] MEDS ORDERED: PANTOPRAZOLE SO40 MG PO (09:20)
[2018-02-26] MEDS ORDERED: PREDNISONE20 MG PO ×3 (09:22→09:25)
[2018-02-26] MEDS ORDERED: PREDNISONE10 MG PO (09:28)
[2018-02-26] MEDS ORDERED: PREDNISONE5 MG PO (09:29)
[2018-02-26] MEDS ORDERED: HYDROXYZINE HCL50 MG PO (09:30)
[2018-02-26] MEDS ORDERED: BACTRIM DS TAB1 EACH PO (09:34)
[2018-02-26] MEDS ORDERED: IPRAT-ALBUT 0.5-3 ML INH (09:36)
[2018-02-26] MEDS ORDERED: BUDESONIDE0.5 MG/2 M INH (09:36)
--- NOTE | 2018-02-26 10:00 | NUR ---
CARDIAC REHAB AND RT WITH PATIENT AT BEDSIDE. MORNING ASSESSMENT DEFERRED AT THIS TIME. CALL ILIT WITHIN REACH.
--- NOTE | 2018-02-26 11:15 | NUR ---
CHFN- Patient admitted with COPD. I was asked to see patient due to her history of HFpEF and recent NSTEMI. Given [facility] Living with Heart Failure and Zones magnet. Briefly given verbal information on monitoring symptoms and diet. Patient will be participating in Pulmonary Rehabilitation program at [facility] and this service can see patient then.
--- NOTE | 2018-02-26 12:10 | NUR ---
WRITTEN AND VERBAL DISCHARGE INSTRUCTIONS PROVIDED TO PATIENT. PATIENT VERBALIZED UNDERSTANDING, ALL QUESTIONS ANSWERED.
--- NOTE | 2018-02-26 12:55 | NUR ---
PATIENT TRANSFERED TO FRONT HOSPITAL ENTRANCE WITH IT APPLICATIONS ANALYST, PATIENT'S SON TO DRIVE PATIENT HOME.
== END 2018-02-26 12:55 | disposition home or self-care (01) | DRG 190 ==
LOC: ED 18:39 → CCU 18:40 → MS 18:40
PROVIDERS: ADMIT Student in an Organized Health Care Education/Training Program
DX: J44.1 Chronic obstructive pulmonary disease with (acute) exacerbation (principal); J96.21 Acute and chronic respiratory failure with hypoxia; I50.22 Chronic systolic (congestive) heart failure; I11.0 Hypertensive heart disease with heart failure; I25.10 Atherosclerotic heart disease of native coronary artery without angina pectoris; M06.9 Rheumatoid arthritis, unspecified; K21.9 Gastro-esophageal reflux disease without esophagitis; Z87.891 Personal history of nicotine dependence; E03.9 Hypothyroidism, unspecified; Z87.898 Personal history of other specified conditions
CPT/HCPCS: 36415; 71045; 80048; 80053; 83735; 83880; 85025; 94640; 94644; 94660; 97110; 97116; 97162; 97165; 97535; 99285; G8978; G8979; J1650; J2060; J7120; J7512

== ENCOUNTER 2018-04-01 16:35 | Observation (INO) | payer MEDICARE, OTHER ==
[~2018-04-01] VITALS: Ht 157.5 cm; Wt 71.6 kg
--- OUTSIDE RECORDS SUMMARY | ~2018-04-01 | XMS | Clinical Summary ---
Demographics + + + | Address | [address] | | | [place] [address] | + + + | Home Phone | | + + + | Preferred Language | Unknown | + + + | Marital Status | Single | + + + | Islam Affiliation | BAP | + + + [...] | Unavailable | + + + Support + + +---------+ + | Name | Relationship | Address | Phone | + + +---------+ + | Lane Chiu | ECON | Unknown | | + + +---------+ + | Carmine Chiu | ECON | Unknown | Unavailable | + + +---------+ + Care Team Providers + +------+ + | Care Spiritual Advisor Name | Role | Phone | + +------+ + | Marni Danielle Moffettine | PP | | | TERADATA DEVELOPER | | | + +------+ + Source Comments MAVIS is fully live on both [facility] and [facility] Allergies + + + + + + [...] | | | | e | | release(DR/EC) | | | | | | | [...] mouth once daily. | tablet | | /20 | | e | | | | [...] | + + + + + | Pneumococcal (Adult) | | | | | (1 of 2 - PCV13) | 0 | | | + + + + + | INFLUENZA VACCINE | | | | | (FLU SHOT) | 8 | | | + + + + + Results Not on filefrom Last 3 Months
--- OUTSIDE RECORDS SUMMARY | ~2018-04-01 | XMS | Encounter Summary ---
Demographics + + + | Address | [address] | | | [place] [address] | + + + | Home Phone | | + + + | Preferred Language | Unknown | + + + | Marital Status | Single | + + + | Rastafarian Affiliation | 1009 | + + + | Race | Unknown | + + + | Ethnic Group | Unknown | + + + Author + + + | Author | Rojelio [employer] | + + + | Organization | [facility] [facility] | + + + | Address | Unknown | + + + | Phone | Unavailable | + + + Support + + +---------+ + | Name | Relationship | Address | Phone | + + +---------+ + | Lavell Chiu | ECON | Unknown | | + + +---------+ + Care Team Providers + +------+ + | Care Lead Ingot Molder Name | Role | Phone | + +------+ + | Eliza Andrade MD | PCP | Unavailable | + +------+ + Encounter Details +--------+ + + + + | Date | Type | Department | Care Team | Description | +--------+ + + + + | 02/03/ | Telephone | [facility] | Lisbeth Lew CMA | | | 2017 | | [address] | | | | | | [facility] | | | | | | [address] [place] | | | | | | [address] | | | +--------+ + + + + Social History + +-------+ +--------+ + | Tobacco Use | Types | Packs/Day | Years | Date | | | | | Used | | + +-------+ +--------+ + | Former Smoker | | 1 | 56 | Quit: 06/29/2017 | + +-------+ +--------+ + + +---+---+---+ | Smokeless Tobacco: | | | | | Never Used | | | | + +---+---+---+ + + +---------+ + | Alcohol Use | Drinks/We | oz/Week | Comments | | | ek | | | + + +---------+ + | No | | | | + + +---------+ + + + + | Sex Assigned at | Date Recorded | | | | + + + | Not on file | | + + + as of this encounter Plan of Treatment +--------+---------+ + + + | Date | Type | Specialty | Care Team | Description | +--------+---------+ + + + | 06/17/ | Office | Cardiology | Cristhian Cochran, | | | 2017 | Visit | | MD [address] | | | | | | [place], | | | | | | [place] [address] | | | | | | [phone] | | | | | | | | +--------+---------+ + + + + +--------+ + + | Name | Priori | Associated Diagnoses | Order Schedule | | | ty | | | + +--------+ + + | Basic metabolic panel | Routin | Stage 3 chronic | Expected: | | | e | kidney disease | 02/03/2018, Expires: | | | | Essential | 02/03/2019 | | | | hypertension | | | | | Hyperlipidemia, | | | | | unspecified | | | | | hyperlipidemia type | | + +--------+ + + | CBC W/Auto Diff (Reflex to | Routin | Stage 3 chronic | Expected: | | Manual) | e | kidney disease | 02/03/2018, Expires: | | | | Essential | 02/03/2019 | | | | hypertension | | | | | Hyperlipidemia, | | | | | unspecified | | | | | hyperlipidemia type | | + +--------+ + + | Protein / creatinine ratio, urine | Routin | Stage 3 chronic | Expected: | | | e | kidney disease | 02/03/2018, Expires: | | | | Essential | 02/03/2019 | | | | hypertension | | | | | Hyperlipidemia, | | | | | unspecified | | | | | hyperlipidemia type | | + +--------+ + + | Uric acid | Routin | Stage 3 chronic | Expected: | | | e | kidney disease | 02/03/2018, Expires: | | | | Essential | 02/03/2019 | | | | hypertension | | | | | Hyperlipidemia, | | | | | unspecified | | | | | hyperlipidemia type | | + +--------+ + + | Urinalysis (reflex to micro) | Routin | Stage 3 chronic | Expected: | | | e | kidney disease | 02/03/2018, Expires: | | | | Essential | 02/03/2019 | | | | hypertension | | | | | Hyperlipidemia, | | | | | unspecified | | | | | hyperlipidemia type | | + +--------+ + + as of this encounter Visit Diagnoses + + | Diagnosis | + + | Stage 3 chronic kidney disease - Primary | + + | Essential hypertension | + + | Unspecified essential hypertension | + + | Hyperlipidemia, unspecified hyperlipidemia type | + +"
--- OUTSIDE RECORDS SUMMARY | ~2018-04-01 | XMS | Encounter Summary ---
Demographics + + + | Address | [address] | | | [place] [address] | + + + | Home Phone | | + + + | Preferred Language | Unknown | + + + | Marital Status | Single | + + + | Hindu Affiliation | 1009 | + + + | Race | Unknown | + + + | Ethnic Group | Unknown | + + + Author + + + | Author | Rojelio [employer] | + + + | Organization | [facility] [employer] [facility] | + + + | Address | Unknown | + + + | Phone | Unavailable | + + + Support + + +---------+ + | Name | Relationship | Address | Phone | + + +---------+ + | Lavell Chiu | ECON | Unknown | | + + +---------+ + Care Team Providers + +------+ + | Care Doctor Of Podiatry Name | Role | Phone | + +------+ + | Eliza Andrade MD | PCP | Unavailable | + +------+ + Reason for Visit +--------+ + | Reason | Comments | +--------+ + | Other | [facility] P[facility] Note 01/22/18 | +--------+ + Encounter Details +--------+ + + + + | Date | Type | Department | Care Team | Description | +--------+ + + + + | 01/23/ | Documentati | [facility] | Ana Mcfadden, | Other ([facility] | | 2018 | on Only | Ambika Perez | LENA | ADRIANE Note 01/22/18) | | | | [address] | | | | | | [address] | | | | | | [place] [address] | | | | | | [phone] | | | +--------+ + + + [...] | | | | | | [place] | | | | | | [place] [address] | | | | | | [phone] | | | | | | | | +--------+---------+ + + + as of this encounter Visit Diagnoses Not on filein this encounter"
--- OUTSIDE RECORDS SUMMARY | ~2018-04-01 | XMS | Encounter Summary ---
Demographics + + + | Address | [address] | | | [place] [address] | + + + | Home Phone | | + + + | Preferred Language | Unknown | + + + | Marital Status | Single | + + + | Buddhism Affiliation | 1009 | + + + | Race | Unknown | + + + | Ethnic Group | Unknown | + + + Author + + + | Author | Rojelio [employer] | + + + | Organization | [facility] | + + + | Address | Unknown | + + + | Phone | Unavailable | + + + Support + + +---------+ + | Name | Relationship | Address | Phone | + + +---------+ + | Lavell Chiu | ECON | Unknown | | + + +---------+ + Care Team Providers + +------+ + | Care Coal Unloader Name | Role | Phone | + [...] | | Required | | Atherosclero | CONSTRUCTION RIGGER [address] | Sleep | | | | | sis of | Myriam Khanna | Disorders | | | | | [place] | [place] F | [facility] | | | | | coronary | [place], [place] | [facility] | | | | | artery of | [address] | [address] | | | | | [place] | Phone: | JESSICA [place]INOJ[place]A | | | | | heart, | [phone] | [place] | | | | | angina | Fax: | [address] | | | | | presence | [phone] | Phone: | | | | | unspecified | | [phone] | | | | | S/P PTCA | | Fax: | | | | | (percutaneou | | [phone] | | | | | s | [...] | | | | | | | [place] | | | | | | | [...] | | | | UP | [place] [address] | [place], [place] | | | | | | Phone: | [phone] Phone: | | | | | | [phone] | [phone] | | | | | | Fax: | Fax: | | | | | | [phone] | [phone] | + +--------+ + + + + Encounter Details +--------+---------+ + + + | Date | Type | Department | Care Team | Description | +--------+---------+ + + + | 01/23/ | Office | [facility] | Alesia Freire | Atherosclerosis of | | 2018 | Visit | Cardiology [place] | [address] | [place] coronary | | | | [address] | Myriam Cronin F | artery of [place] | | | | [address] | [place] [address] | heart, angina | | | | [place] [address] | [phone] | presence unspecified | | | | [phone] | | (Primary Dx); S/P | | [...] | | | | | occlusion of [place] | | | | | | coronary artery; | | | | | | History of PA | | | | | | (myocardial | | | | | | infarction); | | | | | | Paroxysmal atrial | | | | | | fibrillation ([facility]); | | | | | | Mild pulmonary | | | | | | hypertension ([facility]); | | | | | | Moderate [...] to refer you to Cardiac Rehab in [place] , as no room at the one in [place], but think we need to wait given your recent hospitalization Bring blood pressure cuff to our clinic or Dr. Andrade to check how close it is to our readi ngs. I have referred you to Dr. Duran at [facility] , call [phone] for an appoi ntment next week Since [...] p reviously seen by him in our [place] office. Her previous testing and procedures are detailed below. I saw her last for hospital follow up from [facility]( [facility]) on December 05 after non-STEMI with unchanged [...] being admitted to the emergency room at [facility],and then hospitalized fr 01/16/2018-01/18/2018 for hypertension, diastolic [...] exe rcises Due to dyspnea, Lives in [place]. Lives Alone Outpatient Medications Prior to Visit [...] No results found for: METF, NMETFX, TFNMFX, [id number], [id number], TOTEPI PROCEDURES/IMAGING Last Cardiac Cath:12/04/2017: ( NSTEMI) Three-vessel coronary artery disease with chronicall y occluded RCA, with jewi-ds-shhgq collaterals. Patent stents in LCX ,severe disease of a s mall diagonal branch. DATA: Left Main: trifurcates , gives rise to LAD, ramus intermedius, and l eft circumflex arteries. left main coronary artery is free of disease. LAD. without sign ificant disease. 1st Dx: very tiny vessel. 2nd Dx branch : mukxp-lg-msddrb size vessel at 1 .5 to 2 [...] HTN, RVSP 56-61 mm Hg EKG/EVENT MONITOR EK08/29/2017:([facility]) , Left ventricular hypertrophy, mild nonspecific ST and T -wave abnormalities. Rate 76 bpm, RI 140 ms, QRS 98 ms, QTC 452 ms, tracing personally revi ewed by ga EK12/03/2017:( [facility]) Sinus tachycardia with premature SVC, left ventricular hypertrophy, ST depression to anterolateral leads, T wave inversion to lateral leads. Prolonged QTC. R ate 103 bpm, RI 172 ms, QRS 102 ms, QTC 508 ms tracing personally reviewed by ga EK12/03/2017 ( [facility]) Sinus tachycardia, ST abnormalities to anterolateral leads, resolutio n of premature SVC,, resolution of prolonged QTC resolution of T-wave inversions to lateral leads. Rate 102 bpm, RI 148 ms, QRS 92 ms, QTC 461 ms tracing personally reviewed by ga EK12/09/2017:( [facility] ) Normal sinus rhythm, nonspecific T-wave abnormality to anterolateral leads, low voltage QRS. Rate 70 bpm, RI 146 ms, QRS 94 ms, QTC 474 ms, maryjane donnelly reviewed by me and compared to EKG performed on December 03, now in sinus rhythm instead of sin us tachycardia, and ST abnormalities less pronounced to anterolateral leads EK01/13/2018: ( [facility]) Normal sinus rhythm, nonspecific ST abnormality. Rate 60 bpm, RI 142 ms, QRS 92 ms, QTC 487 [...] 24, GFR 30. Magnesium 2.3 Labs: 01/13/2018 ([facility]): CMP: Sodium 138, potassium 3.7, chloride [...] Her EKG and troponin's were negative at [facility], and I think some of her problems r esulted from the fact that I had stopped her amlodipine believing her to be on Cardizem, marci vallejo she had a prescription for after being discharged from [facility]. It turns out she was not on [...] of her medication bottles, including supplements and pwwt-qvo-nveolsz m edications to the clinic today, and [...] on February 18, and will also see ethics manager Dr. Santy ritter n February 10, and will be following up with PCP Dr. Andrade in 4 weeks, so we will be closely m onitored. I had hoped to refer her to the cardiac rehab program in [place], as currently 6 patien t waiting list for cardiac rehab in [place], but given her recent hospitalization and inst ability, I think this needs to be deferred I told her that Dr. Cochran can decide when he sees her back if she is a candidate for cardi ac rehab. She did feel much improved with CPAP when she was in the hospital, and I have referred he r to Dr. Duran at the [facility] sleep disorders clinic for further evaluation and treatm ent. 1. Atherosclerosis of [place] coronary artery of [place] heart, angina presence unspecified 2. S/P PTCA (percutaneous transluminal coronary angioplasty) 3. Status post insertion of drug eluting coronary artery stent 4. 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 History of PA (myocardial infarction) 6. Paroxysmal atrial fibrillation ([facility]) 7. Mild pulmonary hypertension ([facility]) 8. Moderate aortic valve stenosis 9. Acute on chronic diastolic heart failure ([facility]) 10. Hypertension goal BP (blood pressure) < 130/80 11. Mixed hyperlipidemia 12. Carotid stenosis, asymptomatic, bilateral 13. Chronic obstructive pulmonary disease, unspecified COPD type ([facility]) 14. PVD (peripheral vascular disease) ([facility]) 15. Rheumatoid arthritis, involving unspecified site, unspecified rheumatoid factor presenc e ([facility]) 16. Thyroid disease 17. Stage 3 chronic [...] past surgical history. Problem list. JHOAN Hernandez [facility] Cardiology 01/24/2018in this encounter Plan of Treatment +--------+---------+ + + + | Date | Type | Specialty | Care Team | Description | +--------+---------+ + + + | 06/17/ | Office | Cardiology | Cristhian Cochran, | | | 2018 | Visit | | MD [address] | | | | | | [place] | | | | | | [place] [address] | | | | | | [phone] | | | | | | | | +--------+---------+ + + + + +--------+ + + | Name | Priori | Associated Diagnoses | Order Schedule | | | ty | | | + +--------+ + + | Ambulatory referral to | Routin | Atherosclerosis of | Ordered: 01/23/2018 | | Pulmonology | e | [place] coronary | | | | | artery of [place] | | | | | heart, angina [...] | | | | stent History of PA | | | | | (myocardial | [...] Diagnosis | + + | Atherosclerosis of [place] coronary artery of [place] heart, angina presence unspecified | | - Primary | + + | S/P PTCA (percutaneous transluminal coronary angioplasty) | + + | Postsurgical percutaneous transluminal coronary angioplasty status | + + | Status post insertion of drug eluting coronary artery stent | + + | History of PA (myocardial infarction) | + + | Old [...] arthritis, involving unspecified site, unspecified rheumatoid factor | | presence (HCC) | + + | Thyroid disease | + + | Unspecified disorder of thyroid | + + | Stage 3 chronic kidney disease | + + | Risk factors for obstructive sleep apnea | + +
--- OUTSIDE RECORDS SUMMARY | ~2018-04-01 | XMS | Encounter Summary ---
Demographics + + + | Address | [address] | | | [place] [address] | + + + | Home Phone | | + + + | Preferred Language | Unknown | + + + | Marital Status | Single | + + + | Amish Affiliation | 1009 | + + + | Race | Unknown | + + + | Ethnic Group | Unknown | + + + Author + + + | Author | [employer] | + + + | Organization | [facility] [employer] [facility] | + + + | Address | Unknown | + + + | Phone | Unavailable | + + + Support + + +---------+ + | Name | Relationship | Address | Phone | + + +---------+ + | Lavell Chiu | ECON | Unknown | | + + +---------+ + Care Team Providers + +------+ + | Care Automatic Tire Tester Name | Role | Phone | + [...] | | Required | | Atherosclero | [address] | Sleep | | | | | sis of | Myriam Khanna | Disorders | | | | | hopi | Mehrdad F | [facility] | | | | | coronary | [place], [place] | [facility] | | | | | artery of | [address] | [address] | | | | | hopi | Phone: | JESSICA HINOJOSA | | | | | heart, | [phone] | [place] | | | | | angina | Fax: | [address] | | | | | presence | [phone] | Phone: | | | | | unspecified | | [phone] | | | | | S/P PTCA | | Fax: | | | | | (percutaneou | | [phone] | | | | | s | [...] | | | | | | | [place] | | | | | | | [...] | | | | UP | [place] [address] | [place], [place] | | | | | | Phone: | [phone] Phone: | | | | | | [phone] | [phone] | | | | | | Fax: | Fax: | | | | | | [phone] | [phone] | + +--------+ + + + + Encounter Details +--------+---------+ + + + | Date | Type | Department | Care Team | Description | +--------+---------+ + + + | 01/23/ | Office | [facility] | Alesia Freire | Atherosclerosis of | | 2018 | Visit | Cardiology [place] | [address] | hopi coronary | | | | [address] | Myriam Cronin F | artery of hopi | | | | [address] | [place] [address] | heart, angina | | | | [place] [address] | [phone] | presence unspecified | | | | [phone] | | (Primary Dx); S/P | | [...] | | | | | occlusion of hopi | | | | | | coronary artery; | | | | | | History of CA | | | | | | (myocardial | | | | | | infarction); | | | | | | Paroxysmal atrial | | | | | | fibrillation ([facility]); | | | | | | Mild pulmonary | | | | | | hypertension ([facility]); | | | | | | Moderate [...] to refer you to Cardiac Rehab in [place] , as no room at the one in [place], but think we need to wait given your recent hospitalization Bring blood pressure cuff to our clinic or Dr. Andrade to check how close it is to our readi ngs. I have referred you to Dr. Duran at [place] [facility] , call [phone] for an appoi ntment next week Since [...] p reviously seen by him in our [place] office. Her previous testing and procedures are detailed below. I saw her last for hospital follow up from [facility]( [facility]) on December 05 after non-STEMI with unchanged [...] being admitted to the emergency room at [facility],and then hospitalized fr 01/16/2018-01/18/2018 for hypertension, [...] exe rcises Due to dyspnea, Lives in [place]. Lives Alone Outpatient Medications Prior to Visit [...] No results found for: METF, NMETFX, TFNMFX, [id number], HADLUL79SGS, TOTEPI PROCEDURES/IMAGING Last Cardiac Cath:12/04/2017: ( NSTEMI) Three-vessel coronary artery disease with chronicall y occluded RCA, with nvdq-xu-wqcal collaterals. Patent stents in LCX ,severe disease of a s mall diagonal branch. DATA: Left Main: trifurcates , gives rise to LAD, ramus intermedius, and l eft circumflex arteries. left main coronary artery is free of disease. LAD. without sign ificant disease. 1st Dx: very tiny vessel. 2nd Dx branch : swymn-fv-ijfhyo size vessel at 1 .5 to 2 [...] HTN, RVSP 56-61 mm Hg EKG/EVENT MONITOR EK08/29/2017:([facility]) , Left ventricular hypertrophy, mild nonspecific ST and T -wave abnormalities. Rate 76 bpm, KS 140 ms, QRS 98 ms, QTC 452 ms, tracing personally revi ewed by mi EK12/03/2017:( [facility]) Sinus tachycardia with premature SVC, left ventricular hypertrophy, ST depression to anterolateral leads, T wave inversion to lateral leads. Prolonged QTC. R ate 103 bpm, KS 172 ms, QRS 102 ms, QTC 508 ms tracing personally reviewed by mi EK12/03/2017 ( [facility]) Sinus tachycardia, ST abnormalities to anterolateral leads, resolutio n of premature SVC,, resolution of prolonged QTC resolution of T-wave inversions to lateral leads. Rate 102 bpm, KS 148 ms, QRS 92 ms, QTC 461 ms tracing personally reviewed by mi EK12/09/2017:( [facility] ) Normal sinus rhythm, nonspecific T-wave abnormality to anterolateral leads, low voltage QRS. Rate 70 bpm, KS 146 ms, QRS 94 ms, QTC 474 ms, maryjane donnelly reviewed by me and compared to EKG performed on December 03, now in sinus rhythm instead of sin us tachycardia, and ST abnormalities less pronounced to anterolateral leads EK01/13/2018: ( [facility]) Normal sinus rhythm, nonspecific ST abnormality. Rate 60 bpm, KS 142 ms, QRS 92 ms, QTC 487 [...] 24, GFR 30. Magnesium 2.3 Labs: 01/13/2018 ([facility]): CMP: Sodium 138, potassium 3.7, chloride [...] Her EKG and troponin's were negative at [facility], and I think some of her problems r esulted from the fact that I had stopped her amlodipine believing her to be on Cardizem, marci vallejo she had a prescription for after being discharged from [facility]. It turns out she was not on [...] of her medication bottles, including supplements and wzen-zbd-krhigao m edications to the clinic today, and [...] on February 18, and will also see research methodologist Dr. Santy ritter n February 10, and will be following up with PCP Dr. Andrade in 4 weeks, so we will be closely m onitored. I had hoped to refer her to the cardiac rehab program in [place], as currently 6 patien t waiting list for cardiac rehab in [place], but given her recent hospitalization and inst ability, I think this needs to be deferred I told her that Dr. Cochran can decide when he sees her back if she is a candidate for cardi ac rehab. She did feel much improved with CPAP when she was in the hospital, and I have referred he r to Dr. Duran at the [facility] sleep disorders clinic for further evaluation and treatm ent. 1. Atherosclerosis of hopi coronary artery of hopi heart, angina presence unspecified 2. S/P PTCA (percutaneous transluminal coronary angioplasty) 3. Status post insertion of drug eluting coronary artery stent 4. Chronic total occlusion of hopi coronary artery 5. History of CA (myocardial infarction) 6. Paroxysmal atrial fibrillation ([facility]) 7. Mild pulmonary hypertension ([facility]) 8. Moderate aortic valve stenosis 9. Acute on chronic diastolic heart failure ([facility]) 10. Hypertension goal BP (blood pressure) < 130/80 11. Mixed hyperlipidemia 12. Carotid stenosis, asymptomatic, bilateral 13. Chronic obstructive pulmonary disease, unspecified COPD type ([facility]) 14. PVD (peripheral vascular disease) ([facility]) 15. Rheumatoid arthritis, involving unspecified site, unspecified rheumatoid factor presenc e ([facility]) 16. Thyroid disease 17. Stage 3 chronic [...] past surgical history. Problem list. JHOAN Hernandez [facility] Cardiology 01/24/2018in this encounter Plan of [...] | | | | | | [place] [address] | | | | | | [phone] | | | | | | | | +--------+---------+ + + + + +--------+ + + | Name | Priori | Associated Diagnoses | Order Schedule | | | ty | | | + +--------+ + + | Ambulatory referral to | Routin | Atherosclerosis of | Ordered: 01/23/2018 | | Pulmonology | e | hopi coronary | | | | | artery of hopi | | | | | heart, angina [...] | | | | stent History of CA | | | | | (myocardial | [...] Diagnosis | + + | Atherosclerosis of hopi coronary artery of hopi heart, angina presence unspecified | | - Primary | + + | S/P PTCA (percutaneous transluminal coronary angioplasty) | + + | Postsurgical percutaneous transluminal coronary angioplasty status | + + | Status post insertion of drug eluting coronary artery stent | + + | History of CA (myocardial infarction) | + + | Old [...]
--- OUTSIDE RECORDS SUMMARY | ~2018-04-01 | XMS | Encounter Summary ---
Demographics + + + | Address | [address] | | | [place] [address] | + + + | Home Phone | | + + + | Preferred Language | Unknown | + + + | Marital Status | Single | + + + | Yazidism Affiliation | 1009 | + + + | Race | Unknown | + + + | Ethnic Group | Unknown | + + + Author + + + | Author | [employer] | + + + | Organization | [facility] [employer] [facility] | + + + | Address | Unknown | + + + | Phone | Unavailable | + + + Support + + +---------+ + | Name | Relationship | Address | Phone | + + +---------+ + | Lavell Chiu | ECON | Unknown | | + + +---------+ + Care Team Providers + +------+ + | Care Fruit Trimmer Name | Role | Phone | + [...] | | | | | [place] [address] | | | | | | [phone] | | | +--------+ + + + [...] | | | | | | [place] [address] | | | | | | [phone] | | | | | | | | +--------+---------+ + + + as of this encounter Visit Diagnoses Not on filein this encounter"
--- OUTSIDE RECORDS SUMMARY | ~2018-04-01 | XMS | Encounter Summary ---
Demographics + + + | Address | [address] | | | [place] [address] | + + + | Home Phone | | + + + | Preferred Language | Unknown | + + + | Marital Status | Single | + + + | Temple Affiliation | 1009 | + + + | Race | Unknown | + + + | Ethnic Group | Unknown | + + + Author + + + | Author | [employer]io [employer] | + + + | Organization | [facility] [employer] [facility] | + + + | Address | Unknown | + + + | Phone | Unavailable | + + + Support + + +---------+ + | Name | Relationship | Address | Phone | + + +---------+ + | Lavell Chiu | ECON | Unknown | | + + +---------+ + Care Team Providers + +------+ + | Care Credit Underwriter Name | Role | Phone | + +------+ + | Eliza Andrade MD | PCP | Unavailable | + +------+ + Reason for Visit +--------+ + | Reason | Comments | +--------+ + | Other | [facility] Visit 01/13/18 | +--------+ + Encounter Details +--------+ + + + + | Date | Type | Department | Care Team | Description | +--------+ + + + + | 01/23/ | Documentati | [facility] | Ana Mcfadden, | Other ([facility] | | 2018 | on Only | Amb[place] | [place] | ED Visit 01/13/18) | | | | [address] | | | | | | [address] | | | | | | [place] [address] | | | | | | [phone] | | | +--------+ + + + [...] | | | | | | [place] [address] | | | | | | [phone] | | | | | | | | +--------+---------+ + + + as of this encounter Visit Diagnoses Not on filein this encounter"
--- OUTSIDE RECORDS SUMMARY | ~2018-04-01 | XMS | Encounter Summary ---
Demographics + + + | Address | [address] | | | [place] [address] | + + + | Home Phone | | + + + | Preferred Language | Unknown | + + + | Marital Status | Single | + + + | Orthodox Affiliation | 1009 | + + + | Race | Unknown | + + + | Ethnic Group | Unknown | + + + Author + + + | Author | Rojelio [employer] | + + + | Organization | [facility] [employer] [facility] | + + + | Address | Unknown | + + + | Phone | Unavailable | + + + Support + + +---------+ + | Name | Relationship | Address | Phone | + + +---------+ + | Lavell Chiu | ECON | Unknown | | + + +---------+ + Care Team Providers + +------+ + | Care Bobj Developer Name | Role | Phone | + [...] | | | | | [facility] | | | | | | [address] [place] | | | | | | [address] | | | +--------+ + + + [...] | | | | | | [place] [address] | | | | | | [phone] | | | | | | | [...]
--- OUTSIDE RECORDS SUMMARY | ~2018-04-01 | XMS | Encounter Summary ---
Demographics + + + | Address | [address] | | | [place] [address] | + + + | Home Phone | | + + + | Preferred Language | Unknown | + + + | Marital Status | Single | + + + | Christian Affiliation | 1009 | + + + | Race | Unknown | + + + | Ethnic Group | Unknown | + + + Author + + + | Author | Rojelio [employer] | + + + | Organization | [facility] [employer] [facility] | + + + | Address | Unknown | + + + | Phone | Unavailable | + + + Support + + +---------+ + | Name | Relationship | Address | Phone | + + +---------+ + | Lavell Chiu | ECON | Unknown | | + + +---------+ + Care Team Providers + +------+ + | Care Boat Outfitting Supervisor Name | Role | Phone | + +------+ + | Eliza Andrade MD | PCP | Unavailable | + +------+ + Reason for Visit + + + | Reason | Comments | + + + | Labs Only | [facility] dated 02/07/2018; | + + + Encounter Details +--------+ + + + + | Date | Type | Department | Care Team | Description | +--------+ + + + + | 02/07/ | Documentati | [facility] | Lisbeth Lew CMA | Labs Only ([facility] | | 2018 | on Only | [place] [address] | | Labs dated | | | | [address] | | 02/07/2018; ) | | | | [place] [address] | | | | | | [phone] | | | +--------+ + + + [...] Description | +--------+---------+ + + + | 12/11/ | Office | Cardiology | Cristhian Cochran, | | | 2018 | Visit | | MD [address] | | | | | | [place], | | | | | | [place] [address] | | | | | | [phone] | | | | | | | | +--------+---------+ + + + as of this encounter Procedures + +--------+ + + + | [...] section. | + +--------+ + + + in this encounter Results Comprehensive metabolic panel (02/07/2018 12:44 PM) + + + + + | [...] | [address] | [place] [address] | | | LABORATORY | 13 | | | + + + + + Magnesium (02/07/2018 12:44 PM) + +-------+ + + | Component | [...] [facility] | [address] | [place] [address] | | | LABORATORY | 13 | | | + + + + + Brain natriuretic peptide (02/07/2018 12:44 PM) + +---------+ + + | Component | [...] | [address] | [place] [address] | | | LABORATORY | 13 | | | + + + + + CBC W/Auto Diff (Reflex to Manual) (02/07/2018 12:44 PM) + + + + + | [...] [facility] | [address] | [place] [address] | | | LABORATORY | 13 | | | + + + + + in this encounter Visit Diagnoses Not on filein this encounter"
--- OUTSIDE RECORDS SUMMARY | ~2018-04-01 | XMS | Clinical Summary ---
Demographics + + + | Address | [address] [place] [address] | | | [place] [address] | + + + | Home Phone | | + + + | Preferred Language | Unknown | + + + | Marital Status | Single | + + + | Scientologist Affiliation | [id number] | + + + | Race | Unknown | + + + | Ethnic Group | Unknown | + + + Author + + + | Author | [employer] | + + + | Organization | [facility] | + + + | Address | Unknown | + + + | Phone | Unavailable | + + + Support + + +---------+ + | Name | Relationship | Address | Phone | + + +---------+ + | Lavell Chiu | ECON | Unknown | | + + +---------+ + Care Team Providers + +------+ + | Care Customer Success Specialist Name | Role | Phone | + +------+ + | Eliza Andrade MD | PP | Unavailable | + [...] | | | | + + +---------+---------+------+------+-------+ Active Problems + + + | Problem | Noted Date | + + + | S/P PTCA (percutaneous transluminal coronary angioplasty) | 01/23/2018 | + + + | 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 | 01/23/2018 | + + + | History of CA (myocardial infarction) | 01/23/2018 | + + [...] + + + | Paroxysmal atrial fibrillation ([facility]) | 07/27/2017 | + + + | Claudication ([facility]) | 02/15/2014 | + + + | Mesenteric ischemia ([facility]) | 12/16/2013 | + + + | PVD (peripheral vascular disease) ([facility]) | 07/08/2013 | + + + + + | Overview: severe bilateral PVD, occluded right external | | iliac, left internal iliac, severe stenoses in bilateral common | | iliacs and left SFA | + + + +---+ | COPD (chronic obstructive pulmonary disease) (HCC) | | + +---+ + + | Overview: severe Emphysema | + + + +---+ | Atherosclerosis of [place] coronary artery of [place] heart | | + +---+ | History [...] + | NSTEMI (non-ST elevated myocardial infarction) ([facility]) | 07/31/19 | | | | 18 | 8 | + + + + | Bacterial pneumonia | 07/31/19 | | | | 18 | 8 | + + + + | Myocardial infarct ([facility]) | 07/08/19 | | | | 09 | 8 | + + + + + + | Overview: and NSTEMI 07/31/17 | + + Encounters +--------+ + + + + | Date | Type | Specialty | Care Team | Description | +--------+ + + + + | 03/21/ | Documentati | | Lisbeth Lew CMA | Labs Only ([facility] | | 2018 | on Only | | | Labs dated | | | | | | 02/24-) | +--------+ + + + + | 02/28/ | Ancillary | | Rosana Cochran, | Acute diastolic | | 2017 | Procedure | | MD | heart failure (HCC) | +--------+ + + + + | 02/21/ | Documentati | | Yodit Fowler MA | Other ([facility] | | 2017 | on Only | | | records) | +--------+ + + + + | 02/19/ | Documentati | | Yodit Fowler MA | Other ([facility] | | 2017 | on Only | | | records) | +--------+ + + + + | 02/18/ | Office | | Rosana Cochran, | Acute diastolic | | 2017 | Visit | | MD | heart failure (HCC) | | | | | | (Primary Dx); | | | | | | Atherosclerosis of | | | | | | [place] coronary | | | | | | artery of [place] | | | | | | heart, [...] | | | | | occlusion of [place] | | | | | | coronary artery; | | | | | | History of CA | | | | | | (myocardial | | | | | | infarction); | | | | | | Paroxysmal atrial | | | | | | fibrillation ([facility]); | | | | | | Mild pulmonary | | | | | | hypertension (HCC) | +--------+ + + + + | 02/07/ | Documentati | | Lisbeth Lew CMA | Labs Only ([facility] | | 2018 | on Only | | | Labs dated | | | | | | 02/07/2018; ) | +--------+ + + + + | 02/03/ | Telephone | | Lisbeth Lew CMA | | | 2017 | | | | | +--------+ + + + + | 01/23/ | Office | | Alesia Freire | Atherosclerosis of | | 2017 | Visit | | JHOAN Gong | [place] coronary | | | | | | artery of [place] | | | | | | heart, [...] | | | | | occlusion of [place] | | | | | | coronary artery; | | | | | | History of CA | | | | | | (myocardial | | | | | | infarction); | | | | | | Paroxysmal atrial | | | | | | fibrillation ([facility]); | | | | | | Mild pulmonary | | | | | | hypertension ([facility]); | | | | | | Moderate aortic | | | | | | valve stenosis | +--------+ + + + + | 01/23/ | Documentati | | Ana Mcfadden, | Other ([facility] | 2017 | on Only | | [place] | ED Visit 01/13/18) | +--------+ + + + + | 01/23/ | Documentati | | Ana Mcfadden, | Other ([facility] | 2017 | on Only | | [place] | PCP Note 01/22/18) | +--------+ + + + + from Last 3 Months Immunizations + + + + | Name | Dates Previously Given | Next Due | + + + + | INFLUENZA PF, | 08/02/2017 (Deferred: ) | | | QUADRIVALENT | | | | (PED/ADOL/ADULT) | | | + + + + [...] | | + +-------+ + + | Son | Lane | Alive | | + +-------+ + + | Son | Carmine | Alive | | + +-------+ + + | Son | Daniel | Alive | | + [...] + | 06/17/ | Office | | Rosana Cochran, | | | 2018 | Visit | | MD [address] | | | | | | [place], | | | | | | [place] [address] | | | | | | [phone] | | | | | | | [...] + + + + + | Vaccine: Zoster (1 | | | | | of 2) | 5 | | | + + + + [...] | Brown | | | 01/29/ | [id number] | | -08/06/2017Implanted: | | ry | | | 2017 | [id number] | | 08/06/2017 by Britany Guerra, | | | | | | 00 / | | MD (Quantity not on file) | | | | | | /[id number] | | | | | | | | 632 | + +-------+--------+ +--------+--------+--------+ Procedures + +--------+ + + + | Procedure Name | Priori | Date/Time | Associated Diagnosis | Comments | | | ty | | | | + +--------+ + + + | ECHO OUTSIDE | Routin | 02/28/2018 | Acute diastolic | Results for this | | INTERPRETATION | e | 12:33 PM | heart failure (HCC) | procedure are in the | | STANDARD | | PDT | | results section. | + +--------+ + + + | BASIC METABOLIC | Routin | 02/25/2018 | | Results for this | | PANEL | e | 5:53 AM | | procedure are in the | | | | PDT | | results section. | + +--------+ + + + | CBC W/AUTO DIFF | Routin | 02/25/2018 | | Results for this | | (REFLEX TO MANUAL) | e | 5:53 AM | | procedure are in the | | | | PDT | | results section. | + +--------+ + + + | BASIC METABOLIC | Routin | 02/24/2018 | | Results for this | | PANEL | e | 5:48 AM | | procedure are in the | | | | PDT | | results section. | + +--------+ + + + | MAGNESIUM | Routin | 02/24/2018 | | Results for this | | | e | 5:48 AM | | procedure are in the | | | | PDT | | results section. | + +--------+ + + + | CBC W/AUTO DIFF | Routin | 02/24/2018 | | Results for this | | (REFLEX TO MANUAL) | e | 5:48 AM | | procedure are in the [...] + + from Last 3 Months Results ECHO outside interpretation standard (02/28/2018 12:33 PM) + + + | Impressions | Performed At | + + + | 1. Overall left ventricular systolic function is normal with, an EF | [facility] | | between 60 - 65 %. 2. The right ventricle is normal in size and | RADIOLOGY | | function. 3. There is tzuoajyc-yc-ylspyu aortic regurgitation. 4. | | | Mild/moderate aortic stenosis with peak/mean pressure gradient of | | | 27.99mmHg / 16.63mmHg, the aortic valve area by continuity equation is | | | 1.6cm . 5. Nogtqdqw-bo-efudwm mitral regurgitation is present, | | | slightly increased from the moderate MR seen on the previous exam. 6. | | | Cskp-ol-ydklmvus tricuspid regurgitation present. 7. There is | | | moderate pulmonary hypertension. The right ventricular systolic | | | pressure (pulmonary artery systolic pressure), as measured by Doppler, | | | is 52.5 mm Hg. 8. Several changes are noted in comparison to the | | | previous echocardiographic study, done 08/01/17, as detailed below. | | + + + + + + | Narrative | Performed At | + + + | Patient Name: Davina Chiu Date of : 1945 | [facility] | | Performing Physician: ROSANA COCHRAN MD | RADIOLOGY | | | | | INDICATIONS Acute diastolic heart failure | | | CONCLUSIONS 1. Overall left ventricular systolic | | | function is normal with, an EF between 60 - 65 %. 2. The right | | | ventricle is normal in size and function. 3. There is | | | xmwncrak-te-vxvodt aortic regurgitation. 4. Mild/moderate aortic | | | stenosis with peak/mean pressure gradient of 27.99mmHg / 16.63mmHg, | | | the aortic valve area by continuity equation is 1.6cm . 5. | | | Ckvcebbv-qf-wyrlvc mitral regurgitation is present, slightly increased | | | from the moderate MR seen on the previous exam. 6. Lulp-ko-jppqpvfs | | | tricuspid regurgitation present. 7. There is moderate pulmonary | | | hypertension. The right ventricular systolic pressure (pulmonary | | | artery systolic pressure), as measured by Doppler, is 52.5 mm Hg. 8. | | | Several changes are noted in comparison to the previous | | | echocardiographic study, done 08/01/17, as detailed below. FINDINGS | | | -------- ECG rhythm: Sinus rhythm. Study: A 2-dimensional | | | transthoracic echocardiogram with m-mode, spectral and color flow | | | Doppler was perfomed. Study: This was a technically adequate study. | | | Left Ventricle: Overall left ventricular systolic function is normal | | | with, an EF between 60 - 65%, not significantly changed from the EF of | | | 65 - 70% seen on the previous study. Left Ventricle: The left | | | ventricle cavity size is normal. Left Ventricle: Left ventricular | | | wall thickness is normal. Left Ventricle: No regional wall motion | | | abnormalities. Left Ventricle: Pseudonormal LV diastolic filling | | | pattern, consistent with elevated LA pressure and moderate dysfunction | | | (Grade II). Right Ventricle: The right ventricle is normal in size | | | and function. Left Atrium: The left atrial size is normal. Right | | | Atrium: The right atrium is normal in size. Aortic Valve: The aortic | | | valve was not well visualized. Aortic Valve: The aortic valve is | | | moderately calcified. Aortic Valve: There is zkddccus-us-dfefha | | | aortic regurgitation, increased from moderate AI on the prior study. | | | Aortic Valve: The aortic pressure half-time by doppler is 282ms. | | | Aortic Valve: Mild/moderate aortic stenosis with peak/mean pressure | | | gradient of 27.99mmHg / 16.63mmHg, the aortic valve area by continuity | | | equation is 1.6cm . Aortic Valve: The maximum velocity across | | | the aortic valve is 2.65m/s Mitral Valve: The mitral valve is normal. | | | Mitral Valve: Tldbazyd-xx-gkgekn mitral regurgitation is present, | | | with an eccentric, posteriorly directed jet, slightly increased from | | | the moderate MR seen on the previous exam. Mitral Valve: No evidence | | | of MVP. Tricuspid Valve: The tricuspid valve appears structurally | | | normal. Tricuspid Valve: Ryaz-eg-qjmopdnz tricuspid regurgitation is | | | present, increased from mild TR on the prior study. Tricuspid | | | Valve: There is moderate pulmonary hypertension. Tricuspid Valve: | | | The right ventricular systolic pressure (pulmonary artery systolic | | | pressure), as measured by Doppler, is 52.5 mm Hg, essentially | | | unchanged from the previous measurement. Pulmonic Valve: The pulmonic | | | valve was not well visualized. Pulmonic Valve: Trace pulmonic | | | regurgitation. Pericardium: There is a trivial pericardial effusion | | | present. Pericardium: There is no evidence of cardiac tamponade. | | | Pericardium: No pleural effusion seen. IVC/Hepatic Veins: The IVC is | | | normal size (1.5-2.5cm) and collapses about 50% with sniff, consistent | | | with central venous pressures of 10 mmHg. Aorta: The aortic root, | | | ascending aorta and aortic arch are normal. Mass: No mass visualized | | | Thrombus: No clot visualized Thrombus: No vegetation visualized. | | | Septum: No ASD observed. Septum: No VSD observed. MEASUREMENTS | | | Ao asc: 2.[address] junct: 2.70 cm IVC: | | | 2.24 cm LA Major: 5.03 cm EDV(Teich): 135.58 ml IVSd: | | | 1.01 cm LVIDd: 5.30 cm LVPWd: 1.10 cm LVOT Area: 3.31 | | | cm2 LVOT Diam: 2.05 cm %FS: 32.43 % EF(Teich): 60.29 % | | | ESV(Teich): 53.84 ml LVIDs: 3.58 cm SV(Teich): 81.74 ml | | | RA Major: 4.78 cm RV Major: 7.07 cm RVIDd: 2.60 cm TV | | | Lilly Diam: 3.51 cm Ao Root: 2.63 cm Ao Diam SVals: 2.90 | | | cm LVEF MOD A2C: 53.94 % SV MOD A2C: 63.65 ml LVEF MOD | | | A4C: 56.33 % SV MOD A4C: 69.87 ml EF Biplane: 55.33 % | | | LVEDV MOD BP: 122.86 ml LVESV MOD BP: 54.88 ml LVEDV MOD | | | A2C: 117.99 ml LVLd A2C: 8.48 cm LVEDV MOD A4C: 124.03 | | | ml LVLd A4C: 8.24 cm LVESV MOD A2C: 54.34 ml LVLs A2C: | | | 6.87 cm LVESV MOD A4C: 54.16 ml LVLs A4C: 6.68 cm | | | LAESV(A-L): 56.86 ml LAESV Index (A-L): 34.04 ml/m2 LAAs | | | A2C: 17.74 cm2 LAESV A-L A2C: 51.86 ml LALs A2C: 5.15 cm | | | LAAs A4C: 19.45 cm2 LAESV A-L A4C: 60.09 ml LALs A4C: | | | 5.34 cm RAAs: 16.23 cm2 RAESV A-L: 44.35 ml RAESV MOD: | | | 43.26 ml RALs: 5.04 cm TAPSE: 2.34 cm AR Dec [place]: | | | 4.12 m/s2 AR Dec Time: 971.21 ms AR maxP.12 mmHg AR | | | PHT: 281.65 ms AR Vmax: 4.00 m/s AV maxP.98 mmHg | | | AV meanP.63 mmHg AV Vmax: 2.64 m/s AV Vmean: 1.93 | | | m/s AV VTI: 70.11 cm ANA PAULA Vmax: 1.82 cm2 ANA PAULA (VTI): 1.56 | | | cm2 LVOT maxP.52 mmHg LVOT meanP.90 mmHg LVSI | | | Dopp: 65.61 ml/m2 LVSV Dopp: 109.57 ml LVOT Vmax: 1.46 | | | m/s LVOT Vmean: 0.88 m/s LVOT VTI: 33.05 cm MV A David: | | | 0.82 m/s MV Dec [place]: 4.39 m/s2 MV DecT: 313.01 ms MV E | | | David: 1.37 m/s MV E/A Ratio: 1.66 MV PHT: 90.77 ms MVA | | | By PHT: 2.42 cm2 Septal e': 0.04 m/s Septal E/e': 30.88 | | | Lateral e': 0.09 m/s Lateral E/e': 14.67 RAP: 10 mmHg | | | RVSP: 51.24 mmHg TR maxP.24 mmHg TR Vmax: 3.21 | | | m/s S': 0.14 m/s Toby Maker: MARZENA Authenticated | | | by: ROSANA COCHRAN MD Report Date/Time: -- [id number] | | + + + + + | Procedure Note | + + | Charan, Rad Results In - 03/05/2018 7:30 PM PDT Patient Name: Peace Chiu | | : 5Accession: [id number] Physician: ROSANA COCHRAN MD | | INDICATIONS Acu | | te diastolic heart failureCONCLUSIONS 1. Overall left ventricular systolic | | function is normal with, an EF between 60 - 65 %.2. The right ventricle is normal in | | size and function.3. There is tcqzisnu-gg-qeafbc aortic regurgitation.4. Mild/moderate | | aortic stenosis with peak/mean pressure gradient of 27.99mmHg / 16.63mmHg, the aortic | | valve area by continuity equation is 1.6cm .5. Jakfrqzv-wm-jsnlyc mitral | | regurgitation is present, slightly increased from the moderate MR seen on the previous | | exam.6. Ftrc-ee-yzxbytbt tricuspid regurgitation present.7. There is moderate pulmonary | | hypertension. The right ventricular systolic pressure (pulmonary artery systolic | | pressure), as measured by Doppler, is 52.5 mm Hg. 8. Several changes are noted in | | comparison to the previous echocardiographic study, done 08/01/17, as detailed | | below.FINDINGS--------ECG rhythm: Sinus rhythm.Study: A 2-dimensional transthoracic | | echocardiogram with m-mode, spectral and color flow Doppler was perfomed. Study: This | | was a technically adequate study.Left Ventricle: Overall left ventricular systolic | | function is normal with, an EF between 60 - 65%, not significantly changed from the EF | | of 65 - 70% seen on the previous study. Left Ventricle: The left ventricle cavity size | | is normal. Left Ventricle: Left ventricular wall thickness is normal. Left Ventricle: No | | regional wall motion abnormalities. Left Ventricle: Pseudonormal LV diastolic filling | | pattern, consistent with elevated LA pressure and moderate dysfunction (Grade II).Right | | Ventricle: The right ventricle is normal in size and function.Left Atrium: The left | | atrial size is normal.Right Atrium: The right atrium is normal in size. Aortic Valve: | | The aortic valve was not well visualized. Aortic Valve: The aortic valve is moderately | | calcified. Aortic Valve: There is dydhkavv-kh-jatxjp aortic regurgitation, increased | | from moderate AI on the prior study. Aortic Valve: The aortic pressure half-time by | | doppler is 282ms. Aortic Valve: Mild/moderate aortic stenosis with peak/mean pressure | | gradient of 27.99mmHg / 16.63mmHg, the aortic valve area by continuity equation is | | 1.6cm . Aortic Valve: The maximum velocity across the aortic valve is 2.65m/sMitral | | Valve: The mitral valve is normal. Mitral Valve: Chbtrixl-aw-gnvyhb mitral | | regurgitation is present, with an eccentric, posteriorly directed jet, slightly | | increased from the moderate MR seen on the previous exam. Mitral Valve: No evidence of | | MVP.Tricuspid Valve: The tricuspid valve appears structurally normal. Tricuspid Valve: | | Uqeo-au-momburse tricuspid regurgitation is present, increased from mild TR on the prior | | study. Tricuspid Valve: There is moderate pulmonary hypertension. Tricuspid Valve: The | | right ventricular systolic pressure (pulmonary artery systolic pressure), as measured by | | Doppler, is 52.5 mm Hg, essentially unchanged from the previous measurement.Pulmonic | | Valve: The pulmonic valve was not well visualized. Pulmonic Valve: Trace pulmonic | | regurgitation.Pericardium: There is a trivial pericardial effusion present. Pericardium: | | There is no evidence of cardiac tamponade. Pericardium: No pleural effusion | | seen.IVC/Hepatic Veins: The IVC is normal size (1.5-2.5cm) and collapses about 50% with | | sniff, consistent with central venous pressures of 10 mmHg.Aorta: The aortic root, | | ascending aorta and aortic arch are normal.Mass: No mass visualizedThrombus: No clot | | visualized Thrombus: No vegetation visualized.Septum: No ASD observed. Septum: No VSD | | observed.MEASUREMENTS Ao asc: 2.[address] junct: 2.70 cmIVC: 2.24 | | cmLA Major: 5.03 cmEDV(Teich): 135.58 mlIVSd: 1.01 cmLVIDd: 5.30 cmLVPWd: 1.10 | | cmLVOT Area: 3.31 rj8ELSI Diam: 2.05 cm%FS: 32.43 %EF(Teich): 60.29 | | %ESV(Teich): 53.84 mlLVIDs: 3.58 cmSV(Teich): 81.74 mlRA Major: 4.78 cmRV Major: | | 7.07 cmRVIDd: 2.60 cmTV Lilly Diam: 3.51 cmAo Root: 2.63 cmAo Diam SVals: 2.90 | | cmLVEF MOD A2C: 53.94 %SV MOD A2C: 63.65 mlLVEF MOD A4C: 56.33 %SV MOD A4C: | | 69.87 mlEF Biplane: 55.33 %LVEDV MOD BP: 122.86 mlLVESV MOD BP: 54.88 mlLVEDV MOD | | A2C: 117.99 mlLVLd A2C: 8.48 cmLVEDV MOD A4C: 124.03 mlLVLd A4C: 8.24 cmLVESV | | MOD A2C: 54.34 mlLVLs A2C: 6.87 cmLVESV MOD A4C: 54.16 mlLVLs A4C: 6.68 | | cmLAESV(A-L): 56.86 mlLAESV Index (A-L): 34.04 ml/m2LAAs A2C: 17.74 [id number] A-L | | A2C: 51.86 mlLALs A2C: 5.15 cmLAAs A4C: 19.45 ny8LXHRL A-L A4C: 60.09 mlLALs | | A4C: 5.34 cmRAAs: 16.23 gr3PALED A-L: 44.35 mlRAESV MOD: 43.26 mlRALs: 5.04 | | cmTAPSE: 2.34 cmAR Dec [place]: 4.12 m/s2AR Dec Time: 971.21 msAR maxP.12 | | mmHgAR PHT: 281.65 msAR Vmax: 4.00 m/Darshan maxP.98 mmHgAV meanP.63 | | mmHgAV Vmax: 2.64 m/Darshan Vmean: 1.93 m/Darshan VTI: 70.11 cmAVA Vmax: 1.82 cm2AVA | | (VTI): 1.56 qj2UCJJ maxP.52 mmHgLVOT meanP.90 mmHgLVSI Dopp: 65.61 | | ml/m2LVSV Dopp: 109.57 mlLVOT Vmax: 1.46 m/sLVOT Vmean: 0.88 m/sLVOT VTI: 33.05 | | cmMV A David: 0.82 m/sMV Dec [place]: 4.39 m/s2MV DecT: 313.01 msMV E David: 1.37 | | m/sMV E/A Ratio: 1.66 MV PHT: 90.77 msMVA By PHT: 2.42 cl0Nvkkqw e': 0.04 | | m/sSeptal E/e': 30.88 Lateral e': 0.09 m/sLateral E/e': 14.67 RAP: 10 mmHgRVSP: | | 51.24 mmHgTR maxP.24 mmHgTR Vmax: 3.21 m/sS': 0.14 m/sSonographer: | | DHAuthenticated by: Cruz SHORT Date/Time: -- | | [id number]:1. Overall left ventricular systolic function is normal | | with, an EF between 60 - 65 %.2. The right ventricle is normal in size and function.3. | | There is odhofcir-lp-jiyfol aortic regurgitation.4. Mild/moderate aortic stenosis with | | peak/mean pressure gradient of 27.99mmHg / 16.63mmHg, the aortic valve area by | | continuity equation is 1.6cm .5. Bmnrapod-zz-lsfcbu mitral regurgitation is | | present, slightly increased from the moderate MR seen on the previous exam.6. | | Emug-wa-jxqonvmy tricuspid regurgitation present.7. There is moderate pulmonary | | hypertension. The right ventricular systolic pressure (pulmonary artery systolic | | pressure), as measured by Doppler, is 52.5 mm Hg. 8. Several changes are noted in | | comparison to the previous echocardiographic study, done 08/01/17, as detailed below. | |ESV(Teich): 53.84 ml | |LVIDs: 3.58 cm | |SV(Teich): 81.74 ml | |RA Major: 4.78 cm | |RV Major: 7.07 cm | |RVIDd: 2.60 cm | |TV Lilly Diam: 3.51 cm | |Ao Root: 2.63 cm | |Ao Diam SVals: 2.90 cm | |LVEF MOD A2C: 53.94 % | |SV MOD A2C: 63.65 ml | |LVEF MOD A4C: 56.33 % | |SV MOD A4C: 69.87 ml | |EF Biplane: 55.33 % | |LVEDV MOD BP: 122.86 ml | |LVESV MOD BP: 54.88 ml | |LVEDV MOD A2C: 117.99 ml | |LVLd A2C: 8.48 cm | |LVEDV MOD A4C: 124.03 ml | |LVLd A4C: 8.24 cm | |LVESV MOD A2C: 54.34 ml | |LVLs A2C: 6.87 cm | |LVESV MOD A4C: 54.16 ml | |LVLs A4C: 6.68 cm | |LAESV(A-L): 56.86 ml | |LAESV Index (A-L): 34.04 ml/m2 | |LAAs A2C: 17.74 cm2 | |LAESV A-L A2C: 51.86 ml | |LALs A2C: 5.15 cm | |LAAs A4C: 19.45 cm2 | |LAESV A-L A4C: 60.09 ml | |LALs A4C: 5.34 cm | |RAAs: 16.23 cm2 | |RAESV A-L: 44.35 ml | |RAESV MOD: 43.26 ml | |RALs: 5.04 cm | |TAPSE: 2.34 cm | |AR Dec [place]: 4.12 m/s2 | |AR Dec Time: 971.21 ms | |AR maxP.12 mmHg | |AR PHT: 281.65 ms | |AR Vmax: 4.00 m/s | |AV maxP.98 mmHg | |AV meanP.63 mmHg | |AV Vmax: 2.64 m/s | |AV Vmean: 1.93 m/s | |AV VTI: 70.11 cm | |ANA PAULA Vmax: 1.82 cm2 | |ANA PAULA (VTI): 1.56 cm2 | |LVOT maxP.52 mmHg | |LVOT meanP.90 mmHg | |LVSI Dopp: 65.61 ml/m2 | |LVSV Dopp: 109.57 ml | |LVOT Vmax: 1.46 m/s | |LVOT Vmean: 0.88 m/s | |LVOT VTI: 33.05 cm | |MV A David: 0.82 m/s | |MV Dec [place]: 4.39 m/s2 | |MV DecT: 313.01 ms | |MV E David: 1.37 m/s | |MV E/A Ratio: 1.66 | |MV PHT: 90.77 ms | |MVA By PHT: 2.42 cm2 | |Septal e': 0.04 m/s | |Septal E/e': 30.88 | |Lateral e': 0.09 m/s | |Lateral E/e': 14.67 | |RAP: 10 mmHg | |RVSP: 51.24 mmHg | |TR maxP.24 mmHg | |TR Vmax: 3.21 m/s | |S': 0.14 m/s | | | |Toby Maker: | |Authenticated by: ROSANA COCHRAN MD | |Report Date/Time: -- [id number] | | | |IMPRESSION: | |1. Overall left ventricular systolic function is normal with, an EF between 60 - 65 %. | |2. The right ventricle is normal in size and function. | |3. There is xqytejra-ve-uxsxdk aortic regurgitation. | |4. Mild/moderate aortic stenosis with peak/mean pressure gradient of 27.99mmHg / 16.63mmHg, the aortic valve area by continuity equation is 1.6cm . | |5. Ewtmkjmb-zo-yjbvmf mitral regurgitation is present, slightly increased from the moderate MR seen on the previous exam. | |6. Ghnx-ni-bmnitors tricuspid regurgitation present. | |7. There is moderate pulmonary hypertension. The right ventricular systolic pressure (pulm onary artery systolic pressure), as measured by Doppler, is 52.5 mm Hg. 8. Several changes a re noted in comparison to the | |previous echocardiographic study, done 08/01/17, as detailed below. | + + + + + + + | Performing | Address | City/State/Zipcode | Phone Number | | Organization | | | | + + + + + | [facility] | [address] | [place] [address] | | + + + + + CBC W/Auto Diff (Reflex to Manual) (02/25/2018 5:53 AM)Only the most recent of 3 results w edmundoin the time period is included. + + + + + | Component | Value | Ref Range | Performed At | + + + + + | WBC | 6.6 | 4.5 - 11.0 10^3/mL | [facility] | | | | | [facility] | + + + + + | RBC | 3.53 (A) | 3.8 - 5.1 10^6/ L | [facility] | | | | | [facility] | + + + + + | HGB | 9.8 (A) | 12 - 16 g/dL | [facility] | | | | | [facility] | + + + + + | HCT | 30.3 (A) | 35 - 45 % | [facility] | | | | | [facility] | + + + + + | MCV | 86.2 | 81 - 99 fL | [facility] | | | | | [facility] | + + + + + | MCH | 28 | 27 - 33 pg | [facility] | | | | [facility] | + + + + + | MCHC | 32 | 30 - 36 g/dL | [facility] | | | | | [facility] | + + + + + | PLT | 174 | 140 - 440 K/ L | [facility] | | | | | [facility] | + + + + + | RDW SD | 17.5 (A) | 10.5 - 15.0 % | [...] | [address] | [place] [id number] | | | LABORATORY | 13 | | | + + + + + Basic metabolic panel (02/25/2018 5:53 AM)Only the most recent of 2 results within the is included. + + + + + | Component | Value | Ref Range | Performed At | + + + + + | GLUCOSE | 101 (A) | 70 - 100 mg/dL | [facility] | | | | | [facility] | + + + + + | BUN | 26 (A) | 6 - 23 mg/dL | [facility] | | | | | LABORATORY | + + + + + | CREATININE | 1.27 (A) | 0.7 - 1.18 mg/dL | [facility] | | | | | LABORATORY | + + + + + | BUN/CREAT | 20.5 | 6.0 - 28.6 | [facility] | | | | | LABORATORY | + + + + + | CALCIUM | 8.5 | 8.5 - 10.3 mg/dL | [facility] | | | | | LABORATORY | + + + + + | SODIUM | 142 | 132 - 143 mmol/L | [facility] | | | | | LABORATORY | + + + + + | POTASSIUM | 4.0 | 3.6 - 5.1 mmol/L | [facility] | | | | | LABORATORY | + + + + + | CHLORIDE | 103 | 95 - 112 mmol/L | [facility] | | | | | LABORATORY | + + + + + | CO2 | 34 (A) | 19 - 31 mmol/L | [facility] | | | | | LABORATORY | + + + + + | ANION GAP AGAP | 9.0 | 7 - 21 mmol/L | [facility] | | | | | LABORATORY | + + + + + | EGFR | 41 (A) | 60 mg/dL | [facility] | [...] | [address] | [place] [address] | | | LABORATORY | 13 | | | + + + + + Magnesium (02/24/2018 5:48 AM)Only the most recent of 2 results within the time period is included. + +-------+ + + | Component | Value | Ref Range | Performed At | + +-------+ + + | MAGNESIUM | 2.0 | 1.7 - 2.5 mg/dL | [facility] [...] | [address] | [place] [address] | | | LABORATORY | 13 | [...] | [facility] | [address] | [place] [address] | | | LABORATORY | 13 | | | + + + + + Comprehensive metabolic panel (02/07/2018 12:44 PM) + [...] | [address] | [place] [address] | | | LABORATORY | 13 | [...] MA - MODA | MA - | [id number] | [employer] | | | | | [...] | Self | [birth year] | Home: | [address] [place] [address] | | | al/Fam | | 1945 | [phone] [address] [place] | | | [place] | | | [address] | [place] [address] | + +--------+ +--------+ + +
--- OUTSIDE RECORDS SUMMARY | ~2018-04-01 | XMS | Clinical Summary ---
Demographics + + + | Address | [address] | | | [place] [address] | + + + | Home Phone | | + + + | Preferred Language | Unknown | + + + | Marital Status | Single | + + + | Buddhism Affiliation | BAP | + + + [...] Providers + +------+ + | Care Automatic Edger Name | Role | Phone | + +------+ + | Marni Danielle Moffettine | PP | | | ACID OPERATOR | | | + +------+ + Source Comments MAVIS is fully live on both [facility] Amb[facility] and [facility] InPatient.[facility] & [facility] Allergies + + + + [...]
--- OUTSIDE RECORDS SUMMARY | ~2018-04-01 | XMS | Encounter Summary ---
Demographics + + + | Address | [address] | | | [place] [address] | + + + | Home Phone | | + + + | Preferred Language | Unknown | + + + | Marital Status | Single | + + + | Faith Affiliation | 1009 | + + + | Race | Unknown | + + + | Ethnic Group | Unknown | + + + Author + + + | Author | Rojelio AdorStyle | + + + | Organization | [facility] | + + + | Address | Unknown | + + + | Phone | Unavailable | + + + Support + + +---------+ + | Name | Relationship | Address | Phone | + + +---------+ + | Lavell Chiu | ECON | Unknown | | + + +---------+ + Care Team Providers + +------+ + | Care License Registration Examiner Name | Role | Phone | + [...] | records) | | | | [address] [facility] [address] | | | | | | [facility] E- | | | | | | [place] [address] | | | | | | [phone] | | | +--------+ + + + [...] | | | | | | [place] [address] | | | | | | [phone] | | | | | | | | +--------+---------+ + + + as of this encounter Visit Diagnoses Not on filein this encounter"
--- OUTSIDE RECORDS SUMMARY | ~2018-04-01 | XMS | Clinical Summary ---
Demographics + + + | Address | [address] | | | [place] [address] | + + + | Home Phone | | + + + | Preferred Language | Unknown | + + + | Marital Status | Single | + + + | Religion Affiliation | BAP | + + + [...] Team Providers + +------+ + | Care Closing Manager Name | Role | Phone | + +------+ + | Marni Danielle Moffettine | PP | | | ASSISTANT PROFESSOR OF THEATER | | | + +------+ + Source Comments MAVIS is fully live on both [facility] Ambulatory and [facility] InPatient.[facility] Allergies + + + + + [...]
--- OUTSIDE RECORDS SUMMARY | ~2018-04-01 | XMS | Encounter Summary ---
Demographics + + + | Address | [address] | | | [place] [address] | + + + | Home Phone [...] + + + | Author | Rojelio Zones | + + + | Organization | [facility] | + + + | Address | Unknown | + + + | Phone | Unavailable | + + + Support + + +---------+ + | Name | Relationship | Address | Phone | + + +---------+ + | Lavell Chiu | ECON | Unknown | | + + +---------+ + Care Team Providers + +------+ + | Care Associate Software Development Engineer Name | Role | Phone | + +------+ + | Eliza Andrade MD | PCP | Unavailable | + +------+ + Reason for Referral Cardiac Rehabilitation (Routine) + +--------+ + + + + | Status | Reason | Specialty | Diagnoses / | Referred By | Referred To | | | | | Procedures | Contact | Contact | + +--------+ + + + + | Authorized | | Cardiac | Diagnoses | [place], | [place], [address] | | | | Rehabilitatio | Acute | Rosana Chase | Jessica | | | | n | diastolic | MD [address] | Cardiac [address] | | | | | heart | [address] | [address] | | | | | failure | [address] | [address] | | | | | ([facility]) S/P | [place] | [place] | | | | | PTCA | [address] | [address] | | | | | (percutaneou | Phone: | Phone: | | | | | s | [phone] | [phone] | | | | | transluminal | Fax: | Fax: | | | | | coronary | [phone] | [phone] | | | | | angioplasty) | [...] | 3 months- | MD Eliza | Rosana Chase MD | | | | | Dr. Cochran pt | [address] | [address] | | | | | Procedures | [address] | Myriam Khanna | | | | | CRD FOLLOW | [place], | Mehrdad [address]lev[address] | | | | | UP | [place] [address] | [place] | | | | | | Phone: | [phone] Phone: | | | | | | [phone] | [phone] | | | | | | Fax: | Fax: | | | | | | [phone] | [phone] | + +--------+ + + + + Encounter Details +--------+---------+ + + + | Date | Type | Department | Care Team | Description | +--------+---------+ + + + | 02/18/ | Office | [facility] [place] | Rosana Cochran, | Acute diastolic | | 2018 | Visit | Cardiology [place] | MD [address] | heart failure (HCC) | | | | [address] | [place], | (Primary Dx); | | | | [address] | [place] [address] | Atherosclerosis of | | | | [place] [address] | [phone] | [place] coronary | | | | [phone] | | artery of [place] | | | | | | heart, [...] | | | | | occlusion of [place] | | | | | | coronary artery; | | | | | | History of [place] | | | | | | (myocardial [...] + + in this encounter Progress Notes Rosana Cochran MD - 02/18/2018 1:00 PM PDTFormatting [...] follow-up visit. She was hospita lized at [facility] 02/07/18 for SOB, and records note that she had been there in [facility] emergency room 01/27/18 with an exacerbation of [...] oxygen. She had previously been admitted to [facility] 12/03/17 for severe dyspnea on exertio, and mid re trosternal pressure described as a "cold, tight" feeling, present on a daily basis for 10 da ys, but did not immediately seek medical attention, as these were unlike her previous [place] sym ptoms. The night of admission, it persisted, and her son brought her to [facility]. Her troponin was elevated, ruling her in [...] a remote prior history of CAD, remote TX, 3 coronary stents placed in 2004, and a recent episode of paroxysmal atrial fibrillation at [facility] several days prio r to admission. She used to see Mason Grier DO but had been lost to follow up. Her blood pressure is well-controlled today. She seems to be doing well at this point, and I will see her back in a few months, after her updated echo. She was referred to cardiopul monary rehab at [facility]. Review of Systems CONSTITUTIONAL: 9 lb [...] She has a history of C AD, TX and 3 drug-eluting intracoronary stents placed in [...] 3-vessel disease with chronically occluded RCA, with ztpe-xs-cvrq t collaterals. . Patent stents in the [...] common femoral filled via collaterals from the validation intern al iliac -- Echo (08/01/17): EF [...] failure (HCC) COPD (chronic obstructive pulmonary disease) ([facility]) severe Emphysema GERD (gastroesophageal reflux disease) Hiatal hernia HLD (hyperlipidemia) HTN (hypertension) Hypothyroidism MRSA (methicillin resistant Staphylococcus aureus) 2013 line sepsis following SBO surgery Myocardial infarct ([facility]) 2008 and NSTEMI 07/31/17 Paroxysmal atrial fibrillation ([facility]) 07/27/2017 PVD (peripheral vascular disease) ([facility]) 2013 severe bilateral PVD, occluded right external iliac, left internal iliac, severe stenoses in bilateral common iliacs and left SFA Rheumatoid arthritis ([facility]) Small bowel obstruction due to adhesions ([facility]) several times Status post insertion of drug [...] Acute diastolic heart failure (HCC) Atherosclerosis of [place] coronary artery of [place] heart, angina presence unspecified S/P PTCA (percutaneous transluminal coronary angioplasty) Status post insertion of drug eluting coronary artery stent 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 History of [place] (myocardial infarction) Paroxysmal atrial fibrillation (HCC) Mild pulmonary hypertension (HCC) Moderate aortic valve stenosis Hypertension goal BP (blood pressure) < 130/80 in this encounter Plan of Treatment +--------+---------+ + + + | Date | Type | Specialty | Care Team | Description | +--------+---------+ + + + | 06/17/ | Office | Cardiology | Rosana Cochran, | | | 2018 | Visit | | MD [address] | | | | | | [place], | | | | | | [place] [address] | | | | | | [phone] | | | | | | | [...] +--------+ + + as of this encounter Results ECHO outside interpretation standard (02/28/2018 12:33 PM) + + + | Impressions | Performed At | + + + | 1. Overall left ventricular systolic function is normal with, an EF | [facility] | | between 60 - 65 %. 2. The right ventricle is normal in size and | RADIOLOGY | | function. 3. There is luwygtmx-ix-dtfhjk aortic regurgitation. 4. | | | Mild/moderate aortic stenosis with peak/mean pressure gradient of | | | 27.99mmHg / 16.63mmHg, the aortic valve area by continuity equation is | | | 1.6cm . 5. Svczuqcd-pt-zyszwr mitral regurgitation is present, | | | slightly increased from the moderate MR seen on the previous exam. 6. | | | Lcsn-mi-uyrzdcqi tricuspid regurgitation present. 7. There is | [...] Davina Chiu Date of : 1945 | [facility] | | Performing Physician: ROSANA COCHRAN MD | RADIOLOGY | | | | | INDICATIONS Acute diastolic heart failure | | | CONCLUSIONS 1. Overall left ventricular systolic | | | function is normal with, an EF between 60 - 65 %. 2. The right | | | ventricle is normal in size and function. 3. There is | | | vyewpthw-xz-otoytm aortic regurgitation. 4. Mild/moderate aortic | | | stenosis with peak/mean pressure gradient of 27.99mmHg / 16.63mmHg, | | | the aortic valve area by continuity equation is 1.6cm . 5. | | | Dazbtfau-fd-feuycz mitral regurgitation is present, slightly increased | | | from the moderate MR seen on the previous exam. 6. Bacf-qb-ochxfdzm | | | tricuspid regurgitation present. 7. [...] | moderately calcified. Aortic Valve: There is krwvowuk-oj-zwqilt | | | aortic regurgitation, increased from [...] is normal. | | | Mitral Valve: Gmcdxdis-za-dnzowz mitral regurgitation is present, | | | with an eccentric, posteriorly directed jet, slightly increased from | | | the moderate MR seen on the previous exam. Mitral Valve: No evidence | | | of MVP. Tricuspid Valve: The tricuspid valve appears structurally | | | normal. Tricuspid Valve: Treo-zs-djvkuiqc tricuspid regurgitation is | | | present, [...] 5.04 cm TAPSE: 2.34 cm AR Dec Payne: | | | 4.12 m/s2 AR Dec [...] | | | 0.82 m/s MV Dec Payne: 4.39 m/s2 MV DecT: 313.01 ms MV [...] | | | m/s S': 0.14 m/s Soap Chipper: MARZENA Authenticated | | | by: ROSANA COCHRAN MD Report Date/Time: -- [id number]:51 | | + + + + + | Procedure Note | + + | Charan, Rad Results In - 03/05/2018 7:30 PM PDT Patient Name: Emanuel Chiu of | | : 5Accession: [id number] Physician: ROSANA COCHRAN MD | | INDICATIONS Acu | | te diastolic heart failureCONCLUSIONS 1. Overall left ventricular systolic | | function is normal with, an EF between 60 - 65 %.2. The right ventricle is normal in | | size and function.3. There is lpftnnwm-yq-eaqmgk aortic regurgitation.4. Mild/moderate | | aortic stenosis with peak/mean pressure gradient of 27.99mmHg / 16.63mmHg, the aortic | | valve area by continuity equation is 1.6cm .5. Cxpvejth-qx-uctcdd mitral | | regurgitation is present, slightly increased from the moderate MR seen on the previous | | exam.6. Rici-xd-zauijurq tricuspid regurgitation present.7. There is moderate pulmonary [...] | | calcified. Aortic Valve: There is ucnmrpqj-wu-bjnfnb aortic regurgitation, increased | | from moderate [...] The mitral valve is normal. Mitral Valve: Qtzescnq-eo-tfcxpx mitral | | regurgitation is present, with an eccentric, posteriorly directed jet, slightly | | increased from the moderate MR seen on the previous exam. Mitral Valve: No evidence of | | MVP.Tricuspid Valve: The tricuspid valve appears structurally normal. Tricuspid Valve: | | Ytex-kv-fpthvmxo tricuspid regurgitation is present, increased from mild [...] cmLVPWd: 1.10 | | cmLVOT Area: 3.31 ag3KIEK Diam: 2.05 cm%FS: 32.43 %EF(Teich): 60.29 | [...] mlLAESV Index (A-L): 34.04 ml/m2LAAs A2C: 17.74 iv3CCRWL A-L | | A2C: 51.86 mlLALs A2C: 5.15 cmLAAs A4C: 19.45 ml9JZPYT A-L A4C: 60.09 mlLALs | | A4C: 5.34 cmRAAs: 16.23 ys8PNNWE A-L: 44.35 mlRAESV MOD: 43.26 mlRALs: 5.04 | | cmTAPSE: 2.34 cmAR Dec Payne: 4.12 m/s2AR Dec Time: 971.21 msAR maxP.12 | | mmHgAR PHT: 281.65 msAR Vmax: 4.00 m/Darshan maxP.98 mmHgAV meanP.63 | | mmHgAV Vmax: 2.64 m/Darshan Vmean: 1.93 m/Darshan VTI: 70.11 cmAVA Vmax: 1.82 cm2AVA | | (VTI): 1.56 uz6CLUY maxP.52 mmHgLVOT meanP.90 mmHgLVSI Dopp: 65.61 | | ml/m2LVSV Dopp: 109.57 mlLVOT Vmax: 1.46 m/sLVOT Vmean: 0.88 m/sLVOT VTI: 33.05 | | cmMV A David: 0.82 m/sMV Dec Payne: 4.39 m/s2MV DecT: 313.01 msMV E David: 1.37 | | m/sMV E/A Ratio: 1.66 MV PHT: 90.77 msMVA By PHT: 2.42 vb5Uvayou e': 0.04 | | m/sSeptal E/e': 30.88 Lateral e': 0.09 m/sLateral E/e': 14.67 RAP: 10 mmHgRVSP: | | 51.24 mmHgTR maxP.24 mmHgTR Vmax: 3.21 m/sS': 0.14 m/sSonographer: | | DHAuthenticated by: RON SHORTeport Date/Time: -- | | [id number]:26:51IMPRESSION:1. Overall left ventricular systolic function is normal | | with, an EF between 60 - 65 %.2. The right ventricle is normal in size and function.3. | | There is iofsobcm-ij-puynzl aortic regurgitation.4. Mild/moderate aortic stenosis with | | peak/mean pressure gradient of 27.99mmHg / 16.63mmHg, the aortic valve area by | | continuity equation is 1.6cm .5. Mdmevhry-xu-ydkwwv mitral regurgitation is | | present, slightly increased from the moderate MR seen on the previous exam.6. | | Sknz-ee-coumyjkx tricuspid regurgitation present.7. There is moderate pulmonary [...] | |TAPSE: 2.34 cm | |AR Dec Payne: 4.12 m/s2 | |AR Dec Time: 971.21 [...] A David: 0.82 m/s | |MV Dec Payne: 4.39 m/s2 | |MV DecT: 313.01 ms [...] | |S': 0.14 m/s | | | |Soap Chipper: DH | |Authenticated by: ROSANA COCHRAN MD | |Report Date/Time: -[id number]:26:51 | | | |IMPRESSION: | |1. Overall left ventricular systolic function is normal with, an EF between 60 - 65 %. | |2. The right ventricle is normal in size and function. | |3. There is fwmlaiuh-pl-einufi aortic regurgitation. | |4. Mild/moderate aortic stenosis with peak/mean pressure gradient of 27.99mmHg / 16.63mmHg, the aortic valve area by continuity equation is 1.6cm . | |5. Kbsilitp-cz-ckzoam mitral regurgitation is present, slightly increased from the moderate MR seen on the previous exam. | |6. Wyru-ne-qbdibjre tricuspid regurgitation present. | |7. There is [...] + + | LIANA BENNETT | [address] | [place] [address] | | + + + + + in this encounter Visit Diagnoses + + | Diagnosis | + + | Acute diastolic heart failure (HCC) - Primary | + + | Acute diastolic heart failure | + + | Atherosclerosis of [place] coronary artery of [place] heart, angina presence unspecified | + + | S/P PTCA (percutaneous transluminal coronary angioplasty) | + + | Postsurgical percutaneous transluminal coronary angioplasty status | + + | Status post insertion of drug eluting coronary artery stent | + + | History of [place] (myocardial infarction) | + + | Old [...]
--- OUTSIDE RECORDS SUMMARY | ~2018-04-01 | XMS | Encounter Summary ---
Demographics + + + | Address | [address] | | | [place] [address] | + + + | Home Phone | | + + + | Preferred Language | Unknown | + + + | Marital Status | Single | + + + | Nondenominational Affiliation | 1009 | + + + | Race | Unknown | + + + | Ethnic Group | Unknown | + + + Author + + + | Author | [employer]jelio [employer] | + + + | Organization | [facility] [employer] [facility] | + + + | Address | Unknown | + + + | Phone | Unavailable | + + + Support + + +---------+ + | Name | Relationship | Address | Phone | + + +---------+ + | Lavell Chiu | ECON | Unknown | | + + +---------+ + Care Team Providers + +------+ + | Care Molding Machine Operator Helper Name | Role | Phone | + [...] | records) | | | | [address] [facility] [address] | | | | | | [facility] E- | | | | | | [place] [address] | | | | | | [phone] | | | +--------+ + + + [...] | | | | | | [place] [address] | | | | | | [phone] | | | | | | | | +--------+---------+ + + + as of this encounter Visit Diagnoses Not on filein this encounter"
--- OUTSIDE RECORDS SUMMARY | ~2018-04-01 | XMS | Clinical Summary ---
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 | 01/23/2018 | + + + | History of DC (myocardial infarction) | 01/23/2018 | + + [...] + + + | Paroxysmal atrial fibrillation ([facility]) | 07/27/2017 | + + + | Claudication ([facility]) | 02/15/2014 | + + + | Mesenteric ischemia ([facility]) | 12/16/2013 | + + + | PVD (peripheral vascular disease) ([facility]) | 07/08/2013 | + + + + + | Overview: severe bilateral PVD, occluded right external | | iliac, left internal iliac, severe stenoses in bilateral common | | iliacs and left SFA | + + + +---+ | COPD (chronic obstructive pulmonary disease) (HCC) | | + +---+ + + | Overview: severe Emphysema | + + + +---+ | Atherosclerosis of [place] coronary artery of [place] heart | | + +---+ | History [...] + | NSTEMI (non-ST elevated myocardial infarction) ([facility]) | 07/31/19 | | | | 18 | 8 | + + + + | Bacterial pneumonia | 07/31/19 | | | | 18 | 8 | + + + + | Myocardial infarct ([facility]) | 07/08/19 | | | | 09 [...] | | Yodit Fowler MA | Other ([facility] | | 2017 | on Only | | | records) | +--------+ + + + + | 02/19/ | Documentati | | Yodit Fowler MA | Other ([facility] | | 2017 | on Only | | | records) | +--------+ + + + + | 02/18/ | Office | | Rosana Cochran, | Acute diastolic | | 2017 | Visit | | MD | heart failure (HCC) | | | | | | (Primary Dx); | | | | | | Atherosclerosis of | | | | | | [place] coronary | | | | | | artery of [place] | | | | | | heart, [...] | | | | | occlusion of [place] | | | | | | coronary artery; | | | | | | History of DC | | | | | | (myocardial | | | | | | infarction); | | | | | | Paroxysmal atrial | | | | | | fibrillation ([facility]); | | | | | | Mild [...] | Visit | | JHOAN Gong | [place] coronary | | | | | | artery of [place] | | | | | | heart, [...] | | | | | occlusion of [place] | | | | | | coronary artery; | | | | | | History of DC | | | | | | (myocardial | | | | | | infarction); | | | | | | Paroxysmal atrial | | | | | | fibrillation ([facility]); | | | | | | Mild pulmonary | | | | | | hypertension ([facility]); | | | | | | Moderate aortic | | | | | | valve stenosis | +--------+ + + + + | 01/23/ | Documentati | | Ana Mcfadden, | Other ([facility] | 2017 | on Only | | MA | ED Visit 01/13/18) | +--------+ + + + + | 01/23/ | Documentati | | Ana Mcfadden, | Other ([facility] | 2017 | on Only | | [...] [place], | | | | | | [place] [address] | | | | | | [phone] | | | | | | | [...] | Brown | | | 01/29/ | [id number] | | -08/06/2017Implanted: | | ry | | | 2017 | [id number] | | 08/06/2017 by Britany Guerra, | | | | | | 00 / | | MD (Quantity not on file) | | | | | | /[id number] | | | | | | | [...] RADIOLOGY | | function. 3. There is yfnmnfxg-nr-dmgyjm aortic regurgitation. 4. | | | Mild/moderate aortic stenosis with peak/mean pressure gradient of | | | 27.99mmHg / 16.63mmHg, the aortic valve area by continuity equation is | | | 1.6cm . 5. Qdaizzbv-hy-sahhcu mitral regurgitation is present, | | | slightly increased from the moderate MR seen on the previous exam. 6. | | | Aeec-jl-iurmpkol tricuspid regurgitation present. 7. There is | [...] + + + | Patient Name: Davina Chui Date of : 1945 | [facility] | | Performing Physician: ROSANA COCHRAN MD | RADIOLOGY | | | | | INDICATIONS Acute diastolic heart failure | | | CONCLUSIONS 1. Overall left ventricular systolic | | | function is normal with, an EF between 60 - 65 %. 2. The right | | | ventricle is normal in size and function. 3. There is | | | vfmagbio-iz-qowtjf aortic regurgitation. 4. Mild/moderate aortic | | | stenosis with peak/mean pressure gradient of 27.99mmHg / 16.63mmHg, | | | the aortic valve area by continuity equation is 1.6cm . 5. | | | Ztinifio-hl-jghtmf mitral regurgitation is present, slightly increased | | | from the moderate MR seen on the previous exam. 6. Dnfu-ps-hhpzhzfa | | | tricuspid regurgitation present. 7. [...] | moderately calcified. Aortic Valve: There is frfakyxa-sg-kmobmk | | | aortic regurgitation, increased from [...] is normal. | | | Mitral Valve: Ocmcyqkq-sa-qjiufx mitral regurgitation is present, | | | with an eccentric, posteriorly directed jet, slightly increased from | | | the moderate MR seen on the previous exam. Mitral Valve: No evidence | | | of MVP. Tricuspid Valve: The tricuspid valve appears structurally | | | normal. Tricuspid Valve: Ieey-un-gfbsztcm tricuspid regurgitation is | | | present, [...] 5.04 cm TAPSE: 2.34 cm AR Dec Todd: | | | 4.12 m/s2 AR Dec [...] | | | 0.82 m/s MV Dec Todd: 4.39 m/s2 MV DecT: 313.01 ms MV [...] | | | m/s S': 0.14 m/s Cord Cutter: MARZENA Authenticated | | | by: ROSANA COCHRAN MD Report Date/Time: -- [id number]:51 | | + + + + + | Procedure Note | + + | hCaran, Rad Results In - 03/05/2018 7:30 PM PDT Patient Name: Peace Chiu | | : 5Accession: [id number] Physician: ROSANA COCHRAN MD | | INDICATIONS Acu | | te diastolic heart failureCONCLUSIONS 1. Overall left ventricular systolic | | function is normal with, an EF between 60 - 65 %.2. The right ventricle is normal in | | size and function.3. There is dpqmnwyk-lp-whonzv aortic regurgitation.4. Mild/moderate | | aortic stenosis with peak/mean pressure gradient of 27.99mmHg / 16.63mmHg, the aortic | | valve area by continuity equation is 1.6cm .5. Raghaqrn-eb-onhjnv mitral | | regurgitation is present, slightly increased from the moderate MR seen on the previous | | exam.6. Wxhp-bh-yohfkzri tricuspid regurgitation present.7. There is moderate pulmonary [...] | | calcified. Aortic Valve: There is egpvgumc-eo-ssadot aortic regurgitation, increased | | from moderate [...] The mitral valve is normal. Mitral Valve: Kpggkgtc-jq-rwrdky mitral | | regurgitation is present, with an eccentric, posteriorly directed jet, slightly | | increased from the moderate MR seen on the previous exam. Mitral Valve: No evidence of | | MVP.Tricuspid Valve: The tricuspid valve appears structurally normal. Tricuspid Valve: | | Qtuv-ea-dkexecng tricuspid regurgitation is present, increased from mild [...] cmLVPWd: 1.10 | | cmLVOT Area: 3.31 sk1ZHVH Diam: 2.05 cm%FS: 32.43 %EF(Teich): 60.29 | [...] mlLAESV Index (A-L): 34.04 ml/m2LAAs A2C: 17.74 it4IXLGI A-L | | A2C: 51.86 mlLALs A2C: 5.15 cmLAAs A4C: 19.45 fx1WNBKK A-L A4C: 60.09 mlLALs | | A4C: 5.34 cmRAAs: 16.23 gt8XZMAB A-L: 44.35 mlRAESV MOD: 43.26 mlRALs: 5.04 | | cmTAPSE: 2.34 cmAR Dec Todd: 4.12 m/s2AR Dec Time: 971.21 msAR maxP.12 | | mmHgAR PHT: 281.65 msAR Vmax: 4.00 m/Darshan maxP.98 mmHgAV meanP.63 | | mmHgAV Vmax: 2.64 m/Darshan Vmean: 1.93 m/Darshan VTI: 70.11 cmAVA Vmax: 1.82 cm2AVA | | (VTI): 1.56 ep5VUKC maxP.52 mmHgLVOT meanP.90 mmHgLVSI Dopp: 65.61 | | ml/m2LVSV Dopp: 109.57 mlLVOT Vmax: 1.46 m/sLVOT Vmean: 0.88 m/sLVOT VTI: 33.05 | | cmMV A David: 0.82 m/sMV Dec Todd: 4.39 m/s2MV DecT: 313.01 msMV E David: 1.37 | | m/sMV E/A Ratio: 1.66 MV PHT: 90.77 msMVA By PHT: 2.42 ol8Jhqcau e': 0.04 | | m/sSeptal E/e': 30.88 Lateral e': 0.09 m/sLateral E/e': 14.67 RAP: 10 mmHgRVSP: | | 51.24 mmHgTR maxP.24 mmHgTR Vmax: 3.21 m/sS': 0.14 m/sSonographer: | | DHAuthenticated by: Cruz SHORT Date/Time: -- | | [id number]:26:51IMPRESSION:1. Overall left ventricular systolic function is normal | | with, an EF between 60 - 65 %.2. The right ventricle is normal in size and function.3. | | There is gzdnjrbp-py-sfqyxe aortic regurgitation.4. Mild/moderate aortic stenosis with | | peak/mean pressure gradient of 27.99mmHg / 16.63mmHg, the aortic valve area by | | continuity equation is 1.6cm .5. Pfxzwhvo-qd-ipxdnj mitral regurgitation is | | present, slightly increased from the moderate MR seen on the previous exam.6. | | Sfjr-jh-opxwhbhq tricuspid regurgitation present.7. There is moderate pulmonary [...] | |TAPSE: 2.34 cm | |AR Dec Todd: 4.12 m/s2 | |AR Dec Time: 971.21 [...] A David: 0.82 m/s | |MV Dec Todd: 4.39 m/s2 | |MV DecT: 313.01 ms [...] | |S': 0.14 m/s | | | |Cord Cutter: | |Authenticated by: ROSANA COCHRAN MD | |Report Date/Time: -- [id number]:51 | | | |IMPRESSION: | |1. Overall left ventricular systolic function is normal with, an EF between 60 - 65 %. | |2. The right ventricle is normal in size and function. | |3. There is iuiwzssq-xw-bhxfrj aortic regurgitation. | |4. Mild/moderate aortic stenosis with peak/mean pressure gradient of 27.99mmHg / 16.63mmHg, the aortic valve area by continuity equation is 1.6cm . | |5. Lxuculzp-yg-nzlliy mitral regurgitation is present, slightly increased from the moderate MR seen on the previous exam. | |6. Rtjk-qd-xuolwryx tricuspid regurgitation present. | |7. There is [...] | + + + + + | [facility] | [address] | [place] [address] | | + + + + + [...] | [address] | [place] [address] | | | LABORATORY | 13 | [...] | [address] | [place] [address] | | | LABORATORY | 13 | [...] | [address] | [place] [address] | | | LABORATORY | 13 | [...] | [facility] | [address] | [place] [address] | | | LABORATORY | 13 | [...] | [address] | [place] [address] | | | LABORATORY | 13 | [...] MA - MODA | MA - | [id number] | [employer] | | | | | [...] | Self [birth year] | Home: | [address] [place] [address] | | | al/Fam | | 1945 | [phone] [address] [place] | | | [place] | | | [address] | [place] [address] | + +--------+ +--------+ + +
--- OUTSIDE RECORDS SUMMARY | ~2018-04-01 | XMS | Encounter Summary ---
Demographics + + + | Address | [address] | | | [place] [address] | + + + | Home Phone | | + + + | Preferred Language | Unknown | + + + | Marital Status | Single | + + + | Oriental Orthodox Affiliation | 1009 | + + + | Race | Unknown | + + + | Ethnic Group | Unknown | + + + Author + + + | Author | Rojelio Gametime | + + + | Organization | [facility] [employer] [facility] | + + + | Address | Unknown | + + + | Phone | Unavailable | + + + Support + + +---------+ + | Name | Relationship | Address | Phone | + + +---------+ + | Lavell Chiu | ECON | Unknown | | + + +---------+ + Care Team Providers + +------+ + | Care Filter Washer And Presser Name | Role | Phone | + [...] | records) | | | | [address] [facility] [address] | | | | | | [facility] [address]- | | | | | | [place] [address] | | | | | | [phone] | | | +--------+ + + + [...] | | | | | | [place] [address] | | | | | | [phone] | | | | | | | | +--------+---------+ + + + as of this encounter Visit Diagnoses Not on filein this encounter"
--- OUTSIDE RECORDS SUMMARY | ~2018-04-01 | XMS | Encounter Summary ---
Demographics + + + | Address | [address] | | | [place] [address] | + + + | Home Phone | | + + + | Preferred Language | Unknown | + + + | Marital Status | Single | + + + | Mandaen Affiliation | 1009 | + + + | Race | Unknown | + + + | Ethnic Group | Unknown | + + + Author + + + | Author | Rojelio Storypanda | + + + | Organization | [facility] [employer] [facility] | + + + | Address | Unknown | + + + | Phone | Unavailable | + + + Support + + +---------+ + | Name | Relationship | Address | Phone | + + +---------+ + | Lavell Chiu | ECON | Unknown | | + + +---------+ + Care Team Providers + +------+ + | Care Plumbing And Heating Contractor Name | Role | Phone | + +------+ + | Eliaz Andrade MD | PCP | Unavailable | + +------+ + Reason for Visit + + + | Reason | Comments | + + + | Labs Only | [facility] dated | + + + Encounter Details +--------+ + + + + | Date | Type | Department | Care Team | Description | +--------+ + + + + | 03/21/ | Documentati | [facility] | Lisbeth Lew CMA | Labs Only ([facility] | | 2018 | on Only | [place] [address] | | Labs dated | | | | [address] | | 02/[birth year]-) | | | | [place] [address] | | | | | | [phone] | | | +--------+ + + + [...] | | | | | | [place] [address] | | | | | | [phone] | | | | | | | [...] + + + in this encounter Results Basic metabolic panel (02/25/2018 5:53 AM) + + + + + | [...] | [address] | [place] [address] | | | LABORATORY | 13 | | | + + + + + CBC W/Auto Diff (Reflex to Manual) (02/25/2018 5:53 AM) + + + + + | [...] | [address] | [place] [address] | | | LABORATORY | 13 | | | + + + + + Basic metabolic panel (02/24/2018 5:48 AM) + + + + + | Component | Value | Ref Range | Performed At | + + + + + | GLUCOSE | 151 (A) | 70 - 100 mg/dL | [facility] | | | | | LABORATORY | + + + + + | BUN | 19 | 6 - 23 mg/dL | [facility] | | | | | LABORATORY | + + + + + | CREATININE | 1.21 (A) | 0.7 - 1.18 mg/dL | [facility] | | | | | LABORATORY | + + + + + | BUN/CREAT | 15.7 | 6.0 - 28.6 | [facility] | | | | | LABORATORY | + + + + + | CALCIUM | 8.9 | 8.5 - 10.3 mg/dL | [facility] | | | | | LABORATORY | + + + + + | SODIUM | 140 | 132 - 143 mmol/L | [facility] [...] + + + + | CO2 | 32 (A) | 19 - 31 mmol/L | [facility] | | | | | LABORATORY | + + + + + | ANION GAP AGAP | 10.3 | 7 - 21 mmol/L | [facility] | | | | | LABORATORY | + + + + + | EGFR | 44 (A) | 60 mg/dL | [facility] | [...] | [address] | [place] [address] | | | LABORATORY | 13 | | | + + + + + Magnesium (02/24/2018 5:48 AM) + +-------+ + + | Component | [...] | [address] | [place] [address] | | | LABORATORY | 13 | | | + + + + + CBC W/Auto Diff (Reflex to Manual) (02/24/2018 5:48 AM) + + + + + | Component | Value | Ref Range | Performed At | + + + + + | WBC | 4.2 (A) | 4.5 - 11.0 10^3/mL | [facility] | | | | | LABORATORY | + + + + + | RBC | 3.66 (A) | 3.8 - 5.1 10^6/ L | [facility] | | | | | LABORATORY | + + + + + | HGB | 10.2 (A) | 12 - 16 g/dL | [facility] | | | | | LABORATORY | + + + + + | HCT | 31.3 (A) | 35 - 45 % | [facility] | | | | | LABORATORY | + + + + + | MCV | 85.7 | 81 - 99 fL | [facility] [...] + + + + | PLT | 178 | 140 - 440 K/ L | [facility] | | | | | LABORATORY | + + + + + | RDW SD | 17.1 (A) | 10.5 - 15.0 % | [...] | [facility] | [address] | [place] [address] | | | LABORATORY | 13 | | | + + + + + in this encounter Visit Diagnoses Not on filein this encounter"
--- OUTSIDE RECORDS SUMMARY | ~2018-04-01 | XMS | Encounter Summary ---
Demographics + + + | Address | [address] | | | [place] [address] | + + + | Home Phone [...] + + + | Author | Rojelio Fangxinmei | + + + | Organization | [facility] [employer] [facility] | + + + | Address | Unknown | + + + | Phone | Unavailable | + + + Support + + +---------+ + | Name | Relationship | Address | Phone | + + +---------+ + | Lavell Chiu | ECON | Unknown | | + + +---------+ + Care Team Providers + +------+ + | Care Technical Proposal Writer Name | Role | Phone | + [...] | Way | | | | | ([facility]) S/P | [place] | [place] | | | | | PTCA | [id number] | [id number] | | | | | (percutaneou | Phone: | Phone: | | | | | s | [phone] | [phone] | | | | | transluminal | Fax: | Fax: | | | | | coronary | [phone] | [phone] | | | | | angioplasty) | [...] | | | | UP | [place] [address] | [place] | | | | | | Phone: | [address] Phone: | | | | | | [phone] | [phone] | | | | | | Fax: | Fax: | | | | | | [phone] | [phone] | + +--------+ + + + + Encounter Details +--------+---------+ + + + | Date | Type | Department | Care Team | Description | +--------+---------+ + + + | 02/18/ | Office | [facility] [place] | Rosana Cochran, | Acute diastolic | | 2018 | Visit | Cardiology [place] | MD [address] | heart failure (HCC) | | | | [address] | [place], | (Primary Dx); | | | | Way [address] | [place] [address] | Atherosclerosis of | | | | [place] [address] | [phone] | huslia coronary | | | | [phone] | | artery of huslia | | | | | | heart, [...] | | | | | occlusion of huslia | | | | | | coronary artery; | | | | | | History of SD | | | | | | (myocardial [...] follow-up visit. She was hospita lized at [facility] 02/07/18 for SOB, and records note that she had been there in [facility] emergency room 01/27/18 with an exacerbation [...] oxygen. She had previously been admitted to [facility] 12/03/17 for severe dyspnea on exertio, and mid re trosternal pressure described as a "cold, tight" feeling, present on a daily basis for 10 da ys, but did not immediately seek medical attention, as these were unlike her previous SD sym ptoms. The night of admission, it persisted, and her son brought her to [facility]. Her troponin was elevated, ruling her in [...] a remote prior history of CAD, remote SD, 3 coronary stents placed in 2004, and a recent episode of paroxysmal atrial fibrillation at [facility] several days prio r to admission. She used to see Mason Grier DO but had been lost to follow up. Her blood pressure is well-controlled today. She seems to be doing well at this point, and I will see her back in a few months, after her updated echo. She was referred to cardiopul monary rehab at [facility]. Review of Systems CONSTITUTIONAL: 9 lb [...] She has a history of C AD, SD and 3 drug-eluting intracoronary stents placed in [...] 3-vessel disease with chronically occluded RCA, with nwru-ra-jpiw t collaterals. . Patent stents in the [...] common femoral filled via collaterals from the spring intern al iliac -- Echo (08/01/17): EF [...] failure (HCC) COPD (chronic obstructive pulmonary disease) ([facility]) severe Emphysema GERD (gastroesophageal reflux disease) Hiatal hernia HLD (hyperlipidemia) HTN (hypertension) Hypothyroidism MRSA (methicillin resistant Staphylococcus aureus) 2013 line sepsis following SBO surgery Myocardial infarct ([facility]) 2008 and NSTEMI 07/31/17 Paroxysmal atrial fibrillation ([facility]) 07/27/2017 PVD (peripheral vascular disease) ([facility]) 2013 severe bilateral PVD, occluded right external iliac, left internal iliac, severe stenoses in bilateral common iliacs and left SFA Rheumatoid arthritis ([facility]) Small bowel obstruction due to adhesions ([facility]) several times Status post insertion of drug [...] Acute diastolic heart failure (HCC) Atherosclerosis of huslia coronary artery of huslia heart, angina presence unspecified S/P PTCA (percutaneous transluminal coronary angioplasty) Status post insertion of drug eluting coronary artery stent 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 3. There is xrmsrrty-cp-jallqe aortic regurgitation. 4. | | | Mild/moderate aortic stenosis with peak/mean pressure gradient of | | | 27.99mmHg / 16.63mmHg, the aortic valve area by continuity equation is | | | 1.6cm . 5. Vsgpfgpk-pq-ncozmg mitral regurgitation is present, | | | slightly increased from the moderate MR seen on the previous exam. 6. | | | Rxem-xd-adlerukt tricuspid regurgitation present. 7. There is | [...] Davina Chiu Date of : 1945 | [facility] | | Performing Physician: ROSANA COCHRAN MD | RADIOLOGY | | | | | INDICATIONS Acute diastolic heart failure | | | CONCLUSIONS 1. Overall left ventricular systolic | | | function is normal with, an EF between 60 - 65 %. 2. The right | | | ventricle is normal in size and function. 3. There is | | | nrnmqvow-ar-xiuekg aortic regurgitation. 4. Mild/moderate aortic | | | stenosis with peak/mean pressure gradient of 27.99mmHg / 16.63mmHg, | | | the aortic valve area by continuity equation is 1.6cm . 5. | | | Hbnfubns-ph-xtsrrd mitral regurgitation is present, slightly increased | | | from the moderate MR seen on the previous exam. 6. Flve-kh-aafjgzpk | | | tricuspid regurgitation present. 7. [...] | moderately calcified. Aortic Valve: There is xtfenhkd-br-kymexj | | | aortic regurgitation, increased from [...] is normal. | | | Mitral Valve: Ahkvmgok-zq-iaravv mitral regurgitation is present, | | | with an eccentric, posteriorly directed jet, slightly increased from | | | the moderate MR seen on the previous exam. Mitral Valve: No evidence | | | of MVP. Tricuspid Valve: The tricuspid valve appears structurally | | | normal. Tricuspid Valve: Dbtu-nd-ehmmiixw tricuspid regurgitation is | | | present, [...] 5.04 cm TAPSE: 2.34 cm AR Dec Jack: | | | 4.12 m/s2 AR Dec [...] | | | 0.82 m/s MV Dec Jack: 4.39 m/s2 MV DecT: 313.01 ms MV [...] | | | m/s S': 0.14 m/s Electromechanical Technician: MARZENA Authenticated | | | by: ROSANA COCHRAN MD Report Date/Time: -- [id number]:26:51 | | + + + + + | Procedure Note | + + | Charan, Rad Results In - 03/05/2018 7:30 PM PDT Patient Name: Emanuel Chiu of | | : 5Accession: [id number] Physician: ROSANA COCHRAN MD | | INDICATIONS Acu | | te diastolic heart failureCONCLUSIONS 1. Overall left ventricular systolic | | function is normal with, an EF between 60 - 65 %.2. The right ventricle is normal in | | size and function.3. There is qbuubiru-yz-fotucb aortic regurgitation.4. Mild/moderate | | aortic stenosis with peak/mean pressure gradient of 27.99mmHg / 16.63mmHg, the aortic | | valve area by continuity equation is 1.6cm .5. Lwdbtifj-io-cjbzez mitral | | regurgitation is present, slightly increased from the moderate MR seen on the previous | | exam.6. Ytup-sx-zyanyyrs tricuspid regurgitation present.7. There is moderate pulmonary [...] | | calcified. Aortic Valve: There is qizqyetb-uj-xmxqzw aortic regurgitation, increased | | from moderate [...] The mitral valve is normal. Mitral Valve: Wsmpdbbv-an-yuinxx mitral | | regurgitation is present, with an eccentric, posteriorly directed jet, slightly | | increased from the moderate MR seen on the previous exam. Mitral Valve: No evidence of | | MVP.Tricuspid Valve: The tricuspid valve appears structurally normal. Tricuspid Valve: | | Nsjz-pq-cptxwrcx tricuspid regurgitation is present, increased from mild [...] cmLVPWd: 1.10 | | cmLVOT Area: 3.31 hs5DYUZ Diam: 2.05 cm%FS: 32.43 %EF(Teich): 60.29 | [...] mlLAESV Index (A-L): 34.04 ml/m2LAAs A2C: 17.74 [id number] A-L | | A2C: 51.86 mlLALs A2C: 5.15 cmLAAs A4C: 19.45 vk9EHRGB A-L A4C: 60.09 mlLALs | | A4C: 5.34 cmRAAs: 16.23 gz8RMVWQ A-L: 44.35 mlRAESV MOD: 43.26 mlRALs: 5.04 | | cmTAPSE: 2.34 cmAR Dec Jack: 4.12 m/s2AR Dec Time: 971.21 msAR maxP.12 | | mmHgAR PHT: 281.65 msAR Vmax: 4.00 m/Darshan maxP.98 mmHgAV meanP.63 | | mmHgAV Vmax: 2.64 m/Darshna Vmean: 1.93 m/Darshan VTI: 70.11 cmAVA Vmax: 1.82 cm2AVA | | (VTI): 1.56 hf6UEOD maxP.52 mmHgLVOT meanP.90 mmHgLVSI Dopp: 65.61 | | ml/m2LVSV Dopp: 109.57 mlLVOT Vmax: 1.46 m/sLVOT Vmean: 0.88 m/sLVOT VTI: 33.05 | | cmMV A David: 0.82 m/sMV Dec Jack: 4.39 m/s2MV DecT: 313.01 msMV E David: 1.37 | | m/sMV E/A Ratio: 1.66 MV PHT: 90.77 msMVA By PHT: 2.42 cg1Ydjtyi e': 0.04 | | m/sSeptal E/e': 30.88 Lateral e': 0.09 m/sLateral E/e': 14.67 RAP: 10 mmHgRVSP: | | 51.24 mmHgTR maxP.24 mmHgTR Vmax: 3.21 m/sS': 0.14 m/sSonographer: | | DHAuthenticated by: RON SHORTeport Date/Time: -- | | [id number]:26:51IMPRESSION:1. Overall left ventricular systolic function is normal | | with, an EF between 60 - 65 %.2. The right ventricle is normal in size and function.3. | | There is lxqsfhun-vz-aruqtr aortic regurgitation.4. Mild/moderate aortic stenosis with | | peak/mean pressure gradient of 27.99mmHg / 16.63mmHg, the aortic valve area by | | continuity equation is 1.6cm .5. Nzwrblyo-oz-gwbcvy mitral regurgitation is | | present, slightly increased from the moderate MR seen on the previous exam.6. | | Sfuu-js-zeqsdvas tricuspid regurgitation present.7. There is moderate pulmonary [...] | |TAPSE: 2.34 cm | |AR Dec Jack: 4.12 m/s2 | |AR Dec Time: 971.21 [...] A David: 0.82 m/s | |MV Dec Jack: 4.39 m/s2 | |MV DecT: 313.01 ms [...] | |S': 0.14 m/s | | | |Electromechanical Technician: DH | |Authenticated by: ROSANA COCHRAN MD | |Report Date/Time: -22_[id number]_[id number]:26:51 | | | |IMPRESSION: | |1. Overall left ventricular systolic function is normal with, an EF between 60 - 65 %. | |2. The right ventricle is normal in size and function. | |3. There is fhpjvmbd-ky-waaddi aortic regurgitation. | |4. Mild/moderate aortic stenosis with peak/mean pressure gradient of 27.99mmHg / 16.63mmHg, the aortic valve area by continuity equation is 1.6cm . | |5. Xhhzrbxh-of-nwhsrf mitral regurgitation is present, slightly increased from the moderate MR seen on the previous exam. | |6. Zmnr-ra-lalqfdsc tricuspid regurgitation present. | |7. There is [...] BENNETT | [address] | [place] [address] | | + + + + + in this encounter Visit Diagnoses + + | Diagnosis | + + | Acute diastolic heart failure (HCC) - Primary | + + | Acute diastolic heart failure | + + | Atherosclerosis of huslia coronary artery of huslia heart, angina presence unspecified | + + | S/P PTCA (percutaneous transluminal coronary angioplasty) | + + | Postsurgical percutaneous transluminal coronary angioplasty status | + + | Status post insertion of drug eluting coronary artery stent | + + | History of SD (myocardial infarction) | + + | Old [...]
--- OUTSIDE RECORDS SUMMARY | ~2018-04-01 | XMS | Encounter Summary ---
Demographics + + + | Address | [address] | | | [place] [address] | + + + | Home Phone | | + + + | Preferred Language | Unknown | + + + | Marital Status | Single | + + + | Denominational Affiliation | [id number] | + + + | Race | Unknown | + + + | Ethnic Group | Unknown | + + + Author + + + | Author | [facility] [employer] | + + + | Organization | [facility] [employer] [facility] | + + + | Address | Unknown | + + + | Phone | Unavailable | + + + Support + + +---------+ + | Name | Relationship | Address | Phone | + + +---------+ + | Lavell Chiu | ECON | Unknown | | + + +---------+ + Care Team Providers + +------+ + | Care Oxyacetylene Cutter Name | Role | Phone | + +------+ + | Eliza Andrade MD | PCP | Unavailable | + +------+ + Encounter Details +--------+ + + + + | Date | Type | Department | Care Team | Description | +--------+ + + + + | 02/28/ | Ancillary | [facility] | Rosana Cochran, | Acute diastolic | | 2018 | Procedure | ECHO | [address] | heart failure (HCC) | | | | | [place], | | | | | | [place] [address] | | | | | | [phone] | | | | | | | [...] Cardiology | Rosana Cochran, | | | 2017 | Visit | | MD [address] | | | | | | [place], | | | | | | [place] [address] | | | | | | [phone] | | | | | | | [...] + + + in this encounter Results ECHO outside interpretation standard (02/28/2018 12:33 PM) + + + | Impressions | Performed At | + + + | 1. Overall left ventricular systolic function is normal with, an EF | [facility] | | between 60 - 65 %. 2. The right ventricle is normal in size and | RADIOLOGY | | function. 3. There is jojaxpnf-ec-dofxaz aortic regurgitation. 4. | | | Mild/moderate aortic stenosis with peak/mean pressure gradient of | | | 27.99mmHg / 16.63mmHg, the aortic valve area by continuity equation is | | | 1.6cm . 5. Tgwzfjeu-od-fadbkh mitral regurgitation is present, | | | slightly increased from the moderate MR seen on the previous exam. 6. | | | Wxgq-yp-kizmzahc tricuspid regurgitation present. 7. There is | [...] Name: Davina Chiu Date of : 1945 [facility] | | Performing Physician: ROSANA COCHRAN MD | RADIOLOGY | | | | | INDICATIONS Acute diastolic heart failure | | | CONCLUSIONS 1. Overall left ventricular systolic | | | function is normal with, an EF between 60 - 65 %. 2. The right | | | ventricle is normal in size and function. 3. There is | | | ehjafugw-jj-xpqkwu aortic regurgitation. 4. Mild/moderate aortic | | | stenosis with peak/mean pressure gradient of 27.99mmHg / 16.63mmHg, | | | the aortic valve area by continuity equation is 1.6cm . 5. | | | Dfijjbgw-gy-aakklo mitral regurgitation is present, slightly increased | | | from the moderate MR seen on the previous exam. 6. Godd-ar-dyvewlec | | | tricuspid regurgitation present. 7. [...] | moderately calcified. Aortic Valve: There is jbglatxe-zv-kgjuzl | | | aortic regurgitation, increased from [...] is normal. | | | Mitral Valve: Tdbejrug-vi-srexif mitral regurgitation is present, | | | with an eccentric, posteriorly directed jet, slightly increased from | | | the moderate MR seen on the previous exam. Mitral Valve: No evidence | | | of MVP. Tricuspid Valve: The tricuspid valve appears structurally | | | normal. Tricuspid Valve: Crhk-kp-wfmggvuy tricuspid regurgitation is | | | present, [...] 5.04 cm TAPSE: 2.34 cm AR Dec Kerr: | | | 4.12 m/s2 AR Dec [...] | | | 0.82 m/s MV Dec Kerr: 4.39 m/s2 MV DecT: 313.01 ms MV [...] | | | m/s S': 0.14 m/s Heating Operators Engineer: MARZENA Authenticated | | | by: ROSANA COCHRAN MD Report Date/Time: -- 43_[id number]:26:51 | | + + + + + | Procedure Note | + + | Italo Farrar Results In - 03/05/2018 7:30 PM PDT Patient Name: Emanuel Chiu of | | : 5Accession: [id number] Physician: ROSANA COCHRAN MD | | INDICATIONS Acu | | te diastolic heart failureCONCLUSIONS 1. Overall left ventricular systolic | | function is normal with, an EF between 60 - 65 %.2. The right ventricle is normal in | | size and function.3. There is ffszqyzf-cs-hljbes aortic regurgitation.4. Mild/moderate | | aortic stenosis with peak/mean pressure gradient of 27.99mmHg / 16.63mmHg, the aortic | | valve area by continuity equation is 1.6cm .5. Lrqmcogh-ao-hjbffw mitral | | regurgitation is present, slightly increased from the moderate MR seen on the previous | | exam.6. Smom-nv-kbnhnvyy tricuspid regurgitation present.7. There is moderate pulmonary [...] | | calcified. Aortic Valve: There is xcpoumbf-wk-vcnvsn aortic regurgitation, increased | | from moderate [...] The mitral valve is normal. Mitral Valve: Jnfnibdh-xs-detxri mitral | | regurgitation is present, with an eccentric, posteriorly directed jet, slightly | | increased from the moderate MR seen on the previous exam. Mitral Valve: No evidence of | | MVP.Tricuspid Valve: The tricuspid valve appears structurally normal. Tricuspid Valve: | | Ubge-sq-zhljynnf tricuspid regurgitation is present, increased from mild [...] cmLVPWd: 1.10 | | cmLVOT Area: 3.31 es7QVKI Diam: 2.05 cm%FS: 32.43 %EF(Teich): 60.29 | [...] mlLAESV Index (A-L): 34.04 ml/m2LAAs A2C: 17.74 vy5UGVVR A-L | | A2C: 51.86 mlLALs A2C: 5.15 cmLAAs A4C: 19.45 aa5AIXLI A-L A4C: 60.09 mlLALs | | A4C: 5.34 cmRAAs: 16.23 fm8GEIJA A-L: 44.35 mlRAESV MOD: 43.26 mlRALs: 5.04 | | cmTAPSE: 2.34 cmAR Dec Kerr: 4.12 m/s2AR Dec Time: 971.21 msAR maxP.12 | | mmHgAR PHT: 281.65 msAR Vmax: 4.00 m/Darshan maxP.98 mmHgAV meanP.63 | | mmHgAV Vmax: 2.64 m/Darshan Vmean: 1.93 m/Darshan VTI: 70.11 cmAVA Vmax: 1.82 cm2AVA | | (VTI): 1.56 eg0MLNS maxP.52 mmHgLVOT meanP.90 mmHgLVSI Dopp: 65.61 | | ml/m2LVSV Dopp: 109.57 mlLVOT Vmax: 1.46 m/sLVOT Vmean: 0.88 m/sLVOT VTI: 33.05 | | cmMV A David: 0.82 m/sMV Dec Kerr: 4.39 m/s2MV DecT: 313.01 msMV E David: 1.37 | | m/sMV E/A Ratio: 1.66 MV PHT: 90.77 msMVA By PHT: 2.42 wz4Osvitu e': 0.04 | | m/sSeptal E/e': 30.88 Lateral e': 0.09 m/sLateral E/e': 14.67 RAP: 10 mmHgRVSP: | | 51.24 mmHgTR maxP.24 mmHgTR Vmax: 3.21 m/sS': 0.14 m/sSonographer: | | DHAuthenticated by: Cruz SHORT Date/Time: -- | | 34_[id number]_41:26:51IMPRESSION:1. Overall left ventricular systolic function is normal | | with, an EF between 60 - 65 %.2. The right ventricle is normal in size and function.3. | | There is fyubbxrv-un-yiqphg aortic regurgitation.4. Mild/moderate aortic stenosis with | | peak/mean pressure gradient of 27.99mmHg / 16.63mmHg, the aortic valve area by | | continuity equation is 1.6cm .5. Qpnigehp-eu-vwpnjd mitral regurgitation is | | present, slightly increased from the moderate MR seen on the previous exam.6. | | Aksf-nh-czszoyya tricuspid regurgitation present.7. There is moderate pulmonary [...] | |TAPSE: 2.34 cm | |AR Dec Kerr: 4.12 m/s2 | |AR Dec Time: 971.21 [...] A David: 0.82 m/s | |MV Dec Kerr: 4.39 m/s2 | |MV DecT: 313.01 ms [...] | |S': 0.14 m/s | | | |Heating Operators Engineer: | |Authenticated by: ROSANA COCHRAN MD | |Report Date/Time: -- 71_[id number]_25:26:51 | | | |IMPRESSION: | |1. Overall left ventricular systolic function is normal with, an EF between 60 - 65 %. | |2. The right ventricle is normal in size and function. | |3. There is edfwuwfu-mi-qoqtwx aortic regurgitation. | |4. Mild/moderate aortic stenosis with peak/mean pressure gradient of 27.99mmHg / 16.63mmHg, the aortic valve area by continuity equation is 1.6cm . | |5. Qnpcfhxm-cg-uruhyu mitral regurgitation is present, slightly increased from the moderate MR seen on the previous exam. | |6. Uafc-lk-jdetnkfq tricuspid regurgitation present. | |7. There is [...] | + + + + + | [facility] | [address] | [place] [address] | | + + + + + in this encounter Visit Diagnoses + + | Diagnosis | + + | Acute diastolic heart failure (HCC) | + + | Acute diastolic heart failure | + +"
--- OUTSIDE RECORDS SUMMARY | ~2018-04-01 | XMS | Clinical Summary ---
Demographics + + + | Address | [address] | | | [place] [address] | + + + | Home Phone | | + + + | Preferred Language | Unknown | + + + | Marital Status | Unknown | + + + | Anabaptist Affiliation | Unknown | + + + | Race | Unknown | + + + | Ethnic Group | Unknown | + + + Author + + + | Author | [facility] | | | and [place] | + + + | Organization | [facility] | | | and [place] | + + + | Address | Unknown | + + + | Phone | Unavailable | + + + Care Team Providers + +------+ + | Care Economics Instructor Name | Role | Phone | + [...]
--- OUTSIDE RECORDS SUMMARY | ~2018-04-01 | XMS | Clinical Summary ---
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 | 01/23/2018 | + + [...] + + | Paroxysmal atrial fibrillation ([facility]) | 07/27/2017 | + + + | Claudication ([facility]) | 02/15/2014 | + + + | Mesenteric ischemia ([facility]) | 12/16/2013 | + + + | PVD (peripheral vascular disease) ([facility]) | 07/08/2013 | + + + [...] + + + +---+ | Atherosclerosis of [place] coronary artery of [place] heart | | + +---+ | History [...] + | NSTEMI (non-ST elevated myocardial infarction) ([facility]) | 07/31/19 | | | | 18 | 8 | + + + + | Bacterial pneumonia | 07/31/19 | | | | 18 | 8 | + + + + | Myocardial infarct ([facility]) | 07/08/19 | | | | [...] | | Yodit Fowler MA | Other ([facility] | | 2017 | on Only | | | records) | +--------+ + + + + | 02/19/ | Documentati | | Yodit Fowler MA | Other ([facility] | | 2017 | on Only | | | records) | +--------+ + + + + | 02/18/ | Office | | Rosana Cochran, | Acute diastolic | | 2017 | Visit | | MD | heart failure (HCC) | | | | | | (Primary Dx); | | | | | | Atherosclerosis of | | | | | | [place] coronary | | | | | | artery of [place] | | | | | | heart, [...] | | | | | occlusion of [place] | | | | | | coronary artery; | | | | | | History of [place] | | | | | | (myocardial | | | | | | infarction); | | | | | | Paroxysmal atrial | | | | | | fibrillation ([facility]); | | | | | | [...] | Visit | | JHOAN Gong | [place] coronary | | | | | | artery of [place] | | | | | | heart, [...] | | | | | occlusion of [place] | | | | | | coronary artery; | | | | | | History of [place] | | | | | | (myocardial | | | | | | infarction); | | | | | | Paroxysmal atrial | | | | | | fibrillation ([facility]); | | | | | | Mild pulmonary | | | | | | hypertension ([facility]); | | | | | | Moderate aortic | | | | | | valve stenosis | +--------+ + + + + | 01/23/ | Documentati | | Ana Mcfadden, | Other ([place] | 2017 | on Only | | MA | ED Visit 01/13/18) | +--------+ + + + + | 01/23/ | Documentati | | Ana Mcfadden, | Other ([place] | 2017 | on Only | | [...] [place], | | | | | | [place] [address] | | | | | | [phone] | | | | | | | [...] | Brown | | | 01/29/ | [id number] | | -08/06/2017Implanted: | | ry | | | 2017 | [id number] | | 08/06/2017 by Britany Guerra, | | | | | | 00 / | | MD (Quantity not on file) | | | | | | /[id number] | | | | | | | [...] RADIOLOGY | | function. 3. There is njceoxid-tp-jkokba aortic regurgitation. 4. | | | Mild/moderate aortic stenosis with peak/mean pressure gradient of | | | 27.99mmHg / 16.63mmHg, the aortic valve area by continuity equation is | | | 1.6cm . 5. Qriaznrf-il-lyxkdg mitral regurgitation is present, | | | slightly increased from the moderate MR seen on the previous exam. 6. | | | Shhf-yp-edbrnpdq tricuspid regurgitation present. 7. There is | [...] Davina Chiu Date of : 1945 | [facility] | | Performing Physician: ROSANA COCHRAN MD | RADIOLOGY | | | | | INDICATIONS Acute diastolic heart failure | | | CONCLUSIONS 1. Overall left ventricular systolic | | | function is normal with, an EF between 60 - 65 %. 2. The right | | | ventricle is normal in size and function. 3. There is | | | iydeydfc-qm-zwcczm aortic regurgitation. 4. Mild/moderate aortic | | | stenosis with peak/mean pressure gradient of 27.99mmHg / 16.63mmHg, | | | the aortic valve area by continuity equation is 1.6cm . 5. | | | Hdblhtxi-ja-neflle mitral regurgitation is present, slightly increased | | | from the moderate MR seen on the previous exam. 6. Oefi-qz-qmhocmuw | | | tricuspid regurgitation present. 7. [...] | moderately calcified. Aortic Valve: There is kvvmbixa-qs-sjssba | | | aortic regurgitation, increased from [...] is normal. | | | Mitral Valve: Pbevfjhh-ju-blnsux mitral regurgitation is present, | | | with an eccentric, posteriorly directed jet, slightly increased from | | | the moderate MR seen on the previous exam. Mitral Valve: No evidence | | | of MVP. Tricuspid Valve: The tricuspid valve appears structurally | | | normal. Tricuspid Valve: Ciix-hf-nssvadlr tricuspid regurgitation is | | | present, [...] 5.04 cm TAPSE: 2.34 cm AR Dec [place]: | | | 4.12 m/s2 AR Dec [...] | | | 0.82 m/s MV Dec [place]: 4.39 m/s2 MV DecT: 313.01 ms MV [...] | | | m/s S': 0.14 m/s Molding Machine Tender: MARZENA Authenticated | | | by: ROSANA COCHRAN MD Report Date/Time: -- [id number]:26:51 | | + + + + + | Procedure Note | + + | Charan, Rad Results In - 03/05/2018 7:30 PM PDT Patient Name: Peace Chiu | | : 5Accession: [id number] Physician: ROSANA COCHRAN MD | | INDICATIONS Acu | | te diastolic heart failureCONCLUSIONS 1. Overall left ventricular systolic | | function is normal with, an EF between 60 - 65 %.2. The right ventricle is normal in | | size and function.3. There is vbacwuud-nc-scwezj aortic regurgitation.4. Mild/moderate | | aortic stenosis with peak/mean pressure gradient of 27.99mmHg / 16.63mmHg, the aortic | | valve area by continuity equation is 1.6cm .5. Yvrwsxtj-px-nzupql mitral | | regurgitation is present, slightly increased from the moderate MR seen on the previous | | exam.6. Nuei-iq-ztcwhdnk tricuspid regurgitation present.7. There is moderate pulmonary [...] | | calcified. Aortic Valve: There is joflpuxa-zn-mhlcca aortic regurgitation, increased | | from moderate [...] The mitral valve is normal. Mitral Valve: Dykbdpsk-es-baeaqy mitral | | regurgitation is present, with an eccentric, posteriorly directed jet, slightly | | increased from the moderate MR seen on the previous exam. Mitral Valve: No evidence of | | MVP.Tricuspid Valve: The tricuspid valve appears structurally normal. Tricuspid Valve: | | Nvyt-fq-glfpfumg tricuspid regurgitation is present, increased from mild [...] cmLVPWd: 1.10 | | cmLVOT Area: 3.31 mc6PWTV Diam: 2.05 cm%FS: 32.43 %EF(Teich): 60.29 | | %ESV(Teich): 53.84 mlLVIDs: 3.58 cmSV(Teich): 81.74 mlRA Major: 4.78 cmRV Major: | | 7.07 cmRVIDd: 2.60 cmTV [place]ily Diam: 3.51 cmAo Root: 2.63 cmAo Diam [...] mlLAESV Index (A-L): 34.04 ml/m2LAAs A2C: 17.74 yz3GDLHF A-L | | A2C: 51.86 mlLALs A2C: 5.15 cmLAAs A4C: 19.45 dl6KMHQG A-L A4C: 60.09 mlLALs | | A4C: 5.34 cmRAAs: 16.23 le0LLBIF A-L: 44.35 mlRAESV MOD: 43.26 mlRALs: 5.04 | | cmTAPSE: 2.34 cmAR Dec [place]: 4.12 m/s2AR Dec Time: 971.21 msAR maxP.12 | | mmHgAR PHT: 281.65 msAR Vmax: 4.00 m/Darshan maxP.98 mmHgAV meanP.63 | | mmHgAV Vmax: 2.64 m/Darshan Vmean: 1.93 m/Darshan VTI: 70.11 cmAVA Vmax: 1.82 cm2AVA | | (VTI): 1.56 af0RSKD maxP.52 mmHgLVOT meanP.90 mmHgLVSI Dopp: 65.61 | | ml/m2LVSV Dopp: 109.57 mlLVOT Vmax: 1.46 m/sLVOT Vmean: 0.88 m/sLVOT VTI: 33.05 | | cmMV A David: 0.82 m/sMV Dec [place]: 4.39 m/s2MV DecT: 313.01 msMV E David: 1.37 | | m/sMV E/A Ratio: 1.66 MV PHT: 90.77 msMVA By PHT: 2.42 cn7Mtemja e': 0.04 | | m/sSeptal E/e': 30.88 Lateral e': 0.09 m/sLateral E/e': 14.67 RAP: 10 mmHgRVSP: | | 51.24 mmHgTR maxP.24 mmHgTR Vmax: 3.21 m/sS': 0.14 m/sSonographer: | | DHAuthenticated by: Cruz SHORT Date/Time: -- | | 15_[id number]:26:51IMPRESSION:1. Overall left ventricular systolic function is normal | | with, an EF between 60 - 65 %.2. The right ventricle is normal in size and function.3. | | There is gyulrfzg-us-wtixtu aortic regurgitation.4. Mild/moderate aortic stenosis with | | peak/mean pressure gradient of 27.99mmHg / 16.63mmHg, the aortic valve area by | | continuity equation is 1.6cm .5. Vynsfuxo-dh-hcevgz mitral regurgitation is | | present, slightly increased from the moderate MR seen on the previous exam.6. | | Nwbi-fh-huwasqfi tricuspid regurgitation present.7. There is moderate pulmonary [...] | |TAPSE: 2.34 cm | |AR Dec [place]: 4.12 m/s2 | |AR Dec Time: 971.21 [...] A David: 0.82 m/s | |MV Dec [place]: 4.39 m/s2 | |MV DecT: 313.01 ms [...] | |S': 0.14 m/s | | | |Molding Machine Tender: | |Authenticated by: ROSANA COCHRAN MD | |Report Date/Time: -- [id number]:26:51 | | | |IMPRESSION: | |1. Overall left ventricular systolic function is normal with, an EF between 60 - 65 %. | |2. The right ventricle is normal in size and function. | |3. There is aqlcbjcj-sh-uqqikk aortic regurgitation. | |4. Mild/moderate aortic stenosis with peak/mean pressure gradient of 27.99mmHg / 16.63mmHg, the aortic valve area by continuity equation is 1.6cm . | |5. Vqqvxgtj-bc-wpkgvh mitral regurgitation is present, slightly increased from the moderate MR seen on the previous exam. | |6. Nufh-bs-rjvfvyjk tricuspid regurgitation present. | |7. There is [...] | + + + + + | [facility] | [address] | [place] [address] | | + + + + + [...] | [address] | [place] [address] | | | LABORATORY | 13 | [...] | [address] | [place] [address] | | | LABORATORY | 13 | [...] | [address] | [place] [address] | | | LABORATORY | 13 | [...] | [facility] | [address] | [place] [address] | | | LABORATORY | 13 | [...] | [address] | [place] [address] | | | LABORATORY | 13 | [...] MA - MODA | MA - | [id number] | [facility] | | | | | [...] | Self | [birth year] | Home: | [address] [place] [address] | | | al/Fam | | 1945 | [phone] [address] [place] | | | [place] | | | [address] | [place] [address] | + +--------+ +--------+ + +
--- OUTSIDE RECORDS SUMMARY | ~2018-04-01 | XMS | Encounter Summary ---
Demographics + + + | Address | [address] | | | [place] [address] | + + + | Home Phone | | + + + | Preferred Language | Unknown | + + + | Marital Status | Single | + + + | Confucianist Affiliation | [id number] | + + + | Race | Unknown | + + + | Ethnic Group | Unknown | + + + Author + + + | Author | Rojelio [employer]Quilibrium | + + + | Organization | [facility] [employer] | + + + | Address | Unknown | + + + | Phone | Unavailable | + + + Support + + +---------+ + | Name | Relationship | Address | Phone | + + +---------+ + | Lavell Chiu | ECON | Unknown | | + + +---------+ + Care Team Providers + +------+ + | Care Drop Press Hand Name | Role | Phone | + [...] | Way | | | | | ([facility]) [facility] | [place] | [place] | | | | | PTCA | [id number] | [address] | | | | | (percutaneou | Phone: | Phone: | | | | | s | [phone] | [phone] | | | | | transluminal | Fax: | Fax: | | | | | coronary | [phone] | [phone] | | | | | angioplasty) | [...] | | | | UP | [place] [address] | [place] | | | | | | Phone: | [phone] Phone: | | | | | | [phone] | [phone] | | | | | | Fax: | Fax: | | | | | | [phone] | [phone] | + +--------+ + + + + Encounter Details +--------+---------+ + + + | Date | Type | Department | Care Team | Description | +--------+---------+ + + + | 02/18/ | Office | [facility] | Rosana Cochran, | Acute diastolic | | 2018 | Visit | Cardiology [place] | MD [address] | heart failure (HCC) | | | | [address] | [place], | (Primary Dx); | | | | [address] | [place] [address] | Atherosclerosis of | | | | [place] [address] | [phone] | [place] coronary | | | | [phone] | | artery of [place] | | | | | | heart, [...] | | | | | occlusion of [place] | | | | | | coronary artery; | | | | | | History of OK | | | | | | (myocardial [...] follow-up visit. She was hospita lized at [facility] 02/07/18 for SOB, and records note that she had been there in [facility] emergency room 01/27/18 with an exacerbation [...] oxygen. She had previously been admitted to [facility] 12/03/17 for severe dyspnea on exertio, and mid re trosternal pressure described as a "cold, tight" feeling, present on a daily basis for 10 da ys, but did not immediately seek medical attention, as these were unlike her previous OK sym ptoms. The night of admission, it persisted, and her son brought her to [facility]. Her troponin was elevated, ruling her [...] a remote prior history of CAD, remote OK, 3 coronary stents placed in 2004, and a recent episode of paroxysmal atrial fibrillation at [facility] several days prio r to admission. She used to see Mason Grier DO but had been lost to follow up. Her blood pressure is well-controlled today. She seems to be doing well at this point, and I will see her back in a few months, after her updated echo. She was referred to cardiopul monary rehab at [facility]. Review of Systems CONSTITUTIONAL: 9 lb weight [...] She has a history of C AD, OK and 3 drug-eluting intracoronary stents placed in [...] 3-vessel disease with chronically occluded RCA, with aeii-sa-jmbu t collaterals. . Patent stents in the [...] common femoral filled via collaterals from the research intern al iliac -- Echo (08/01/17): EF [...] failure (HCC) COPD (chronic obstructive pulmonary disease) ([facility]) severe Emphysema GERD (gastroesophageal reflux disease) Hiatal hernia HLD (hyperlipidemia) HTN (hypertension) Hypothyroidism MRSA (methicillin resistant Staphylococcus aureus) 2013 line sepsis following SBO surgery Myocardial infarct ([facility]) 2008 and NSTEMI 07/31/17 Paroxysmal atrial fibrillation ([facility]) 07/27/2017 PVD (peripheral vascular disease) ([facility]) 2013 severe bilateral PVD, occluded right external iliac, left internal iliac, severe stenoses in bilateral common iliacs and left SFA Rheumatoid arthritis ([facility]) Small bowel obstruction due to adhesions ([facility]) several times Status post insertion [...] Acute diastolic heart failure (HCC) Atherosclerosis of [place] coronary artery of [place] heart, angina presence unspecified S/P PTCA (percutaneous transluminal coronary angioplasty) Status post insertion of drug eluting coronary artery stent 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 3. There is wltxlktb-lk-dpbyuh aortic regurgitation. 4. | | | Mild/moderate aortic stenosis with peak/mean pressure gradient of | | | 27.99mmHg / 16.63mmHg, the aortic valve area by continuity equation is | | | 1.6cm . 5. Kiltxzgl-gw-epijyp mitral regurgitation is present, | | | slightly increased from the moderate MR seen on the previous exam. 6. | | | Yiof-cf-rsvxznir tricuspid regurgitation present. 7. There is | [...] Davina Chiu Date of : 1945 | [facility] | | Performing Physician: ROSANA COCHRAN MD | RADIOLOGY | | | | | INDICATIONS Acute diastolic heart failure | | | CONCLUSIONS 1. Overall left ventricular systolic | | | function is normal with, an EF between 60 - 65 %. 2. The right | | | ventricle is normal in size and function. 3. There is | | | ytrtrryy-fc-ttbphf aortic regurgitation. 4. Mild/moderate aortic | | | stenosis with peak/mean pressure gradient of 27.99mmHg / 16.63mmHg, | | | the aortic valve area by continuity equation is 1.6cm . 5. | | | Fmnkbtca-yq-btnfof mitral regurgitation is present, slightly increased | | | from the moderate MR seen on the previous exam. 6. Gjrx-iz-opbsgzry | | | tricuspid regurgitation present. 7. [...] | moderately calcified. Aortic Valve: There is cepxqtwo-lz-jlnmow | | | aortic regurgitation, increased from [...] is normal. | | | Mitral Valve: Tkvyogbb-tq-mmwlxy mitral regurgitation is present, | | | with an eccentric, posteriorly directed jet, slightly increased from | | | the moderate MR seen on the previous exam. Mitral Valve: No evidence | | | of MVP. Tricuspid Valve: The tricuspid valve appears structurally | | | normal. Tricuspid Valve: Pefi-ao-gncmlsfr tricuspid regurgitation is | | | present, [...] 5.04 cm TAPSE: 2.34 cm AR Dec [place]: | | | 4.12 m/s2 AR Dec [...] | | | 0.82 m/s MV Dec [place]: 4.39 m/s2 MV DecT: 313.01 ms MV [...] | | | m/s S': 0.14 m/s Voice Intercept Technician: MARZENA Authenticated | | | by: ROSANA COCHRAN MD Report Date/Time: -- [id number]:26:51 | | + + + + + | Procedure Note | + + | Charan, Rad Results In - 03/05/2018 7:30 PM PDT Patient Name: Emanuel Chiu of | | : 5Accession: [id number] Physician: ROSANA COCHRAN MD | | INDICATIONS Acu | | te diastolic heart failureCONCLUSIONS 1. Overall left ventricular systolic | | function is normal with, an EF between 60 - 65 %.2. The right ventricle is normal in | | size and function.3. There is vxsqfyfq-os-udoofu aortic regurgitation.4. Mild/moderate | | aortic stenosis with peak/mean pressure gradient of 27.99mmHg / 16.63mmHg, the aortic | | valve area by continuity equation is 1.6cm .5. Uusxnlxh-sj-ohmpyz mitral | | regurgitation is present, slightly increased from the moderate MR seen on the previous | | exam.6. Zvgp-st-gfcfjrmx tricuspid regurgitation present.7. There is moderate pulmonary [...] | | calcified. Aortic Valve: There is vdmdjnof-fc-hbzczg aortic regurgitation, increased | | from moderate [...] The mitral valve is normal. Mitral Valve: Yzqjeizh-oy-hkujpt mitral | | regurgitation is present, with an eccentric, posteriorly directed jet, slightly | | increased from the moderate MR seen on the previous exam. Mitral Valve: No evidence of | | MVP.Tricuspid Valve: The tricuspid valve appears structurally normal. Tricuspid Valve: | | Dwem-sm-fidsxmdr tricuspid regurgitation is present, increased from mild [...] cmLVPWd: 1.10 | | cmLVOT Area: 3.31 kt2SPRW Diam: 2.05 cm%FS: 32.43 %EF(Teich): 60.29 | [...] mlLAESV Index (A-L): 34.04 ml/m2LAAs A2C: 17.74 cn3ZOXDH A-L | | A2C: 51.86 mlLALs A2C: 5.15 cmLAAs A4C: 19.45 kx3XPXBM A-L A4C: 60.09 mlLALs | | A4C: 5.34 cmRAAs: 16.23 lz9BNLPX A-L: 44.35 mlRAESV MOD: 43.26 mlRALs: 5.04 | | cmTAPSE: 2.34 cmAR Dec [place]: 4.12 m/s2AR Dec Time: 971.21 msAR maxP.12 | | mmHgAR PHT: 281.65 msAR Vmax: 4.00 m/Darshan maxP.98 mmHgAV meanP.63 | | mmHgAV Vmax: 2.64 m/Darshan Vmean: 1.93 m/Darshan VTI: 70.11 cmAVA Vmax: 1.82 cm2AVA | | (VTI): 1.56 ia3QKQL maxP.52 mmHgLVOT meanP.90 mmHgLVSI Dopp: 65.61 | | ml/m2LVSV Dopp: 109.57 mlLVOT Vmax: 1.46 m/sLVOT Vmean: 0.88 m/sLVOT VTI: 33.05 | | cmMV A [place]: 0.82 m/sMV Dec [place]: 4.39 m/s2MV DecT: 313.01 msMV E [place]: 1.37 | | m/sMV E/A Ratio: 1.66 MV PHT: 90.77 msMVA By PHT: 2.42 iy7Rnktfw e': 0.04 | | m/sSeptal E/e': 30.88 Lateral e': 0.09 m/sLateral E/e': 14.67 RAP: 10 mmHgRVSP: | | 51.24 mmHgTR maxP.24 mmHgTR Vmax: 3.21 m/sS': 0.14 m/sSonographer: | | DHAuthenticated by: RON SHORTeport Date/Time: -- | | 61_[id number]_98:26:51IMPRESSION:1. Overall left ventricular systolic function is normal | | with, an EF between 60 - 65 %.2. The right ventricle is normal in size and function.3. | | There is iwgikten-hr-zkkkpj aortic regurgitation.4. Mild/moderate aortic stenosis with | | peak/mean pressure gradient of 27.99mmHg / 16.63mmHg, the aortic valve area by | | continuity equation is 1.6cm .5. Fqgnkolt-un-kgxgrw mitral regurgitation is | | present, slightly increased from the moderate MR seen on the previous exam.6. | | Zszo-ds-ldsgxtnz tricuspid regurgitation present.7. There is moderate pulmonary [...] | |TAPSE: 2.34 cm | |AR Dec [place]: 4.12 m/s2 | |AR Dec Time: 971.21 [...] A [place]: 0.82 m/s | |MV Dec [place]: 4.39 m/s2 | |MV DecT: 313.01 ms [...] | |S': 0.14 m/s | | | |Voice Intercept Technician: DH | |Authenticated by: ROSANA COCHRAN MD | |Report Date/Time: -99_[id number]_00:26:51 | | | |IMPRESSION: | |1. Overall left ventricular systolic function is normal with, an EF between 60 - 65 %. | |2. The right ventricle is normal in size and function. | |3. There is msrjczns-lq-qmjpry aortic regurgitation. | |4. Mild/moderate aortic stenosis with peak/mean pressure gradient of 27.99mmHg / 16.63mmHg, the aortic valve area by continuity equation is 1.6cm . | |5. Iksgtcww-pa-amjkkn mitral regurgitation is present, slightly increased from the moderate MR seen on the previous exam. | |6. Gfmd-oc-qhjxjsob tricuspid regurgitation present. | |7. There is [...] BENNETT | [address] | [place] [address] | | + + + + + in this encounter Visit Diagnoses + + | Diagnosis | + + | Acute diastolic heart failure (HCC) - Primary | + + | Acute diastolic heart failure | + + | Atherosclerosis of [place] coronary artery of [place] heart, angina presence unspecified | + + | S/P PTCA (percutaneous transluminal coronary angioplasty) | + + | Postsurgical percutaneous transluminal coronary angioplasty status | + + | Status post insertion of drug eluting coronary artery stent | + + | History of [place] (myocardial infarction) | + + | Old [...]
--- OUTSIDE RECORDS SUMMARY | ~2018-04-01 | XMS | Clinical Summary ---
Demographics + + + | Address | [address] | | | [place] [address] | + + + | Home Phone | | + + + | Preferred Language | Unknown | + + + | Marital Status | Unknown | + + + | Yazdanism Affiliation | Unknown | + + + | Race | Unknown | + + + | Ethnic Group | Unknown | + + + Author + + + | Author | [facility] | | | and Diomedesana | + + + | Organization | [facility] | | | and [place] | + + + | Address | Unknown | + + + | Phone | Unavailable | + + + Care Team Providers + +------+ + | Care Customer Resolution Specialist Name | Role | Phone | [...]
--- OUTSIDE RECORDS SUMMARY | ~2018-04-01 | XMS | Encounter Summary ---
Demographics + + + | Address | [address] | | | [place] [address] | + + + | Home Phone | | + + + | Preferred Language | Unknown | + + + | Marital Status | Single | + + + | Confucianism Affiliation | 1009 | + + + | Race | Unknown | + + + | Ethnic Group | Unknown | + + + Author + + + | Author | Rojelio [employer] | + + + | Organization | [facility] [employer] | + + + | Address | Unknown | + + + | Phone | Unavailable | + + + Support + + +---------+ + | Name | Relationship | Address | Phone | + + +---------+ + | Lavell Chiu | ECON | Unknown | | + + +---------+ + Care Team Providers + +------+ + | Care Cloth Desizing Range Operator Chief Name | Role | Phone | + [...] | | 2018 | on Only | [address] | | Labs dated | | | | [address] | | [birth year]-) | | | | [place] [address] | | | | | | [phone] | | | +--------+ + + + [...] [place], | | | | | | [place] [address] | | | | | | [phone] | | | | | | | [...] | [address] | [place] [address] | | | LABORATORY | 13 | [...] | [address] | [place] [address] | | | LABORATORY | 13 | [...] | [address] | [place] [address] | | | LABORATORY | 13 | [...] | [address] | [place] [address] | | | LABORATORY | 13 | [...] | [address] | [place] [address] | | | LABORATORY | 13 | | | + + + + + in this encounter Visit Diagnoses Not on filein this encounter"
--- OUTSIDE RECORDS SUMMARY | ~2018-04-01 | XMS | Encounter Summary ---
Demographics + + + | Address | [address] | | | [place] [address] | + + + | Home Phone [...] + + + | Author | [employer]io [employer] | + + + | Organization | [facility] [employer] | + + + | Address | Unknown | + + + | Phone | Unavailable | + + + Support + + +---------+ + | Name | Relationship | Address | Phone | + + +---------+ + | Lavell Chiu | ECON | Unknown | | + + +---------+ + Care Team Providers + +------+ + | Care Export Manager Name | Role | Phone | [...] | | 2018 | on Only | [place] [address] | | Labs dated | | | | [address] | | 02/24-) | | | | [place] [address] | | | | | | [phone] | | | +--------+ + + + [...] [place], | | | | | | [place] [address] | | | | | | [phone] | | | | | | | [...] | [address] | [place] [address] | | | LABORATORY | 13 | [...] | [address] | [place] [address] | | | LABORATORY | 13 | [...] | [address] | [place] [address] | | | LABORATORY | 13 | [...] | [address] | [place] [address] | | | LABORATORY | 13 | [...] | [address] | [place] [address] | | | LABORATORY | 13 | | | + + + + + in this encounter Visit Diagnoses Not on filein this encounter"
--- OUTSIDE RECORDS SUMMARY | ~2018-04-01 | XMS | Encounter Summary ---
Demographics + + + | Address | [address] | | | [place] [address] | + + + | Home Phone | | + + + | Preferred Language | Unknown | + + + | Marital Status | Single | + + + | Religion Affiliation | 1009 | + + + | Race | Unknown | + + + | Ethnic Group | Unknown | + + + Author + + + | Author | [employer]jelio [employer] | + + + | Organization | [facility] [employer] | + + + | Address | Unknown | + + + | Phone | Unavailable | + + + Support + + +---------+ + | Name | Relationship | Address | Phone | + + +---------+ + | Lavell Chiu | ECON | Unknown | | + + +---------+ + Care Team Providers + +------+ + | Care Delinquent Tax Collector Assistant Name | Role | Phone | + [...] | | 2018 | on Only | [place] [address] | | Labs dated | | | | [address] | | 02/07/2018; ) | | | | [place] [address] | | | | | | [phone] | | | +--------+ + + + [...] | | | | | | [place] [address] | | | | | | [phone] | | | | | | | [...] | [address] | [place] [address] | | | LABORATORY | 13 | [...] | [address] | [place] [address] | | | LABORATORY | 13 | [...] | [address] | [place] [address] | | | LABORATORY | 13 | [...] | [address] | [place] [address] | | | LABORATORY | 13 | | | + + + + + in this encounter Visit Diagnoses Not on filein this encounter"
--- OUTSIDE RECORDS SUMMARY | ~2018-04-01 | XMS | Encounter Summary ---
Demographics + + + | Address | [address] | | | [place] [address] | + + + | Home Phone | | + + + | Preferred Language | Unknown | + + + | Marital Status | Single | + + + | Mosque Affiliation | 1009 | + + + | Race | Unknown | + + + | Ethnic Group | Unknown | + + + Author + + + | Author | [facility] | + + + | Organization | [facility] [employer] | + + + | Address | Unknown | + + + | Phone | Unavailable | + + + Support + + +---------+ + | Name | Relationship | Address | Phone | + + +---------+ + | Lavell Chiu | ECON | Unknown | | + + +---------+ + Care Team Providers + +------+ + | Care Rat Trapper Name | Role | Phone | + [...] | records) | | | | [address] [facility] [address] | | | | | | [address] | | | | | | [place] [address] | | | | | | [phone] | | | +--------+ + + + [...] | | | | | | [place] [address] | | | | | | [phone] | | | | | | | | +--------+---------+ + + + as of this encounter Visit Diagnoses Not on filein this encounter"
--- OUTSIDE RECORDS SUMMARY | ~2018-04-01 | XMS | Encounter Summary ---
Demographics + + + | Address | [address] | | | [place] [address] | + + + | Home Phone | | + + + | Preferred Language | Unknown | + + + | Marital Status | Single | + + + | Muslim Affiliation | 1009 | + + + | Race | Unknown | + + + | Ethnic Group | Unknown | + + + Author + + + | Author | Rojelio [employer] | + + + | Organization | [facility] [employer] [facility] | + + + | Address | Unknown | + + + | Phone | Unavailable | + + + Support + + +---------+ + | Name | Relationship | Address | Phone | + + +---------+ + | Lavell Chiu | ECON | Unknown | | + + +---------+ + Care Team Providers + +------+ + | Care General Internist Name | Role | Phone | + [...] | | | | | | [place] [address] | | | | | | [phone] | | | | | | | [...] | | | | | | [place] [address] | | | | | | [phone] | | | | | | | [...] RADIOLOGY | | function. 3. There is ktbmwpig-cn-zatuva aortic regurgitation. 4. | | | Mild/moderate aortic stenosis with peak/mean pressure gradient of | | | 27.99mmHg / 16.63mmHg, the aortic valve area by continuity equation is | | | 1.6cm . 5. Emwbkjrd-jr-enynpk mitral regurgitation is present, | | | slightly increased from the moderate MR seen on the previous exam. 6. | | | Eadn-ud-xpxxvcwq tricuspid regurgitation present. 7. There is | [...] Name: Davina Chiu Date of : 1945 [facility] | | Performing Physician: ROSANA COCHRAN MD | RADIOLOGY | | | | | INDICATIONS Acute diastolic heart failure | | | CONCLUSIONS 1. Overall left ventricular systolic | | | function is normal with, an EF between 60 - 65 %. 2. The right | | | ventricle is normal in size and function. 3. There is | | | hwfylkfn-az-qlnrpo aortic regurgitation. 4. Mild/moderate aortic | | | stenosis with peak/mean pressure gradient of 27.99mmHg / 16.63mmHg, | | | the aortic valve area by continuity equation is 1.6cm . 5. | | | Yqtrcstp-wq-rpbjrw mitral regurgitation is present, slightly increased | | | from the moderate MR seen on the previous exam. 6. Dbgb-qm-qofwhyul | | | tricuspid regurgitation present. 7. [...] | moderately calcified. Aortic Valve: There is ygzxsosw-rk-smnbop | | | aortic regurgitation, increased from [...] is normal. | | | Mitral Valve: Kicdixhr-fc-xnmjun mitral regurgitation is present, | | | with an eccentric, posteriorly directed jet, slightly increased from | | | the moderate MR seen on the previous exam. Mitral Valve: No evidence | | | of MVP. Tricuspid Valve: The tricuspid valve appears structurally | | | normal. Tricuspid Valve: Tikp-ze-ggxrbwoh tricuspid regurgitation is | | | present, [...] 5.04 cm TAPSE: 2.34 cm AR Dec [place]: | | | 4.12 m/s2 AR Dec [...] | | | 0.82 m/s MV Dec [place]: 4.39 m/s2 MV DecT: 313.01 ms MV [...] | | | m/s S': 0.14 m/s Massotherapist: MARZENA Authenticated | | | by: ROSANA COCHRAN MD Report Date/Time: -- [id number] | | + + + + + | Procedure Note | + + | Italo Farrar Results In - 03/05/2018 7:30 PM PDT Patient Name: Emanuel Chiu of | | : 5Accession: [id number] Physician: ROSANA COCHRAN MD | | INDICATIONS Acu | | te diastolic heart failureCONCLUSIONS 1. Overall left ventricular systolic | | function is normal with, an EF between 60 - 65 %.2. The right ventricle is normal in | | size and function.3. There is btpojtez-zx-ibxtvp aortic regurgitation.4. Mild/moderate | | aortic stenosis with peak/mean pressure gradient of 27.99mmHg / 16.63mmHg, the aortic | | valve area by continuity equation is 1.6cm .5. Hfcimrog-nx-usgkht mitral | | regurgitation is present, slightly increased from the moderate MR seen on the previous | | exam.6. Elll-cm-gvkijypo tricuspid regurgitation present.7. There is moderate pulmonary [...] | | calcified. Aortic Valve: There is rtpqulcw-be-fvmsly aortic regurgitation, increased | | from moderate [...] The mitral valve is normal. Mitral Valve: Dhcukqel-vk-zskygx mitral | | regurgitation is present, with an eccentric, posteriorly directed jet, slightly | | increased from the moderate MR seen on the previous exam. Mitral Valve: No evidence of | | MVP.Tricuspid Valve: The tricuspid valve appears structurally normal. Tricuspid Valve: | | Qvjo-kj-mprkhprf tricuspid regurgitation is present, increased from mild [...] cmLVPWd: 1.10 | | cmLVOT Area: 3.31 wr2EWTF Diam: 2.05 cm%FS: 32.43 %EF(Teich): 60.29 | [...] mlLAESV Index (A-L): 34.04 ml/m2LAAs A2C: 17.74 kc0PENMH A-L | | A2C: 51.86 mlLALs A2C: 5.15 cmLAAs A4C: 19.45 pd6RDJRK A-L A4C: 60.09 mlLALs | | A4C: 5.34 cmRAAs: 16.23 qc4JGTIT A-L: 44.35 mlRAESV MOD: 43.26 mlRALs: 5.04 | | cmTAPSE: 2.34 cmAR Dec [place]: 4.12 m/s2AR Dec Time: 971.21 msAR maxP.12 | | mmHgAR PHT: 281.65 msAR Vmax: 4.00 m/Darshan maxP.98 mmHgAV meanP.63 | | mmHgAV Vmax: 2.64 m/Darshan Vmean: 1.93 m/Darshan VTI: 70.11 cmAVA Vmax: 1.82 cm2AVA | | (VTI): 1.56 zg3SOWL maxP.52 mmHgLVOT meanP.90 mmHgLVSI Dopp: 65.61 | | ml/m2LVSV Dopp: 109.57 mlLVOT Vmax: 1.46 m/sLVOT Vmean: 0.88 m/sLVOT VTI: 33.05 | | cmMV A David: 0.82 m/sMV Dec [place]: 4.39 m/s2MV DecT: 313.01 msMV E David: 1.37 | | m/sMV E/A Ratio: 1.66 MV PHT: 90.77 msMVA By PHT: 2.42 uw2Fvogta e': 0.04 | | m/sSeptal E/e': 30.88 Lateral e': 0.09 m/sLateral E/e': 14.67 RAP: 10 mmHgRVSP: | | 51.24 mmHgTR maxP.24 mmHgTR Vmax: 3.21 m/sS': 0.14 m/sSonographer: | | DHAuthenticated by: Cruz SHORT Date/Time: -- | | [id number]:26:51IMPRESSION:1. Overall left ventricular systolic function is normal | | with, an EF between 60 - 65 %.2. The right ventricle is normal in size and function.3. | | There is yqhspadf-dn-yndqtp aortic regurgitation.4. Mild/moderate aortic stenosis with | | peak/mean pressure gradient of 27.99mmHg / 16.63mmHg, the aortic valve area by | | continuity equation is 1.6cm .5. Yhktjvjk-br-kczacu mitral regurgitation is | | present, slightly increased from the moderate MR seen on the previous exam.6. | | Shpq-wb-dsqdasfc tricuspid regurgitation present.7. There is moderate pulmonary [...] | |TAPSE: 2.34 cm | |AR Dec [place]: 4.12 m/s2 | |AR Dec Time: 971.21 [...] A David: 0.82 m/s | |MV Dec [place]: 4.39 m/s2 | |MV DecT: 313.01 ms [...] | |S': 0.14 m/s | | | |Massotherapist: | |Authenticated by: ROSANA COCHRAN MD | |Report Date/Time: -- [id number]:51 | | | |IMPRESSION: | |1. Overall left ventricular systolic function is normal with, an EF between 60 - 65 %. | |2. The right ventricle is normal in size and function. | |3. There is ulepiara-qe-kvkcft aortic regurgitation. | |4. Mild/moderate aortic stenosis with peak/mean pressure gradient of 27.99mmHg / 16.63mmHg, the aortic valve area by continuity equation is 1.6cm . | |5. Lzxtfgdn-kz-uefaou mitral regurgitation is present, slightly increased from the moderate MR seen on the previous exam. | |6. Mjas-eo-rxmvdjqu tricuspid regurgitation present. | |7. There is [...] | [address] | [place] [address] | | + + + + + in this encounter Visit Diagnoses + + | Diagnosis | + + | Acute diastolic heart failure (HCC) | + + | Acute diastolic heart failure | + +"
--- OUTSIDE RECORDS SUMMARY | ~2018-04-01 | XMS | Encounter Summary ---
Demographics + + + | Address | [address] | | | [place] [address] | + + + | Home Phone [...] + + + | Author | Rojelio [employer] | + + + | Organization | [facility] [employer] [facility] | + + + | Address | Unknown | + + + | Phone | Unavailable | + + + Support + + +---------+ + | Name | Relationship | Address | Phone | + + +---------+ + | Lavell Chiu | ECON | Unknown | | + + +---------+ + Care Team Providers + +------+ + | Care Coater Hand Name | Role | Phone | [...] 11 | | | | | | [facility] E- | | | | | | [place] [address] | | | | | | [phone] | | | +--------+ + + + [...] | | | | | | [place] [address] | | | | | | [phone] | | | | | | | | +--------+---------+ + + + as of this encounter Visit Diagnoses Not on filein this encounter"
--- OUTSIDE RECORDS SUMMARY | ~2018-04-01 | XMS | Encounter Summary ---
Demographics + + + | Address | [address] | | | [place] [address] | + + + | Home Phone [...] + + + | Author | Rojelio [employer] | + + + | Organization | [facility] [employer] [facility] | + + + | Address | Unknown | + + + | Phone | Unavailable | + + + Support + + +---------+ + | Name | Relationship | Address | Phone | + + +---------+ + | Lavell Chiu | ECON | Unknown | | + + +---------+ + Care Team Providers + +------+ + | Care Clinical Product Specialist Name | Role | Phone | [...] | | | | | [facility] | | | | | | [address] [place] | | | | | | [address] | | | +--------+ + + + [...] 06/17/ | Office | Cardiology | Cristhian Cohcran, | | | 2017 | Visit | | MD [address] | | | | | | [place], | | | | | | [place] [address] | | | | | | [phone] | | | | | | | [...]
--- OUTSIDE RECORDS SUMMARY | ~2018-04-01 | XMS | Encounter Summary ---
Demographics + + + | Address | [address] | | | [place] [address] | + + + | Home Phone [...] + + + | Author | Rojelio [employer] | + + + | Organization | [facility] [employer] [facility] | + + + | Address | Unknown | + + + | Phone | Unavailable | + + + Support + + +---------+ + | Name | Relationship | Address | Phone | + + +---------+ + | Lavell Chiu | ECON | Unknown | | + + +---------+ + Care Team Providers + +------+ + | Care Nuclear Reactor Technician Name | Role | Phone | [...] | | 2018 | on Only | [place] [address] | | Labs dated | | | | [address] | | 02/07/2018; ) | | | | [place] [address] | | | | | | [phone] | | | +--------+ + + + [...] | | | | | | [place] [address] | | | | | | [phone] | | | | | | | [...] | [address] | [place] [address] | | | LABORATORY | 13 | [...] | [address] | [place] [address] | | | LABORATORY | 13 | [...] | [address] | [place] [address] | | | LABORATORY | 13 | [...] | [address] | [place] [address] | | | LABORATORY | 13 | | | + + + + + in this encounter Visit Diagnoses Not on filein this encounter"
--- OUTSIDE RECORDS SUMMARY | ~2018-04-01 | XMS | Encounter Summary ---
Demographics + + + | Address | [address] | | | [place] [address] | + + + | Home Phone [...] + + + | Author | Rojelio [employer] | + + + | Organization | [facility] [employer] | + + + | Address | Unknown | + + + | Phone | Unavailable | + + + Support + + +---------+ + | Name | Relationship | Address | Phone | + + +---------+ + | Lavell Chiu | ECON | Unknown | | + + +---------+ + Care Team Providers + +------+ + | Care Nurse Licensed Practical Name | Role | Phone | + [...] [address] | | | | | | [facility] E- | | | | | | [place] [address] | | | | | | [phone] | | | +--------+ + + + [...] | | | | | | [place] [address] | | | | | | [phone] | | | | | | | | +--------+---------+ + + + as of this encounter Visit Diagnoses Not on filein this encounter"
--- OUTSIDE RECORDS SUMMARY | ~2018-04-01 | XMS | Encounter Summary ---
Demographics + + + | Address | [address] | | | [place] [address] | + + + | Home Phone [...] + + + | Author | Rojelio [employer]be[employer] | + + + | Organization | [facility] [employer] [facility] | + + + | Address | Unknown | + + + | Phone | Unavailable | + + + Support + + +---------+ + | Name | Relationship | Address | Phone | + + +---------+ + | Lavell Chiu | ECON | Unknown | | + + +---------+ + Care Team Providers + +------+ + | Care Rug Hooker Hand Name | Role | Phone | [...] | | | | | [place] [address] | | | | | | [phone] | | | +--------+ + + + [...] | | | | | | [place] [address] | | | | | | [phone] | | | | | | | | +--------+---------+ + + + as of this encounter Visit Diagnoses Not on filein this encounter"
--- OUTSIDE RECORDS SUMMARY | ~2018-04-01 | XMS | Encounter Summary ---
Demographics + + + | Address | [address] | | | [place] [address] | + + + | Home Phone [...] + + + | Author | Rojelio Alitalia | + + + | Organization | [facility] [employer] [facility] | + + + | Address | Unknown | + + + | Phone | Unavailable | + + + Support + + +---------+ + | Name | Relationship | Address | Phone | + + +---------+ + | Lavell Chiu | ECON | Unknown | | + + +---------+ + Care Team Providers + +------+ + | Care Controller [place] Name | Role | Phone | + [...] | | | | | [place] [address] | | | | | | [phone] | | | +--------+ + + + [...] | | | | | | [place] [address] | | | | | | [phone] | | | | | | | | +--------+---------+ + + + as of this encounter Visit Diagnoses Not on filein this encounter"
--- OUTSIDE RECORDS SUMMARY | ~2018-04-01 | XMS | Encounter Summary ---
Demographics + + + | Address | [address] | | | [place] [address] | + + + | Home Phone | | + + + | Preferred Language | Unknown | + + + | Marital Status | Single | + + + | Roman Catholic Affiliation | 1009 | + + + | Race | Unknown | + + + | Ethnic Group | Unknown | + + + Author + + + | Author | Rojelio [employer] | + + + | Organization | [facility] [employer] | + + + | Address | Unknown | + + + | Phone | Unavailable | + + + Support + + +---------+ + | Name | Relationship | Address | Phone | + + +---------+ + | Lavell Chiu | ECON | Unknown | | + + +---------+ + Care Team Providers + +------+ + | Care Personnel Consultant Name | Role | Phone | [...] | | | | | [place] [address] | | | | | | [phone] | | | +--------+ + + + [...] | | | | | | [place] [address] | | | | | | [phone] | | | | | | | | +--------+---------+ + + + as of this encounter Visit Diagnoses Not on filein this encounter"
--- OUTSIDE RECORDS SUMMARY | ~2018-04-01 | XMS | Encounter Summary ---
Demographics + + + | Address | [address] | | | [place] [address] | + + + | Home Phone | | + + + | Preferred Language | Unknown | + + + | Marital Status | Single | + + + | Taoist Affiliation | [id number] | + + + | Race | Unknown | + + + | Ethnic Group | Unknown | + + + Author + + + | Author | [employer] | + + + | Organization | [facility] | + + + | Address | Unknown | + + + | Phone | Unavailable | + + + Support + + +---------+ + | Name | Relationship | Address | Phone | + + +---------+ + | Lavell Chiu | ECON | Unknown | | + + +---------+ + Care Team Providers + +------+ + | Care Air Analysis Technician Name | Role | Phone | [...] | | | | | | [place] [address] | | | | | | [phone] | | | | | | | [...] | | | | | | [place] [address] | | | | | | [phone] | | | | | | | [...] RADIOLOGY | | function. 3. There is otlenfak-ok-wwwvfy aortic regurgitation. 4. | | | Mild/moderate aortic stenosis with peak/mean pressure gradient of | | | 27.99mmHg / 16.63mmHg, the aortic valve area by continuity equation is | | | 1.6cm . 5. Xzjkasio-no-pypnll mitral regurgitation is present, | | | slightly increased from the moderate MR seen on the previous exam. 6. | | | Wpxw-oh-bbgxgrwt tricuspid regurgitation present. 7. There is | [...] Name: Davina Chiu Date of : 1945 [facility] | | Performing Physician: ROSANA COCHRAN MD | RADIOLOGY | | | | | INDICATIONS Acute diastolic heart failure | | | CONCLUSIONS 1. Overall left ventricular systolic | | | function is normal with, an EF between 60 - 65 %. 2. The right | | | ventricle is normal in size and function. 3. There is | | | odabkhgm-xj-kinrix aortic regurgitation. 4. Mild/moderate aortic | | | stenosis with peak/mean pressure gradient of 27.99mmHg / 16.63mmHg, | | | the aortic valve area by continuity equation is 1.6cm . 5. | | | Adpvtbdb-bf-qsstun mitral regurgitation is present, slightly increased | | | from the moderate MR seen on the previous exam. 6. Vrbb-nn-jzokdods | | | tricuspid regurgitation present. 7. [...] | moderately calcified. Aortic Valve: There is hsbuwgot-yk-eiwarr | | | aortic regurgitation, increased from [...] is normal. | | | Mitral Valve: Mkxxehne-yi-tsqgvw mitral regurgitation is present, | | | with an eccentric, posteriorly directed jet, slightly increased from | | | the moderate MR seen on the previous exam. Mitral Valve: No evidence | | | of MVP. Tricuspid Valve: The tricuspid valve appears structurally | | | normal. Tricuspid Valve: Hzhc-ks-nnqbqzcn tricuspid regurgitation is | | | present, [...] 5.04 cm TAPSE: 2.34 cm AR Dec [place]: | | | 4.12 m/s2 AR Dec [...] | | | 0.82 m/s MV Dec [place]: 4.39 m/s2 MV DecT: 313.01 ms MV [...] | | | m/s S': 0.14 m/s Automatic Spinning Lathe Setter: MARZENA Authenticated | | | by: ROSANA COCHRAN MD Report Date/Time: -- [id number] | | + + + + + | Procedure Note | + + | Italo Farrar Results In - 03/05/2018 7:30 PM PDT Patient Name: Emanuel Chiu of | | : 5Accession: [id number] Physician: ROSANA COCHRAN MD | | INDICATIONS Acu | | te diastolic heart failureCONCLUSIONS 1. Overall left ventricular systolic | | function is normal with, an EF between 60 - 65 %.2. The right ventricle is normal in | | size and function.3. There is qrbzidsa-gb-saxqub aortic regurgitation.4. Mild/moderate | | aortic stenosis with peak/mean pressure gradient of 27.99mmHg / 16.63mmHg, the aortic | | valve area by continuity equation is 1.6cm .5. Ufesfuqp-dt-aanzfh mitral | | regurgitation is present, slightly increased from the moderate MR seen on the previous | | exam.6. Ofzm-sq-fouxyjvz tricuspid regurgitation present.7. There is moderate pulmonary [...] | | calcified. Aortic Valve: There is iouotvxb-jb-immvwd aortic regurgitation, increased | | from moderate [...] The mitral valve is normal. Mitral Valve: Jpthtqri-oy-jgaewl mitral | | regurgitation is present, with an eccentric, posteriorly directed jet, slightly | | increased from the moderate MR seen on the previous exam. Mitral Valve: No evidence of | | MVP.Tricuspid Valve: The tricuspid valve appears structurally normal. Tricuspid Valve: | | Gatp-sa-wwngmkih tricuspid regurgitation is present, increased from mild [...] cmLVPWd: 1.10 | | cmLVOT Area: 3.31 lt0ZLMS Diam: 2.05 cm%FS: 32.43 %EF(Teich): 60.29 | [...] mlLAESV Index (A-L): 34.04 ml/m2LAAs A2C: 17.74 [id number] A-L | | A2C: 51.86 mlLALs A2C: 5.15 cmLAAs A4C: 19.45 sy2EYRTY A-L A4C: 60.09 mlLALs | | A4C: 5.34 cmRAAs: 16.23 iz7FBIBY A-L: 44.35 mlRAESV MOD: 43.26 mlRALs: 5.04 | | cmTAPSE: 2.34 cmAR Dec [place]: 4.12 m/s2AR Dec Time: 971.21 msAR maxP.12 | | mmHgAR PHT: 281.65 msAR Vmax: 4.00 m/Darshan maxP.98 mmHgAV meanP.63 | | mmHgAV Vmax: 2.64 m/Darshan Vmean: 1.93 m/Darshan VTI: 70.11 cmAVA Vmax: 1.82 cm2AVA | | (VTI): 1.56 dp1ZXKH maxP.52 mmHgLVOT meanP.90 mmHgLVSI Dopp: 65.61 | | ml/m2LVSV Dopp: 109.57 mlLVOT Vmax: 1.46 m/sLVOT Vmean: 0.88 m/sLVOT VTI: 33.05 | | cmMV A David: 0.82 m/sMV Dec [place]: 4.39 m/s2MV DecT: 313.01 msMV E David: 1.37 | | m/sMV E/A Ratio: 1.66 MV PHT: 90.77 msMVA By PHT: 2.42 ls5Ifjijb e': 0.04 | | m/sSeptal E/e': 30.88 Lateral e': 0.09 m/sLateral E/e': 14.67 RAP: 10 mmHgRVSP: | | 51.24 mmHgTR maxP.24 mmHgTR Vmax: 3.21 m/sS': 0.14 m/sSonographer: | | DHAuthenticated by: Cruz SHORT Date/Time: -- | | [id number]:51IMPRESSION:1. Overall left ventricular systolic function is normal | | with, an EF between 60 - 65 %.2. The right ventricle is normal in size and function.3. | | There is ncyznmax-ov-wjxtmh aortic regurgitation.4. Mild/moderate aortic stenosis with | | peak/mean pressure gradient of 27.99mmHg / 16.63mmHg, the aortic valve area by | | continuity equation is 1.6cm .5. Cyxlphbz-ls-gpzoep mitral regurgitation is | | present, slightly increased from the moderate MR seen on the previous exam.6. | | Rdzn-no-edbmkquk tricuspid regurgitation present.7. There is moderate pulmonary [...] | |TAPSE: 2.34 cm | |AR Dec Lycoming: 4.12 m/s2 | |AR Dec Time: 971.21 [...] A David: 0.82 m/s | |MV Dec [place]: 4.39 m/s2 | |MV DecT: 313.01 ms [...] | |S': 0.14 m/s | | | |Automatic Spinning Lathe Setter: | |Authenticated by: ROSANA COCHRAN MD | |Report Date/Time: -- [id number]:51 | | | |IMPRESSION: | |1. Overall left ventricular systolic function is normal with, an EF between 60 - 65 %. | |2. The right ventricle is normal in size and function. | |3. There is xonxxgqt-qb-ezvdgi aortic regurgitation. | |4. Mild/moderate aortic stenosis with peak/mean pressure gradient of 27.99mmHg / 16.63mmHg, the aortic valve area by continuity equation is 1.6cm . | |5. Fgrfftqi-hs-kwfliw mitral regurgitation is present, slightly increased from the moderate MR seen on the previous exam. | |6. Tdva-nw-cznkvrsl tricuspid regurgitation present. | |7. There is [...] | [address] | [place] [address] | | + + + + + in this encounter Visit Diagnoses + + | Diagnosis | + + | Acute diastolic heart failure (HCC) | + + | Acute diastolic heart failure | + +"
--- OUTSIDE RECORDS SUMMARY | ~2018-04-01 | XMS | Encounter Summary ---
Demographics + + + | Address | [address] | | | [place] [address] | + + + | Home Phone [...] + + + | Author | [employer] | + + + | Organization | [facility] | + + + | Address | Unknown | + + + | Phone | Unavailable | + + + Support + + +---------+ + | Name | Relationship | Address | Phone | + + +---------+ + | Lavell Cihu | ECON | Unknown | | + + +---------+ + Care Team Providers + +------+ + | Care Boiler Blower Name | Role | Phone | + [...] | | Required | | Atherosclero | TIMBER SELECTOR [address] | Sleep | | | | | sis of | Myriam Khanna | Disorders | | | | | navajo | Mehrdad F | [facility] | | | | | coronary | [place], [place] | [facility] | | | | | artery of | [address] | [address] | | | | | navajo | Phone: | JESSICA HINOJ[place]A | | | | | heart, | [phone] | [place] | | | | | angina | Fax: | [address] | | | | | presence | [phone] | Phone: | | | | | unspecified | | [phone] | | | | | S/P PTCA | | Fax: | | | | | (percutaneou | | [phone] | | | | | s | [...] | | | | | | | [place] | | | | | | | [...] | | | | UP | [place] [address] | [place], [place] | | | | | | Phone: | [address] Phone: | | | | | | [phone] | [phone] | | | | | | Fax: | Fax: | | | | | | [phone] | [phone] | + +--------+ + + + + Encounter Details +--------+---------+ + + + | Date | Type | Department | Care Team | Description | +--------+---------+ + + + | 01/23/ | Office | SANDRA Oneill | Alesia Freire | Atherosclerosis of | | 2018 | Visit | Cardiology [place] | JHOAN Gong [address] | navajo coronary | | | | [address] | Myriam Cronin F | artery of navajo | | | | [address] | [place] [address] | heart, angina | | | | [place] [address] | [phone] | presence unspecified | | | | [phone] | | (Primary Dx); S/P | | [...] | | | | | occlusion of navajo | | | | | | coronary artery; | | | | | | History of CO | | | | | | (myocardial | | | | | | infarction); | | | | | | Paroxysmal atrial | | | | | | fibrillation ([facility]); | | | | | | Mild pulmonary | | | | | | hypertension ([facility]); | | | | | | Moderate [...] to refer you to Cardiac Rehab in [place] , as no room at the one in [place], but think we need to wait given your recent hospitalization Bring blood pressure cuff to our clinic or Dr. Andrade to check how close it is to our readi ngs. I have referred you to Dr. Duran at [place] sleep lab , call [phone] for an appoi ntment next week Since [...] p reviously seen by him in our [place] office. Her previous testing and procedures are detailed below. I saw her last for hospital follow up from [facility]( [facility]) on December 05 after non-STEMI [...] being admitted to the emergency room at [facility],and then hospitalized fr 01/16/2018-01/18/2018 for hypertension, [...] exe rcises Due to dyspnea, Lives in [place]. Lives Alone Outpatient Medications Prior to Visit [...] No results found for: METF, NMETFX, TFNMFX, [id number], MCWIUX45UZE, TOTEPI PROCEDURES/IMAGING Last Cardiac Cath:12/04/2017: ( NSTEMI) Three-vessel coronary artery disease with chronicall y occluded RCA, with cjdm-pl-agkhv collaterals. Patent stents in LCX ,severe disease of a s mall diagonal branch. DATA: Left Main: trifurcates , gives rise to LAD, ramus intermedius, and l eft circumflex arteries. left main coronary artery is free of disease. LAD. without sign ificant disease. 1st Dx: very tiny vessel. 2nd Dx branch : irknw-ql-lxlhnk size vessel at 1 .5 to 2 [...] HTN, RVSP 56-61 mm Hg EKG/EVENT MONITOR EK08/29/2017:([facility]) , Left ventricular hypertrophy, mild nonspecific ST and T -wave abnormalities. Rate 76 bpm, CT 140 ms, QRS 98 ms, QTC 452 ms, tracing personally revi ewed by ca EK12/03/2017:( [facility]) Sinus tachycardia with premature SVC, left ventricular hypertrophy, ST depression to anterolateral leads, T wave inversion to lateral leads. Prolonged QTC. R ate 103 bpm, CT 172 ms, QRS 102 ms, QTC 508 ms tracing personally reviewed by ca EK12/03/2017 ( [facility]) Sinus tachycardia, ST abnormalities to anterolateral leads, resolutio n of premature SVC,, resolution of prolonged QTC resolution of T-wave inversions to lateral leads. Rate 102 bpm, CT 148 ms, QRS 92 ms, QTC 461 ms tracing personally reviewed by ca EK12/09/2017:( [facility] ) Normal sinus rhythm, nonspecific T-wave abnormality to anterolateral leads, low voltage QRS. Rate 70 bpm, CT 146 ms, QRS 94 ms, QTC 474 ms, maryjane donnelly reviewed by me and compared to EKG performed on December 03, now in sinus rhythm instead of sin us tachycardia, and ST abnormalities less pronounced to anterolateral leads EK01/13/2018: ( [facility]) Normal sinus rhythm, nonspecific ST abnormality. [...] 24, GFR 30. Magnesium 2.3 Labs: 01/13/2018 ([facility]): CMP: Sodium 138, potassium 3.7, chloride [...] Her EKG and troponin's were negative at [facility], and I think some of her problems r esulted from the fact that I had stopped her amlodipine believing her to be on Cardizem, marci vallejo she had a prescription for after being discharged from [facility]. It turns out she was [...] of her medication bottles, including supplements and gahx-uav-dhdjigu m edications to the clinic today, and [...] on February 18, and will also see sales intern Dr. Santy ritter n February 10, and will be following up with PCP Dr. Andrade in 4 weeks, so we will be closely m onitored. I had hoped to refer her to the cardiac rehab program in [place], as currently 6 patien t waiting list for cardiac rehab in [place], but given her recent hospitalization and inst ability, I think this needs to be deferred I told her that Dr. Cochran can decide when he sees her back if she is a candidate for cardi ac rehab. She did feel much improved with CPAP when she was in the hospital, and I have referred he r to Dr. Duran at the [facility] sleep disorders clinic for further evaluation and treatm ent. 1. Atherosclerosis of navajo coronary artery of navajo heart, angina presence unspecified 2. S/P PTCA (percutaneous transluminal coronary angioplasty) 3. Status post insertion of drug eluting coronary artery stent 4. 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 History of CO (myocardial infarction) 6. Paroxysmal atrial fibrillation ([facility]) 7. Mild pulmonary hypertension ([facility]) 8. Moderate aortic valve stenosis 9. Acute on chronic diastolic heart failure ([facility]) 10. Hypertension goal BP (blood pressure) < 130/80 11. Mixed hyperlipidemia 12. Carotid stenosis, asymptomatic, bilateral 13. Chronic obstructive pulmonary disease, unspecified COPD type ([facility]) 14. PVD (peripheral vascular disease) ([facility]) 15. Rheumatoid arthritis, involving unspecified site, unspecified rheumatoid factor presenc e ([facility]) 16. Thyroid disease 17. Stage 3 chronic [...] past surgical history. Problem list. JHOAN Hernandez [facility] 01/24/2018in this encounter Plan of Treatment +--------+---------+ + + + | Date | Type | Specialty | Care Team | Description | +--------+---------+ + + + | 06/17/ | Office | Cardiology | Cristhian Cochran, | | | 2018 | Visit | | MD [address] | | | | | | [place] | | | | | | [place] [address] | | | | | | [phone] | | | | | | | | +--------+---------+ + + + + +--------+ + + | Name | Priori | Associated Diagnoses | Order Schedule | | | ty | | | + +--------+ + + | Ambulatory referral to | Routin | Atherosclerosis of | Ordered: 01/23/2018 | | Pulmonology | e | navajo coronary | | | | | artery of navajo | | | | | heart, angina [...] | | | | stent History of CO | | | | | (myocardial | [...] Diagnosis | + + | Atherosclerosis of navajo coronary artery of navajo heart, angina presence unspecified | | - Primary | + + | S/P PTCA (percutaneous transluminal coronary angioplasty) | + + | Postsurgical percutaneous transluminal coronary angioplasty status | + + | Status post insertion of drug eluting coronary artery stent | + + | History of CO (myocardial infarction) | + + | Old [...]
--- OUTSIDE RECORDS SUMMARY | ~2018-04-01 | XMS | Clinical Summary ---
Demographics + + + | Address | [address] | | | [place] [address] | + + + | Home Phone | | + + + | Preferred Language | Unknown | + + + | Marital Status | Unknown | + + + | Yazidi Affiliation | Unknown | + + + | Race | Unknown | + + + | Ethnic Group | Unknown | + + + Author + + + | Author | [facility] | | | and [place]omed[place] | + + + | Organization | [facility] | | | and [place] | + + + | Address | Unknown | + + + | Phone | Unavailable | + + + Care Team Providers + +------+ + | Care Naval Special Warfare Medic Name | Role | Phone | + [...]
[~2018-04-01 16:35] MED LIST changes: +BACTRIM DS TAB1 EACH PO; +HYDROXYZINE HCL50 MG PO; +PANTOPRAZOLE SO40 MG PO; +PREDNISONE5 MG PO; +SENNA-TIME S T1 EACH PO
--- OUTSIDE RECORDS SUMMARY | 2018-04-01 16:40 | XMS ---
PreManage Notification: YANDEL [place] Security Electronic Controls Repairer Supervisor Events No recent Security Events currently on file CRITERIA MET - Group Notification - 6 ED Visits in 6 Months [facility] 01/28/2018-Current VEERARosina PHONE: [phone] Jones Herrera MD Primary Care 09/18/2017 PHONE: Unknown DR. GABRIELA COOL Primary Care Current PHONE: [phone] Danielle Grider Primary Care Current PHONE: Unknown Other Current PHONE: Unknown Eva has no Care Guidelines for this patient. Care History Medical/Surgical 03/05/2018 [facility] HISTORY:\T\nbsp; CAD/ COPD/ HTN/ CHF/ HYPERCHOLESTROLEMIA/ RHEUMATOID ARTHRITIS/ HYPOTHYROID/ HIATAL HERNIA/ LOWER GIB/ TOBACCO USE/ VIT D DEFICIENCY 01/28/2018 [facility] - Patient is currently established with [facility]. If patient is seen in the ED during business hours. Please contact CHWs at [facility]. Care Recommendation: This patient has had 5 or more Emergency Department visits in the last 12 months.\T\nbsp; Patient requires education on the scope and purpose of the ED as an acute care provider not a Primary Care Provider and should not be utilized for chronic conditions.\T\nbsp; These are guidelines and the provider should exercise clinical judgment when providing care. E.D. VISIT COUNT (12 MO.) [facility]. TOTAL 12 NOTE: Visits indicate total known visits. ED/UCC VISIT TRACKING (12 MO.) 04/01/2018 16:35 [facility] [place] TYPE: Emergency COMPLAINT: - SOB 02/23/2018 18:39 [facility] [place] TYPE: Emergency COMPLAINT: - DIFFICULTY BREATHING 02/07/2018 12:09 [facility] [place] TYPE: Emergency COMPLAINT: - SOB DIAGNOSES: - Other chcf (current) drug therapy - Allergy status to other drugs, medicaments and biological substances status - Hypothyroidism, unspecified - Essential (primary) hypertension - Personal history of nicotine dependence - alf (current) use of aspirin - Chronic obstructive pulmonary disease with (acute) exacerbation - Shortness of breath - Gastro-esophageal reflux disease without esophagitis 01/27/2018 08:01 [facility] TYPE: Emergency COMPLAINT: - SOB,CHEST PAIN DIAGNOSES: - Allergy status to other drugs, medicaments and biological substances status - Essential (primary) hypertension - Other chest pain - alf (current) use of aspirin - Gastro-esophageal reflux disease without esophagitis - Other chcf (current) drug therapy - Hypothyroidism, unspecified - Chronic obstructive pulmonary disease with (acute) exacerbation - Personal history of nicotine dependence 01/13/2018 22:40 [facility] [place] TYPE: Emergency COMPLAINT: - SOB 12/03/2017 10:41 [facility] Kimberly Saez [place] TYPE: Emergency DIAGNOSES: - Chest pain, unspecified 12/03/2017 05:37 [facility] [place] TYPE: Emergency COMPLAINT: - SOB DIAGNOSES: - Personal history of nicotine dependence - Essential (primary) hypertension - Hypothyroidism, unspecified - Other regional intermodal truck driver (current) drug therapy - Shortness of breath - Allergy status to other drugs, medicaments and biological substances status - Dependence on supplemental oxygen - Chronic obstructive pulmonary disease, unspecified 07/31/2017 11:33 [facility] TYPE: Emergency DIAGNOSES: - Chest pain, unspecified - Pneumonia, unspecified organism - Non-ST elevation (NSTEMI) myocardial infarction - Other chest pain 07/31/2017 07:03 [facility] Carv[facility]al TYPE: Emergency COMPLAINT: - CHEST PAIN DIAGNOSES: - Acquired absence of other specified parts of digestive tract - Hypothyroidism, unspecified - Pneumonia, unspecified organism - Chronic obstructive pulmonary disease, unspecified - Acquired absence of left breast and nipple - Acquired absence of both cervix and uterus - Atherosclerotic heart disease of [place] coronary artery without angina pectoris - Precordial pain - Allergy status to other drugs, medicaments and biological substances status - Presence of coronary angioplasty implant and graft - Gastro-esophageal reflux disease without esophagitis - Other chcf (current) drug therapy - Essential (primary) hypertension - Personal history of nicotine dependence - Non-ST elevation (NSTEMI) myocardial infarction 07/20/2017 01:41 [facility] TYPE: Emergency COMPLAINT: - ATRIAL TACHYCARDIA 06/29/2017 22:12 [facility] [place] TYPE: Emergency COMPLAINT: - SOB 06/28/2017 08:30 [facility] [place] TYPE: Emergency COMPLAINT: - SOB DIAGNOSES: - Presence of coronary angioplasty implant and graft - Atherosclerotic heart disease of [place] coronary artery without angina pectoris - Acquired absence of both cervix and uterus - Other regional intermodal truck driver (current) drug therapy - Acquired absence of other specified parts of digestive tract - Shortness of breath - Gastro-esophageal reflux disease without esophagitis - Allergy status to other drugs, medicaments and biological substances status - Hypothyroidism, unspecified - Acquired absence of unspecified breast and nipple - Nicotine dependence, unspecified, uncomplicated - Essential (primary) hypertension - Chronic obstructive pulmonary disease with (acute) exacerbation INPATIENT VISIT TRACKING (12 MO.) 12/03/2017 10:41 [facility] TYPE: General Medicine DIAGNOSES: - Presence of coronary angioplasty implant and graft - Chest pain, unspecified - Shortness of breath - Non-ST elevation (NSTEMI) myocardial infarction - Personal history of other diseases of the circulatory system - Personal history of other diseases of the respiratory system 07/31/2017 11:33 [facility] TYPE: General Medicine DIAGNOSES: - Pneumonia, unspecified organism - Non-ST elevation (NSTEMI) myocardial infarction - Presence of coronary angioplasty implant and graft - Chest pain, unspecified - Other chest pain - Peripheral vascular disease, unspecified [email or web address]
[2018-04-01] MEDS ORDERED: FUROSEMIDE40 MG PO (18:31)
[2018-04-01] MEDS ORDERED: SPIRIVA18 MCG INH (18:41)
[2018-04-01] MEDS ORDERED: AMLODIPINE BESY10 MG PO (19:10)
--- NOTE | 2018-04-01 20:45 | NUR ---
REPORT WAS RECEIVED FROM CHARLY BENOIT. IN TO ASSESS PT. PT'S VSS ON 3LPNC. BLOOD TO BE ADMINISTERED. CALL LIGHT AND H20 IN REACH.
--- NOTE | 2018-04-01 20:56 | NUR ---
PT ADMITTED TO ROOM 113 FROM ED. UPON ARRIVAL, WAS ABLE TO SLIDE SELF OVER IN BED, WITH SOB. ON 3 L O2/NC. REQUESTED TO GET UP TO COMMODE ONCE SETTLED, ONE PERSON MIMINAL ASSIST TO BSC, LOUIE ACTIVITY FAIR, WITH INCREASE SOB. NEEDED TO SIT ON EDGE OF BED BEFORE GETTING INTO BED. HOB ELEVATED 45 DEGREES. CURRENTLY FIRST UNIT OF RBC INFUSING. TOLERATING WITHOUT S/S REACTIONS. CALL LIGHT WITHIN REACH. NO OTHER NEEDS.
--- NOTE | 2018-04-01 23:00 | NUR ---
PT HAS SECOND LITER OF PRBC'S INFUSING AT THIS TIME. PT DENIES HAVING ANY NEW SYMTPOMS. NO S/SX'S OF TRANSFUSION REACTION NOTED. CALL LIGHT AND H20 IN REACH AND PT AGREES TO NOTIFY RN IF SYMPTOMS DEVELOP. PT REMAINS ON 3LPNC WHICH SHE IS ON CHRONICALLY AND DENIES SOB OR PAIN.
--- NOTE | 2018-04-02 03:02 | NUR ---
pt reports anxiety states "I get this almost every night where i feel reqal anxious and can't sleep, it feels the same as it always does". Pt denies sob, pain or any other symptoms. prn 50mg vistaril administered po per po.
--- NOTE | 2018-04-02 07:05 | NUR ---
REPORT RC'D FROM ROUTE SPECIALIST NURSE RACHAEL. PT IN BED AND PARTICIPATING IN BEDSIDE REPORT. DENIES OTHER NEEDS AT THIS TIME. PT REPORTS WANTING TO DC TO [facility] TODAY. CALL LIGHT WITHIN REACH.
--- NOTE | 2018-04-02 07:51 | NUR ---
PT STATES SHE WAS UNABLE TO SLEEP MUCH LAST NIGHT JUST BECAUSE OF HOW MUCH WAS GOING ON. PT DOES STATES SHE FEELS MUCH BETTER AFTER RECEIVING 2 UNITS OF PRBC'S. PT REMAINS ON 3LPNC WHICH IS CHRONIC FOR HER. PT HAS 20GA IV TO R HAND WHICH IS SL'D. PT STATES SHE IS SCHEDULED TO BE DISCHARGED TO [facility] AND THAT HER SON HAS ARRANGED THIS SHE IS NO LONGER ABNLE TO CARE FOR HERSELF AT HER HOME WHERE SHE HAS LIVED ALONE. PT HAS VOIDED CLEAR YELLOW QS URINE.
--- NOTE | 2018-04-02 08:00 | NUR ---
NURSE AND STUDENT NURSE WITH PATIENT IN ROOM. PT SITTING IN BED EATING BREAKFAST. PT DOES NOT APPEAR IN ANY TYPE OF DISTRESS, CONVERSING WITH STAFF NORMALLY. SEE PT ASSESSMENT. PT DENIES PAIN. RN AND SN DISCUSSED GETTING TO CHAIR WITH PATIENT, WILL GET UP FOLLOWING BREAKFAST. CALL LIGHT WITHIN REACH, PT STATES SHE'LL CALL IF NEEDS ASSISTANCE
--- NOTE | 2018-04-02 08:30 | NUR ---
PT UP IN BED FINISHING BREATHING TREATMENT WITH RT. PT A&O X3, VERBALIZATIONS CLEAR, RESPONDS APPROPIRATLEZoë, PERRLA. RHYTH REGULAR, PRINT DEVELOPER LESS THAN 3 SECONDS UPPER/LOWER EXTREMITIES BILATERALLY, PULSES PALPABLE +2 IN UPPER/LOWER EXTREMITIES, NO EDEMA NOTED, SCD IN PLACE, DENIES N/T. RESPIRATION EVEN AND UNLABORED, BUL CLEAR TO AUSCULTION, BLL DIMINISHED, OCCASIONAL PRODUCTIVE COUGH WITH GREEN SPUTUM, CHRONIC 2L O2. ABD SOFT, MILD DISTENSION THAT PT STATES NORMAL FOR HER, BOWEL TONES ACTIVE X 4, LAST BM YESTERDAY, TOLERATING CRDIAC DIET, DENIES NAUSEA. VOIDING QS, SBA TO RESTROOM, DENIES LIGHTHEADEDNESS WHEN AMBULATING. MUSCULOSKELETAL WNL. INTEGUMENTARY WARM, DRY, AND INTACT. RIGHT WRIST IV SITE FLUSHED WITH 10ML NS, PATENT, WNL. DENEIS PAIN. PT [facility] DENIES OTHER NEEDS. CALL LIGHT WITHIN REACH.
--- NOTE | 2018-04-02 10:30 | NUR ---
PT UP IN CHAIR AFTER SHOWER. PT STATES SHE HAD INCREASED SOB WITH EXERTION THAT RESOLVED WITH REST. PT REQUESTING ADDITIONAL INFORMATION REGARDING HOME MEDS, PHARMACY NOTIFIED FOR F/U. DENIES OTHER NEEDS AT THIS TIME. CALL LIGHT WITHIN REACH. WILL CONTINUE TO MONITOR.
--- NOTE | 2018-04-02 10:30 | NUR ---
ONE OF THE NURSING STUDENTS GAVE PATIENT A SHOWER AND CHANGED BED LINENS.
--- NOTE | 2018-04-02 11:20 | NUR ---
0800: Pt eating breakfast indepedantly without difficulty. Pt does not appear to be in distress at this time. 0830: Meds given to Pt with applesauce, and able to take meds independantly without difficulty. 0930: UPon entering room Pt eyes closed, resp even and unlabored. Pt not disturbed at this time. 1015: Pt to restroom, ambulates with 1 person standby assist. Pt voids 200Ml yellow urine without difficulty. No cloudiness or ordor noted. POt showered with standby assist and returned to chair after shower. After returning to chair pt c/o of being SOB. O2 sat 95% on 3L NC. RN notified. 1040: Pt remains in chair, visiting with son. Pt denies SOB at this time,no distress noted. Call light in reach.
--- NOTE | 2018-04-02 11:40 | NUR ---
PT UP IN CHAIR VISITING WITH SON. DENIES SOB OR CHEST PRESSURE. PT STATES DR. COOL AND PHARMACY ADDRESSED ALL QUESTIONS REGARDING HOME MEDS. DENIES OTHER NEEDS.
--- NOTE | 2018-04-02 12:17 | EKG ---
[facility] [address] [facility] [place] [address] Signed Normal sinus rhythm Normal ECG When compared with ECG of 07-FEB-2018 12:56, No significant change was found Confirmed by ANA COOL MD ([id number]) on 04/02/2018 12:17:13 PM Electronically Signed By: ANA COOL MD 04/02/18 1217 PATIENT NAME: YANDEL CA Electrocardiogram DATE OF : 45 PHYSICIAN: ANA COOL MD REPORT #: [id number] REPORT IS CONFIDENTIAL AND NOT TO BE RELEASED WITHOUT AUTHORIZATION
--- NOTE | 2018-04-02 12:24 | NUR ---
PT RESTING COMFORTABLY IN BED SLEEPING, RESPIRATIONS EVEN AND UNLABORED. NO ACUTE DISTRESS NOTED. NO ACUTE CHANGES.
--- NOTE | 2018-04-02 13:30 | NUR ---
PT ASSISTED BACK TO BED FROM RESTROOM. DENIES LIGHTHEADNESS, DIZZINESS, OR SOB. WARM BLANKETS PROVIDED. EDUCATION PROVIDED ON MEDICATIONS USES AND POSSIBLE SIDE EFFECTS, ALL QUESTIONS ANSWERED, VERBALIZED UNDERSTANDING. PT REQUESTING TO REST. PT ASSESSED FOR POSITIONING, COMFORT, AND PAIN. DENIES OTHER NEEDS. CALL LIGHT WITHIN REACH.
--- NOTE | 2018-04-02 15:27 | NUR ---
PT RESTING COMFORTABLY IN BED WITH LIGHTS LOW. PT STATES SHE IS UNABLE TO SLEEP, BUT IS ATTEMPTING TO REST. DENIES SOB. PT STATES THAT SHE FELT LIGHTHEADED WHEN AMBULATING TO RESTROOM WITH ENERGY SYSTEMS ENGINEER, STATES RESOLVED WHEN RESTING. EDUCATION PROVIDED ON POSTIONING AND FALL PREVENTION, PT VERBALIZED UNDERSTANDING. DENIES OTHER NEEDS AT THIS TIME. CALL LIGHT WITHIN REACH.
--- NOTE | 2018-04-02 17:00 | NUR ---
PT UP IN BED BROWSING PHONE. NO ACUTE CHANGES. DENIES OTHER NEEDS. DINNER AT BEDSIDE. CALL LIGHT WITHIN REACH.
--- NOTE | 2018-04-02 18:33 | NUR ---
OVERALL PT HAD A GOOD DAY. SOB, DIZZINESS, AND LIGHTHEADEDNESS IMPROVED AFTER 2 UNITS PRBS ON 04/01. H&H IMPROVED AND NOTED TO BE 11.8 AND 36.7 ON LAST DRAW. PT TO URI AGUERO NEBGely. CHRONIC 3L O2. SBA TO RESTROOM. VOIDING QS. TOLERTAING CARDIAC DIET. POSSIBLE DC HOME TOMORROW.
--- NOTE | 2018-04-02 19:20 | NUR ---
REPORT RECEIVED FROM XCOHILT RN. PT RESTING ON LEFT LATERAL SIDE, RESPIRATIONS VISABLE. CALL LIGHT IN REACH. PT APPEARS TO BE SLEEPING COMFORTABLY.
--- NOTE | 2018-04-02 20:30 | NUR ---
PT RESTING SUPINE IN BED EATING ICE CREAM. PT ASSESSMENT COMPLETED. RT BUSY IN ER SO NEB TX INITIATED AND HS MEDS ADMINISTERED. PT DENIES HAVING ANY REQUESTS OR CONCERNS AT THIS TIME. CALL LIGHT AND H20 INR EACH.
--- NOTE | 2018-04-02 21:45 | NUR ---
pt reports anxiety, "i just can't get to sleep maybe if i take some vistaril and go for a walk". vistaril 50mg administered and october field sales consultant to be notified of pt's request to ambulate in halls. call light in reach and no further requests voiced.
--- NOTE | 2018-04-02 22:12 | NUR ---
PT WAS OFFERED TO GO ON WALK PER SCREWMAKER AUTOMATIC BUT PT STATES SHE IS TOO TIRED SO LIGHT DIMMED PER PT REQUEST.
--- NOTE | 2018-04-02 23:59 | NUR ---
pt resting supine in bed appears to be sleeping comfortably. call light and h20 in reach. respirations even and unlabored on 3lpnc.
--- NOTE | 2018-04-03 01:26 | NUR ---
PT RESTING ON RIGHT LATERAL SIDE, RESPIRATIONS UNLABORED ON 3LPNC. PT APPEARS TO BE SLEEPING COMFORTABLY CALL LIGHT AND H20 INREACH.
--- NOTE | 2018-04-03 02:43 | NUR ---
PT RESTING IN BED, EYES CLSOED ADN RESPIRATIONS EVENV AND UNLBAORED. PT ALERT TO VOICE AND ASSESSMENT COMPLETED. PT ASSSITED IN USING BSC. I/O'S CHARTED. CALL LIGHT AND FRESH ICE WATER IN REACH.
--- NOTE | 2018-04-03 03:56 | NUR ---
PT RESTING IN BED EYES CLOSED AND RESPIRATIONS EVEN AND UNLABORED ON 3LPNC. PT APPEARS TO BE SLEEPING COMFORTABLY. CALL LIGHT AND H20 IN REACH.
--- NOTE | 2018-04-03 05:08 | NUR ---
PT REMAINS A/O X4. DENIES PAIN OR SOB. PT REMAINS ON 3LPNC WITH SCHEDULED NEB TREATMENTS WHILE AWAKE. PT STATES SHE FEELS WELL OTHER THAN HAVING SOME DIFFICULTY FALLING ASLEEP. PT REQUESTED AND RECEIVED [place] FOR RREPORTED ANXIETY. PT ON CARDIAC DIET. LASIX BID. PT HAS HAD ADEQUATE CLEAR YELLOW URINE OUTPUT. PT VERBALIZES READINESS TO BE DISCHARGED HOME SO SHE CAN LATER CHECK HERSELF IN TO [facility].
--- NOTE | 2018-04-03 05:57 | NUR ---
VITALS DONE AND CHARTED. RACHAEL WAS IN CHARGE OF DOING THE I&OS PER HIS REQUEST. FRESH COFFEE GIVEN. BEDSIDE TABLE AND CALL LIGHT IN REACH.
--- NOTE | 2018-04-03 06:10 | NUR ---
IN TO SEE PATIENT. PT REPORTS HAVING SOME SOB AFTER CHANGING POSITIONS IN BED. RT NOTIFIED AND PT TO RECEIVE PRN NEB TREATMENT. PT CURRENTLY SATTING 94% ON 3LPNC. CALL LIGHT AND H20 IN REACH. PT SPEAKING FULL SENTANCES AND DENIES HAVING ANY FURTHER CONCERNS OR REQUESTS.
--- NOTE | 2018-04-03 06:43 | NUR ---
pt resting on right lateral side and states she no longer feels SOB. levothyroid adminsitered. call light in reach and no further requests or conerns voiced.
--- NOTE | 2018-04-03 08:21 | NUR ---
AWAKE IN GOOD SPIRITS, ASSISTED TO SIT UP FOR BREAKFAST. DENIES SOB AND DECLINED NEB TREATMENT AT THIS TIME, SCHEDULED MEDS TAKEN WITH APPLESAUCE. CALL LIGHT IN EASY REACH.
--- NOTE | 2018-04-03 08:35 | NUR ---
PATIENT RESTING IN BED. RN IN ROOM. PATIENT REFUSE SHOWER BECAUSE HAD SHOWER YESTERDAY. ICE WATER GIVEN. REFUSE ORAL CARE BECAUSE WANTS TO REST AND SLEEP. CALL LIGHT WITHIN REACH. NO OTHER NEEDS AT THIS TIME.
[2018-04-03] MEDS ORDERED: IPRATROPIU0.2 MG/1 M INH (09:42)
[2018-04-03] MEDS ORDERED: ALBUTEROL2.5 MG/3 M INH (09:43)
[2018-04-03] MEDS ORDERED: KLOR-CON 1010 MEQ PO (09:44)
[2018-04-03] MEDS ORDERED: FUROSEMIDE40 MG PO (09:46)
[2018-04-03] MEDS ORDERED: DALIRESP250 MCG PO (09:47)
[2018-04-03] MEDS ORDERED: PERFOROMIS20 MCG/2 M INH ×2 (09:48→10:45)
[2018-04-03] MEDS ORDERED: RANITIDINE HCL150 MG PO (09:49)
[2018-04-03] MEDS ORDERED: ONDANSETRON ODT8 MG PO (09:50)
[2018-04-03] MEDS ORDERED: BUDESONIDE0.5 MG/2 M INH (09:51)
--- NOTE | 2018-04-03 10:15 | NUR ---
DR COOL IN TO SEE PT.
--- NOTE | 2018-04-03 10:51 | NUR ---
PT DISCHARGED HOME AT THIS TIME. DISCHARGE INSTRUCTIONS AND FOLLOWUP APPT. REVIEWED WITH PT. DISCHARGED TO [facility] WITH SON TRANSPORTING.
== END 2018-04-03 10:50 | disposition home or self-care (01) ==
LOC: ED 16:35 → MS 16:36
PROVIDERS: ADMIT Internal Medicine
DX: I50.33 Acute on chronic diastolic (congestive) heart failure (principal); I08.3 Combined rheumatic disorders of mitral, aortic and tricuspid valves; D64.9 Anemia, unspecified; J44.9 Chronic obstructive pulmonary disease, unspecified; I10 Essential (primary) hypertension; J96.11 Chronic respiratory failure with hypoxia; M19.90 Unspecified osteoarthritis, unspecified site; E78.5 Hyperlipidemia, unspecified; F41.1 Generalized anxiety disorder; M06.9 Rheumatoid arthritis, unspecified; F51.04 Psychophysiologic insomnia; I25.10 Atherosclerotic heart disease of native coronary artery without angina pectoris; I25.2 Old myocardial infarction; E03.9 Hypothyroidism, unspecified; K21.9 Gastro-esophageal reflux disease without esophagitis; Z99.81 Dependence on supplemental oxygen; Z98.61 Coronary angioplasty status; Z87.891 Personal history of nicotine dependence; Z66 Do not resuscitate; Z88.8 Allergy status to other drugs, medicaments and biological substances; Z79.02 Long term (current) use of antithrombotics/antiplatelets; Z79.82 Long term (current) use of aspirin; Z79.51 Long term (current) use of inhaled steroids; Z79.899 Other long term (current) drug therapy
CPT/HCPCS: 36415; 36430; 71046; 80053; 82565; 82607; 82728; 82746; 83540; 83735; 83880; 84132; 84466; 84484; 84520; 85025; 86850; 86900; 86901; 86920; 93005; 93010; 94640; 96374; 96375; 99285; G0378; J2930; P9016